=== PATIENT | male | born 1950 | race Caucasian/White ===

== ENCOUNTER 2018-03-12 01:26 | Inpatient (IN) | payer MEDICARE ==
[~2018-03-12] VITALS: Ht 180.3 cm; Wt 97.5 kg
[~2018-03-12 01:26] MED LIST: IBUP-2343 PO
[2018-03-12 01:51] LABS: AMPHET/METH SCREEN,URINE NEGATIVE (NEGATIVE); BARBITURATE SCREEN, URINE NEGATIVE (NEGATIVE); BENZODIAZEPINES SCREEN,URINE NEGATIVE (NEGATIVE); CANNABINOID SCREEN,URINE NEGATIVE (NEGATIVE); COCAINE SCREEN,URINE NEGATIVE (NEGATIVE); METHADONE SCREEN, URINE NEGATIVE (NEGATIVE); OPIATE SCREEN,URINE POSITIVE (NEGATIVE)
[2018-03-12 01:52] LABS: PHENCYCLIDINE SCREEN,URINE NEGATIVE (NEGATIVE)
[2018-03-12 01:59] LABS: BASOPHILS % (AUTO) 0.6 % (0.0-2.0); EOSINOPHILS % (AUTO) 1.2 % (1.0-6.0); HEMATOCRIT 40.8 % (41-53); HEMOGLOBIN 14.2 g/dL (13.5-17.5); LYMPHOCYTES # (AUTO) 1.1 K/uL (1.0-4.8); LYMPHOCYTES % (AUTO) 30.5 % (22.0-44.0); MEAN CORPUSCULAR HGB CONC 34.9 G/dL (31.0-37.0); MEAN CORPUSCULAR VOLUME 92 fL (80-100); MONOCYTES # (AUTO) 0.4 K/uL (0.1-1.0); MONOCYTES % (AUTO) 9.7 % (2.0-9.0); NEUTROPHILS # (AUTO) 2.2 K/uL (1.8-7.7); PLATELET COUNT (AUTO) 165 K/uL (150-450); RED BLOOD CELL COUNT(AUTO) 4.45 MIL/uL (4.50-5.90); RED CELL DISTRIBUTION WIDTH 14.8 % (11.5-14.5)
[2018-03-12] MEDS ORDERED: DiphenhydrAMINE HCL 25 MG CAPSULE PO ONE (02:00)
[2018-03-12] MEDS ORDERED: QUEtiapine FUMARATE 100 MG TABLET PO ONE (02:00)
[2018-03-12] MEDS ORDERED: LORazepam 2 MG TABLET PO ONE (02:00)
[2018-03-12 02:07] LABS: ANION GAP 6 mmol/L (8-16); CALCIUM, TOTAL 8.7 mg/dL (8.8-10.5); CARBON DIOXIDE 31 mmol/L (22-29); CHLORIDE 102 mmol/L (98-107); CREATININE 0.87 mg/dL (0.60-1.30); GLOMERULAR FILTR. RATE CALC > 60 mL/min (>60); GLUCOSE,RANDOM 101 mg/dL (70-110); POTASSIUM 4.1 mmol/L (3.5-5.1); SODIUM SERUM 139 mmol/L (136-145); UREA NITROGEN, BLOOD 20 mg/dL (7-18)
[2018-03-12 02:12] LABS: ALANINE AMINOTRANSFERASE 77 U/L (12-78); ALBUMIN 3.9 g/dL (3.4-5.0); ALKALINE PHOSPHATASE 80 U/L (46-116); ASPARTATE AMINOTRANSFERASE 50 U/L (15-37); BILIRUBIN,TOTAL 0.7 mg/dL (0.1-1.0); TOTAL PROTEIN, SERUM 7.4 g/dL (6.4-8.2)
[2018-03-12] MEDS ORDERED: ZOLPIDEM TARTRATE 10 MG TABLET PO PRN (02:15)
[2018-03-12] MEDS ORDERED: KETOROLAC TROMETHAMINE 30 MG/ML VIAL IM ONE (02:15)
[2018-03-12 03:31] LABS: APPEARANCE,URINE CLEAR (CLEAR); BILIRUBIN,URINE NEGATIVE (NEGATIVE); GLUCOSE, URINE (UA) NEGATIVE (NEGATIVE); KETONES,URINE NEGATIVE (NEGATIVE); LEUKOCYTE ESTERASE ,URINE NEGATIVE (NEGATIVE); NITRATE,URINE NEGATIVE (NEGATIVE); OCCULT BLOOD,URINE NEGATIVE (NEGATIVE); PROTEIN,URINE NEGATIVE (NEGATIVE)
[2018-03-12 03:35] VITALS: BP 120/81
[2018-03-12] MEDS ORDERED: PNEUMOCOCCAL VACCINE POLYVALENT 0.5 ML VIAL [PPSV23] IM ONE (05:00)
[2018-03-12] MEDS ORDERED: ACETAMINOPHEN 325 MG TABLET PO PRN (06:45)
[2018-03-12] MEDS ORDERED: MAG HYDROX/AL HYDROX/SIMETH ES 30 ML SUSPENSION UDCUP PO PRN (06:45)
[2018-03-12] MEDS ORDERED: ALBUTEROL SULFATE HFA 90 MCG/PUFF 8 GM INHALER IH PRN (06:45)
[2018-03-12] MEDS ORDERED: PETROLATUM,WHITE 71 GM JELLY TP PRN (06:45)
[2018-03-12] MEDS ORDERED: OMEPRAZOLE 20 MG CAPSULE PO PRN (06:45)
[2018-03-12] MEDS ORDERED: LOPERAMIDE HCL 2 MG CAPSULE PO PRN (06:45)
[2018-03-12] MEDS ORDERED: DOCUSATE SODIUM 100 MG CAPSULE PO PRN (06:45)
[2018-03-12] MEDS ORDERED: CloNIDine HCL 0.1 MG TABLET PO PRN (06:45)
[2018-03-12] MEDS ORDERED: BACITRACIN 28.4 GM OINTMENT TP PRN (06:45)
[2018-03-12] MEDS ORDERED: MAGNESIUM HYDROXIDE SUSPENSION 30 ML UDCUP PO PRN (06:45)
[2018-03-12] MEDS ORDERED: BENZOCAINE/MENTHOL LOZENGE MM PRN (06:45)
[2018-03-12] MEDS ORDERED: ONDANSETRON HCL 4 MG TABLET PO PRN (06:45)
[2018-03-12 08:04] VITALS: BP 121/70
[2018-03-12 09:15] LABS: CHOL/HDL RATIO 4.6 (4.2-7.3); FREE T4 (FREE THYROXINE) 0.77 ng/dL (0.76-1.46); THYROID STIMULATING HORMONE 4.29 uIU/mL (0.36-3.74)
[2018-03-12 16:00] VITALS: BP 122/62
[2018-03-12] MEDS ORDERED: BENZOCAINE 10% 7 GM GEL TP PRN (17:30)
[2018-03-12 20:05] VITALS: BP 140/78
[2018-03-12] MEDS: LORazepam 2 MG TABLET PO PRN (20:10)
[2018-03-12] MEDS: TraMADol HCL 50 MG TABLET PO PRN (20:10)
[2018-03-12] MEDS: CHLORHEXIDINE GLUCONATE 0.12% 15 ML UDCUP ORAL RINSE PO SCH (20:58)
[2018-03-13 02:00] VITALS: BP 140/84
[2018-03-13] MEDS: TraMADol HCL 50 MG TABLET PO PRN ×3 (02:05→21:04)
[2018-03-13] MEDS: LORazepam 2 MG TABLET PO PRN (02:15)
[2018-03-13 08:07] VITALS: BP 125/83
[2018-03-13] MEDS: AMOXICILLIN TRIHYDRATE 250 MG CAPSULE PO SCH (08:12)
[2018-03-13] MEDS: CHLORHEXIDINE GLUCONATE 0.12% 15 ML UDCUP ORAL RINSE PO SCH ×4 (08:12→20:30)
[2018-03-13 14:53] VITALS: BP 123/76
[2018-03-13 16:14] VITALS: BP 129/80
[2018-03-13] MEDS: QUEtiapine FUMARATE 200 MG TABLET PO SCH (20:30)
[2018-03-13] MEDS: TraZODone HCL 50 MG TABLET PO SCH (20:30)
[2018-03-13 21:01] VITALS: BP 117/67
[2018-03-14 06:52] VITALS: BP 111/62
[2018-03-14] MEDS: QUEtiapine FUMARATE 100 MG TABLET PO SCH (08:14)
[2018-03-14] MEDS: AMOXICILLIN TRIHYDRATE 250 MG CAPSULE PO SCH (08:14)
[2018-03-14] MEDS: FLUoxetine HCL 20 MG CAPSULE PO SCH (08:14)
[2018-03-14] MEDS: CHLORHEXIDINE GLUCONATE 0.12% 15 ML UDCUP ORAL RINSE PO SCH ×4 (08:15→20:07)
[2018-03-14 08:18] VITALS: BP 115/79
[2018-03-14] MEDS ORDERED: TRAZ-219 PO (13:02)
[2018-03-14] MEDS ORDERED: QUET200T PO (13:02)
[2018-03-14] MEDS ORDERED: FLUO-191 PO (13:03)
[2018-03-14] MEDS ORDERED: QUET100T PO (13:03)
[2018-03-14 16:21] VITALS: BP 156/96
[2018-03-14] MEDS: HALOPERIDOL 5 MG TABLET PO PRN (16:27)
[2018-03-14] MEDS: TraZODone HCL 50 MG TABLET PO SCH (20:07)
[2018-03-14] MEDS: QUEtiapine FUMARATE 200 MG TABLET PO SCH (20:07)
[2018-03-14 20:09] VITALS: BP 128/82
[2018-03-14] MEDS: IBUPROFEN 600 MG TABLET PO PRN (20:09)
[2018-03-15 06:01] VITALS: BP 132/80
[2018-03-15 06:02] VITALS: BP 126/80
[2018-03-15] MEDS: IBUPROFEN 600 MG TABLET PO PRN ×2 (06:24→14:09)
[2018-03-15 08:20] VITALS: BP 116/69
[2018-03-15] MEDS: FLUoxetine HCL 20 MG CAPSULE PO SCH (08:25)
[2018-03-15] MEDS: CHLORHEXIDINE GLUCONATE 0.12% 15 ML UDCUP ORAL RINSE PO SCH ×4 (08:25→20:32)
[2018-03-15] MEDS: AMOXICILLIN TRIHYDRATE 250 MG CAPSULE PO SCH (08:25)
[2018-03-15] MEDS: QUEtiapine FUMARATE 100 MG TABLET PO SCH (08:25)
[2018-03-15 14:09] VITALS: BP 124/72
[2018-03-15] MEDS: HALOPERIDOL 5 MG TABLET PO PRN (14:40)
[2018-03-15 16:51] VITALS: BP 128/75
[2018-03-15] MEDS: TraZODone HCL 50 MG TABLET PO SCH (20:32)
[2018-03-15] MEDS: QUEtiapine FUMARATE 200 MG TABLET PO SCH (20:32)
[2018-03-16 05:11] VITALS: BP 132/79
[2018-03-16] MEDS: IBUPROFEN 600 MG TABLET PO PRN ×2 (06:27→13:49)
[2018-03-16 08:06] VITALS: BP 117/63
[2018-03-16] MEDS: QUEtiapine FUMARATE 100 MG TABLET PO SCH (08:28)
[2018-03-16] MEDS: AMOXICILLIN TRIHYDRATE 250 MG CAPSULE PO SCH (08:28)
[2018-03-16] MEDS: CHLORHEXIDINE GLUCONATE 0.12% 15 ML UDCUP ORAL RINSE PO SCH ×4 (08:28→20:32)
[2018-03-16] MEDS: FLUoxetine HCL 20 MG CAPSULE PO SCH (08:28)
[2018-03-16 13:49] VITALS: BP 124/84
[2018-03-16 16:04] VITALS: BP 129/77
[2018-03-16] MEDS: TraZODone HCL 50 MG TABLET PO SCH (20:32)
[2018-03-16] MEDS: QUEtiapine FUMARATE 200 MG TABLET PO SCH (20:32)
[2018-03-17 04:26] VITALS: BP 121/68
[2018-03-17] MEDS: HALOPERIDOL 5 MG TABLET PO PRN (04:27)
[2018-03-17] MEDS: IBUPROFEN 600 MG TABLET PO PRN ×2 (04:27→15:59)
[2018-03-17 08:09] VITALS: BP 131/74
[2018-03-17] MEDS: QUEtiapine FUMARATE 100 MG TABLET PO SCH (08:21)
[2018-03-17] MEDS: FLUoxetine HCL 20 MG CAPSULE PO SCH (08:21)
[2018-03-17] MEDS: CHLORHEXIDINE GLUCONATE 0.12% 15 ML UDCUP ORAL RINSE PO SCH ×4 (08:22→20:34)
[2018-03-17 16:00] VITALS: BP_SYST 131; BP_SYST 144; BP_DIAS 67; BP_DIAS 83
[2018-03-17] MEDS: QUEtiapine FUMARATE 300 MG TABLET PO SCH (20:34)
[2018-03-17] MEDS: TraZODone HCL 50 MG TABLET PO SCH (20:34)
[2018-03-18 03:48] VITALS: BP 126/80
[2018-03-18] MEDS: IBUPROFEN 600 MG TABLET PO PRN ×3 (04:17→21:13)
[2018-03-18 08:05] VITALS: BP 140/79
[2018-03-18] MEDS: FLUoxetine HCL 20 MG CAPSULE PO SCH (08:14)
[2018-03-18] MEDS: QUEtiapine FUMARATE 100 MG TABLET PO SCH (08:14)
[2018-03-18] MEDS: CHLORHEXIDINE GLUCONATE 0.12% 15 ML UDCUP ORAL RINSE PO SCH ×4 (08:15→20:27)
[2018-03-18 16:10] VITALS: BP 156/85
[2018-03-18] MEDS: QUEtiapine FUMARATE 300 MG TABLET PO SCH (20:27)
[2018-03-18] MEDS: TraZODone HCL 50 MG TABLET PO SCH (20:27)
[2018-03-18 21:14] VITALS: BP 124/76
[2018-03-18] MEDS ORDERED: LISINOPRIL 10 MG TABLET PO ONE (21:15)
[2018-03-19 05:07] VITALS: BP 121/68
[2018-03-19 08:12] VITALS: BP 112/52
[2018-03-19 08:27] VITALS: BP 128/69
[2018-03-19] MEDS: FLUoxetine HCL 20 MG CAPSULE PO SCH (08:27)
[2018-03-19] MEDS: LISINOPRIL 10 MG TABLET PO SCH (08:27)
[2018-03-19] MEDS: QUEtiapine FUMARATE 100 MG TABLET PO SCH (08:27)
[2018-03-19] MEDS: CHLORHEXIDINE GLUCONATE 0.12% 15 ML UDCUP ORAL RINSE PO SCH ×4 (08:28→20:32)
[2018-03-19 12:09] VITALS: BP 122/72
[2018-03-19] MEDS: IBUPROFEN 600 MG TABLET PO PRN (12:09)
[2018-03-19 16:08] VITALS: BP 124/74
[2018-03-19] MEDS: QUEtiapine FUMARATE 300 MG TABLET PO SCH (20:33)
[2018-03-19] MEDS: TraZODone HCL 50 MG TABLET PO SCH (20:33)
[2018-03-20 04:50] VITALS: BP 136/77
[2018-03-20] MEDS: IBUPROFEN 600 MG TABLET PO PRN (04:55)
[2018-03-20 08:25] VITALS: BP 106/69
[2018-03-20 09:10] VITALS: BP 136/84
[2018-03-20] MEDS: FLUoxetine HCL 20 MG CAPSULE PO SCH (09:13)
[2018-03-20] MEDS: QUEtiapine FUMARATE 100 MG TABLET PO SCH (09:13)
[2018-03-20] MEDS: LISINOPRIL 10 MG TABLET PO SCH (09:13)
[2018-03-20] MEDS: CHLORHEXIDINE GLUCONATE 0.12% 15 ML UDCUP ORAL RINSE PO SCH ×4 (09:14→20:36)
[2018-03-20 16:00] VITALS: BP 118/75
[2018-03-20] MEDS: TraZODone HCL 50 MG TABLET PO SCH (20:36)
[2018-03-20] MEDS: QUEtiapine FUMARATE 300 MG TABLET PO SCH (20:36)
[2018-03-21 00:25] VITALS: BP 124/79
[2018-03-21 05:58] VITALS: BP 111/71
[2018-03-21] MEDS: IBUPROFEN 600 MG TABLET PO PRN (06:00)
[2018-03-21 08:08] LABS: HEMATOCRIT 41.4 % (41-53); HEMOGLOBIN 14.4 g/dL (13.5-17.5); MEAN CORPUSCULAR HEMOGLOBIN 31.5 pg (26.0-34.0); MEAN CORPUSCULAR HGB CONC 34.9 G/dL (31.0-37.0); MEAN CORPUSCULAR VOLUME 90 fL (80-100); PLATELET COUNT (AUTO) 131 K/uL (150-450); RED BLOOD CELL COUNT(AUTO) 4.58 MIL/uL (4.50-5.90); RED CELL DISTRIBUTION WIDTH 14.4 % (11.5-14.5)
[2018-03-21 08:20] VITALS: BP 132/81
[2018-03-21 08:43] LABS: ANION GAP 7 mmol/L (8-16); CALCIUM, TOTAL 8.1 mg/dL (8.8-10.5); CARBON DIOXIDE 29 mmol/L (22-29); CHLORIDE 102 mmol/L (98-107); CREATININE 0.85 mg/dL (0.60-1.30); GLOMERULAR FILTR. RATE CALC > 60 mL/min (>60); GLUCOSE,RANDOM 97 mg/dL (70-110); SODIUM SERUM 138 mmol/L (136-145); UREA NITROGEN, BLOOD 12 mg/dL (7-18)
[2018-03-21 09:33] LABS: BAND NEUTROPHILS % (MANUAL) 2 % (0-5); LYMPHOCYTES % (MANUAL) 31 % (22-44); MONOCYTES % (MANUAL) 8 % (2-9); SEGMENTED NEUTROPHILS % 59 % (40-70)
[2018-03-21] MEDS: QUEtiapine FUMARATE 100 MG TABLET PO SCH (09:43)
[2018-03-21] MEDS: FLUoxetine HCL 20 MG CAPSULE PO SCH (09:43)
[2018-03-21] MEDS: LISINOPRIL 10 MG TABLET PO SCH (09:44)
[2018-03-21] MEDS: CHLORHEXIDINE GLUCONATE 0.12% 15 ML UDCUP ORAL RINSE PO SCH ×4 (09:44→20:43)
[2018-03-21 16:13] VITALS: BP 117/64
[2018-03-21] MEDS: QUEtiapine FUMARATE 200 MG TABLET PO SCH (20:43)
[2018-03-21] MEDS: TraZODone HCL 50 MG TABLET PO SCH (20:43)
[2018-03-22 00:40] VITALS: BP 126/88
[2018-03-22] MEDS: IBUPROFEN 600 MG TABLET PO PRN (06:41)
[2018-03-22] MEDS: LISINOPRIL 10 MG TABLET PO SCH (08:38)
[2018-03-22] MEDS: FLUoxetine HCL 20 MG CAPSULE PO SCH (08:38)
[2018-03-22] MEDS: QUEtiapine FUMARATE 100 MG TABLET PO SCH (08:38)
[2018-03-22] MEDS: CHLORHEXIDINE GLUCONATE 0.12% 15 ML UDCUP ORAL RINSE PO SCH ×4 (08:39→20:12)
[2018-03-22 09:09] VITALS: BP 126/70
[2018-03-22 16:13] VITALS: BP 119/67
[2018-03-22] MEDS: TraZODone HCL 50 MG TABLET PO SCH (20:12)
[2018-03-22] MEDS: QUEtiapine FUMARATE 200 MG TABLET PO SCH (20:12)
[2018-03-23 05:17] VITALS: BP 121/70
[2018-03-23] MEDS: LISINOPRIL 10 MG TABLET PO SCH (08:23)
[2018-03-23] MEDS: FLUoxetine HCL 20 MG CAPSULE PO SCH (08:23)
[2018-03-23] MEDS: QUEtiapine FUMARATE 100 MG TABLET PO SCH (08:23)
[2018-03-23] MEDS: CHLORHEXIDINE GLUCONATE 0.12% 15 ML UDCUP ORAL RINSE PO SCH (08:24)
[2018-03-23 08:31] VITALS: BP 140/84
[2018-03-23] MEDS ORDERED: QUET50TA PO (09:28)
[2018-03-23] MEDS ORDERED: FLUO20CA30 PO (09:32)
[2018-03-23] MEDS ORDERED: TRAZ-219 PO (09:33)
[2018-03-23] MEDS ORDERED: QUET200T PO (09:33)
[2018-03-23] MEDS ORDERED: LISI-661 PO (09:34)
== END 2018-03-23 09:50 | disposition home or self-care (01) | DRG 885 ==
LOC: EMS 01:27 → B2X 02:30
PROVIDERS: ADMIT Psychiatry & Neurology Psychiatry; ATTEND Psychiatry & Neurology Psychiatry
DX: F25.1 Schizoaffective disorder, depressive type (principal); R45.851 Suicidal ideations; D64.9 Anemia, unspecified; F32.9 Major depressive disorder, single episode, unspecified; I10 Essential (primary) hypertension; K02.9 Dental caries, unspecified; K74.60 Unspecified cirrhosis of liver; Z76.5 Malingerer [conscious simulation]; Z87.820 Personal history of traumatic brain injury; K08.89 Other specified disorders of teeth and supporting structures; Z28.21 Immunization not carried out because of patient refusal; Z88.6 Allergy status to analgesic agent
CPT/HCPCS: 84439; 84443; 85007; 90686; 90732; 96372; G0480; J1885

== ENCOUNTER 2018-04-06 03:19 | Inpatient (IN) | payer MEDICARE ==
[~2018-04-06] VITALS: Ht 180.3 cm; Wt 101.1 kg
[~2018-04-06 03:19] MED LIST changes: +FLUO-191 PO; -IBUP-2343 PO; +LISI-661 PO; +QUET200T PO; +QUET50TA PO; +TRAZ-219 PO
[2018-04-06 05:03] LABS: AMPHET/METH SCREEN,URINE POSITIVE (NEGATIVE); BARBITURATE SCREEN, URINE NEGATIVE (NEGATIVE); BENZODIAZEPINES SCREEN,URINE NEGATIVE (NEGATIVE); CANNABINOID SCREEN,URINE NEGATIVE (NEGATIVE); COCAINE SCREEN,URINE NEGATIVE (NEGATIVE); METHADONE SCREEN, URINE NEGATIVE (NEGATIVE); OPIATE SCREEN,URINE POSITIVE (NEGATIVE)
[2018-04-06 05:04] LABS: BASOPHILS % (AUTO) 0.3 % (0.0-2.0); EOSINOPHILS % (AUTO) 0.2 % (1.0-6.0); HEMATOCRIT 41.2 % (41-53); HEMOGLOBIN 14.5 g/dL (13.5-17.5); LYMPHOCYTES # (AUTO) 1.2 K/uL (1.0-4.8); LYMPHOCYTES % (AUTO) 20.3 % (22.0-44.0); MEAN CORPUSCULAR HEMOGLOBIN 31.9 pg (26.0-34.0); MEAN CORPUSCULAR HGB CONC 35.2 G/dL (31.0-37.0); MEAN CORPUSCULAR VOLUME 91 fL (80-100); MONOCYTES # (AUTO) 0.5 K/uL (0.1-1.0); MONOCYTES % (AUTO) 7.6 % (2.0-9.0); NEUTROPHILS # (AUTO) 4.4 K/uL (1.8-7.7); NEUTROPHILS % (AUTO) 71.6 % (40.0-70.0); PLATELET COUNT (AUTO) 166 K/uL (150-450); RED BLOOD CELL COUNT(AUTO) 4.55 MIL/uL (4.50-5.90)
[2018-04-06 05:05] LABS: PHENCYCLIDINE SCREEN,URINE NEGATIVE (NEGATIVE)
[2018-04-06 05:07] LABS: ANION GAP 9 mmol/L (8-16); CALCIUM, TOTAL 8.9 mg/dL (8.8-10.5); CARBON DIOXIDE 28 mmol/L (22-29); CHLORIDE 103 mmol/L (98-107); GLOMERULAR FILTR. RATE CALC > 60 mL/min (>60); GLUCOSE,RANDOM 112 mg/dL (70-110); POTASSIUM 4.3 mmol/L (3.5-5.1); SODIUM SERUM 140 mmol/L (136-145); UREA NITROGEN, BLOOD 23 mg/dL (7-18)
[2018-04-06 05:12] LABS: ALANINE AMINOTRANSFERASE 74 U/L (12-78); ALBUMIN 4.2 g/dL (3.4-5.0); ALKALINE PHOSPHATASE 86 U/L (46-116); ASPARTATE AMINOTRANSFERASE 55 U/L (15-37); BILIRUBIN,TOTAL 1.2 mg/dL (0.1-1.0); TOTAL PROTEIN, SERUM 7.9 g/dL (6.4-8.2)
[2018-04-06] MEDS ORDERED: LORazepam 2 MG TABLET PO PRN (09:00)
[2018-04-06] MEDS ORDERED: ZOLPIDEM TARTRATE 10 MG TABLET PO PRN (09:00)
[2018-04-06] MEDS ORDERED: HALOPERIDOL 5 MG TABLET PO PRN (09:00)
[2018-04-06 09:45] VITALS: BP 142/86
[2018-04-06] MEDS ORDERED: LOPERAMIDE HCL 2 MG CAPSULE PO PRN (11:30)
[2018-04-06] MEDS ORDERED: ACETAMINOPHEN 325 MG TABLET PO PRN (11:30)
[2018-04-06] MEDS ORDERED: IBUPROFEN 600 MG TABLET PO PRN (11:30)
[2018-04-06] MEDS ORDERED: MAG HYDROX/AL HYDROX/SIMETH ES 30 ML SUSPENSION UDCUP PO PRN (11:30)
[2018-04-06] MEDS ORDERED: MAGNESIUM HYDROXIDE SUSPENSION 30 ML UDCUP PO PRN (11:30)
[2018-04-06] MEDS ORDERED: CloNIDine HCL 0.1 MG TABLET PO PRN (11:30)
[2018-04-06] MEDS ORDERED: BENZOCAINE/MENTHOL LOZENGE MM PRN (11:30)
[2018-04-06] MEDS ORDERED: BACITRACIN 28.4 GM OINTMENT TP PRN (11:30)
[2018-04-06] MEDS ORDERED: PETROLATUM,WHITE 71 GM JELLY TP PRN (11:30)
[2018-04-06] MEDS ORDERED: ONDANSETRON HCL 4 MG TABLET PO PRN (11:30)
[2018-04-06] MEDS ORDERED: ALBUTEROL SULFATE HFA 90 MCG/PUFF 8 GM INHALER IH PRN (11:30)
[2018-04-06 11:45] VITALS: BP 119/80
[2018-04-06] MEDS: LISINOPRIL 10 MG TABLET PO SCH (12:07)
[2018-04-06 17:10] VITALS: BP 118/65
[2018-04-07 00:08] VITALS: BP 144/87
[2018-04-07] MEDS: LISINOPRIL 10 MG TABLET PO SCH (08:35)
[2018-04-07] MEDS ORDERED: OMEPRAZOLE 20 MG CAPSULE PO SCH (09:00)
[2018-04-07] MEDS ORDERED: DOCUSATE SODIUM 100 MG CAPSULE PO SCH (09:00)
[2018-04-07] MEDS ORDERED: DSS100 PO (11:02)
[2018-04-07] MEDS ORDERED: OMEP20 PO (11:02)
== END 2018-04-07 13:00 | disposition home or self-care (01) | DRG 885 ==
LOC: EMS 03:20 → AHU 09:43 → 3EX 16:20
PROVIDERS: ADMIT Psychiatry & Neurology Psychiatry; ATTEND Psychiatry & Neurology Psychiatry
DX: F25.9 Schizoaffective disorder, unspecified (principal); R45.851 Suicidal ideations; F32.9 Major depressive disorder, single episode, unspecified; D64.9 Anemia, unspecified; I10 Essential (primary) hypertension; K74.60 Unspecified cirrhosis of liver; M19.90 Unspecified osteoarthritis, unspecified site; Z76.5 Malingerer [conscious simulation]; Z87.820 Personal history of traumatic brain injury; Z79.899 Other long term (current) drug therapy
CPT/HCPCS: 87081; G0378; G0480

== ENCOUNTER 2018-05-08 13:37 | Inpatient (IN) | payer MEDICARE ==
[~2018-05-08] VITALS: Ht 180.3 cm; Wt 100.0 kg
[~2018-05-08 13:37] MED LIST changes: +DSS100 PO; -FLUO-191 PO; +OMEP20 PO; -QUET200T PO; -QUET50TA PO; -TRAZ-219 PO
[2018-05-08 15:41] LABS: BASOPHILS % (AUTO) 0.4 % (0.0-2.0); EOSINOPHILS % (AUTO) 0.9 % (1.0-6.0); HEMOGLOBIN 13.1 g/dL (13.5-17.5); LYMPHOCYTES # (AUTO) 1.1 K/uL (1.0-4.8); LYMPHOCYTES % (AUTO) 23.5 % (22.0-44.0); MEAN CORPUSCULAR HEMOGLOBIN 31.5 pg (26.0-34.0); MEAN CORPUSCULAR HGB CONC 34.5 G/dL (31.0-37.0); MEAN CORPUSCULAR VOLUME 91 fL (80-100); MONOCYTES # (AUTO) 0.4 K/uL (0.1-1.0); MONOCYTES % (AUTO) 8.5 % (2.0-9.0); NEUTROPHILS # (AUTO) 3.1 K/uL (1.8-7.7); NEUTROPHILS % (AUTO) 66.7 % (40.0-70.0); PLATELET COUNT (AUTO) 194 K/uL (150-450); RED BLOOD CELL COUNT(AUTO) 4.16 MIL/uL (4.50-5.90); RED CELL DISTRIBUTION WIDTH 14.4 % (11.5-14.5)
[2018-05-08 15:53] LABS: ANION GAP 8 mmol/L (8-16); CALCIUM, TOTAL 8.8 mg/dL (8.8-10.5); CARBON DIOXIDE 28 mmol/L (22-29); CHLORIDE 106 mmol/L (98-107); CREATININE 0.83 mg/dL (0.60-1.30); GLOMERULAR FILTR. RATE CALC > 60 mL/min (>60); GLUCOSE,RANDOM 107 mg/dL (70-110); POTASSIUM 3.8 mmol/L (3.5-5.1); SODIUM SERUM 142 mmol/L (136-145); UREA NITROGEN, BLOOD 23 mg/dL (7-18)
[2018-05-08 15:59] LABS: ALANINE AMINOTRANSFERASE 97 U/L (12-78); ALBUMIN 3.7 g/dL (3.4-5.0); ALKALINE PHOSPHATASE 76 U/L (46-116); ASPARTATE AMINOTRANSFERASE 90 U/L (15-37); BILIRUBIN,TOTAL 0.5 mg/dL (0.1-1.0); TOTAL PROTEIN, SERUM 7.4 g/dL (6.4-8.2)
[2018-05-08] MEDS ORDERED: ACETAMINOPHEN/CODEINE 300-30 MG TABLET PO ONE (16:45)
[2018-05-08] MEDS ORDERED: ACETAMINOPHEN 325 MG TABLET PO PRN (23:15)
[2018-05-08] MEDS ORDERED: 0.9% SODIUM CHLORIDE 10 ML SYRINGE IVP PRN (23:15)
[2018-05-08] MEDS ORDERED: ONDANSETRON HCL 4 MG/2 ML VIAL IVP PRN (23:15)
[2018-05-08] MEDS ORDERED: HALOPERIDOL 5 MG TABLET PO PRN (23:15)
[2018-05-08] MEDS ORDERED: ZOLPIDEM TARTRATE 10 MG TABLET PO PRN (23:15)
[2018-05-08] MEDS ORDERED: LORazepam 2 MG TABLET PO PRN (23:15)
[2018-05-09 01:42] VITALS: BP 131/79
[2018-05-09] MEDS ORDERED: IBUPROFEN 800 MG TABLET PO PRN (08:00)
[2018-05-09 08:08] VITALS: BP 133/62
[2018-05-09 08:29] LABS: CHOL/HDL RATIO 5.3 (4.2-7.3)
[2018-05-09] MEDS ORDERED: BENZOCAINE/MENTHOL LOZENGE MM PRN (09:30)
[2018-05-09] MEDS ORDERED: ONDANSETRON HCL 4 MG TABLET PO PRN (09:30)
[2018-05-09] MEDS ORDERED: MAG HYDROX/AL HYDROX/SIMETH ES 30 ML SUSPENSION UDCUP PO PRN (09:30)
[2018-05-09] MEDS ORDERED: BACITRACIN 28.4 GM OINTMENT TP PRN (09:30)
[2018-05-09] MEDS ORDERED: PETROLATUM,WHITE 71 GM JELLY TP PRN (09:30)
[2018-05-09] MEDS ORDERED: ACETAMINOPHEN 325 MG TABLET PO PRN (09:30)
[2018-05-09] MEDS ORDERED: BENZOCAINE 10% 7 GM GEL TP PRN (09:30)
[2018-05-09] MEDS ORDERED: MAGNESIUM HYDROXIDE SUSPENSION 30 ML UDCUP PO PRN (09:30)
[2018-05-09] MEDS ORDERED: CloNIDine HCL 0.1 MG TABLET PO PRN (09:30)
[2018-05-09] MEDS ORDERED: LOPERAMIDE HCL 2 MG CAPSULE PO PRN (09:30)
[2018-05-09] MEDS ORDERED: ALBUTEROL SULFATE HFA 90 MCG/PUFF 8 GM INHALER IH PRN (09:30)
[2018-05-09] MEDS ORDERED: LEVO25TA9 PO (14:24)
[2018-05-09 16:22] VITALS: BP 122/68
[2018-05-10 06:05] VITALS: BP 125/75
[2018-05-10] MEDS ORDERED: LEVOTHYROXINE SODIUM 25 MCG TABLET PO SCH (06:30)
[2018-05-10 08:00] VITALS: BP 141/85
[2018-05-10] MEDS ORDERED: LISINOPRIL 10 MG TABLET PO SCH (09:00)
[2018-05-11] MEDS ORDERED: RISP.5 PO (13:17)
[2018-05-11] MEDS ORDERED: QUET25TA PO (13:17)
[2018-05-11] MEDS ORDERED: TRAZ-219 PO (13:17)
== END 2018-05-10 11:30 | disposition home or self-care (01) | DRG 885 ==
LOC: EMS 13:39 → B3A 23:00
PROVIDERS: ADMIT Psychiatry & Neurology Psychiatry; ATTEND Psychiatry & Neurology Psychiatry
DX: F25.9 Schizoaffective disorder, unspecified (principal); B19.20 Unspecified viral hepatitis C without hepatic coma; R45.851 Suicidal ideations; E03.9 Hypothyroidism, unspecified; F15.10 Other stimulant abuse, uncomplicated; F32.9 Major depressive disorder, single episode, unspecified; F41.9 Anxiety disorder, unspecified; G47.00 Insomnia, unspecified; G89.29 Other chronic pain; I10 Essential (primary) hypertension; K21.9 Gastro-esophageal reflux disease without esophagitis; K59.00 Constipation, unspecified; K74.60 Unspecified cirrhosis of liver; M17.10 Unilateral primary osteoarthritis, unspecified knee; G43.909 Migraine, unspecified, not intractable, without status migrainosus; M19.90 Unspecified osteoarthritis, unspecified site; M25.561 Pain in right knee; M25.562 Pain in left knee; Z59.0 Homelessness; Z87.820 Personal history of traumatic brain injury; Z79.899 Other long term (current) drug therapy; Z79.890 Hormone replacement therapy
CPT/HCPCS: 84443; G0480

== ENCOUNTER 2018-05-11 12:16 | Emergency (ER) | payer MEDICARE ==
[~2018-05-11] VITALS: Ht 180.3 cm; Wt 95.5 kg
[~2018-05-11 12:16] MED LIST changes: -DSS100 PO; +LEVO25TA9 PO; -OMEP20 PO
[2018-05-11] MEDS ORDERED: RISP.5 PO (13:17)
[2018-05-11] MEDS ORDERED: QUET25TA PO (13:17)
[2018-05-11] MEDS ORDERED: TRAZ-219 PO (13:17)
[2018-05-11] MEDS ORDERED: ACETAMINOPHEN 325 MG TABLET PO ONE (15:30)
[2018-05-11 16:15] VITALS: BP 137/72
[2018-05-11] MEDS ORDERED: CODEINE SULFATE 30 MG TABLET PO ONE (16:45)
== END 2018-05-11 17:45 | disposition home or self-care (01) ==
LOC: EMS 12:16
DX: S80.211A Abrasion, right knee, initial encounter (principal); R51 Headache; M25.531 Pain in right wrist; G43.909 Migraine, unspecified, not intractable, without status migrainosus; F20.9 Schizophrenia, unspecified; F32.9 Major depressive disorder, single episode, unspecified; M19.90 Unspecified osteoarthritis, unspecified site; Z79.899 Other long term (current) drug therapy; Y04.2XXA Assault by strike against or bumped into by another person, initial encounter; Y93.89 Activity, other specified; Y92.89 Other specified places as the place of occurrence of the external cause; Y99.8 Other external cause status
CPT/HCPCS: 70450

== ENCOUNTER 2018-05-12 16:08 | Inpatient (IN) | payer MEDICARE ==
[~2018-05-12] VITALS: Ht 180.3 cm; Wt 108.4 kg
[~2018-05-12 16:08] MED LIST changes: +QUET25TA PO; +RISP.5 PO; +TRAZ-219 PO
[2018-05-12 17:08] LABS: ANION GAP 10 mmol/L (8-16); CALCIUM, TOTAL 8.7 mg/dL (8.8-10.5); CARBON DIOXIDE 28 mmol/L (22-29); CHLORIDE 100 mmol/L (98-107); CREATININE 0.86 mg/dL (0.60-1.30); GLOMERULAR FILTR. RATE CALC > 60 mL/min (>60); GLUCOSE,RANDOM 95 mg/dL (70-110); SODIUM SERUM 138 mmol/L (136-145); UREA NITROGEN, BLOOD 23 mg/dL (7-18)
[2018-05-12 17:10] LABS: BASOPHILS % (AUTO) 0.3 % (0.0-2.0); EOSINOPHILS % (AUTO) 1.5 % (1.0-6.0); HEMOGLOBIN 13.4 g/dL (13.5-17.5); LYMPHOCYTES # (AUTO) 1.7 K/uL (1.0-4.8); LYMPHOCYTES % (AUTO) 28.9 % (22.0-44.0); MEAN CORPUSCULAR HEMOGLOBIN 31.1 pg (26.0-34.0); MEAN CORPUSCULAR HGB CONC 34.3 G/dL (31.0-37.0); MEAN CORPUSCULAR VOLUME 91 fL (80-100); MONOCYTES # (AUTO) 0.5 K/uL (0.1-1.0); MONOCYTES % (AUTO) 8.4 % (2.0-9.0); NEUTROPHILS # (AUTO) 3.5 K/uL (1.8-7.7); NEUTROPHILS % (AUTO) 60.9 % (40.0-70.0); PLATELET COUNT (AUTO) 234 K/uL (150-450); RED CELL DISTRIBUTION WIDTH 14.5 % (11.5-14.5)
[2018-05-12 17:14] LABS: ALANINE AMINOTRANSFERASE 93 U/L (12-78); ALBUMIN 3.7 g/dL (3.4-5.0); ALKALINE PHOSPHATASE 83 U/L (46-116); ASPARTATE AMINOTRANSFERASE 109 U/L (15-37); BILIRUBIN,TOTAL 0.9 mg/dL (0.1-1.0); TOTAL PROTEIN, SERUM 7.4 g/dL (6.4-8.2)
[2018-05-12 17:36] LABS: THYROID STIMULATING HORMONE 6.68 uIU/mL (0.36-3.74)
[2018-05-12 18:45] LABS: APPEARANCE,URINE CLEAR (CLEAR); BILIRUBIN,URINE NEGATIVE (NEGATIVE); GLUCOSE, URINE (UA) NEGATIVE (NEGATIVE); KETONES,URINE TRACE mg/dL (NEGATIVE); LEUKOCYTE ESTERASE ,URINE NEGATIVE (NEGATIVE); NITRATE,URINE NEGATIVE (NEGATIVE); OCCULT BLOOD,URINE NEGATIVE (NEGATIVE); PH,URINE 5.5 (5.0-8.0); PROTEIN,URINE NEGATIVE (NEGATIVE); UROBILINOGEN,URINE 0.2 mg/dL (<=1.0)
[2018-05-12 18:53] LABS: AMPHET/METH SCREEN,URINE POSITIVE (NEGATIVE); BARBITURATE SCREEN, URINE NEGATIVE (NEGATIVE); BENZODIAZEPINES SCREEN,URINE NEGATIVE (NEGATIVE); CANNABINOID SCREEN,URINE NEGATIVE (NEGATIVE); COCAINE SCREEN,URINE NEGATIVE (NEGATIVE); METHADONE SCREEN, URINE NEGATIVE (NEGATIVE); OPIATE SCREEN,URINE POSITIVE (NEGATIVE)
[2018-05-12 18:54] LABS: PHENCYCLIDINE SCREEN,URINE NEGATIVE (NEGATIVE)
[2018-05-12] MEDS ORDERED: HALOPERIDOL 5 MG TABLET PO PRN (23:15)
[2018-05-12] MEDS ORDERED: ZOLPIDEM TARTRATE 10 MG TABLET PO PRN (23:15)
[2018-05-13 03:15] VITALS: BP 137/75
[2018-05-13] MEDS: LORazepam 2 MG TABLET PO PRN ×2 (03:37→16:56)
[2018-05-13] MEDS ORDERED: PETROLATUM,WHITE 71 GM JELLY TP PRN (06:30)
[2018-05-13] MEDS ORDERED: CloNIDine HCL 0.1 MG TABLET PO PRN (06:30)
[2018-05-13] MEDS ORDERED: ONDANSETRON HCL 4 MG TABLET PO PRN (06:30)
[2018-05-13] MEDS ORDERED: ACETAMINOPHEN 325 MG TABLET PO PRN (06:30)
[2018-05-13] MEDS ORDERED: LOPERAMIDE HCL 2 MG CAPSULE PO PRN (06:30)
[2018-05-13] MEDS ORDERED: DOCUSATE SODIUM 100 MG CAPSULE PO PRN (06:30)
[2018-05-13] MEDS ORDERED: ALBUTEROL SULFATE HFA 90 MCG/PUFF 8 GM INHALER IH PRN (06:30)
[2018-05-13] MEDS ORDERED: NICOTINE 14 MG/24 HOUR PATCH TD PRN (06:30)
[2018-05-13] MEDS ORDERED: MAGNESIUM HYDROXIDE SUSPENSION 30 ML UDCUP PO PRN (06:30)
[2018-05-13] MEDS ORDERED: MAG HYDROX/AL HYDROX/SIMETH ES 30 ML SUSPENSION UDCUP PO PRN (06:30)
[2018-05-13] MEDS ORDERED: GuaiFENesin/D-METHORPHAN [SUGAR-FREE] 200-20MG/10 ML SYRUP UDCUP PO PRN (06:30)
[2018-05-13 06:47] LABS: CHOL/HDL RATIO 4.8 (4.2-7.3)
[2018-05-13] MEDS: LEVOTHYROXINE SODIUM 25 MCG TABLET PO SCH (07:13)
[2018-05-13] MEDS: LISINOPRIL 10 MG TABLET PO SCH (09:20)
[2018-05-13 10:02] VITALS: BP 138/81
[2018-05-13] MEDS: IBUPROFEN 400 MG TABLET PO PRN (16:54)
[2018-05-13 16:58] VITALS: BP 130/69
[2018-05-13] MEDS: QUEtiapine FUMARATE 200 MG TABLET PO SCH (20:57)
[2018-05-13] MEDS: TraZODone HCL 50 MG TABLET PO SCH (20:57)
[2018-05-14 06:18] LABS: BASOPHILS % (AUTO) 0.3 % (0.0-2.0); EOSINOPHILS % (AUTO) 1.6 % (1.0-6.0); HEMATOCRIT 35.9 % (41-53); HEMOGLOBIN 12.1 g/dL (13.5-17.5); LYMPHOCYTES # (AUTO) 1.3 K/uL (1.0-4.8); LYMPHOCYTES % (AUTO) 37.5 % (22.0-44.0); MEAN CORPUSCULAR HEMOGLOBIN 30.8 pg (26.0-34.0); MEAN CORPUSCULAR HGB CONC 33.8 G/dL (31.0-37.0); MEAN CORPUSCULAR VOLUME 91 fL (80-100); MONOCYTES # (AUTO) 0.3 K/uL (0.1-1.0); NEUTROPHILS # (AUTO) 1.8 K/uL (1.8-7.7); NEUTROPHILS % (AUTO) 51.6 % (40.0-70.0); PLATELET COUNT (AUTO) 174 K/uL (150-450); RED BLOOD CELL COUNT(AUTO) 3.95 MIL/uL (4.50-5.90); RED CELL DISTRIBUTION WIDTH 14.7 % (11.5-14.5)
[2018-05-14] MEDS: LEVOTHYROXINE SODIUM 25 MCG TABLET PO SCH (06:46)
[2018-05-14 07:04] LABS: HEMOGLOBIN A1C 5.5 % (4.5-6.2)
[2018-05-14 07:41] LABS: ALANINE AMINOTRANSFERASE 75 U/L (12-78); ALBUMIN 3.1 g/dL (3.4-5.0); ALKALINE PHOSPHATASE 63 U/L (46-116); ANION GAP 8 mmol/L (8-16); ASPARTATE AMINOTRANSFERASE 59 U/L (15-37); BILIRUBIN,TOTAL 0.4 mg/dL (0.1-1.0); CALCIUM, TOTAL 8.1 mg/dL (8.8-10.5); CARBON DIOXIDE 27 mmol/L (22-29); CHLORIDE 106 mmol/L (98-107); CHOL/HDL RATIO 4.8 (4.2-7.3); CHOLESTEROL 143 mg/dL (131-200); CREATININE 0.71 mg/dL (0.60-1.30); GLOMERULAR FILTR. RATE CALC > 60 mL/min (>60); GLUCOSE,RANDOM 105 mg/dL (70-110); HDL CHOLESTEROL 30 mg/dL (40-60); LDL CHOL (CALC.) 96 mg/dL (0-130); POTASSIUM 3.7 mmol/L (3.5-5.1); SODIUM SERUM 141 mmol/L (136-145); THYROID STIMULATING HORMONE 3.44 uIU/mL (0.36-3.74); TOTAL PROTEIN, SERUM 6.1 g/dL (6.4-8.2); TRIGLYCERIDES 85 mg/dL (15-150); UREA NITROGEN, BLOOD 17 mg/dL (7-18)
[2018-05-14 08:00] VITALS: BP 132/76
[2018-05-14] MEDS: LISINOPRIL 10 MG TABLET PO SCH (11:41)
[2018-05-14] MEDS: QUEtiapine FUMARATE 100 MG TABLET PO SCH (11:41)
[2018-05-14] MEDS: FLUoxetine HCL 20 MG CAPSULE PO SCH (11:41)
[2018-05-14 16:00] VITALS: BP 129/72
[2018-05-14] MEDS: FERROUS SULFATE 325 MG EC TABLET PO SCH ×2 (16:15→17:12)
[2018-05-14 17:18] VITALS: BP 132/78
[2018-05-14] MEDS: ACETAMINOPHEN/CODEINE 300-30 MG TABLET PO PRN (17:19)
[2018-05-14] MEDS: TraZODone HCL 50 MG TABLET PO SCH (20:06)
[2018-05-14] MEDS: QUEtiapine FUMARATE 200 MG TABLET PO SCH (20:06)
[2018-05-15 06:55] VITALS: BP 124/76
[2018-05-15] MEDS: LEVOTHYROXINE SODIUM 25 MCG TABLET PO SCH (07:06)
[2018-05-15] MEDS: FERROUS SULFATE 325 MG EC TABLET PO SCH ×3 (07:06→18:16)
[2018-05-15] MEDS: ACETAMINOPHEN/CODEINE 300-30 MG TABLET PO PRN ×2 (07:06→18:27)
[2018-05-15 08:10] VITALS: BP 132/84
[2018-05-15] MEDS: FLUoxetine HCL 20 MG CAPSULE PO SCH (08:38)
[2018-05-15] MEDS: QUEtiapine FUMARATE 100 MG TABLET PO SCH (08:39)
[2018-05-15] MEDS: LISINOPRIL 10 MG TABLET PO SCH (08:40)
[2018-05-15 12:10] VITALS: BP 130/80
[2018-05-15] MEDS: IBUPROFEN 400 MG TABLET PO PRN (12:18)
[2018-05-15 13:15] VITALS: BP 128/80
[2018-05-15 17:03] VITALS: BP 128/61
[2018-05-15] MEDS: MUPIROCIN CALCIUM 2% 22 GM OINTMENT NASAL SCH (18:15)
[2018-05-15] MEDS: QUEtiapine FUMARATE 200 MG TABLET PO SCH (19:57)
[2018-05-15] MEDS: TraZODone HCL 50 MG TABLET PO SCH (19:57)
[2018-05-16] MEDS: FERROUS SULFATE 325 MG EC TABLET PO SCH ×3 (07:08→16:42)
[2018-05-16] MEDS: LEVOTHYROXINE SODIUM 25 MCG TABLET PO SCH (07:08)
[2018-05-16 07:46] VITALS: BP 160/88
[2018-05-16] MEDS: ACETAMINOPHEN/CODEINE 300-30 MG TABLET PO PRN ×2 (07:46→18:06)
[2018-05-16 08:46] VITALS: BP 132/75
[2018-05-16] MEDS: LISINOPRIL 10 MG TABLET PO SCH (09:01)
[2018-05-16] MEDS: FLUoxetine HCL 20 MG CAPSULE PO SCH (09:01)
[2018-05-16] MEDS: QUEtiapine FUMARATE 100 MG TABLET PO SCH (09:01)
[2018-05-16] MEDS: MUPIROCIN CALCIUM 2% 22 GM OINTMENT NASAL SCH ×2 (09:01→16:42)
[2018-05-16 18:16] VITALS: BP 127/66
[2018-05-16] MEDS: TraZODone HCL 50 MG TABLET PO SCH (20:14)
[2018-05-16] MEDS: QUEtiapine FUMARATE 200 MG TABLET PO SCH (20:14)
[2018-05-17] MEDS: FERROUS SULFATE 325 MG EC TABLET PO SCH ×3 (06:58→16:33)
[2018-05-17] MEDS: ACETAMINOPHEN/CODEINE 300-30 MG TABLET PO PRN ×2 (06:58→17:12)
[2018-05-17] MEDS: LEVOTHYROXINE SODIUM 25 MCG TABLET PO SCH (06:59)
[2018-05-17] MEDS: FLUoxetine HCL 20 MG CAPSULE PO SCH (08:49)
[2018-05-17] MEDS: QUEtiapine FUMARATE 100 MG TABLET PO SCH (08:49)
[2018-05-17] MEDS: LISINOPRIL 10 MG TABLET PO SCH (08:50)
[2018-05-17 09:00] VITALS: BP 146/76
[2018-05-17] MEDS: MUPIROCIN CALCIUM 2% 22 GM OINTMENT NASAL SCH ×2 (11:54→16:32)
[2018-05-17 17:12] VITALS: BP 107/69
[2018-05-17] MEDS: QUEtiapine FUMARATE 200 MG TABLET PO SCH (20:26)
[2018-05-17] MEDS: TraZODone HCL 50 MG TABLET PO SCH (20:26)
[2018-05-18 06:35] VITALS: BP 128/79
[2018-05-18] MEDS: ACETAMINOPHEN/CODEINE 300-30 MG TABLET PO PRN ×2 (06:46→16:49)
[2018-05-18] MEDS: FERROUS SULFATE 325 MG EC TABLET PO SCH ×3 (06:46→16:50)
[2018-05-18] MEDS: LEVOTHYROXINE SODIUM 25 MCG TABLET PO SCH (06:46)
[2018-05-18 07:46] VITALS: BP 136/82
[2018-05-18 08:30] VITALS: BP 135/79
[2018-05-18] MEDS: QUEtiapine FUMARATE 100 MG TABLET PO SCH (09:02)
[2018-05-18] MEDS: LISINOPRIL 10 MG TABLET PO SCH (09:03)
[2018-05-18] MEDS: FLUoxetine HCL 20 MG CAPSULE PO SCH (09:03)
[2018-05-18] MEDS: MUPIROCIN CALCIUM 2% 22 GM OINTMENT NASAL SCH ×2 (09:58→16:50)
[2018-05-18 16:50] VITALS: BP 129/71
[2018-05-18] MEDS: QUEtiapine FUMARATE 200 MG TABLET PO SCH (20:24)
[2018-05-18] MEDS: TraZODone HCL 50 MG TABLET PO SCH (20:24)
[2018-05-19 06:44] VITALS: BP 147/80
[2018-05-19] MEDS: FERROUS SULFATE 325 MG EC TABLET PO SCH (06:50)
[2018-05-19] MEDS: LEVOTHYROXINE SODIUM 25 MCG TABLET PO SCH (06:50)
[2018-05-19] MEDS: ACETAMINOPHEN/CODEINE 300-30 MG TABLET PO PRN (06:50)
[2018-05-19] MEDS: QUEtiapine FUMARATE 100 MG TABLET PO SCH (08:00)
[2018-05-19] MEDS: FLUoxetine HCL 20 MG CAPSULE PO SCH (08:01)
[2018-05-19] MEDS: LISINOPRIL 10 MG TABLET PO SCH (08:01)
[2018-05-19] MEDS: MUPIROCIN CALCIUM 2% 22 GM OINTMENT NASAL SCH (08:04)
[2018-05-19] MEDS ORDERED: MUPI1OIN4 NS (09:25)
[2018-05-19] MEDS ORDERED: FERR-89 PO (09:25)
[2018-05-19 09:39] VITALS: BP 128/76
== END 2018-05-19 11:50 | disposition home or self-care (01) | DRG 885 ==
LOC: EMS 16:09 → 3EX 05-13 00:30
PROVIDERS: ADMIT Psychiatry & Neurology Psychiatry; ATTEND Psychiatry & Neurology Psychiatry
DX: F25.9 Schizoaffective disorder, unspecified (principal); R45.851 Suicidal ideations; D64.9 Anemia, unspecified; E03.9 Hypothyroidism, unspecified; F15.10 Other stimulant abuse, uncomplicated; G43.909 Migraine, unspecified, not intractable, without status migrainosus; G89.29 Other chronic pain; I10 Essential (primary) hypertension; J44.9 Chronic obstructive pulmonary disease, unspecified; K74.60 Unspecified cirrhosis of liver; M19.90 Unspecified osteoarthritis, unspecified site; Z87.820 Personal history of traumatic brain injury
CPT/HCPCS: 83036; 84443; 87081; G0378; G0480

== ENCOUNTER 2018-07-10 12:29 | Emergency (ER) | payer MEDICARE ==
[~2018-07-10] VITALS: Ht 180.3 cm; Wt 95.5 kg
[~2018-07-10 12:29] MED LIST changes: +FLUO-191 PO; -LEVO25TA9 PO; -LISI-661 PO; +QUET100T PO; +QUET200T PO; -QUET25TA PO; -RISP.5 PO
[2018-07-10] MEDS ORDERED: LIDOCAINE 5% TRANSDERMAL PATCH TD ONE (13:30)
[2018-07-10] MEDS ORDERED: ACETAMINOPHEN 500 MG TABLET PO ONE (13:30)
[2018-07-10 13:57] VITALS: BP 144/89
== END 2018-07-10 14:04 | disposition home or self-care (01) ==
LOC: EMS 12:30
DX: G89.29 Other chronic pain (principal); M25.561 Pain in right knee; M25.562 Pain in left knee; F32.9 Major depressive disorder, single episode, unspecified; F20.9 Schizophrenia, unspecified; G43.909 Migraine, unspecified, not intractable, without status migrainosus

== ENCOUNTER 2018-07-11 20:50 | Inpatient (IN) | payer MEDICARE ==
[~2018-07-11] VITALS: Ht 180.3 cm; Wt 93.0 kg
[2018-07-11 23:31] LABS: BASOPHILS % (AUTO) 0.3 % (0.0-2.0); EOSINOPHILS % (AUTO) 0.5 % (1.0-6.0); HEMATOCRIT 42.4 % (41-53); HEMOGLOBIN 14.6 g/dL (13.5-17.5); LYMPHOCYTES # (AUTO) 1.4 K/uL (1.0-4.8); LYMPHOCYTES % (AUTO) 30.1 % (22.0-44.0); MEAN CORPUSCULAR HEMOGLOBIN 30.5 pg (26.0-34.0); MEAN CORPUSCULAR HGB CONC 34.3 G/dL (31.0-37.0); MEAN CORPUSCULAR VOLUME 89 fL (80-100); MONOCYTES # (AUTO) 0.4 K/uL (0.1-1.0); MONOCYTES % (AUTO) 9.2 % (2.0-9.0); NEUTROPHILS # (AUTO) 2.9 K/uL (1.8-7.7); NEUTROPHILS % (AUTO) 59.9 % (40.0-70.0); PLATELET COUNT (AUTO) 170 K/uL (150-450); RED BLOOD CELL COUNT(AUTO) 4.77 MIL/uL (4.50-5.90); RED CELL DISTRIBUTION WIDTH 13.8 % (11.5-14.5)
[2018-07-11 23:51] LABS: ANION GAP 11 mmol/L (8-16); CARBON DIOXIDE 25 mmol/L (22-29); CHLORIDE 103 mmol/L (98-107); CREATININE 0.86 mg/dL (0.60-1.30); GLOMERULAR FILTR. RATE CALC > 60 mL/min (>60); GLUCOSE,RANDOM 100 mg/dL (70-110); POTASSIUM 3.6 mmol/L (3.5-5.1); SODIUM SERUM 139 mmol/L (136-145); UREA NITROGEN, BLOOD 17 mg/dL (7-18)
[2018-07-11 23:57] LABS: ALANINE AMINOTRANSFERASE 52 U/L (12-78); ALBUMIN 3.8 g/dL (3.4-5.0); ALKALINE PHOSPHATASE 73 U/L (46-116); ASPARTATE AMINOTRANSFERASE 46 U/L (15-37); BILIRUBIN,TOTAL 1.1 mg/dL (0.1-1.0); TOTAL PROTEIN, SERUM 7.6 g/dL (6.4-8.2)
[2018-07-12] MEDS ORDERED: LORazepam 1 MG TABLET PO ONE (04:45)
[2018-07-12] MEDS ORDERED: QUEtiapine FUMARATE 100 MG TABLET PO ONE (04:45)
[2018-07-12 05:15] LABS: AMPHET/METH SCREEN,URINE POSITIVE (NEGATIVE); BARBITURATE SCREEN, URINE NEGATIVE (NEGATIVE); BENZODIAZEPINES SCREEN,URINE NEGATIVE (NEGATIVE); CANNABINOID SCREEN,URINE NEGATIVE (NEGATIVE); COCAINE SCREEN,URINE NEGATIVE (NEGATIVE); METHADONE SCREEN, URINE NEGATIVE (NEGATIVE); OPIATE SCREEN,URINE POSITIVE (NEGATIVE)
[2018-07-12 05:16] LABS: PHENCYCLIDINE SCREEN,URINE NEGATIVE (NEGATIVE)
[2018-07-12] MEDS ORDERED: ZOLPIDEM TARTRATE 10 MG TABLET PO PRN (06:45)
[2018-07-12] MEDS ORDERED: LORazepam 2 MG TABLET PO PRN (06:45)
[2018-07-12] MEDS ORDERED: HALOPERIDOL 5 MG TABLET PO PRN (06:45)
[2018-07-12] MEDS ORDERED: PETROLATUM,WHITE 71 GM JELLY TP PRN ×2 (11:15→13:30)
[2018-07-12] MEDS ORDERED: MAG HYDROX/AL HYDROX/SIMETH ES 30 ML SUSPENSION UDCUP PO PRN ×2 (11:15→13:30)
[2018-07-12] MEDS ORDERED: LOPERAMIDE HCL 2 MG CAPSULE PO PRN ×2 (11:15→13:30)
[2018-07-12] MEDS ORDERED: IBUPROFEN 400 MG TABLET PO PRN ×2 (11:15→13:30)
[2018-07-12] MEDS ORDERED: MAGNESIUM HYDROXIDE SUSPENSION 30 ML UDCUP PO PRN ×2 (11:15→13:30)
[2018-07-12] MEDS ORDERED: ACETAMINOPHEN 325 MG TABLET PO PRN ×2 (11:15→13:30)
[2018-07-12] MEDS ORDERED: DOCUSATE SODIUM 100 MG CAPSULE PO PRN ×2 (11:15→13:30)
[2018-07-12] MEDS ORDERED: GuaiFENesin/D-METHORPHAN [SUGAR-FREE] 200-20MG/10 ML SYRUP UDCUP PO PRN (13:30)
[2018-07-12] MEDS ORDERED: ONDANSETRON HCL 4 MG TABLET PO PRN (13:30)
[2018-07-12] MEDS ORDERED: NICOTINE 14 MG/24 HOUR PATCH TD PRN (13:30)
[2018-07-12] MEDS ORDERED: CloNIDine HCL 0.1 MG TABLET PO PRN (13:30)
[2018-07-12] MEDS ORDERED: ALBUTEROL SULFATE HFA 90 MCG/PUFF 8 GM INHALER IH PRN (13:30)
[2018-07-12 13:49] VITALS: BP 150/91
[2018-07-12] MEDS: FERROUS SULFATE 325 MG EC TABLET PO SCH (16:16)
[2018-07-12 16:21] VITALS: BP 121/89
[2018-07-12] MEDS: TraZODone HCL 50 MG TABLET PO SCH (20:28)
[2018-07-12] MEDS: QUEtiapine FUMARATE 200 MG TABLET PO SCH (20:28)
[2018-07-13 00:29] VITALS: BP 100/69
[2018-07-13] MEDS: LEVOTHYROXINE SODIUM 25 MCG TABLET PO SCH (07:03)
[2018-07-13] MEDS: FERROUS SULFATE 325 MG EC TABLET PO SCH ×2 (07:03→16:47)
[2018-07-13] MEDS ORDERED: TRAZ-219 PO (08:05)
[2018-07-13] MEDS ORDERED: QUET200T PO (08:05)
[2018-07-13] MEDS ORDERED: QUET100T PO (08:05)
[2018-07-13] MEDS ORDERED: FLUO-191 PO (08:05)
[2018-07-13] MEDS: QUEtiapine FUMARATE 100 MG TABLET PO SCH (08:06)
[2018-07-13] MEDS ORDERED: LEVO25TA9 PO (08:06)
[2018-07-13] MEDS: FLUoxetine HCL 20 MG CAPSULE PO SCH (08:06)
[2018-07-13 08:15] VITALS: BP 120/74
[2018-07-13 16:58] VITALS: BP 132/84
[2018-07-13] MEDS: TraZODone HCL 50 MG TABLET PO SCH (20:42)
[2018-07-13] MEDS: QUEtiapine FUMARATE 200 MG TABLET PO SCH (20:43)
[2018-07-14 01:21] VITALS: BP 119/78
[2018-07-14] MEDS: LEVOTHYROXINE SODIUM 25 MCG TABLET PO SCH (06:44)
[2018-07-14] MEDS: FERROUS SULFATE 325 MG EC TABLET PO SCH (06:44)
[2018-07-14] MEDS: QUEtiapine FUMARATE 100 MG TABLET PO SCH (08:10)
[2018-07-14] MEDS: FLUoxetine HCL 20 MG CAPSULE PO SCH (08:11)
[2018-07-14 08:29] VITALS: BP 121/84
[2018-07-14] MEDS ORDERED: FERR-89 PO (08:51)
[2018-07-14 09:01] LABS: HEMOGLOBIN A1C 5.3 % (4.5-6.2)
[2018-07-14 09:22] LABS: CHOL/HDL RATIO 5.2 (4.2-7.3); FREE T4 (FREE THYROXINE) 0.7 ng/dL (0.76-1.46); THYROID STIMULATING HORMONE 3.17 uIU/mL (0.36-3.74)
== END 2018-07-14 12:20 | disposition home or self-care (01) | DRG 885 ==
LOC: EMS 20:51 → B2S 07-12 06:30
PROVIDERS: ADMIT Psychiatry & Neurology Psychiatry; ATTEND Psychiatry & Neurology Psychiatry
DX: F20.0 Paranoid schizophrenia (principal); R45.851 Suicidal ideations; F32.9 Major depressive disorder, single episode, unspecified; G43.909 Migraine, unspecified, not intractable, without status migrainosus; M19.90 Unspecified osteoarthritis, unspecified site; G89.29 Other chronic pain; I10 Essential (primary) hypertension; D64.9 Anemia, unspecified; E03.9 Hypothyroidism, unspecified; J44.9 Chronic obstructive pulmonary disease, unspecified; F41.9 Anxiety disorder, unspecified
CPT/HCPCS: 83036; 84439; 84443; G0480

== ENCOUNTER 2018-07-16 13:48 | Inpatient (IN) | payer MEDICARE ==
[~2018-07-16] VITALS: Ht 180.3 cm; Wt 97.7 kg
[~2018-07-16 13:48] MED LIST changes: +FERR-89 PO; +LEVO25TA9 PO
[2018-07-16] MEDS ORDERED: HALOPERIDOL 5 MG TABLET PO PRN (18:30)
[2018-07-16 19:08] VITALS: BP 144/89
[2018-07-16] MEDS ORDERED: ALBUTEROL SULFATE HFA 90 MCG/PUFF 8 GM INHALER IH PRN (19:15)
[2018-07-16] MEDS ORDERED: ACETAMINOPHEN 325 MG TABLET PO PRN (19:15)
[2018-07-16] MEDS ORDERED: LOPERAMIDE HCL 2 MG CAPSULE PO PRN (19:15)
[2018-07-16] MEDS ORDERED: BENZOCAINE/MENTHOL LOZENGE MM PRN (19:15)
[2018-07-16] MEDS ORDERED: ONDANSETRON HCL 4 MG TABLET PO PRN (19:15)
[2018-07-16] MEDS ORDERED: BACITRACIN 28.4 GM OINTMENT TP PRN (19:15)
[2018-07-16] MEDS ORDERED: MAGNESIUM HYDROXIDE SUSPENSION 30 ML UDCUP PO PRN (19:15)
[2018-07-16] MEDS ORDERED: CloNIDine HCL 0.1 MG TABLET PO PRN (19:15)
[2018-07-16] MEDS ORDERED: PETROLATUM,WHITE 71 GM JELLY TP PRN (19:15)
[2018-07-16] MEDS ORDERED: MAG HYDROX/AL HYDROX/SIMETH ES 30 ML SUSPENSION UDCUP PO PRN (19:15)
[2018-07-16] MEDS: ZOLPIDEM TARTRATE 10 MG TABLET PO PRN (20:52)
[2018-07-16] MEDS: TraZODone HCL 50 MG TABLET PO SCH (20:52)
[2018-07-16] MEDS: LORazepam 2 MG TABLET PO PRN (20:52)
[2018-07-16] MEDS: QUEtiapine FUMARATE 200 MG TABLET PO SCH (20:52)
[2018-07-17 03:11] VITALS: BP 133/68
[2018-07-17] MEDS: FERROUS SULFATE 325 MG EC TABLET PO SCH ×2 (06:35→17:17)
[2018-07-17] MEDS: LEVOTHYROXINE SODIUM 25 MCG TABLET PO SCH (06:35)
[2018-07-17] MEDS: QUEtiapine FUMARATE 100 MG TABLET PO SCH (08:53)
[2018-07-17] MEDS: FLUoxetine HCL 20 MG CAPSULE PO SCH (08:53)
[2018-07-17] MEDS: OMEPRAZOLE 20 MG CAPSULE PO SCH (08:53)
[2018-07-17] MEDS: DOCUSATE SODIUM 100 MG CAPSULE PO SCH (08:53)
[2018-07-17] MEDS: MELOXICAM 7.5 MG TABLET PO SCH (09:00)
[2018-07-17] MEDS: IBUPROFEN 600 MG TABLET PO PRN (09:22)
[2018-07-17 09:26] VITALS: BP 145/74
[2018-07-17 10:27] VITALS: BP 144/74
[2018-07-17 16:00] VITALS: BP 127/79
[2018-07-17] MEDS: ZOLPIDEM TARTRATE 10 MG TABLET PO PRN (21:29)
[2018-07-17] MEDS: TraZODone HCL 50 MG TABLET PO SCH (21:29)
[2018-07-17] MEDS: QUEtiapine FUMARATE 200 MG TABLET PO SCH (21:29)
[2018-07-18] MEDS: IBUPROFEN 600 MG TABLET PO PRN (01:06)
[2018-07-18 01:53] VITALS: BP 140/82
[2018-07-18] MEDS: FERROUS SULFATE 325 MG EC TABLET PO SCH ×2 (06:29→16:53)
[2018-07-18] MEDS: LEVOTHYROXINE SODIUM 25 MCG TABLET PO SCH (06:29)
[2018-07-18 07:06] LABS: BASOPHILS % (AUTO) 0.2 % (0.0-2.0); EOSINOPHILS % (AUTO) 1.8 % (1.0-6.0); HEMOGLOBIN 13.4 g/dL (13.5-17.5); LYMPHOCYTES # (AUTO) 1.2 K/uL (1.0-4.8); LYMPHOCYTES % (AUTO) 38.7 % (22.0-44.0); MEAN CORPUSCULAR HEMOGLOBIN 30.8 pg (26.0-34.0); MEAN CORPUSCULAR HGB CONC 34.3 G/dL (31.0-37.0); MEAN CORPUSCULAR VOLUME 90 fL (80-100); MONOCYTES # (AUTO) 0.4 K/uL (0.1-1.0); MONOCYTES % (AUTO) 11.1 % (2.0-9.0); NEUTROPHILS # (AUTO) 1.5 K/uL (1.8-7.7); NEUTROPHILS % (AUTO) 48.2 % (40.0-70.0); PLATELET COUNT (AUTO) 116 K/uL (150-450); RED BLOOD CELL COUNT(AUTO) 4.35 MIL/uL (4.50-5.90); RED CELL DISTRIBUTION WIDTH 14.1 % (11.5-14.5)
[2018-07-18 07:52] LABS: ALANINE AMINOTRANSFERASE 36 U/L (12-78); ALBUMIN 3.3 g/dL (3.4-5.0); ALKALINE PHOSPHATASE 67 U/L (46-116); ANION GAP 9 mmol/L (8-16); ASPARTATE AMINOTRANSFERASE 27 U/L (15-37); BILIRUBIN,TOTAL 0.5 mg/dL (0.1-1.0); CALCIUM, TOTAL 8.6 mg/dL (8.8-10.5); CARBON DIOXIDE 27 mmol/L (22-29); CHLORIDE 106 mmol/L (98-107); CHOL/HDL RATIO 6.3 (4.2-7.3); CHOLESTEROL 138 mg/dL (131-200); CREATININE 0.74 mg/dL (0.60-1.30); FREE T4 (FREE THYROXINE) 0.61 ng/dL (0.76-1.46); GLOMERULAR FILTR. RATE CALC > 60 mL/min (>60); GLUCOSE,RANDOM 91 mg/dL (70-110); HDL CHOLESTEROL 22 mg/dL (40-60); LDL CHOL (CALC.) 72 mg/dL (0-130); POTASSIUM 3.8 mmol/L (3.5-5.1); SODIUM SERUM 142 mmol/L (136-145); THYROID STIMULATING HORMONE 4.28 uIU/mL (0.36-3.74); TOTAL PROTEIN, SERUM 6.1 g/dL (6.4-8.2); TRIGLYCERIDES 222 mg/dL (15-150); UREA NITROGEN, BLOOD 17 mg/dL (7-18)
[2018-07-18] MEDS: MELOXICAM 7.5 MG TABLET PO SCH (08:25)
[2018-07-18] MEDS: DOCUSATE SODIUM 100 MG CAPSULE PO SCH (08:25)
[2018-07-18] MEDS: FLUoxetine HCL 20 MG CAPSULE PO SCH (08:25)
[2018-07-18] MEDS: QUEtiapine FUMARATE 100 MG TABLET PO SCH (08:25)
[2018-07-18] MEDS: OMEPRAZOLE 20 MG CAPSULE PO SCH (08:25)
[2018-07-18 08:29] VITALS: BP 121/69
[2018-07-18 08:46] LABS: HEMOGLOBIN A1C 5.3 % (4.5-6.2)
[2018-07-18] MEDS: LORazepam 2 MG TABLET PO PRN (21:06)
[2018-07-18] MEDS: QUEtiapine FUMARATE 200 MG TABLET PO SCH (21:06)
[2018-07-18] MEDS: TraZODone HCL 50 MG TABLET PO SCH (21:06)
[2018-07-18] MEDS: ZOLPIDEM TARTRATE 10 MG TABLET PO PRN (21:07)
[2018-07-19 01:44] VITALS: BP 130/71
[2018-07-19] MEDS: FERROUS SULFATE 325 MG EC TABLET PO SCH ×2 (06:18→16:58)
[2018-07-19] MEDS: LEVOTHYROXINE SODIUM 25 MCG TABLET PO SCH (06:18)
[2018-07-19] MEDS: IBUPROFEN 600 MG TABLET PO PRN ×2 (06:30→12:30)
[2018-07-19] MEDS: LORazepam 2 MG TABLET PO PRN (06:31)
[2018-07-19 08:29] VITALS: BP 115/60
[2018-07-19] MEDS: OMEPRAZOLE 20 MG CAPSULE PO SCH (08:29)
[2018-07-19] MEDS: OMEGA-3/DHA/EPA/FISH OIL 1,000 MG CAPSULE PO SCH (08:29)
[2018-07-19] MEDS: DOCUSATE SODIUM 100 MG CAPSULE PO SCH (08:29)
[2018-07-19] MEDS: MELOXICAM 7.5 MG TABLET PO SCH (08:29)
[2018-07-19] MEDS: FLUoxetine HCL 20 MG CAPSULE PO SCH (08:29)
[2018-07-19] MEDS: QUEtiapine FUMARATE 100 MG TABLET PO SCH (08:30)
[2018-07-19 12:30] VITALS: BP 136/71
[2018-07-19 16:00] VITALS: BP 131/78
[2018-07-19] MEDS: QUEtiapine FUMARATE 200 MG TABLET PO SCH (20:37)
[2018-07-19] MEDS: ZOLPIDEM TARTRATE 10 MG TABLET PO PRN (20:37)
[2018-07-19] MEDS: TraZODone HCL 50 MG TABLET PO SCH (20:37)
[2018-07-20 01:49] VITALS: BP 122/76
[2018-07-20] MEDS: LEVOTHYROXINE SODIUM 25 MCG TABLET PO SCH (06:07)
[2018-07-20] MEDS: FERROUS SULFATE 325 MG EC TABLET PO SCH (06:07)
[2018-07-20] MEDS: IBUPROFEN 600 MG TABLET PO PRN (06:08)
[2018-07-20 07:57] VITALS: BP 109/71
[2018-07-20 08:00] VITALS: BP 135/81
[2018-07-20] MEDS: MELOXICAM 7.5 MG TABLET PO SCH (08:27)
[2018-07-20] MEDS: QUEtiapine FUMARATE 100 MG TABLET PO SCH (08:28)
[2018-07-20] MEDS: OMEPRAZOLE 20 MG CAPSULE PO SCH (08:28)
[2018-07-20] MEDS: DOCUSATE SODIUM 100 MG CAPSULE PO SCH (08:28)
[2018-07-20] MEDS: OMEGA-3/DHA/EPA/FISH OIL 1,000 MG CAPSULE PO SCH (08:28)
[2018-07-20] MEDS: FLUoxetine HCL 20 MG CAPSULE PO SCH (08:28)
== END 2018-07-20 15:00 | disposition home or self-care (01) | DRG 885 ==
LOC: B3A 18:23
PROVIDERS: ADMIT Psychiatry & Neurology Psychiatry; ATTEND Psychiatry & Neurology Psychiatry
DX: F25.9 Schizoaffective disorder, unspecified (principal); R45.851 Suicidal ideations; E03.9 Hypothyroidism, unspecified; F17.200 Nicotine dependence, unspecified, uncomplicated; F41.9 Anxiety disorder, unspecified; G47.00 Insomnia, unspecified; G89.29 Other chronic pain; I10 Essential (primary) hypertension; J44.9 Chronic obstructive pulmonary disease, unspecified; K21.9 Gastro-esophageal reflux disease without esophagitis; K59.00 Constipation, unspecified; M17.0 Bilateral primary osteoarthritis of knee; D64.9 Anemia, unspecified; K74.60 Unspecified cirrhosis of liver
CPT/HCPCS: 83036; 84439; 84443; 87081

== ENCOUNTER 2018-08-04 10:28 | Emergency (ER) | payer MEDICARE ==
[~2018-08-04] VITALS: Ht 180.3 cm; Wt 90.9 kg
[2018-08-04 10:59] VITALS: BP 133/86
[2018-08-04] MEDS ORDERED: KETOROLAC TROMETHAMINE 60 MG/2 ML VIAL IM ONE (11:15)
== END 2018-08-04 11:45 | disposition home or self-care (01) ==
LOC: EMS 10:28
DX: G89.29 Other chronic pain (principal); M25.562 Pain in left knee; M25.561 Pain in right knee; M19.90 Unspecified osteoarthritis, unspecified site; G43.909 Migraine, unspecified, not intractable, without status migrainosus; F20.9 Schizophrenia, unspecified; F32.9 Major depressive disorder, single episode, unspecified; Z79.899 Other long term (current) drug therapy
CPT/HCPCS: 96372; 99283; J1885

== ENCOUNTER 2018-08-24 21:17 | Inpatient (IN) | payer MEDICARE ==
[~2018-08-24] VITALS: Ht 180.3 cm; Wt 97.7 kg
[~2018-08-24 21:17] MED LIST changes: -TRAZ-219 PO; +TRAZ-252 PO
[2018-08-25 00:18] LABS: AMPHET/METH SCREEN,URINE NEGATIVE (NEGATIVE); BARBITURATE SCREEN, URINE NEGATIVE (NEGATIVE); BENZODIAZEPINES SCREEN,URINE NEGATIVE (NEGATIVE); CANNABINOID SCREEN,URINE NEGATIVE (NEGATIVE); COCAINE SCREEN,URINE NEGATIVE (NEGATIVE); METHADONE SCREEN, URINE NEGATIVE (NEGATIVE); OPIATE SCREEN,URINE NEGATIVE (NEGATIVE); PHENCYCLIDINE SCREEN,URINE NEGATIVE (NEGATIVE)
[2018-08-25 00:39] LABS: BASOPHILS % (AUTO) 0.7 % (0.0-2.0); EOSINOPHILS % (AUTO) 0.9 % (1.0-6.0); HEMATOCRIT 40.9 % (41-53); HEMOGLOBIN 13.8 g/dL (13.5-17.5); LYMPHOCYTES # (AUTO) 1.6 K/uL (1.0-4.8); LYMPHOCYTES % (AUTO) 31.9 % (22.0-44.0); MEAN CORPUSCULAR HEMOGLOBIN 30.3 pg (26.0-34.0); MEAN CORPUSCULAR HGB CONC 33.7 G/dL (31.0-37.0); MEAN CORPUSCULAR VOLUME 90 fL (80-100); MONOCYTES # (AUTO) 0.5 K/uL (0.1-1.0); NEUTROPHILS # (AUTO) 2.8 K/uL (1.8-7.7); NEUTROPHILS % (AUTO) 56.5 % (40.0-70.0); PLATELET COUNT (AUTO) 138 K/uL (150-450); RED BLOOD CELL COUNT(AUTO) 4.55 MIL/uL (4.50-5.90); RED CELL DISTRIBUTION WIDTH 14.8 % (11.5-14.5)
[2018-08-25] MEDS ORDERED: ACETAMINOPHEN/CODEINE 300-30 MG TABLET PO ONE (00:45)
[2018-08-25 00:51] LABS: ANION GAP 10 mmol/L (8-16); CARBON DIOXIDE 27 mmol/L (22-29); CHLORIDE 104 mmol/L (98-107); CREATININE 0.89 mg/dL (0.60-1.30); GLOMERULAR FILTR. RATE CALC > 60 mL/min (>60); GLUCOSE,RANDOM 99 mg/dL (70-110); POTASSIUM 3.7 mmol/L (3.5-5.1); SODIUM SERUM 141 mmol/L (136-145); UREA NITROGEN, BLOOD 16 mg/dL (7-18)
[2018-08-25 00:57] LABS: ALANINE AMINOTRANSFERASE 45 U/L (12-78); ALBUMIN 3.8 g/dL (3.4-5.0); ALKALINE PHOSPHATASE 65 U/L (46-116); ASPARTATE AMINOTRANSFERASE 32 U/L (15-37); BILIRUBIN,TOTAL 0.6 mg/dL (0.1-1.0); TOTAL PROTEIN, SERUM 7.3 g/dL (6.4-8.2)
[2018-08-25] MEDS ORDERED: HALOPERIDOL 5 MG TABLET PO PRN (01:00)
[2018-08-25] MEDS ORDERED: ZOLPIDEM TARTRATE 10 MG TABLET PO PRN (01:00)
[2018-08-25 03:19] VITALS: BP 138/76
[2018-08-25] MEDS ORDERED: PETROLATUM,WHITE 28 GM JELLY TP PRN (07:00)
[2018-08-25] MEDS ORDERED: MAG HYDROX/AL HYDROX/SIMETH ES 30 ML SUSPENSION UDCUP PO PRN (07:00)
[2018-08-25] MEDS ORDERED: GuaiFENesin/D-METHORPHAN [SUGAR-FREE] 200-20MG/10 ML SYRUP UDCUP PO PRN (07:00)
[2018-08-25] MEDS ORDERED: LOPERAMIDE HCL 2 MG CAPSULE PO PRN (07:00)
[2018-08-25] MEDS ORDERED: MAGNESIUM HYDROXIDE SUSPENSION 30 ML UDCUP PO PRN (07:00)
[2018-08-25] MEDS ORDERED: ALBUTEROL SULFATE HFA 90 MCG/PUFF 8 GM INHALER IH PRN (07:00)
[2018-08-25] MEDS ORDERED: ACETAMINOPHEN 325 MG TABLET PO PRN (07:00)
[2018-08-25] MEDS ORDERED: ONDANSETRON HCL 4 MG TABLET PO PRN (07:00)
[2018-08-25] MEDS ORDERED: DOCUSATE SODIUM 100 MG CAPSULE PO PRN (07:00)
[2018-08-25] MEDS ORDERED: CloNIDine HCL 0.1 MG TABLET PO PRN (07:00)
[2018-08-25] MEDS: IBUPROFEN 400 MG TABLET PO PRN (08:43)
[2018-08-25] MEDS: LORazepam 2 MG TABLET PO PRN ×2 (08:43→21:18)
[2018-08-25 08:52] VITALS: BP 139/88
[2018-08-25 09:02] LABS: CHOL/HDL RATIO 6.9 (4.2-7.3); FREE T4 (FREE THYROXINE) 0.75 ng/dL (0.76-1.46); THYROID STIMULATING HORMONE 13.28 uIU/mL (0.36-3.74)
[2018-08-25 09:04] LABS: HEMOGLOBIN A1C 5.2 % (4.5-6.2)
[2018-08-25] MEDS: QUEtiapine FUMARATE 25 MG TABLET PO SCH (12:04)
[2018-08-25] MEDS: FLUoxetine HCL 20 MG CAPSULE PO SCH (12:04)
[2018-08-25 16:10] VITALS: BP 113/61
[2018-08-25] MEDS: FERROUS SULFATE 325 MG EC TABLET PO SCH (16:55)
[2018-08-25 21:16] VITALS: BP 115/74
[2018-08-25] MEDS: QUEtiapine FUMARATE 100 MG TABLET PO SCH (21:18)
[2018-08-25] MEDS: TraMADol HCL 50 MG TABLET PO PRN (21:18)
[2018-08-25 22:18] VITALS: BP 111/70
[2018-08-26 01:56] VITALS: BP 143/84
[2018-08-26 04:21] VITALS: BP 148/84
[2018-08-26] MEDS: TraMADol HCL 50 MG TABLET PO PRN (04:37)
[2018-08-26] MEDS: FERROUS SULFATE 325 MG EC TABLET PO SCH ×2 (06:38→16:24)
[2018-08-26] MEDS: LEVOTHYROXINE SODIUM 25 MCG TABLET PO SCH (06:38)
[2018-08-26] MEDS: ACETAMINOPHEN/CODEINE 300-30 MG TABLET PO PRN ×2 (06:54→14:59)
[2018-08-26 06:55] VITALS: BP 140/80
[2018-08-26 08:00] VITALS: BP 135/74
[2018-08-26] MEDS: FLUoxetine HCL 20 MG CAPSULE PO SCH (08:18)
[2018-08-26] MEDS: QUEtiapine FUMARATE 25 MG TABLET PO SCH (08:19)
[2018-08-26 15:56] VITALS: BP 127/80
[2018-08-26 16:00] VITALS: BP 127/80
[2018-08-26] MEDS: QUEtiapine FUMARATE 100 MG TABLET PO SCH (20:03)
[2018-08-27 00:45] VITALS: BP 120/81
[2018-08-27 01:06] VITALS: BP 150/76
[2018-08-27] MEDS: ACETAMINOPHEN/CODEINE 300-30 MG TABLET PO PRN ×3 (01:06→19:12)
[2018-08-27 05:20] VITALS: BP 141/68
[2018-08-27] MEDS: IBUPROFEN 400 MG TABLET PO PRN ×2 (05:30→15:58)
[2018-08-27] MEDS: FERROUS SULFATE 325 MG EC TABLET PO SCH ×2 (06:33→16:01)
[2018-08-27] MEDS: LEVOTHYROXINE SODIUM 25 MCG TABLET PO SCH (06:33)
[2018-08-27] MEDS: FLUoxetine HCL 20 MG CAPSULE PO SCH (08:26)
[2018-08-27] MEDS: QUEtiapine FUMARATE 25 MG TABLET PO SCH (08:28)
[2018-08-27 08:55] VITALS: BP 117/73
[2018-08-27 16:04] VITALS: BP 114/67
[2018-08-27 19:12] VITALS: BP 143/69
[2018-08-27] MEDS: QUEtiapine FUMARATE 100 MG TABLET PO SCH (20:02)
[2018-08-28 03:05] VITALS: BP 140/84
[2018-08-28] MEDS: ACETAMINOPHEN/CODEINE 300-30 MG TABLET PO PRN (03:16)
[2018-08-28] MEDS: LORazepam 2 MG TABLET PO PRN (03:24)
[2018-08-28] MEDS: FERROUS SULFATE 325 MG EC TABLET PO SCH (07:07)
[2018-08-28] MEDS: LEVOTHYROXINE SODIUM 25 MCG TABLET PO SCH (07:07)
[2018-08-28 07:43] LABS: APPEARANCE,URINE CLEAR (CLEAR); BILIRUBIN,URINE NEGATIVE (NEGATIVE); GLUCOSE, URINE (UA) NEGATIVE (NEGATIVE); KETONES,URINE NEGATIVE (NEGATIVE); LEUKOCYTE ESTERASE ,URINE NEGATIVE (NEGATIVE); NITRATE,URINE NEGATIVE (NEGATIVE); OCCULT BLOOD,URINE NEGATIVE (NEGATIVE); PROTEIN,URINE NEGATIVE (NEGATIVE); UROBILINOGEN,URINE 0.2 mg/dL (<=1.0)
[2018-08-28 08:00] VITALS: BP 117/80
[2018-08-28] MEDS: QUEtiapine FUMARATE 25 MG TABLET PO SCH (08:16)
[2018-08-28] MEDS ORDERED: FLUoxetine HCL 20 MG CAPSULE PO SCH (09:00)
[2018-08-28 09:51] VITALS: BP 107/67
[2018-08-28] MEDS: IBUPROFEN 400 MG TABLET PO PRN (09:51)
[2018-08-28] MEDS ORDERED: FLUO-191 PO (10:58)
[2018-08-28] MEDS ORDERED: QUET25TA PO (10:58)
[2018-08-28] MEDS ORDERED: QUET100T PO (10:58)
== END 2018-08-28 12:10 | disposition home or self-care (01) | DRG 885 ==
LOC: EMS 21:17 → B2S 08-25 00:59 → EMS 08-25 01:25
PROVIDERS: ADMIT Psychiatry & Neurology Psychiatry; ATTEND Psychiatry & Neurology Psychiatry
DX: F33.3 Major depressive disorder, recurrent, severe with psychotic symptoms (principal); R45.851 Suicidal ideations; I10 Essential (primary) hypertension; K21.9 Gastro-esophageal reflux disease without esophagitis; M17.10 Unilateral primary osteoarthritis, unspecified knee; K59.00 Constipation, unspecified; F41.9 Anxiety disorder, unspecified; F17.200 Nicotine dependence, unspecified, uncomplicated; E03.9 Hypothyroidism, unspecified; D64.9 Anemia, unspecified; G43.909 Migraine, unspecified, not intractable, without status migrainosus; G47.00 Insomnia, unspecified; M54.9 Dorsalgia, unspecified; Z91.19 Patient's noncompliance with other medical treatment and regimen; Z91.5 Personal history of self-harm; Z79.899 Other long term (current) drug therapy; Z79.890 Hormone replacement therapy; Z71.6 Tobacco abuse counseling
CPT/HCPCS: 83036; 84439; 84443; G0480

== ENCOUNTER 2018-09-03 19:55 | Emergency (ER) | payer MEDICARE, MEDICAID ==
[~2018-09-03] VITALS: Ht 180.3 cm; Wt 91.8 kg
[~2018-09-03 19:55] MED LIST changes: -FERR-89 PO; -QUET200T PO; +QUET25TA PO; -TRAZ-252 PO
[2018-09-03 22:20] VITALS: BP 146/80
== END 2018-09-03 22:34 | disposition home or self-care (01) ==
LOC: EMS 19:58
DX: B35.1 Tinea unguium (principal); G43.909 Migraine, unspecified, not intractable, without status migrainosus; M19.90 Unspecified osteoarthritis, unspecified site; F32.9 Major depressive disorder, single episode, unspecified; F20.9 Schizophrenia, unspecified; Z79.899 Other long term (current) drug therapy

== ENCOUNTER 2018-09-26 18:41 | Inpatient (IN) | payer MEDICARE, MEDICAID ==
[~2018-09-26] VITALS: Ht 180.3 cm; Wt 96.7 kg
[2018-09-26] MEDS ORDERED: KETOROLAC TROMETHAMINE 10 MG TABLET PO ONE (19:30)
[2018-09-26 21:23] LABS: BASOPHILS % (AUTO) 0.4 % (0.0-2.0); EOSINOPHILS % (AUTO) 1.6 % (1.0-6.0); HEMATOCRIT 39.2 % (41-53); HEMOGLOBIN 13.2 g/dL (13.5-17.5); LYMPHOCYTES # (AUTO) 1.7 K/uL (1.0-4.8); LYMPHOCYTES % (AUTO) 49.6 % (22.0-44.0); MEAN CORPUSCULAR HEMOGLOBIN 30.3 pg (26.0-34.0); MEAN CORPUSCULAR HGB CONC 33.7 G/dL (31.0-37.0); MEAN CORPUSCULAR VOLUME 90 fL (80-100); MONOCYTES # (AUTO) 0.4 K/uL (0.1-1.0); MONOCYTES % (AUTO) 10.3 % (2.0-9.0); NEUTROPHILS # (AUTO) 1.3 K/uL (1.8-7.7); NEUTROPHILS % (AUTO) 38.1 % (40.0-70.0); PLATELET COUNT (AUTO) 153 K/uL (150-450); RED BLOOD CELL COUNT(AUTO) 4.36 MIL/uL (4.50-5.90)
[2018-09-26 21:52] LABS: THYROID STIMULATING HORMONE 5.47 uIU/mL (0.36-3.74)
[2018-09-26 22:05] LABS: ANION GAP 14 mmol/L (8-16); CALCIUM, TOTAL 9.3 mg/dL (8.8-10.5); CARBON DIOXIDE 22 mmol/L (22-29); CHLORIDE 102 mmol/L (98-107); CREATININE 0.76 mg/dL (0.60-1.30); GLOMERULAR FILTR. RATE CALC > 60 mL/min (>60); GLUCOSE,RANDOM 92 mg/dL (70-110); POTASSIUM 4.4 mmol/L (3.5-5.1); SODIUM SERUM 138 mmol/L (136-145); UREA NITROGEN, BLOOD 10 mg/dL (7-18)
[2018-09-26 22:11] LABS: ALANINE AMINOTRANSFERASE 17 U/L (12-78); ALBUMIN 3.3 g/dL (3.4-5.0); ALKALINE PHOSPHATASE 31 U/L (46-116); ASPARTATE AMINOTRANSFERASE 16 U/L (15-37); BILIRUBIN,TOTAL 0.2 mg/dL (0.1-1.0); TOTAL PROTEIN, SERUM 7.2 g/dL (6.4-8.2)
[2018-09-27 00:40] VITALS: BP 142/77
[2018-09-27] MEDS ORDERED: PNEUMOCOCCAL VACCINE POLYVALENT 0.5 ML VIAL [PPSV23] IM ONE (02:45)
[2018-09-27] MEDS ORDERED: ONDANSETRON HCL 4 MG TABLET PO PRN (06:00)
[2018-09-27] MEDS ORDERED: ACETAMINOPHEN 325 MG TABLET PO PRN (06:00)
[2018-09-27] MEDS ORDERED: MAG HYDROX/AL HYDROX/SIMETH ES 30 ML SUSPENSION UDCUP PO PRN (06:00)
[2018-09-27] MEDS ORDERED: DOCUSATE SODIUM 100 MG CAPSULE PO PRN (06:00)
[2018-09-27] MEDS ORDERED: PETROLATUM,WHITE 28 GM JELLY TP PRN (06:00)
[2018-09-27] MEDS ORDERED: NICOTINE 14 MG/24 HOUR PATCH TD PRN (06:00)
[2018-09-27] MEDS ORDERED: LOPERAMIDE HCL 2 MG CAPSULE PO PRN (06:00)
[2018-09-27] MEDS ORDERED: CloNIDine HCL 0.1 MG TABLET PO PRN (06:00)
[2018-09-27] MEDS ORDERED: GuaiFENesin/D-METHORPHAN [SUGAR-FREE] 200-20MG/10 ML SYRUP UDCUP PO PRN (06:00)
[2018-09-27] MEDS ORDERED: MAGNESIUM HYDROXIDE SUSPENSION 30 ML UDCUP PO PRN (06:00)
[2018-09-27] MEDS ORDERED: ALBUTEROL SULFATE HFA 90 MCG/PUFF 8 GM INHALER IH PRN (06:00)
[2018-09-27 06:11] VITALS: BP 144/71
[2018-09-27] MEDS: IBUPROFEN 400 MG TABLET PO PRN (06:15)
[2018-09-27 08:30] LABS: AMPHET/METH SCREEN,URINE POSITIVE (NEGATIVE); BARBITURATE SCREEN, URINE NEGATIVE (NEGATIVE); BENZODIAZEPINES SCREEN,URINE NEGATIVE (NEGATIVE); CANNABINOID SCREEN,URINE NEGATIVE (NEGATIVE); COCAINE SCREEN,URINE NEGATIVE (NEGATIVE); METHADONE SCREEN, URINE NEGATIVE (NEGATIVE); OPIATE SCREEN,URINE POSITIVE (NEGATIVE); PHENCYCLIDINE SCREEN,URINE NEGATIVE (NEGATIVE)
[2018-09-27 09:01] LABS: APPEARANCE,URINE CLEAR (CLEAR); BILIRUBIN,URINE NEGATIVE (NEGATIVE); GLUCOSE, URINE (UA) NEGATIVE (NEGATIVE); KETONES,URINE NEGATIVE (NEGATIVE); LEUKOCYTE ESTERASE ,URINE NEGATIVE (NEGATIVE); NITRATE,URINE NEGATIVE (NEGATIVE); OCCULT BLOOD,URINE NEGATIVE (NEGATIVE); PH,URINE 6.5 (5.0-8.0); PROTEIN,URINE NEGATIVE (NEGATIVE)
[2018-09-27 10:07] VITALS: BP 143/77
[2018-09-27] MEDS: AmLODIPine BESYLATE 5 MG TABLET PO SCH (11:30)
[2018-09-27] MEDS: LORazepam 2 MG TABLET PO PRN (16:27)
[2018-09-27] MEDS: HALOPERIDOL 5 MG TABLET PO PRN (16:27)
[2018-09-27] MEDS: QUEtiapine FUMARATE 100 MG TABLET PO SCH (21:44)
[2018-09-28 06:18] LABS: BASOPHILS % (AUTO) 0.8 % (0.0-2.0); HEMATOCRIT 40.4 % (41-53); HEMOGLOBIN 13.8 g/dL (13.5-17.5); LYMPHOCYTES # (AUTO) 1.3 K/uL (1.0-4.8); LYMPHOCYTES % (AUTO) 37.2 % (22.0-44.0); MEAN CORPUSCULAR HEMOGLOBIN 30.1 pg (26.0-34.0); MEAN CORPUSCULAR VOLUME 88 fL (80-100); MONOCYTES # (AUTO) 0.4 K/uL (0.1-1.0); MONOCYTES % (AUTO) 11.7 % (2.0-9.0); NEUTROPHILS # (AUTO) 1.6 K/uL (1.8-7.7); NEUTROPHILS % (AUTO) 48.3 % (40.0-70.0); PLATELET COUNT (AUTO) 131 K/uL (150-450); RED BLOOD CELL COUNT(AUTO) 4.58 MIL/uL (4.50-5.90); RED CELL DISTRIBUTION WIDTH 14.8 % (11.5-14.5)
[2018-09-28 06:56] LABS: HEMOGLOBIN A1C 5.6 % (4.5-6.2)
[2018-09-28 07:58] LABS: ALANINE AMINOTRANSFERASE 32 U/L (12-78); ALBUMIN 3.6 g/dL (3.4-5.0); ALKALINE PHOSPHATASE 62 U/L (46-116); ANION GAP 6 mmol/L (8-16); ASPARTATE AMINOTRANSFERASE 25 U/L (15-37); BILIRUBIN,TOTAL 0.5 mg/dL (0.1-1.0); CALCIUM, TOTAL 8.5 mg/dL (8.8-10.5); CARBON DIOXIDE 31 mmol/L (22-29); CHLORIDE 106 mmol/L (98-107); CHOL/HDL RATIO 4.8 (4.2-7.3); CHOLESTEROL 152 mg/dL (131-200); CREATININE 0.83 mg/dL (0.60-1.30); GLOMERULAR FILTR. RATE CALC > 60 mL/min (>60); GLUCOSE,RANDOM 96 mg/dL (70-110); HDL CHOLESTEROL 32 mg/dL (40-60); LDL CHOL (CALC.) 96 mg/dL (0-130); SODIUM SERUM 143 mmol/L (136-145); TOTAL PROTEIN, SERUM 6.5 g/dL (6.4-8.2); TRIGLYCERIDES 120 mg/dL (15-150); UREA NITROGEN, BLOOD 17 mg/dL (7-18)
[2018-09-28 08:53] VITALS: BP 133/86
[2018-09-28] MEDS: AmLODIPine BESYLATE 5 MG TABLET PO SCH (08:55)
[2018-09-28] MEDS: ACETAMINOPHEN/CODEINE 300-30 MG TABLET PO PRN ×2 (08:55→17:16)
[2018-09-28] MEDS: QUEtiapine FUMARATE 25 MG TABLET PO SCH (08:55)
[2018-09-28] MEDS: FLUoxetine HCL 20 MG CAPSULE PO SCH (08:56)
[2018-09-28 17:15] VITALS: BP 123/77
[2018-09-28] MEDS: QUEtiapine FUMARATE 100 MG TABLET PO SCH (20:39)
[2018-09-29] MEDS: IBUPROFEN 400 MG TABLET PO PRN (06:27)
[2018-09-29] MEDS: FLUoxetine HCL 20 MG CAPSULE PO SCH (09:05)
[2018-09-29] MEDS: AmLODIPine BESYLATE 5 MG TABLET PO SCH (09:05)
[2018-09-29] MEDS: QUEtiapine FUMARATE 25 MG TABLET PO SCH (09:07)
[2018-09-29 09:10] VITALS: BP 154/82
[2018-09-29] MEDS: ACETAMINOPHEN/CODEINE 300-30 MG TABLET PO PRN ×2 (09:10→16:33)
[2018-09-29 16:33] VITALS: BP 148/82
[2018-09-29] MEDS: QUEtiapine FUMARATE 100 MG TABLET PO SCH (20:36)
[2018-09-30 06:45] VITALS: BP 144/77
[2018-09-30] MEDS: IBUPROFEN 400 MG TABLET PO PRN (06:48)
[2018-09-30] MEDS: FLUoxetine HCL 20 MG CAPSULE PO SCH (08:24)
[2018-09-30] MEDS: QUEtiapine FUMARATE 25 MG TABLET PO SCH (08:24)
[2018-09-30] MEDS: AmLODIPine BESYLATE 5 MG TABLET PO SCH (08:24)
[2018-09-30 08:41] VITALS: BP 125/79
[2018-09-30] MEDS: ACETAMINOPHEN/CODEINE 300-30 MG TABLET PO PRN ×2 (08:41→16:29)
[2018-09-30 09:38] VITALS: BP 125/79
[2018-09-30 16:09] VITALS: BP 147/84
[2018-09-30] MEDS: QUEtiapine FUMARATE 200 MG TABLET PO SCH (20:46)
[2018-10-01] MEDS: LORazepam 2 MG TABLET PO PRN (02:20)
[2018-10-01 02:22] VITALS: BP 156/90
[2018-10-01 06:50] VITALS: BP 148/77
[2018-10-01] MEDS: IBUPROFEN 400 MG TABLET PO PRN (06:55)
[2018-10-01] MEDS: AmLODIPine BESYLATE 5 MG TABLET PO SCH (08:27)
[2018-10-01] MEDS: FOLIC ACID 1 MG TABLET PO SCH (08:27)
[2018-10-01] MEDS: QUEtiapine FUMARATE 100 MG TABLET PO SCH (08:27)
[2018-10-01] MEDS: FLUoxetine HCL 20 MG CAPSULE PO SCH (08:27)
[2018-10-01 09:02] VITALS: BP 106/70
[2018-10-01] MEDS: ACETAMINOPHEN/CODEINE 300-30 MG TABLET PO PRN ×2 (09:02→18:37)
[2018-10-01 16:34] VITALS: BP 105/62
[2018-10-01 18:35] VITALS: BP 120/76
[2018-10-01] MEDS: QUEtiapine FUMARATE 200 MG TABLET PO SCH (20:20)
[2018-10-01] MEDS: ZOLPIDEM TARTRATE 10 MG TABLET PO PRN (23:53)
[2018-10-02] VITALS: BP 137/68
[2018-10-02 05:20] VITALS: BP 139/81
[2018-10-02] MEDS: HALOPERIDOL 5 MG TABLET PO PRN (05:22)
[2018-10-02] MEDS: IBUPROFEN 400 MG TABLET PO PRN ×2 (05:42→17:10)
[2018-10-02] MEDS: FLUoxetine HCL 20 MG CAPSULE PO SCH (08:08)
[2018-10-02] MEDS: AmLODIPine BESYLATE 5 MG TABLET PO SCH (08:08)
[2018-10-02] MEDS: QUEtiapine FUMARATE 100 MG TABLET PO SCH (08:08)
[2018-10-02] MEDS: FOLIC ACID 1 MG TABLET PO SCH (08:08)
[2018-10-02 08:20] VITALS: BP 135/94
[2018-10-02] MEDS: ACETAMINOPHEN/CODEINE 300-30 MG TABLET PO PRN ×2 (08:20→16:08)
[2018-10-02] MEDS ORDERED: FLUoxetine HCL 20 MG CAPSULE PO ONE (11:15)
[2018-10-02 16:05] VITALS: BP 132/74
[2018-10-02] MEDS: QUEtiapine FUMARATE 200 MG TABLET PO SCH (21:07)
[2018-10-03] MEDS: IBUPROFEN 400 MG TABLET PO PRN ×2 (05:37→14:02)
[2018-10-03 05:43] VITALS: BP 119/70
[2018-10-03 08:27] VITALS: BP 137/74
[2018-10-03] MEDS: QUEtiapine FUMARATE 100 MG TABLET PO SCH (08:29)
[2018-10-03] MEDS: FOLIC ACID 1 MG TABLET PO SCH (08:29)
[2018-10-03] MEDS: FLUoxetine HCL 20 MG CAPSULE PO SCH (08:29)
[2018-10-03] MEDS: AmLODIPine BESYLATE 5 MG TABLET PO SCH (08:30)
[2018-10-03] MEDS: ACETAMINOPHEN/CODEINE 300-30 MG TABLET PO PRN ×2 (08:30→16:20)
[2018-10-03 16:17] VITALS: BP 144/84
[2018-10-03] MEDS: QUEtiapine FUMARATE 200 MG TABLET PO SCH (20:19)
[2018-10-04 00:05] VITALS: BP 137/72
[2018-10-04] MEDS: LORazepam 2 MG TABLET PO PRN (00:10)
[2018-10-04] MEDS: ZOLPIDEM TARTRATE 10 MG TABLET PO PRN (00:10)
[2018-10-04 05:00] VITALS: BP 138/82
[2018-10-04] MEDS: IBUPROFEN 400 MG TABLET PO PRN (05:06)
[2018-10-04] MEDS: FLUoxetine HCL 20 MG CAPSULE PO SCH (08:51)
[2018-10-04] MEDS: AmLODIPine BESYLATE 5 MG TABLET PO SCH (08:51)
[2018-10-04] MEDS: QUEtiapine FUMARATE 100 MG TABLET PO SCH (08:51)
[2018-10-04] MEDS: FOLIC ACID 1 MG TABLET PO SCH (08:52)
[2018-10-04 08:55] VITALS: BP 130/68
[2018-10-04] MEDS: ACETAMINOPHEN/CODEINE 300-30 MG TABLET PO PRN (08:55)
[2018-10-04] MEDS ORDERED: QUET200T PO (09:02)
[2018-10-04] MEDS ORDERED: FOLI1 PO (09:06)
[2018-10-04] MEDS ORDERED: AMLO-511 PO (09:06)
== END 2018-10-04 11:00 | disposition home or self-care (01) | DRG 885 ==
LOC: EMS 18:43 → 3EX 22:01
PROVIDERS: ADMIT Psychiatry & Neurology Psychiatry; ATTEND Psychiatry & Neurology Psychiatry
DX: F33.3 Major depressive disorder, recurrent, severe with psychotic symptoms (principal); R45.851 Suicidal ideations; D72.819 Decreased white blood cell count, unspecified; E03.9 Hypothyroidism, unspecified; F41.9 Anxiety disorder, unspecified; G43.909 Migraine, unspecified, not intractable, without status migrainosus; G89.29 Other chronic pain; I10 Essential (primary) hypertension; K21.9 Gastro-esophageal reflux disease without esophagitis; K59.00 Constipation, unspecified; M19.90 Unspecified osteoarthritis, unspecified site; R45.87 Impulsiveness
CPT/HCPCS: 80307; 83036; 84443; 87081; G0378; G0480

== ENCOUNTER 2018-10-10 21:53 | Inpatient (IN) | payer MEDICARE, MEDICAID ==
[~2018-10-10] VITALS: Ht 177.8 cm; Wt 99.3 kg
[~2018-10-10 21:53] MED LIST changes: +AMLO5TAB9 PO; +FOLI1 PO; -LEVO25TA9 PO; +QUET200T PO; -QUET25TA PO
[2018-10-11] MEDS ORDERED: LORazepam 2 MG TABLET PO PRN (00:30)
[2018-10-11 03:07] VITALS: BP 126/74
[2018-10-11] MEDS ORDERED: PNEUMOCOCCAL VACCINE POLYVALENT 0.5 ML VIAL [PPSV23] IM ONE (03:30)
[2018-10-11] MEDS ORDERED: ALBUTEROL SULFATE HFA 90 MCG/PUFF 8 GM INHALER IH PRN (06:30)
[2018-10-11] MEDS ORDERED: MAG HYDROX/AL HYDROX/SIMETH ES 30 ML SUSPENSION UDCUP PO PRN (06:30)
[2018-10-11] MEDS ORDERED: CloNIDine HCL 0.1 MG TABLET PO PRN (06:30)
[2018-10-11] MEDS ORDERED: NICOTINE 14 MG/24 HOUR PATCH TD PRN (06:30)
[2018-10-11] MEDS ORDERED: ACETAMINOPHEN 325 MG TABLET PO PRN (06:30)
[2018-10-11] MEDS ORDERED: ONDANSETRON HCL 4 MG TABLET PO PRN (06:30)
[2018-10-11] MEDS ORDERED: DOCUSATE SODIUM 100 MG CAPSULE PO PRN (06:30)
[2018-10-11] MEDS ORDERED: MAGNESIUM HYDROXIDE SUSPENSION 30 ML UDCUP PO PRN (06:30)
[2018-10-11] MEDS ORDERED: LOPERAMIDE HCL 2 MG CAPSULE PO PRN (06:30)
[2018-10-11] MEDS ORDERED: PETROLATUM,WHITE 28 GM JELLY TP PRN (06:30)
[2018-10-11] MEDS ORDERED: GuaiFENesin/D-METHORPHAN [SUGAR-FREE] 200-20MG/10 ML SYRUP UDCUP PO PRN (06:30)
[2018-10-11 07:09] LABS: BASOPHILS % (AUTO) 0.2 % (0.0-2.0); EOSINOPHILS % (AUTO) 1.6 % (1.0-6.0); HEMATOCRIT 38.4 % (41-53); LYMPHOCYTES # (AUTO) 1.3 K/uL (1.0-4.8); LYMPHOCYTES % (AUTO) 41.7 % (22.0-44.0); MEAN CORPUSCULAR HEMOGLOBIN 30.3 pg (26.0-34.0); MEAN CORPUSCULAR HGB CONC 33.9 G/dL (31.0-37.0); MEAN CORPUSCULAR VOLUME 90 fL (80-100); MONOCYTES # (AUTO) 0.3 K/uL (0.1-1.0); MONOCYTES % (AUTO) 8.8 % (2.0-9.0); NEUTROPHILS # (AUTO) 1.4 K/uL (1.8-7.7); NEUTROPHILS % (AUTO) 47.7 % (40.0-70.0); PLATELET COUNT (AUTO) 143 K/uL (150-450); RED BLOOD CELL COUNT(AUTO) 4.28 MIL/uL (4.50-5.90); RED CELL DISTRIBUTION WIDTH 14.4 % (11.5-14.5)
[2018-10-11 07:42] LABS: HEMOGLOBIN A1C 5.1 % (4.5-6.2)
[2018-10-11 08:04] VITALS: BP 121/72
[2018-10-11] MEDS: AmLODIPine BESYLATE 5 MG TABLET PO SCH (08:07)
[2018-10-11 08:15] LABS: ALANINE AMINOTRANSFERASE 33 U/L (12-78); ALBUMIN 3.7 g/dL (3.4-5.0); ALKALINE PHOSPHATASE 72 U/L (46-116); ASPARTATE AMINOTRANSFERASE 25 U/L (15-37); BILIRUBIN,TOTAL 0.4 mg/dL (0.1-1.0); CALCIUM, TOTAL 8.3 mg/dL (8.8-10.5); CHLORIDE 104 mmol/L (98-107); CHOL/HDL RATIO 4.1 (4.2-7.3); CHOLESTEROL 139 mg/dL (131-200); FREE T4 (FREE THYROXINE) 0.97 ng/dL (0.76-1.46); GLOMERULAR FILTR. RATE CALC > 60 mL/min (>60); GLUCOSE,RANDOM 91 mg/dL (70-110); HDL CHOLESTEROL 34 mg/dL (40-60); LDL CHOL (CALC.) 89 mg/dL (0-130); POTASSIUM 3.6 mmol/L (3.5-5.1); SODIUM SERUM 144 mmol/L (136-145); THYROID STIMULATING HORMONE 6.68 uIU/mL (0.36-3.74); TOTAL PROTEIN, SERUM 6.8 g/dL (6.4-8.2); TRIGLYCERIDES 79 mg/dL (15-150); UREA NITROGEN, BLOOD 17 mg/dL (7-18)
[2018-10-11 08:24] LABS: CARBON DIOXIDE 27 mmol/L (22-29)
[2018-10-11 08:25] LABS: ANION GAP 13 mmol/L (8-16)
[2018-10-11] MEDS: FLUoxetine HCL 20 MG CAPSULE PO SCH (10:18)
[2018-10-11] MEDS: QUEtiapine FUMARATE 100 MG TABLET PO SCH (10:18)
[2018-10-11 16:03] VITALS: BP_SYST 107; BP_SYST 140; BP_DIAS 68; BP_DIAS 78
[2018-10-11] MEDS: QUEtiapine FUMARATE 200 MG TABLET PO SCH (20:24)
[2018-10-12 06:20] VITALS: BP 119/74
[2018-10-12] MEDS: ACETAMINOPHEN/CODEINE 300-30 MG TABLET PO PRN (06:21)
[2018-10-12 08:19] VITALS: BP 107/68
[2018-10-12] MEDS: FLUoxetine HCL 20 MG CAPSULE PO SCH (08:26)
[2018-10-12] MEDS: AmLODIPine BESYLATE 5 MG TABLET PO SCH (08:26)
[2018-10-12] MEDS: QUEtiapine FUMARATE 100 MG TABLET PO SCH (08:26)
[2018-10-12] MEDS: BuPROPion HCL XL 150 MG ER TABLET PO SCH (13:11)
[2018-10-12 16:25] VITALS: BP 100/60
[2018-10-12 18:01] VITALS: BP 116/79
[2018-10-12] MEDS: QUEtiapine FUMARATE 200 MG TABLET PO SCH (21:14)
[2018-10-13 02:05] VITALS: BP 136/69
[2018-10-13] MEDS: ACETAMINOPHEN/CODEINE 300-30 MG TABLET PO PRN ×2 (05:19→16:10)
[2018-10-13 05:20] VITALS: BP 130/81
[2018-10-13] MEDS: HALOPERIDOL 5 MG TABLET PO PRN (06:40)
[2018-10-13 08:08] VITALS: BP 118/70
[2018-10-13] MEDS: QUEtiapine FUMARATE 100 MG TABLET PO SCH (08:26)
[2018-10-13] MEDS: BuPROPion HCL XL 150 MG ER TABLET PO SCH (08:26)
[2018-10-13] MEDS: FLUoxetine HCL 20 MG CAPSULE PO SCH (08:26)
[2018-10-13] MEDS: AmLODIPine BESYLATE 5 MG TABLET PO SCH (08:27)
[2018-10-13 16:02] VITALS: BP 118/70
[2018-10-13] MEDS: QUEtiapine FUMARATE 200 MG TABLET PO SCH (20:34)
[2018-10-14 03:42] VITALS: BP 138/72
[2018-10-14] MEDS: ACETAMINOPHEN/CODEINE 300-30 MG TABLET PO PRN ×2 (03:42→15:53)
[2018-10-14] MEDS: HALOPERIDOL 5 MG TABLET PO PRN ×2 (05:00→18:10)
[2018-10-14] MEDS: FLUoxetine HCL 20 MG CAPSULE PO SCH (08:21)
[2018-10-14] MEDS: QUEtiapine FUMARATE 100 MG TABLET PO SCH (08:21)
[2018-10-14] MEDS: BuPROPion HCL XL 150 MG ER TABLET PO SCH (08:21)
[2018-10-14] MEDS: AmLODIPine BESYLATE 5 MG TABLET PO SCH (08:21)
[2018-10-14 08:23] VITALS: BP 131/71
[2018-10-14 16:06] VITALS: BP 121/75
[2018-10-14] MEDS: QUEtiapine FUMARATE 200 MG TABLET PO SCH (20:29)
[2018-10-15 04:15] VITALS: BP 130/81
[2018-10-15] MEDS: ACETAMINOPHEN/CODEINE 300-30 MG TABLET PO PRN ×2 (04:15→15:56)
[2018-10-15 07:41] LABS: BASOPHILS % (AUTO) 0.2 % (0.0-2.0); HEMATOCRIT 40.1 % (41-53); HEMOGLOBIN 13.5 g/dL (13.5-17.5); LYMPHOCYTES # (AUTO) 1.1 K/uL (1.0-4.8); LYMPHOCYTES % (AUTO) 38.6 % (22.0-44.0); MEAN CORPUSCULAR HEMOGLOBIN 30.4 pg (26.0-34.0); MEAN CORPUSCULAR HGB CONC 33.7 G/dL (31.0-37.0); MEAN CORPUSCULAR VOLUME 90 fL (80-100); MONOCYTES # (AUTO) 0.4 K/uL (0.1-1.0); MONOCYTES % (AUTO) 13.1 % (2.0-9.0); NEUTROPHILS # (AUTO) 1.4 K/uL (1.8-7.7); NEUTROPHILS % (AUTO) 47.1 % (40.0-70.0); PLATELET COUNT (AUTO) 128 K/uL (150-450); RED BLOOD CELL COUNT(AUTO) 4.44 MIL/uL (4.50-5.90); RED CELL DISTRIBUTION WIDTH 14.6 % (11.5-14.5)
[2018-10-15 08:05] VITALS: BP 122/66
[2018-10-15] MEDS: AmLODIPine BESYLATE 5 MG TABLET PO SCH (08:09)
[2018-10-15] MEDS: QUEtiapine FUMARATE 100 MG TABLET PO SCH (08:09)
[2018-10-15] MEDS: BuPROPion HCL XL 150 MG ER TABLET PO SCH (08:09)
[2018-10-15] MEDS: FLUoxetine HCL 20 MG CAPSULE PO SCH (08:10)
[2018-10-15] MEDS: FOLIC ACID 1 MG TABLET PO SCH (10:19)
[2018-10-15 16:00] VITALS: BP 123/67
[2018-10-15] MEDS: QUEtiapine FUMARATE 200 MG TABLET PO SCH (20:36)
[2018-10-16 02:58] VITALS: BP 132/89
[2018-10-16] MEDS: ACETAMINOPHEN/CODEINE 300-30 MG TABLET PO PRN ×2 (03:00→15:08)
[2018-10-16 06:14] VITALS: BP 136/70
[2018-10-16 08:02] VITALS: BP 114/65
[2018-10-16] MEDS: FLUoxetine HCL 20 MG CAPSULE PO SCH (08:13)
[2018-10-16] MEDS: BuPROPion HCL XL 150 MG ER TABLET PO SCH (08:13)
[2018-10-16] MEDS: AmLODIPine BESYLATE 5 MG TABLET PO SCH (08:13)
[2018-10-16] MEDS: FOLIC ACID 1 MG TABLET PO SCH (08:13)
[2018-10-16] MEDS: QUEtiapine FUMARATE 100 MG TABLET PO SCH (08:13)
[2018-10-16 10:52] VITALS: BP 118/68
[2018-10-16] MEDS: IBUPROFEN 400 MG TABLET PO PRN (10:52)
[2018-10-16 15:08] VITALS: BP 116/68
[2018-10-16 16:18] VITALS: BP 108/60
[2018-10-16] MEDS: QUEtiapine FUMARATE 300 MG ER TABLET PO SCH (20:06)
[2018-10-17 02:40] VITALS: BP 138/79
[2018-10-17] MEDS: ACETAMINOPHEN/CODEINE 300-30 MG TABLET PO PRN ×2 (02:47→15:01)
[2018-10-17 08:08] VITALS: BP 129/74
[2018-10-17] MEDS: FLUoxetine HCL 20 MG CAPSULE PO SCH (08:46)
[2018-10-17] MEDS: FOLIC ACID 1 MG TABLET PO SCH (08:46)
[2018-10-17] MEDS: BuPROPion HCL XL 150 MG ER TABLET PO SCH (08:46)
[2018-10-17] MEDS: AmLODIPine BESYLATE 5 MG TABLET PO SCH (08:46)
[2018-10-17 15:01] VITALS: BP 128/68
[2018-10-17] MEDS: HALOPERIDOL 5 MG TABLET PO PRN (15:39)
[2018-10-17 16:10] VITALS: BP 130/69
[2018-10-17] MEDS: QUEtiapine FUMARATE 300 MG ER TABLET PO SCH (20:17)
[2018-10-18 00:07] VITALS: BP 115/64
[2018-10-18] MEDS: ACETAMINOPHEN/CODEINE 300-30 MG TABLET PO PRN ×2 (03:22→15:26)
[2018-10-18 08:07] VITALS: BP 114/70
[2018-10-18] MEDS: FOLIC ACID 1 MG TABLET PO SCH (08:14)
[2018-10-18] MEDS: FLUoxetine HCL 20 MG CAPSULE PO SCH (08:14)
[2018-10-18] MEDS: BuPROPion HCL XL 150 MG ER TABLET PO SCH (08:14)
[2018-10-18] MEDS: AmLODIPine BESYLATE 5 MG TABLET PO SCH (08:14)
[2018-10-18] MEDS: HALOPERIDOL 5 MG TABLET PO PRN (11:51)
[2018-10-18] MEDS: IBUPROFEN 400 MG TABLET PO PRN (12:59)
[2018-10-18 15:26] VITALS: BP 120/70
[2018-10-18 16:08] VITALS: BP 119/67
[2018-10-18] MEDS: QUEtiapine FUMARATE 300 MG ER TABLET PO SCH (20:09)
[2018-10-19 00:40] VITALS: BP 130/70
[2018-10-19] MEDS: IBUPROFEN 400 MG TABLET PO PRN (00:41)
[2018-10-19] MEDS: ACETAMINOPHEN/CODEINE 300-30 MG TABLET PO PRN ×2 (06:10→17:15)
[2018-10-19 08:03] VITALS: BP 108/68
[2018-10-19] MEDS: AmLODIPine BESYLATE 5 MG TABLET PO SCH (08:29)
[2018-10-19] MEDS: FLUoxetine HCL 20 MG CAPSULE PO SCH (08:29)
[2018-10-19] MEDS: BuPROPion HCL XL 150 MG ER TABLET PO SCH (08:29)
[2018-10-19] MEDS: FOLIC ACID 1 MG TABLET PO SCH (08:29)
[2018-10-19 16:44] VITALS: BP 114/65
[2018-10-19] MEDS: QUEtiapine FUMARATE 200 MG ER TABLET PO SCH (20:32)
[2018-10-20 00:28] VITALS: BP 121/79
[2018-10-20] MEDS: IBUPROFEN 400 MG TABLET PO PRN ×2 (02:32→16:15)
[2018-10-20 08:05] VITALS: BP 106/64
[2018-10-20 08:45] VITALS: BP 122/72
[2018-10-20] MEDS: BuPROPion HCL XL 150 MG ER TABLET PO SCH (08:47)
[2018-10-20] MEDS: FLUoxetine HCL 20 MG CAPSULE PO SCH (08:47)
[2018-10-20] MEDS: FOLIC ACID 1 MG TABLET PO SCH (08:47)
[2018-10-20] MEDS: AmLODIPine BESYLATE 5 MG TABLET PO SCH (08:47)
[2018-10-20] MEDS: ACETAMINOPHEN/CODEINE 300-30 MG TABLET PO PRN (09:05)
[2018-10-20] MEDS: HALOPERIDOL 5 MG TABLET PO PRN (13:34)
[2018-10-20 16:15] VITALS: BP 132/74
[2018-10-20 17:05] VITALS: BP 139/73
[2018-10-20] MEDS: QUEtiapine FUMARATE 200 MG ER TABLET PO SCH (20:02)
[2018-10-21 00:17] VITALS: BP 118/64
[2018-10-21 03:04] VITALS: BP 117/64
[2018-10-21] MEDS: ACETAMINOPHEN/CODEINE 300-30 MG TABLET PO PRN ×2 (03:06→16:01)
[2018-10-21 08:37] VITALS: BP 100/65
[2018-10-21 08:50] VITALS: BP 134/72
[2018-10-21] MEDS: AmLODIPine BESYLATE 5 MG TABLET PO SCH (08:52)
[2018-10-21] MEDS: BuPROPion HCL XL 150 MG ER TABLET PO SCH (08:52)
[2018-10-21] MEDS: FOLIC ACID 1 MG TABLET PO SCH (08:52)
[2018-10-21] MEDS: FLUoxetine HCL 20 MG CAPSULE PO SCH (08:52)
[2018-10-21 11:50] VITALS: BP 122/74
[2018-10-21] MEDS: IBUPROFEN 400 MG TABLET PO PRN (11:50)
[2018-10-21 16:01] VITALS: BP 110/66
[2018-10-21] MEDS: QUEtiapine FUMARATE 200 MG ER TABLET PO SCH (20:16)
[2018-10-21] MEDS: ZOLPIDEM TARTRATE 10 MG TABLET PO PRN (22:20)
[2018-10-22 02:06] VITALS: BP 108/63
[2018-10-22] MEDS: ACETAMINOPHEN/CODEINE 300-30 MG TABLET PO PRN ×2 (04:57→16:32)
[2018-10-22 07:50] LABS: BASOPHILS % (AUTO) 0.4 % (0.0-2.0); EOSINOPHILS % (AUTO) 1.3 % (1.0-6.0); HEMATOCRIT 40.6 % (41-53); HEMOGLOBIN 13.5 g/dL (13.5-17.5); LYMPHOCYTES # (AUTO) 1.2 K/uL (1.0-4.8); LYMPHOCYTES % (AUTO) 39.5 % (22.0-44.0); MEAN CORPUSCULAR HEMOGLOBIN 30.2 pg (26.0-34.0); MEAN CORPUSCULAR HGB CONC 33.3 G/dL (31.0-37.0); MEAN CORPUSCULAR VOLUME 91 fL (80-100); MONOCYTES # (AUTO) 0.3 K/uL (0.1-1.0); MONOCYTES % (AUTO) 10.5 % (2.0-9.0); NEUTROPHILS # (AUTO) 1.5 K/uL (1.8-7.7); NEUTROPHILS % (AUTO) 48.3 % (40.0-70.0); PLATELET COUNT (AUTO) 120 K/uL (150-450); RED BLOOD CELL COUNT(AUTO) 4.48 MIL/uL (4.50-5.90); RED CELL DISTRIBUTION WIDTH 14.6 % (11.5-14.5)
[2018-10-22 08:12] VITALS: BP 108/69
[2018-10-22 09:25] VITALS: BP 119/67
[2018-10-22] MEDS: AmLODIPine BESYLATE 5 MG TABLET PO SCH (09:28)
[2018-10-22] MEDS: FLUoxetine HCL 20 MG CAPSULE PO SCH (09:28)
[2018-10-22] MEDS: BuPROPion HCL XL 150 MG ER TABLET PO SCH (09:28)
[2018-10-22] MEDS: FOLIC ACID 1 MG TABLET PO SCH (09:28)
[2018-10-22 16:18] VITALS: BP 110/63
[2018-10-22] MEDS: HALOPERIDOL 5 MG TABLET PO PRN (16:54)
[2018-10-22 20:08] VITALS: BP 138/73
[2018-10-22] MEDS: IBUPROFEN 400 MG TABLET PO PRN (20:10)
[2018-10-22] MEDS: QUEtiapine FUMARATE 200 MG ER TABLET PO SCH (20:34)
[2018-10-22] MEDS: ZOLPIDEM TARTRATE 10 MG TABLET PO PRN (23:58)
[2018-10-23 01:08] VITALS: BP 120/74
[2018-10-23 07:43] LABS: BASOPHILS % (AUTO) 0.4 % (0.0-2.0); EOSINOPHILS % (AUTO) 0.8 % (1.0-6.0); HEMATOCRIT 40.4 % (41-53); HEMOGLOBIN 13.8 g/dL (13.5-17.5); LYMPHOCYTES # (AUTO) 1.1 K/uL (1.0-4.8); MEAN CORPUSCULAR HEMOGLOBIN 31.1 pg (26.0-34.0); MEAN CORPUSCULAR HGB CONC 34.2 G/dL (31.0-37.0); MEAN CORPUSCULAR VOLUME 91 fL (80-100); MONOCYTES # (AUTO) 0.3 K/uL (0.1-1.0); MONOCYTES % (AUTO) 12.8 % (2.0-9.0); NEUTROPHILS # (AUTO) 1.2 K/uL (1.8-7.7); PLATELET COUNT (AUTO) 125 K/uL (150-450); RED BLOOD CELL COUNT(AUTO) 4.45 MIL/uL (4.50-5.90); RED CELL DISTRIBUTION WIDTH 14.2 % (11.5-14.5)
[2018-10-23 08:29] VITALS: BP 110/70
[2018-10-23] MEDS: FOLIC ACID 1 MG TABLET PO SCH (08:48)
[2018-10-23] MEDS: BuPROPion HCL XL 150 MG ER TABLET PO SCH (08:48)
[2018-10-23] MEDS: AmLODIPine BESYLATE 5 MG TABLET PO SCH (08:48)
[2018-10-23] MEDS: FLUoxetine HCL 20 MG CAPSULE PO SCH (08:48)
[2018-10-23] MEDS: ACETAMINOPHEN/CODEINE 300-30 MG TABLET PO PRN ×2 (09:03→21:15)
[2018-10-23 16:33] VITALS: BP 117/72
[2018-10-23] MEDS: QUEtiapine FUMARATE 200 MG ER TABLET PO SCH (20:08)
[2018-10-23 21:15] VITALS: BP 135/78
[2018-10-24 00:50] VITALS: BP 119/76
[2018-10-24] MEDS: FLUoxetine HCL 20 MG CAPSULE PO SCH (08:22)
[2018-10-24] MEDS: AmLODIPine BESYLATE 5 MG TABLET PO SCH (08:22)
[2018-10-24] MEDS: BuPROPion HCL XL 150 MG ER TABLET PO SCH (08:22)
[2018-10-24] MEDS: FOLIC ACID 1 MG TABLET PO SCH (08:22)
[2018-10-24 08:24] VITALS: BP 127/64
[2018-10-24] MEDS: ACETAMINOPHEN/CODEINE 300-30 MG TABLET PO PRN (09:17)
[2018-10-24] MEDS: HALOPERIDOL 5 MG TABLET PO PRN (11:56)
[2018-10-24 13:52] VITALS: BP 124/68
[2018-10-24] MEDS: IBUPROFEN 400 MG TABLET PO PRN (13:52)
[2018-10-24 16:20] VITALS: BP 125/62
[2018-10-24] MEDS: QUEtiapine FUMARATE 200 MG ER TABLET PO SCH (20:05)
[2018-10-25 03:57] VITALS: BP 125/72
[2018-10-25] MEDS: ACETAMINOPHEN/CODEINE 300-30 MG TABLET PO PRN ×2 (03:58→16:05)
[2018-10-25 08:09] VITALS: BP 104/64
[2018-10-25 08:45] VITALS: BP 117/64
[2018-10-25] MEDS: FLUoxetine HCL 20 MG CAPSULE PO SCH (08:47)
[2018-10-25] MEDS: AmLODIPine BESYLATE 5 MG TABLET PO SCH (08:47)
[2018-10-25] MEDS: BuPROPion HCL XL 150 MG ER TABLET PO SCH (08:47)
[2018-10-25] MEDS: FOLIC ACID 1 MG TABLET PO SCH (08:47)
[2018-10-25] MEDS ORDERED: FOLIC ACID 1 MG TABLET PO SCH (09:30)
[2018-10-25 16:01] VITALS: BP 125/70
[2018-10-25] MEDS: QUEtiapine FUMARATE 200 MG ER TABLET PO SCH (20:14)
[2018-10-26] MEDS: IBUPROFEN 400 MG TABLET PO PRN (00:50)
[2018-10-26 00:51] VITALS: BP 127/69
[2018-10-26 07:31] LABS: BASOPHILS % (AUTO) 0.2 % (0.0-2.0); EOSINOPHILS % (AUTO) 0.9 % (1.0-6.0); HEMOGLOBIN 13.8 g/dL (13.5-17.5); LYMPHOCYTES # (AUTO) 1.4 K/uL (1.0-4.8); LYMPHOCYTES % (AUTO) 43.2 % (22.0-44.0); MEAN CORPUSCULAR HEMOGLOBIN 30.8 pg (26.0-34.0); MEAN CORPUSCULAR HGB CONC 33.7 G/dL (31.0-37.0); MEAN CORPUSCULAR VOLUME 91 fL (80-100); MONOCYTES # (AUTO) 0.4 K/uL (0.1-1.0); MONOCYTES % (AUTO) 11.8 % (2.0-9.0); NEUTROPHILS # (AUTO) 1.4 K/uL (1.8-7.7); NEUTROPHILS % (AUTO) 43.9 % (40.0-70.0); PLATELET COUNT (AUTO) 126 K/uL (150-450); RED CELL DISTRIBUTION WIDTH 14.8 % (11.5-14.5)
[2018-10-26 08:12] VITALS: BP 127/71
[2018-10-26 08:31] VITALS: BP 127/71
[2018-10-26] MEDS: ACETAMINOPHEN/CODEINE 300-30 MG TABLET PO PRN ×2 (08:31→21:09)
[2018-10-26] MEDS: BuPROPion HCL XL 150 MG ER TABLET PO SCH (08:31)
[2018-10-26] MEDS: AmLODIPine BESYLATE 5 MG TABLET PO SCH (08:31)
[2018-10-26] MEDS: FLUoxetine HCL 20 MG CAPSULE PO SCH (08:31)
[2018-10-26] MEDS: FOLIC ACID 1 MG TABLET PO SCH (08:31)
[2018-10-26 16:20] VITALS: BP 107/77
[2018-10-26] MEDS: QUEtiapine FUMARATE 200 MG ER TABLET PO SCH (20:01)
[2018-10-26 21:09] VITALS: BP 130/64
[2018-10-27 00:05] VITALS: BP 116/64
[2018-10-27 08:25] VITALS: BP 105/62
[2018-10-27 09:12] VITALS: BP 130/72
[2018-10-27] MEDS: BuPROPion HCL XL 150 MG ER TABLET PO SCH (09:13)
[2018-10-27] MEDS: AmLODIPine BESYLATE 5 MG TABLET PO SCH (09:13)
[2018-10-27] MEDS: ACETAMINOPHEN/CODEINE 300-30 MG TABLET PO PRN (09:13)
[2018-10-27] MEDS: FLUoxetine HCL 20 MG CAPSULE PO SCH (09:13)
[2018-10-27] MEDS: FOLIC ACID 1 MG TABLET PO SCH (09:13)
[2018-10-27 16:00] VITALS: BP 111/70
[2018-10-27] MEDS: IBUPROFEN 400 MG TABLET PO PRN (16:15)
[2018-10-27] MEDS: QUEtiapine FUMARATE 200 MG ER TABLET PO SCH (20:17)
[2018-10-27] MEDS: ZOLPIDEM TARTRATE 10 MG TABLET PO PRN (22:43)
[2018-10-28 02:28] VITALS: BP 119/78
[2018-10-28] MEDS: ACETAMINOPHEN/CODEINE 300-30 MG TABLET PO PRN ×2 (02:31→14:50)
[2018-10-28 02:34] VITALS: BP 123/69
[2018-10-28] MEDS: BuPROPion HCL XL 150 MG ER TABLET PO SCH (08:09)
[2018-10-28] MEDS: FOLIC ACID 1 MG TABLET PO SCH (08:09)
[2018-10-28] MEDS: AmLODIPine BESYLATE 5 MG TABLET PO SCH (08:09)
[2018-10-28] MEDS: FLUoxetine HCL 20 MG CAPSULE PO SCH (08:09)
[2018-10-28 08:18] VITALS: BP 132/69
[2018-10-28] MEDS: IBUPROFEN 400 MG TABLET PO PRN (11:55)
[2018-10-28 14:50] VITALS: BP 138/74
[2018-10-28 17:17] VITALS: BP 135/68
[2018-10-28] MEDS: QUEtiapine FUMARATE 200 MG ER TABLET PO SCH (20:09)
[2018-10-29 00:15] VITALS: BP 153/74
[2018-10-29 06:15] VITALS: BP 124/81
[2018-10-29] MEDS: ACETAMINOPHEN/CODEINE 300-30 MG TABLET PO PRN (06:17)
[2018-10-29 07:45] VITALS: BP 122/69
[2018-10-29 08:00] VITALS: BP 122/69
[2018-10-29] MEDS ORDERED: QUET200T5 PO (08:24)
[2018-10-29] MEDS: AmLODIPine BESYLATE 5 MG TABLET PO SCH (08:25)
[2018-10-29] MEDS: FLUoxetine HCL 20 MG CAPSULE PO SCH (08:25)
[2018-10-29] MEDS: BuPROPion HCL XL 150 MG ER TABLET PO SCH (08:25)
[2018-10-29] MEDS: FOLIC ACID 1 MG TABLET PO SCH (08:25)
[2018-10-29] MEDS ORDERED: BUPR-93 PO (08:26)
== END 2018-10-29 12:50 | disposition home or self-care (01) | DRG 885 ==
LOC: UNDOADMIN 10-11 00:30 → B2S 10-11 00:30
PROVIDERS: ADMIT Psychiatry & Neurology Psychiatry; ATTEND Psychiatry & Neurology Psychiatry
DX: F25.1 Schizoaffective disorder, depressive type (principal); R45.851 Suicidal ideations; F15.20 Other stimulant dependence, uncomplicated; D72.819 Decreased white blood cell count, unspecified; E03.9 Hypothyroidism, unspecified; F19.90 Other psychoactive substance use, unspecified, uncomplicated; F41.9 Anxiety disorder, unspecified; G89.29 Other chronic pain; I10 Essential (primary) hypertension; J44.9 Chronic obstructive pulmonary disease, unspecified; K21.9 Gastro-esophageal reflux disease without esophagitis; K59.00 Constipation, unspecified; M19.90 Unspecified osteoarthritis, unspecified site; Z91.5 Personal history of self-harm
CPT/HCPCS: 83036; 84439; 84443; 87081

== ENCOUNTER 2018-11-18 07:57 | Inpatient (IN) | payer MEDICARE, MEDICAID ==
[~2018-11-18] VITALS: Ht 177.8 cm; Wt 102.6 kg
[~2018-11-18 07:57] MED LIST changes: +BUPR-93 PO; -QUET100T PO; -QUET200T PO; +QUET200T5 PO
[2018-11-18 08:57] LABS: BASOPHILS % (AUTO) 0.3 % (0.0-2.0); EOSINOPHILS % (AUTO) 0.3 % (1.0-6.0); HEMATOCRIT 42.6 % (41-53); HEMOGLOBIN 14.1 g/dL (13.5-17.5); LYMPHOCYTES # (AUTO) 1.1 K/uL (1.0-4.8); LYMPHOCYTES % (AUTO) 23.6 % (22.0-44.0); MEAN CORPUSCULAR HEMOGLOBIN 30.3 pg (26.0-34.0); MEAN CORPUSCULAR HGB CONC 33.1 G/dL (31.0-37.0); MEAN CORPUSCULAR VOLUME 92 fL (80-100); MONOCYTES # (AUTO) 0.4 K/uL (0.1-1.0); MONOCYTES % (AUTO) 8.3 % (2.0-9.0); NEUTROPHILS # (AUTO) 3.1 K/uL (1.8-7.7); NEUTROPHILS % (AUTO) 67.5 % (40.0-70.0); PLATELET COUNT (AUTO) 142 K/uL (150-450); RED BLOOD CELL COUNT(AUTO) 4.65 MIL/uL (4.50-5.90); RED CELL DISTRIBUTION WIDTH 14.7 % (11.5-14.5)
[2018-11-18 09:01] LABS: AMPHET/METH SCREEN,URINE POSITIVE (NEGATIVE); BARBITURATE SCREEN, URINE NEGATIVE (NEGATIVE); BENZODIAZEPINES SCREEN,URINE NEGATIVE (NEGATIVE); CANNABINOID SCREEN,URINE NEGATIVE (NEGATIVE); COCAINE SCREEN,URINE NEGATIVE (NEGATIVE); METHADONE SCREEN, URINE NEGATIVE (NEGATIVE); OPIATE SCREEN,URINE NEGATIVE (NEGATIVE)
[2018-11-18 09:02] LABS: PHENCYCLIDINE SCREEN,URINE NEGATIVE (NEGATIVE)
[2018-11-18 09:07] LABS: ANION GAP 9 mmol/L (8-16); CALCIUM, TOTAL 9.3 mg/dL (8.8-10.5); CARBON DIOXIDE 27 mmol/L (22-29); CHLORIDE 103 mmol/L (98-107); CREATININE 0.91 mg/dL (0.60-1.30); GLOMERULAR FILTR. RATE CALC > 60 mL/min (>60); GLUCOSE,RANDOM 109 mg/dL (70-110); POTASSIUM 3.9 mmol/L (3.5-5.1); SODIUM SERUM 139 mmol/L (136-145); UREA NITROGEN, BLOOD 15 mg/dL (7-18)
[2018-11-18 09:12] LABS: ALANINE AMINOTRANSFERASE 34 U/L (12-78); ALKALINE PHOSPHATASE 91 U/L (46-116); ASPARTATE AMINOTRANSFERASE 23 U/L (15-37); BILIRUBIN,TOTAL 0.4 mg/dL (0.1-1.0); TOTAL PROTEIN, SERUM 7.6 g/dL (6.4-8.2)
[2018-11-18] MEDS ORDERED: IBUPROFEN 400 MG TABLET PO PRN (11:15)
[2018-11-18] MEDS ORDERED: ACETAMINOPHEN 325 MG TABLET PO PRN ×2 (11:15→13:30)
[2018-11-18 12:20] LABS: AMPHET/METH SCREEN,URINE POSITIVE (NEGATIVE); BARBITURATE SCREEN, URINE NEGATIVE (NEGATIVE); BENZODIAZEPINES SCREEN,URINE NEGATIVE (NEGATIVE); CANNABINOID SCREEN,URINE NEGATIVE (NEGATIVE); COCAINE SCREEN,URINE NEGATIVE (NEGATIVE); METHADONE SCREEN, URINE NEGATIVE (NEGATIVE); OPIATE SCREEN,URINE NEGATIVE (NEGATIVE)
[2018-11-18 12:21] LABS: PHENCYCLIDINE SCREEN,URINE NEGATIVE (NEGATIVE)
[2018-11-18] MEDS ORDERED: DOCUSATE SODIUM 100 MG CAPSULE PO PRN (13:30)
[2018-11-18] MEDS ORDERED: CloNIDine HCL 0.1 MG TABLET PO PRN (13:30)
[2018-11-18] MEDS ORDERED: ONDANSETRON HCL 4 MG TABLET PO PRN (13:30)
[2018-11-18] MEDS ORDERED: PETROLATUM,WHITE 28 GM JELLY TP PRN (13:30)
[2018-11-18] MEDS ORDERED: NICOTINE 14 MG/24 HOUR PATCH TD PRN (13:30)
[2018-11-18] MEDS ORDERED: ALBUTEROL SULFATE HFA 90 MCG/PUFF 8 GM INHALER IH PRN (13:30)
[2018-11-18] MEDS ORDERED: LOPERAMIDE HCL 2 MG CAPSULE PO PRN (13:30)
[2018-11-18] MEDS ORDERED: MAG HYDROX/AL HYDROX/SIMETH ES 30 ML SUSPENSION UDCUP PO PRN (13:30)
[2018-11-18] MEDS ORDERED: GuaiFENesin/D-METHORPHAN [SUGAR-FREE] 200-20MG/10 ML SYRUP UDCUP PO PRN (13:30)
[2018-11-18] MEDS ORDERED: MAGNESIUM HYDROXIDE SUSPENSION 30 ML UDCUP PO PRN (13:30)
[2018-11-18 14:35] VITALS: BP 136/90
[2018-11-18] MEDS ORDERED: PNEUMOCOCCAL VACCINE POLYVALENT 0.5 ML VIAL [PPSV23] IM ONE (14:45)
[2018-11-18 16:44] VITALS: BP 139/77
[2018-11-18] MEDS: LORazepam 2 MG TABLET PO PRN (19:27)
[2018-11-18] MEDS: IBUPROFEN 400 MG TABLET PO PRN (19:27)
[2018-11-19] VITALS (7 sets, daily range): BP systolic 122–143; BP diastolic 75–93
[2018-11-19] MEDS: LEVOTHYROXINE SODIUM 25 MCG TABLET PO SCH (06:30)
[2018-11-19 07:41] LABS: BASOPHILS % (AUTO) 0.2 % (0.0-2.0); EOSINOPHILS % (AUTO) 0.8 % (1.0-6.0); HEMATOCRIT 40.3 % (41-53); HEMOGLOBIN 13.5 g/dL (13.5-17.5); LYMPHOCYTES # (AUTO) 1.2 K/uL (1.0-4.8); LYMPHOCYTES % (AUTO) 26.5 % (22.0-44.0); MEAN CORPUSCULAR HEMOGLOBIN 30.9 pg (26.0-34.0); MEAN CORPUSCULAR HGB CONC 33.6 G/dL (31.0-37.0); MEAN CORPUSCULAR VOLUME 92 fL (80-100); MONOCYTES # (AUTO) 0.4 K/uL (0.1-1.0); MONOCYTES % (AUTO) 8.2 % (2.0-9.0); NEUTROPHILS % (AUTO) 64.3 % (40.0-70.0); PLATELET COUNT (AUTO) 122 K/uL (150-450); RED BLOOD CELL COUNT(AUTO) 4.38 MIL/uL (4.50-5.90); RED CELL DISTRIBUTION WIDTH 15.1 % (11.5-14.5)
[2018-11-19 07:50] LABS: HEMOGLOBIN A1C 5.5 % (4.5-6.2)
[2018-11-19 08:05] LABS: ALANINE AMINOTRANSFERASE 31 U/L (12-78); ALBUMIN 3.4 g/dL (3.4-5.0); ALKALINE PHOSPHATASE 82 U/L (46-116); ANION GAP 8 mmol/L (8-16); ASPARTATE AMINOTRANSFERASE 22 U/L (15-37); BILIRUBIN,TOTAL 0.4 mg/dL (0.1-1.0); CALCIUM, TOTAL 8.5 mg/dL (8.8-10.5); CARBON DIOXIDE 29 mmol/L (22-29); CHLORIDE 105 mmol/L (98-107); CHOL/HDL RATIO 4.8 (4.2-7.3); CHOLESTEROL 160 mg/dL (131-200); CREATININE 0.87 mg/dL (0.60-1.30); GLOMERULAR FILTR. RATE CALC > 60 mL/min (>60); GLUCOSE,RANDOM 95 mg/dL (70-110); HDL CHOLESTEROL 33 mg/dL (40-60); LDL CHOL (CALC.) 108 mg/dL (0-130); SODIUM SERUM 142 mmol/L (136-145); THYROID STIMULATING HORMONE 5.34 uIU/mL (0.36-3.74); TOTAL PROTEIN, SERUM 6.5 g/dL (6.4-8.2); TRIGLYCERIDES 96 mg/dL (15-150); UREA NITROGEN, BLOOD 17 mg/dL (7-18)
[2018-11-19] MEDS: AmLODIPine BESYLATE 5 MG TABLET PO SCH (08:40)
[2018-11-19] MEDS: LORazepam 2 MG TABLET PO PRN (13:02)
[2018-11-19] MEDS: ACETAMINOPHEN/CODEINE 300-30 MG TABLET PO PRN (15:21)
[2018-11-19] MEDS: QUEtiapine FUMARATE 200 MG ER TABLET PO SCH (20:41)
[2018-11-20] VITALS (7 sets, daily range): BP systolic 122–135; BP diastolic 74–80
[2018-11-20] MEDS: LEVOTHYROXINE SODIUM 25 MCG TABLET PO SCH (06:26)
[2018-11-20] MEDS: AmLODIPine BESYLATE 5 MG TABLET PO SCH (09:21)
[2018-11-20] MEDS: BuPROPion HCL XL 150 MG ER TABLET PO SCH (09:21)
[2018-11-20] MEDS: FLUoxetine HCL 20 MG CAPSULE PO SCH (09:21)
[2018-11-20] MEDS: ACETAMINOPHEN/CODEINE 300-30 MG TABLET PO PRN ×2 (11:06→16:44)
[2018-11-20] MEDS: LORazepam 2 MG TABLET PO PRN (16:34)
[2018-11-20] MEDS: IBUPROFEN 400 MG TABLET PO PRN (20:18)
[2018-11-20] MEDS: QUEtiapine FUMARATE 200 MG ER TABLET PO SCH (20:18)
[2018-11-21] MEDS: LEVOTHYROXINE SODIUM 25 MCG TABLET PO SCH (06:41)
[2018-11-21 08:25] VITALS: BP 116/70
[2018-11-21 08:26] VITALS: BP 116/70
[2018-11-21] MEDS: ACETAMINOPHEN/CODEINE 300-30 MG TABLET PO PRN ×2 (08:27→15:59)
[2018-11-21] MEDS: BuPROPion HCL XL 150 MG ER TABLET PO SCH (08:27)
[2018-11-21] MEDS: AmLODIPine BESYLATE 5 MG TABLET PO SCH (08:28)
[2018-11-21] MEDS: FLUoxetine HCL 20 MG CAPSULE PO SCH (08:29)
[2018-11-21 09:27] VITALS: BP 126/72
[2018-11-21 13:06] VITALS: BP 117/68
[2018-11-21] MEDS: IBUPROFEN 400 MG TABLET PO PRN (13:10)
[2018-11-21 14:10] VITALS: BP 116/68
[2018-11-21 16:00] VITALS: BP 121/63
[2018-11-21] MEDS: QUEtiapine FUMARATE 200 MG ER TABLET PO SCH (20:34)
[2018-11-21] MEDS: ZOLPIDEM TARTRATE 10 MG TABLET PO PRN (20:59)
[2018-11-21] MEDS: HALOPERIDOL 5 MG TABLET PO PRN (21:40)
[2018-11-22 03:18] VITALS: BP 118/67
[2018-11-22] MEDS: LEVOTHYROXINE SODIUM 25 MCG TABLET PO SCH (06:26)
[2018-11-22] MEDS: FLUoxetine HCL 20 MG CAPSULE PO SCH (08:05)
[2018-11-22] MEDS: BuPROPion HCL XL 150 MG ER TABLET PO SCH (08:05)
[2018-11-22 08:06] VITALS: BP 111/71
[2018-11-22] MEDS: ACETAMINOPHEN/CODEINE 300-30 MG TABLET PO PRN ×2 (08:06→14:31)
[2018-11-22] MEDS: AmLODIPine BESYLATE 5 MG TABLET PO SCH (08:06)
[2018-11-22] MEDS: IBUPROFEN 400 MG TABLET PO PRN ×2 (08:06→14:31)
[2018-11-22 08:34] VITALS: BP 111/71
[2018-11-22 14:28] VITALS: BP 121/80
[2018-11-22 15:18] VITALS: BP 122/78
[2018-11-22 16:04] VITALS: BP 119/67
[2018-11-22] MEDS: LORazepam 2 MG TABLET PO PRN (17:24)
[2018-11-22] MEDS: HALOPERIDOL 5 MG TABLET PO PRN (17:24)
[2018-11-22] MEDS: QUEtiapine FUMARATE 200 MG ER TABLET PO SCH (20:47)
[2018-11-23] MEDS: ACETAMINOPHEN/CODEINE 300-30 MG TABLET PO PRN ×2 (05:00→16:22)
[2018-11-23 05:02] VITALS: BP 126/72
[2018-11-23] MEDS: LEVOTHYROXINE SODIUM 25 MCG TABLET PO SCH (06:18)
[2018-11-23 08:14] VITALS: BP 116/74
[2018-11-23] MEDS: BuPROPion HCL XL 150 MG ER TABLET PO SCH (08:26)
[2018-11-23] MEDS: FLUoxetine HCL 20 MG CAPSULE PO SCH (08:26)
[2018-11-23] MEDS: AmLODIPine BESYLATE 5 MG TABLET PO SCH (08:26)
[2018-11-23 11:35] VITALS: BP 124/76
[2018-11-23] MEDS: IBUPROFEN 400 MG TABLET PO PRN ×2 (11:35→19:54)
[2018-11-23] MEDS: HALOPERIDOL 5 MG TABLET PO PRN ×2 (12:49→21:34)
[2018-11-23 16:19] VITALS: BP 123/68
[2018-11-23] MEDS: QUEtiapine FUMARATE 200 MG ER TABLET PO SCH (20:38)
[2018-11-24] VITALS (7 sets, daily range): BP systolic 117–140; BP diastolic 71–86
[2018-11-24] MEDS: LEVOTHYROXINE SODIUM 25 MCG TABLET PO SCH (06:31)
[2018-11-24] MEDS: ACETAMINOPHEN/CODEINE 300-30 MG TABLET PO PRN ×2 (07:41→16:53)
[2018-11-24] MEDS: IBUPROFEN 400 MG TABLET PO PRN (07:41)
[2018-11-24] MEDS: FLUoxetine HCL 20 MG CAPSULE PO SCH (08:30)
[2018-11-24] MEDS: AmLODIPine BESYLATE 5 MG TABLET PO SCH (08:31)
[2018-11-24] MEDS: BuPROPion HCL XL 150 MG ER TABLET PO SCH (08:32)
[2018-11-24] MEDS: LORazepam 2 MG TABLET PO PRN (16:52)
[2018-11-24] MEDS: HALOPERIDOL 5 MG TABLET PO PRN (16:52)
[2018-11-24] MEDS: ZOLPIDEM TARTRATE 10 MG TABLET PO PRN (20:25)
[2018-11-24] MEDS: QUEtiapine FUMARATE 200 MG ER TABLET PO SCH (20:25)
[2018-11-25 05:56] VITALS: BP 126/75
[2018-11-25] MEDS: LEVOTHYROXINE SODIUM 25 MCG TABLET PO SCH (05:58)
[2018-11-25] MEDS: ACETAMINOPHEN/CODEINE 300-30 MG TABLET PO PRN ×2 (05:59→14:07)
[2018-11-25] MEDS: AmLODIPine BESYLATE 5 MG TABLET PO SCH (08:25)
[2018-11-25] MEDS: FLUoxetine HCL 20 MG CAPSULE PO SCH (08:25)
[2018-11-25] MEDS: BuPROPion HCL XL 150 MG ER TABLET PO SCH (08:25)
[2018-11-25] MEDS: IBUPROFEN 400 MG TABLET PO PRN ×2 (09:23→19:00)
[2018-11-25 09:29] VITALS: BP 125/67
[2018-11-25] MEDS: HALOPERIDOL 5 MG TABLET PO PRN (16:23)
[2018-11-25] MEDS: LORazepam 2 MG TABLET PO PRN (16:23)
[2018-11-25 17:56] VITALS: BP 128/75
[2018-11-25] MEDS: QUEtiapine FUMARATE 200 MG ER TABLET PO SCH (20:38)
[2018-11-26] VITALS (7 sets, daily range): BP systolic 117–139; BP diastolic 64–84
[2018-11-26] MEDS: ACETAMINOPHEN/CODEINE 300-30 MG TABLET PO PRN ×3 (02:11→16:45)
[2018-11-26] MEDS: LEVOTHYROXINE SODIUM 25 MCG TABLET PO SCH (06:27)
[2018-11-26] MEDS: FLUoxetine HCL 20 MG CAPSULE PO SCH (09:06)
[2018-11-26] MEDS: BuPROPion HCL XL 150 MG ER TABLET PO SCH (09:06)
[2018-11-26] MEDS: AmLODIPine BESYLATE 5 MG TABLET PO SCH (09:06)
[2018-11-26] MEDS: IBUPROFEN 400 MG TABLET PO PRN (12:39)
[2018-11-26] MEDS: HALOPERIDOL 5 MG TABLET PO PRN (16:44)
[2018-11-26] MEDS: LORazepam 2 MG TABLET PO PRN (16:44)
[2018-11-26] MEDS: ZOLPIDEM TARTRATE 10 MG TABLET PO PRN (20:15)
[2018-11-26] MEDS: QUEtiapine FUMARATE 200 MG ER TABLET PO SCH (20:15)
[2018-11-27 04:53] VITALS: BP 124/83
[2018-11-27] MEDS: ACETAMINOPHEN/CODEINE 300-30 MG TABLET PO PRN (05:03)
[2018-11-27] MEDS: LEVOTHYROXINE SODIUM 25 MCG TABLET PO SCH (06:27)
[2018-11-27] MEDS: FLUoxetine HCL 20 MG CAPSULE PO SCH (08:05)
[2018-11-27] MEDS: BuPROPion HCL XL 150 MG ER TABLET PO SCH (08:05)
[2018-11-27] MEDS: AmLODIPine BESYLATE 5 MG TABLET PO SCH (08:05)
[2018-11-27 08:34] VITALS: BP 135/86
[2018-11-27] MEDS ORDERED: LEVO25TA9 PO (13:54)
[2018-11-27] MEDS ORDERED: AMLO5TAB9 PO (13:54)
== END 2018-11-27 14:57 | disposition home or self-care (01) | DRG 885 ==
LOC: EMS 07:57 → B2X 12:18 → B3A 13:55
PROVIDERS: ADMIT Psychiatry & Neurology Psychiatry; ATTEND Psychiatry & Neurology Psychiatry
DX: F33.3 Major depressive disorder, recurrent, severe with psychotic symptoms (principal); R45.851 Suicidal ideations; E03.9 Hypothyroidism, unspecified; F41.9 Anxiety disorder, unspecified; G89.29 Other chronic pain; I10 Essential (primary) hypertension; J44.9 Chronic obstructive pulmonary disease, unspecified; X58.XXXA Exposure to other specified factors, initial encounter; K21.9 Gastro-esophageal reflux disease without esophagitis; K59.00 Constipation, unspecified; S90.121A Contusion of right lesser toe(s) without damage to nail, initial encounter; M19.90 Unspecified osteoarthritis, unspecified site; F19.10 Other psychoactive substance abuse, uncomplicated; G43.909 Migraine, unspecified, not intractable, without status migrainosus; Z79.890 Hormone replacement therapy; Z79.899 Other long term (current) drug therapy; Z91.5 Personal history of self-harm; Y93.89 Activity, other specified; Y92.89 Other specified places as the place of occurrence of the external cause; Y99.8 Other external cause status; Z71.51 Drug abuse counseling and surveillance of drug abuser
CPT/HCPCS: 83036; 84443; 87081; G0480

== ENCOUNTER 2018-12-07 18:37 | Inpatient (IN) | payer MEDICARE, MEDICAID ==
[~2018-12-07] VITALS: Ht 180.3 cm; Wt 93.3 kg
[~2018-12-07 18:37] MED LIST changes: -FOLI1 PO; +LEVO25TA9 PO
[2018-12-07 19:15] LABS: BASOPHILS % (AUTO) 0.4 % (0.0-2.0); EOSINOPHILS % (AUTO) 0.5 % (1.0-6.0); HEMATOCRIT 41.6 % (41-53); HEMOGLOBIN 13.8 g/dL (13.5-17.5); LYMPHOCYTES # (AUTO) 1.2 K/uL (1.0-4.8); LYMPHOCYTES % (AUTO) 31.7 % (22.0-44.0); MEAN CORPUSCULAR HEMOGLOBIN 30.4 pg (26.0-34.0); MEAN CORPUSCULAR HGB CONC 33.1 G/dL (31.0-37.0); MEAN CORPUSCULAR VOLUME 92 fL (80-100); MONOCYTES # (AUTO) 0.3 K/uL (0.1-1.0); MONOCYTES % (AUTO) 7.4 % (2.0-9.0); NEUTROPHILS # (AUTO) 2.3 K/uL (1.8-7.7); PLATELET COUNT (AUTO) 161 K/uL (150-450); RED BLOOD CELL COUNT(AUTO) 4.53 MIL/uL (4.50-5.90); RED CELL DISTRIBUTION WIDTH 14.6 % (11.5-14.5)
[2018-12-07 19:29] LABS: ANION GAP 7 mmol/L (8-16); CALCIUM, TOTAL 9.2 mg/dL (8.8-10.5); CARBON DIOXIDE 30 mmol/L (22-29); CHLORIDE 103 mmol/L (98-107); CREATININE 0.88 mg/dL (0.60-1.30); GLOMERULAR FILTR. RATE CALC > 60 mL/min (>60); GLUCOSE,RANDOM 105 mg/dL (70-110); POTASSIUM 3.8 mmol/L (3.5-5.1); SODIUM SERUM 140 mmol/L (136-145); UREA NITROGEN, BLOOD 22 mg/dL (7-18)
[2018-12-07 19:35] LABS: ALANINE AMINOTRANSFERASE 38 U/L (12-78); ALBUMIN 4.1 g/dL (3.4-5.0); ALKALINE PHOSPHATASE 74 U/L (46-116); ASPARTATE AMINOTRANSFERASE 29 U/L (15-37); BILIRUBIN,TOTAL 0.5 mg/dL (0.1-1.0); TOTAL PROTEIN, SERUM 7.3 g/dL (6.4-8.2)
[2018-12-07 19:51] LABS: AMPHET/METH SCREEN,URINE NEGATIVE (NEGATIVE); BARBITURATE SCREEN, URINE NEGATIVE (NEGATIVE); BENZODIAZEPINES SCREEN,URINE NEGATIVE (NEGATIVE); CANNABINOID SCREEN,URINE NEGATIVE (NEGATIVE); COCAINE SCREEN,URINE NEGATIVE (NEGATIVE); METHADONE SCREEN, URINE NEGATIVE (NEGATIVE); OPIATE SCREEN,URINE NEGATIVE (NEGATIVE); PHENCYCLIDINE SCREEN,URINE NEGATIVE (NEGATIVE)
[2018-12-07] MEDS ORDERED: ZOLPIDEM TARTRATE 10 MG TABLET PO PRN (22:15)
[2018-12-07] MEDS ORDERED: LORazepam 2 MG TABLET PO PRN (22:15)
[2018-12-08 02:50] LABS: CHOL/HDL RATIO 4.2 (4.2-7.3); CHOLESTEROL 151 mg/dL (131-200); HDL CHOLESTEROL 36 mg/dL (40-60); LDL CHOL (CALC.) 100 mg/dL (0-130); TRIGLYCERIDES 77 mg/dL (15-150)
[2018-12-08] MEDS ORDERED: IBUPROFEN 800 MG TABLET PO ONE (04:00)
[2018-12-08 11:20] VITALS: BP 136/90
[2018-12-08] MEDS ORDERED: ONDANSETRON HCL 4 MG TABLET PO PRN (12:30)
[2018-12-08] MEDS ORDERED: PETROLATUM,WHITE 28 GM JELLY TP PRN (12:30)
[2018-12-08] MEDS ORDERED: GuaiFENesin/D-METHORPHAN [SUGAR-FREE] 200-20MG/10 ML SYRUP UDCUP PO PRN (12:30)
[2018-12-08] MEDS ORDERED: ALBUTEROL SULFATE HFA 90 MCG/PUFF 8 GM INHALER IH PRN (12:30)
[2018-12-08] MEDS ORDERED: MAGNESIUM HYDROXIDE SUSPENSION 30 ML UDCUP PO PRN (12:30)
[2018-12-08] MEDS ORDERED: NICOTINE 14 MG/24 HOUR PATCH TD PRN (12:30)
[2018-12-08] MEDS ORDERED: LOPERAMIDE HCL 2 MG CAPSULE PO PRN (12:30)
[2018-12-08] MEDS ORDERED: CloNIDine HCL 0.1 MG TABLET PO PRN (12:30)
[2018-12-08] MEDS ORDERED: DOCUSATE SODIUM 100 MG CAPSULE PO PRN (12:30)
[2018-12-08] MEDS ORDERED: MAG HYDROX/AL HYDROX/SIMETH ES 30 ML SUSPENSION UDCUP PO PRN (12:30)
[2018-12-08] MEDS ORDERED: PNEUMOCOCCAL VACCINE POLYVALENT 0.5 ML VIAL [PPSV23] IM ONE (12:45)
[2018-12-08] MEDS: AmLODIPine BESYLATE 5 MG TABLET PO SCH (12:50)
[2018-12-08] MEDS: HALOPERIDOL 5 MG TABLET PO PRN (12:51)
[2018-12-08] MEDS: IBUPROFEN 400 MG TABLET PO PRN (16:07)
[2018-12-08 16:09] VITALS: BP 124/78
[2018-12-08] MEDS ORDERED: NYSTATIN 15 GM POWDER BOTTLE TP SCH (17:00)
[2018-12-08] MEDS: QUEtiapine FUMARATE 200 MG ER TABLET PO SCH (20:08)
[2018-12-08] MEDS: NYSTATIN 30 GM CREAM TP SCH (20:11)
[2018-12-09 06:08] VITALS: BP 121/69
[2018-12-09] MEDS: LEVOTHYROXINE SODIUM 25 MCG TABLET PO SCH (06:11)
[2018-12-09 08:07] LABS: BASOPHILS % (AUTO) 0.1 % (0.0-2.0); EOSINOPHILS % (AUTO) 0.5 % (1.0-6.0); HEMATOCRIT 41.9 % (41-53); LYMPHOCYTES % (AUTO) 23.8 % (22.0-44.0); MEAN CORPUSCULAR HEMOGLOBIN 30.9 pg (26.0-34.0); MEAN CORPUSCULAR HGB CONC 33.5 G/dL (31.0-37.0); MEAN CORPUSCULAR VOLUME 92 fL (80-100); MONOCYTES # (AUTO) 0.4 K/uL (0.1-1.0); MONOCYTES % (AUTO) 11.1 % (2.0-9.0); NEUTROPHILS # (AUTO) 2.6 K/uL (1.8-7.7); NEUTROPHILS % (AUTO) 64.5 % (40.0-70.0); PLATELET COUNT (AUTO) 137 K/uL (150-450); RED BLOOD CELL COUNT(AUTO) 4.55 MIL/uL (4.50-5.90); RED CELL DISTRIBUTION WIDTH 14.6 % (11.5-14.5)
[2018-12-09 08:08] VITALS: BP 109/68
[2018-12-09 08:24] LABS: HEMOGLOBIN A1C 5.5 % (4.5-6.2)
[2018-12-09 08:40] LABS: ALANINE AMINOTRANSFERASE 26 U/L (12-78); ALBUMIN 3.9 g/dL (3.4-5.0); ALKALINE PHOSPHATASE 73 U/L (46-116); ANION GAP 4 mmol/L (8-16); ASPARTATE AMINOTRANSFERASE 22 U/L (15-37); BILIRUBIN,TOTAL 0.4 mg/dL (0.1-1.0); CARBON DIOXIDE 31 mmol/L (22-29); CHLORIDE 106 mmol/L (98-107); CHOL/HDL RATIO 5.3 (4.2-7.3); CHOLESTEROL 153 mg/dL (131-200); CREATININE 0.91 mg/dL (0.60-1.30); GLOMERULAR FILTR. RATE CALC > 60 mL/min (>60); GLUCOSE,RANDOM 96 mg/dL (70-110); HDL CHOLESTEROL 29 mg/dL (40-60); LDL CHOL (CALC.) 99 mg/dL (0-130); SODIUM SERUM 141 mmol/L (136-145); THYROID STIMULATING HORMONE 3.08 uIU/mL (0.36-3.74); TOTAL PROTEIN, SERUM 6.8 g/dL (6.4-8.2); TRIGLYCERIDES 125 mg/dL (15-150); UREA NITROGEN, BLOOD 17 mg/dL (7-18)
[2018-12-09] MEDS: BuPROPion HCL XL 150 MG ER TABLET PO SCH (10:00)
[2018-12-09] MEDS: FLUoxetine HCL 20 MG CAPSULE PO SCH (10:00)
[2018-12-09] MEDS: NYSTATIN 30 GM CREAM TP SCH ×2 (10:01→18:17)
[2018-12-09] MEDS: AmLODIPine BESYLATE 5 MG TABLET PO SCH (10:07)
[2018-12-09 16:10] VITALS: BP 112/72
[2018-12-09] MEDS: QUEtiapine FUMARATE 200 MG ER TABLET PO SCH (20:04)
[2018-12-10] MEDS: LEVOTHYROXINE SODIUM 25 MCG TABLET PO SCH (06:14)
[2018-12-10 08:25] VITALS: BP 108/63
[2018-12-10] MEDS: AmLODIPine BESYLATE 5 MG TABLET PO SCH (08:28)
[2018-12-10] MEDS: BuPROPion HCL XL 150 MG ER TABLET PO SCH (08:29)
[2018-12-10] MEDS: FLUoxetine HCL 20 MG CAPSULE PO SCH (08:29)
[2018-12-10] MEDS: NYSTATIN 30 GM CREAM TP SCH ×2 (08:30→16:21)
[2018-12-10] MEDS: HALOPERIDOL 5 MG TABLET PO PRN (14:25)
[2018-12-10 16:09] VITALS: BP 109/64
[2018-12-10] MEDS: QUEtiapine FUMARATE 200 MG ER TABLET PO SCH (20:29)
[2018-12-11] MEDS: LEVOTHYROXINE SODIUM 25 MCG TABLET PO SCH (06:19)
[2018-12-11 06:45] VITALS: BP 126/71
[2018-12-11] MEDS: IBUPROFEN 400 MG TABLET PO PRN ×2 (06:46→17:57)
[2018-12-11 08:21] VITALS: BP 102/62
[2018-12-11] MEDS: BuPROPion HCL XL 150 MG ER TABLET PO SCH (08:43)
[2018-12-11] MEDS: AmLODIPine BESYLATE 5 MG TABLET PO SCH (08:44)
[2018-12-11] MEDS: FLUoxetine HCL 20 MG CAPSULE PO SCH (08:44)
[2018-12-11] MEDS: NYSTATIN 30 GM CREAM TP SCH ×2 (08:45→17:26)
[2018-12-11 10:53] VITALS: BP 115/70
[2018-12-11] MEDS: HALOPERIDOL 5 MG TABLET PO PRN (10:53)
[2018-12-11 12:34] VITALS: BP 115/70
[2018-12-11] MEDS: ACETAMINOPHEN 325 MG TABLET PO PRN (12:34)
[2018-12-11 16:05] VITALS: BP 114/73
[2018-12-11] MEDS: MUPIROCIN CALCIUM 2% 15 GM CREAM TP SCH (17:26)
[2018-12-11] MEDS: QUEtiapine FUMARATE 200 MG ER TABLET PO SCH (19:49)
[2018-12-12 03:03] VITALS: BP 112/71
[2018-12-12] MEDS: LEVOTHYROXINE SODIUM 25 MCG TABLET PO SCH (06:42)
[2018-12-12] MEDS: IBUPROFEN 400 MG TABLET PO PRN (07:05)
[2018-12-12] MEDS: FLUoxetine HCL 20 MG CAPSULE PO SCH (08:03)
[2018-12-12] MEDS: BuPROPion HCL XL 150 MG ER TABLET PO SCH (08:03)
[2018-12-12] MEDS: NYSTATIN 30 GM CREAM TP SCH (08:04)
[2018-12-12] MEDS: MUPIROCIN CALCIUM 2% 15 GM CREAM TP SCH (08:04)
[2018-12-12] MEDS: AmLODIPine BESYLATE 5 MG TABLET PO SCH (08:04)
[2018-12-12 08:43] VITALS: BP 140/79
[2018-12-12] MEDS: HALOPERIDOL 5 MG TABLET PO PRN (10:09)
[2018-12-12] MEDS: ACETAMINOPHEN 325 MG TABLET PO PRN (11:00)
[2018-12-12] MEDS ORDERED: NYST30CR9 TP (11:19)
[2018-12-12] MEDS ORDERED: MUPI15CR12 TP (11:19)
[2018-12-12] MEDS ORDERED: LEVO25TA9 PO (11:19)
[2018-12-12] MEDS ORDERED: AMLO5TAB9 PO (11:19)
[2018-12-12] MEDS ORDERED: FLUO-191 PO (11:19)
[2018-12-12] MEDS ORDERED: QUET400T5 PO (11:19)
[2018-12-12] MEDS ORDERED: BUPR-93 PO (11:19)
== END 2018-12-12 12:43 | disposition home or self-care (01) | DRG 885 ==
LOC: EMS 18:39 → B2S 12-08 05:00 → B2X 12-08 05:00 → UNDOADMIN 12-08 05:00
PROVIDERS: ADMIT Psychiatry & Neurology Psychiatry; ATTEND Psychiatry & Neurology Psychiatry
DX: F33.3 Major depressive disorder, recurrent, severe with psychotic symptoms (principal); R45.851 Suicidal ideations; D72.819 Decreased white blood cell count, unspecified; E03.9 Hypothyroidism, unspecified; F19.90 Other psychoactive substance use, unspecified, uncomplicated; I10 Essential (primary) hypertension; J44.9 Chronic obstructive pulmonary disease, unspecified; K21.9 Gastro-esophageal reflux disease without esophagitis; M19.90 Unspecified osteoarthritis, unspecified site; Z91.5 Personal history of self-harm; Z91.19 Patient's noncompliance with other medical treatment and regimen; S90.122A Contusion of left lesser toe(s) without damage to nail, initial encounter; X58.XXXA Exposure to other specified factors, initial encounter; Y93.89 Activity, other specified; Y92.89 Other specified places as the place of occurrence of the external cause; Y99.8 Other external cause status; Z79.899 Other long term (current) drug therapy; Z28.21 Immunization not carried out because of patient refusal
CPT/HCPCS: 83036; 84443; 87081; G0480

== ENCOUNTER 2019-01-05 10:22 | Emergency (ER) | payer MEDICARE, MEDICAID ==
[~2019-01-05] VITALS: Ht 177.8 cm; Wt 95.7 kg
[~2019-01-05 10:22] MED LIST changes: +MUPI15CR12 TP; +NYST30CR9 TP; -QUET200T5 PO; +QUET400T5 PO
[2019-01-05 11:42] LABS: BASOPHILS % (AUTO) 0.3 % (0.0-2.0); EOSINOPHILS % (AUTO) 0.5 % (1.0-6.0); HEMATOCRIT 39.8 % (41-53); HEMOGLOBIN 13.7 g/dL (13.5-17.5); LYMPHOCYTES # (AUTO) 1.3 K/uL (1.0-4.8); LYMPHOCYTES % (AUTO) 20.7 % (22.0-44.0); MEAN CORPUSCULAR HEMOGLOBIN 31.5 pg (26.0-34.0); MEAN CORPUSCULAR HGB CONC 34.3 G/dL (31.0-37.0); MEAN CORPUSCULAR VOLUME 92 fL (80-100); MONOCYTES # (AUTO) 0.4 K/uL (0.1-1.0); MONOCYTES % (AUTO) 7.2 % (2.0-9.0); NEUTROPHILS # (AUTO) 4.4 K/uL (1.8-7.7); NEUTROPHILS % (AUTO) 71.3 % (40.0-70.0); PLATELET COUNT (AUTO) 146 K/uL (150-450); RED BLOOD CELL COUNT(AUTO) 4.34 MIL/uL (4.50-5.90); RED CELL DISTRIBUTION WIDTH 14.5 % (11.5-14.5)
[2019-01-05 11:58] LABS: ANION GAP 10 mmol/L (8-16); CALCIUM, TOTAL 8.9 mg/dL (8.8-10.5); CARBON DIOXIDE 28 mmol/L (22-29); CHLORIDE 104 mmol/L (98-107); CREATININE 0.99 mg/dL (0.60-1.30); GLOMERULAR FILTR. RATE CALC > 60 mL/min (>60); GLUCOSE,RANDOM 103 mg/dL (70-110); SODIUM SERUM 142 mmol/L (136-145); UREA NITROGEN, BLOOD 20 mg/dL (7-18)
[2019-01-05 12:03] LABS: ALANINE AMINOTRANSFERASE 46 U/L (12-78); ALBUMIN 4.1 g/dL (3.4-5.0); ALKALINE PHOSPHATASE 69 U/L (46-116); ASPARTATE AMINOTRANSFERASE 38 U/L (15-37); BILIRUBIN,TOTAL 0.6 mg/dL (0.1-1.0); TOTAL PROTEIN, SERUM 7.2 g/dL (6.4-8.2)
[2019-01-05 12:36] LABS: AMPHET/METH SCREEN,URINE POSITIVE (NEGATIVE); BARBITURATE SCREEN, URINE NEGATIVE (NEGATIVE); BENZODIAZEPINES SCREEN,URINE NEGATIVE (NEGATIVE); CANNABINOID SCREEN,URINE NEGATIVE (NEGATIVE); COCAINE SCREEN,URINE NEGATIVE (NEGATIVE); METHADONE SCREEN, URINE NEGATIVE (NEGATIVE); OPIATE SCREEN,URINE NEGATIVE (NEGATIVE); PHENCYCLIDINE SCREEN,URINE NEGATIVE (NEGATIVE)
[2019-01-05] MEDS ORDERED: QUEtiapine FUMARATE 100 MG TABLET PO ONE (12:45)
[2019-01-05 15:58] VITALS: BP 151/62
== END 2019-01-05 16:38 | disposition short-term general hospital (02) ==
LOC: EMS 10:24
DX: F25.9 Schizoaffective disorder, unspecified (principal); F32.9 Major depressive disorder, single episode, unspecified; F15.10 Other stimulant abuse, uncomplicated; G43.909 Migraine, unspecified, not intractable, without status migrainosus
CPT/HCPCS: 36415; 80053; 80307; 85025; 99285; G0480

== ENCOUNTER 2019-02-05 16:07 | Inpatient (IN) | payer MEDICARE, MEDICAID ==
[~2019-02-05] VITALS: Ht 180.3 cm; Wt 92.8 kg
[2019-02-05 16:53] LABS: BASOPHILS % (AUTO) 0.7 % (0.0-2.0); EOSINOPHILS % (AUTO) 1.9 % (1.0-6.0); HEMATOCRIT 34.8 % (41-53); HEMOGLOBIN 11.8 g/dL (13.5-17.5); LYMPHOCYTES % (AUTO) 30.7 % (22.0-44.0); MEAN CORPUSCULAR HEMOGLOBIN 31.2 pg (26.0-34.0); MEAN CORPUSCULAR VOLUME 92 fL (80-100); MONOCYTES # (AUTO) 0.3 K/uL (0.1-1.0); MONOCYTES % (AUTO) 10.1 % (2.0-9.0); NEUTROPHILS # (AUTO) 1.9 K/uL (1.8-7.7); NEUTROPHILS % (AUTO) 56.6 % (40.0-70.0); PLATELET COUNT (AUTO) 151 K/uL (150-450); RED BLOOD CELL COUNT(AUTO) 3.79 MIL/uL (4.50-5.90); RED CELL DISTRIBUTION WIDTH 14.9 % (11.5-14.5)
[2019-02-05 17:02] LABS: AMPHET/METH SCREEN,URINE POSITIVE (NEGATIVE); BARBITURATE SCREEN, URINE NEGATIVE (NEGATIVE); BENZODIAZEPINES SCREEN,URINE NEGATIVE (NEGATIVE); CANNABINOID SCREEN,URINE NEGATIVE (NEGATIVE); COCAINE SCREEN,URINE NEGATIVE (NEGATIVE); METHADONE SCREEN, URINE NEGATIVE (NEGATIVE); OPIATE SCREEN,URINE POSITIVE (NEGATIVE)
[2019-02-05 17:04] LABS: PHENCYCLIDINE SCREEN,URINE NEGATIVE (NEGATIVE)
[2019-02-05 17:05] LABS: ANION GAP 8 mmol/L (8-16); CALCIUM, TOTAL 8.9 mg/dL (8.8-10.5); CARBON DIOXIDE 29 mmol/L (22-29); CHLORIDE 105 mmol/L (98-107); CREATININE 0.83 mg/dL (0.60-1.30); GLOMERULAR FILTR. RATE CALC > 60 mL/min (>60); GLUCOSE,RANDOM 107 mg/dL (70-110); SODIUM SERUM 142 mmol/L (136-145); UREA NITROGEN, BLOOD 14 mg/dL (7-18)
[2019-02-05 17:12] LABS: ALANINE AMINOTRANSFERASE 39 U/L (12-78); ALBUMIN 3.3 g/dL (3.4-5.0); ALKALINE PHOSPHATASE 58 U/L (46-116); ASPARTATE AMINOTRANSFERASE 31 U/L (15-37); BILIRUBIN,TOTAL 0.5 mg/dL (0.1-1.0); TOTAL PROTEIN, SERUM 6.9 g/dL (6.4-8.2)
[2019-02-05] MEDS: LORazepam 2 MG TABLET PO PRN (21:55)
[2019-02-05] MEDS: HALOPERIDOL 5 MG TABLET PO PRN (21:55)
[2019-02-05 22:22] VITALS: BP 139/64
[2019-02-06] MEDS ORDERED: IBUPROFEN 400 MG TABLET PO PRN
[2019-02-06] MEDS ORDERED: DOCUSATE SODIUM 100 MG CAPSULE PO PRN
[2019-02-06] MEDS ORDERED: ALBUTEROL SULFATE HFA 90 MCG/PUFF 8 GM INHALER IH PRN
[2019-02-06] MEDS ORDERED: NICOTINE 14 MG/24 HOUR PATCH TD PRN
[2019-02-06] MEDS ORDERED: MAG HYDROX/AL HYDROX/SIMETH ES 30 ML SUSPENSION UDCUP PO PRN
[2019-02-06] MEDS ORDERED: GuaiFENesin/D-METHORPHAN [SUGAR-FREE] 200-20MG/10 ML SYRUP UDCUP PO PRN
[2019-02-06] MEDS ORDERED: PETROLATUM,WHITE 28 GM JELLY TP PRN
[2019-02-06] MEDS ORDERED: MAGNESIUM HYDROXIDE SUSPENSION 30 ML UDCUP PO PRN
[2019-02-06] MEDS ORDERED: ONDANSETRON HCL 4 MG TABLET PO PRN
[2019-02-06] MEDS ORDERED: CloNIDine HCL 0.1 MG TABLET PO PRN
[2019-02-06] MEDS ORDERED: INFLUENZA VIRUS VACCINE QVS 2019-20 (3YR+)/PF 60 MCG/0.5 ML SYRINGE IM ONE (01:30)
[2019-02-06] MEDS ORDERED: PNEUMOCOCCAL VACCINE POLYVALENT 0.5 ML VIAL [PPSV23] IM ONE (06:30)
[2019-02-06 08:05] VITALS: BP 155/77
[2019-02-06 16:00] VITALS: BP 131/70
[2019-02-07 00:05] VITALS: BP 145/62
[2019-02-07] MEDS: ZOLPIDEM TARTRATE 10 MG TABLET PO PRN (00:08)
[2019-02-07] MEDS: ACETAMINOPHEN/CODEINE 300-30 MG TABLET PO PRN ×3 (00:08→20:17)
[2019-02-07 08:30] VITALS: BP 124/68
[2019-02-07] MEDS: AmLODIPine BESYLATE 5 MG TABLET PO SCH (08:32)
[2019-02-07] MEDS: BuPROPion HCL XL 150 MG ER TABLET PO SCH (08:32)
[2019-02-07] MEDS: FLUoxetine HCL 20 MG CAPSULE PO SCH (08:32)
[2019-02-07 08:56] VITALS: BP 124/68
[2019-02-07] MEDS ORDERED: ARIPiprazole 10 MG TABLET PO SCH (09:00)
[2019-02-07 17:00] VITALS: BP 122/68
[2019-02-08 06:51] VITALS: BP 136/81
[2019-02-08] MEDS: FLUoxetine HCL 20 MG CAPSULE PO SCH (08:12)
[2019-02-08] MEDS: AmLODIPine BESYLATE 5 MG TABLET PO SCH (08:13)
[2019-02-08] MEDS: BuPROPion HCL XL 150 MG ER TABLET PO SCH (08:13)
[2019-02-08 08:14] VITALS: BP 156/81
[2019-02-08] MEDS: ACETAMINOPHEN/CODEINE 300-30 MG TABLET PO PRN ×2 (08:14→20:10)
[2019-02-08] MEDS ORDERED: ARIPiprazole 15 MG TABLET PO SCH (09:00)
[2019-02-08 16:51] VITALS: BP 137/79
[2019-02-08 20:08] VITALS: BP 141/74
[2019-02-08] MEDS: ZOLPIDEM TARTRATE 10 MG TABLET PO PRN (21:32)
[2019-02-09 04:07] VITALS: BP 130/79
[2019-02-09] MEDS: ACETAMINOPHEN 325 MG TABLET PO PRN (04:07)
[2019-02-09] MEDS: BuPROPion HCL XL 150 MG ER TABLET PO SCH (08:18)
[2019-02-09 08:19] VITALS: BP 146/77
[2019-02-09] MEDS: AmLODIPine BESYLATE 5 MG TABLET PO SCH (08:19)
[2019-02-09] MEDS: ACETAMINOPHEN/CODEINE 300-30 MG TABLET PO PRN (08:19)
[2019-02-09] MEDS: FLUoxetine HCL 20 MG CAPSULE PO SCH (08:19)
[2019-02-09] MEDS ORDERED: ARIPiprazole 10 MG TABLET PO SCH (09:00)
[2019-02-09 16:47] VITALS: BP 117/88
[2019-02-09 20:17] VITALS: BP 134/76
[2019-02-09] MEDS: ZOLPIDEM TARTRATE 10 MG TABLET PO PRN (21:25)
[2019-02-10 03:15] VITALS: BP 121/75
[2019-02-10] MEDS: LORazepam 2 MG TABLET PO PRN ×2 (03:17→10:03)
[2019-02-10] MEDS: ACETAMINOPHEN/CODEINE 300-30 MG TABLET PO PRN ×3 (03:17→20:16)
[2019-02-10 08:07] VITALS: BP 122/70
[2019-02-10] MEDS: FLUoxetine HCL 20 MG CAPSULE PO SCH (08:17)
[2019-02-10] MEDS: AmLODIPine BESYLATE 5 MG TABLET PO SCH (08:17)
[2019-02-10] MEDS: ARIPiprazole 15 MG TABLET PO SCH (08:18)
[2019-02-10] MEDS: BuPROPion HCL XL 150 MG ER TABLET PO SCH (08:18)
[2019-02-10] MEDS: HALOPERIDOL 5 MG TABLET PO PRN (10:03)
[2019-02-10] MEDS ORDERED: ARIPiprazole LAUROXIL ER SUSPENSION 882 MG/3.2 ML SYRINGE IM SCH (10:45)
[2019-02-10 16:00] VITALS: BP 134/73
[2019-02-10 20:13] VITALS: BP 141/79
[2019-02-11] MEDS: LORazepam 2 MG TABLET PO PRN ×2 (01:15→23:49)
[2019-02-11] MEDS: ZOLPIDEM TARTRATE 10 MG TABLET PO PRN ×2 (01:15→23:49)
[2019-02-11 01:20] VITALS: BP 131/74
[2019-02-11 08:11] VITALS: BP 132/81
[2019-02-11] MEDS: ACETAMINOPHEN/CODEINE 300-30 MG TABLET PO PRN ×2 (08:11→21:38)
[2019-02-11] MEDS: AmLODIPine BESYLATE 5 MG TABLET PO SCH (08:12)
[2019-02-11] MEDS: ARIPiprazole 15 MG TABLET PO SCH (08:12)
[2019-02-11] MEDS: FLUoxetine HCL 20 MG CAPSULE PO SCH (08:12)
[2019-02-11] MEDS: BuPROPion HCL XL 150 MG ER TABLET PO SCH (08:12)
[2019-02-11 08:39] VITALS: BP 132/81
[2019-02-11] MEDS: LOPERAMIDE HCL 2 MG CAPSULE PO PRN (11:12)
[2019-02-11 16:18] VITALS: BP 111/71
[2019-02-11] MEDS: ACETAMINOPHEN 325 MG TABLET PO PRN (16:18)
[2019-02-12] VITALS: BP 130/78
[2019-02-12] MEDS: ACETAMINOPHEN 325 MG TABLET PO PRN (04:36)
[2019-02-12 08:00] VITALS: BP_SYST 151
[2019-02-12] MEDS: ACETAMINOPHEN/CODEINE 300-30 MG TABLET PO PRN ×2 (08:05→20:10)
[2019-02-12] MEDS: FLUoxetine HCL 20 MG CAPSULE PO SCH (08:06)
[2019-02-12] MEDS: ARIPiprazole 15 MG TABLET PO SCH (08:06)
[2019-02-12] MEDS: BuPROPion HCL XL 150 MG ER TABLET PO SCH (08:07)
[2019-02-12] MEDS: AmLODIPine BESYLATE 5 MG TABLET PO SCH (08:07)
[2019-02-12] MEDS: LOPERAMIDE HCL 2 MG CAPSULE PO PRN (15:04)
[2019-02-12 16:15] VITALS: BP 110/65
[2019-02-13] MEDS: LOPERAMIDE HCL 2 MG CAPSULE PO PRN (04:27)
[2019-02-13] MEDS: FLUoxetine HCL 20 MG CAPSULE PO SCH (08:39)
[2019-02-13] MEDS: ARIPiprazole 15 MG TABLET PO SCH (08:40)
[2019-02-13] MEDS: AmLODIPine BESYLATE 5 MG TABLET PO SCH (08:40)
[2019-02-13] MEDS: BuPROPion HCL XL 150 MG ER TABLET PO SCH (08:40)
[2019-02-13 08:43] VITALS: BP 136/71
[2019-02-13] MEDS: ACETAMINOPHEN/CODEINE 300-30 MG TABLET PO PRN ×2 (08:43→16:53)
[2019-02-13 16:52] VITALS: BP 135/78
[2019-02-13] MEDS: LORazepam 2 MG TABLET PO PRN (21:01)
[2019-02-13] MEDS: ZOLPIDEM TARTRATE 10 MG TABLET PO PRN ×2 (21:01)
[2019-02-14 03:10] VITALS: BP 148/82
[2019-02-14] MEDS: ACETAMINOPHEN/CODEINE 300-30 MG TABLET PO PRN ×3 (03:11→20:53)
[2019-02-14] MEDS: AmLODIPine BESYLATE 5 MG TABLET PO SCH (08:47)
[2019-02-14] MEDS: BuPROPion HCL XL 150 MG ER TABLET PO SCH (08:48)
[2019-02-14] MEDS: FLUoxetine HCL 20 MG CAPSULE PO SCH (08:48)
[2019-02-14] MEDS: ARIPiprazole 15 MG TABLET PO SCH (08:48)
[2019-02-14 09:47] VITALS: BP 142/62
[2019-02-14 11:14] VITALS: BP 137/65
[2019-02-14 17:04] VITALS: BP 133/75
[2019-02-14] MEDS: HALOPERIDOL 5 MG TABLET PO PRN (20:54)
[2019-02-14 20:56] VITALS: BP 140/72
[2019-02-15 00:40] VITALS: BP 136/80
[2019-02-15] MEDS: ACETAMINOPHEN 325 MG TABLET PO PRN (00:41)
[2019-02-15] MEDS: ZOLPIDEM TARTRATE 10 MG TABLET PO PRN (00:41)
[2019-02-15] MEDS: ACETAMINOPHEN/CODEINE 300-30 MG TABLET PO PRN ×3 (05:08→22:51)
[2019-02-15] MEDS: ARIPiprazole 15 MG TABLET PO SCH (09:13)
[2019-02-15] MEDS: BuPROPion HCL XL 150 MG ER TABLET PO SCH (09:13)
[2019-02-15] MEDS: AmLODIPine BESYLATE 5 MG TABLET PO SCH (09:14)
[2019-02-15] MEDS: FLUoxetine HCL 20 MG CAPSULE PO SCH (09:14)
[2019-02-15 09:37] VITALS: BP 143/89
[2019-02-15 13:15] VITALS: BP 122/76
[2019-02-15 17:00] VITALS: BP 137/75
[2019-02-16 00:14] VITALS: BP 113/71
[2019-02-16] MEDS: HALOPERIDOL 5 MG TABLET PO PRN (00:17)
[2019-02-16 07:00] VITALS: BP 154/79
[2019-02-16] MEDS: ACETAMINOPHEN/CODEINE 300-30 MG TABLET PO PRN ×2 (07:00→16:55)
[2019-02-16 08:00] VITALS: BP 130/74
[2019-02-16] MEDS: BuPROPion HCL XL 150 MG ER TABLET PO SCH (09:14)
[2019-02-16] MEDS: AmLODIPine BESYLATE 5 MG TABLET PO SCH (09:14)
[2019-02-16] MEDS: FLUoxetine HCL 20 MG CAPSULE PO SCH (09:14)
[2019-02-16] MEDS: ARIPiprazole 15 MG TABLET PO SCH (09:14)
[2019-02-16 16:55] VITALS: BP 121/71
[2019-02-17 02:45] VITALS: BP 145/74
[2019-02-17] MEDS: ACETAMINOPHEN/CODEINE 300-30 MG TABLET PO PRN (02:47)
[2019-02-17] MEDS: FLUoxetine HCL 20 MG CAPSULE PO SCH (09:01)
[2019-02-17] MEDS: AmLODIPine BESYLATE 5 MG TABLET PO SCH (09:02)
[2019-02-17] MEDS: BuPROPion HCL XL 150 MG ER TABLET PO SCH (09:02)
[2019-02-17] MEDS: ARIPiprazole 15 MG TABLET PO SCH (09:02)
[2019-02-17 09:09] VITALS: BP 130/73
[2019-02-17] MEDS ORDERED: ARIP882S IM (13:28)
[2019-02-17] MEDS ORDERED: ARIP15TA2 PO (13:29)
[2019-02-17] MEDS ORDERED: FLUO40CA7 PO (13:29)
[2019-02-17] MEDS ORDERED: BUPR-93 PO (13:29)
[2019-02-17] MEDS ORDERED: AMLO5TAB9 PO (13:37)
== END 2019-02-17 15:05 | disposition home or self-care (01) | DRG 885 ==
LOC: EMS 16:09 → 3EI 20:30
PROVIDERS: ADMIT Psychiatry & Neurology Psychiatry; ATTEND Psychiatry & Neurology Psychiatry
DX: F33.3 Major depressive disorder, recurrent, severe with psychotic symptoms (principal); R45.851 Suicidal ideations; D64.9 Anemia, unspecified; D72.819 Decreased white blood cell count, unspecified; E03.9 Hypothyroidism, unspecified; E87.6 Hypokalemia; F15.10 Other stimulant abuse, uncomplicated; F17.200 Nicotine dependence, unspecified, uncomplicated; F41.9 Anxiety disorder, unspecified; G40.909 Epilepsy, unspecified, not intractable, without status epilepticus; G89.29 Other chronic pain; I10 Essential (primary) hypertension; J44.9 Chronic obstructive pulmonary disease, unspecified; G43.909 Migraine, unspecified, not intractable, without status migrainosus; M54.9 Dorsalgia, unspecified; K21.9 Gastro-esophageal reflux disease without esophagitis; M19.90 Unspecified osteoarthritis, unspecified site; Z79.899 Other long term (current) drug therapy; Z91.19 Patient's noncompliance with other medical treatment and regimen; Z91.5 Personal history of self-harm; Z71.51 Drug abuse counseling and surveillance of drug abuser
CPT/HCPCS: 87081; G0480

== ENCOUNTER 2019-04-13 12:28 | Inpatient (IN) | payer MEDICARE, MEDICAID ==
[~2019-04-13] VITALS: Ht 180.3 cm; Wt 103.4 kg
[~2019-04-13 12:28] MED LIST changes: +ARIP15TA2 PO; +ARIP882S IM; -FLUO-191 PO; +FLUO40CA7 PO; -LEVO25TA9 PO; -MUPI15CR12 TP; -NYST30CR9 TP; -QUET400T5 PO
[2019-04-13 14:15] VITALS: BP 123/67
[2019-04-13] MEDS ORDERED: INFLUENZA VIRUS VACCINE QVS 2019-20 (3YR+)/PF 60 MCG/0.5 ML SYRINGE IM ONE (14:30)
[2019-04-13 14:55] VITALS: BP 144/78
[2019-04-13] MEDS ORDERED: IBUPROFEN 400 MG TABLET PO PRN (15:00)
[2019-04-13] MEDS ORDERED: PNEUMOCOCCAL VACCINE POLYVALENT 0.5 ML VIAL [PPSV23] IM ONE (15:15)
[2019-04-13] MEDS ORDERED: LOPERAMIDE HCL 2 MG CAPSULE PO PRN (16:00)
[2019-04-13] MEDS ORDERED: ACETAMINOPHEN 325 MG TABLET PO PRN (16:00)
[2019-04-13] MEDS ORDERED: ONDANSETRON HCL 4 MG TABLET PO PRN (16:00)
[2019-04-13] MEDS ORDERED: NICOTINE 14 MG/24 HOUR PATCH TD PRN (16:00)
[2019-04-13] MEDS ORDERED: ALBUTEROL SULFATE HFA 90 MCG/PUFF 8 GM INHALER IH PRN (16:00)
[2019-04-13] MEDS ORDERED: MAGNESIUM HYDROXIDE SUSPENSION 30 ML UDCUP PO PRN (16:00)
[2019-04-13] MEDS ORDERED: CloNIDine HCL 0.1 MG TABLET PO PRN (16:00)
[2019-04-13] MEDS ORDERED: GuaiFENesin/D-METHORPHAN [SUGAR-FREE] 200-20MG/10 ML SYRUP UDCUP PO PRN (16:00)
[2019-04-13] MEDS ORDERED: DOCUSATE SODIUM 100 MG CAPSULE PO PRN (16:00)
[2019-04-13] MEDS ORDERED: PETROLATUM,WHITE 28 GM JELLY TP PRN (16:00)
[2019-04-13 17:23] VITALS: BP 108/60
[2019-04-13] MEDS: LORazepam 2 MG TABLET PO PRN (17:38)
[2019-04-13] MEDS: IBUPROFEN 400 MG TABLET PO PRN (17:40)
[2019-04-14 06:02] VITALS: BP 127/79
[2019-04-14 07:26] LABS: BASOPHILS % (AUTO) 0.4 % (0.0-2.0); HEMATOCRIT 40.2 % (41-53); HEMOGLOBIN 13.7 g/dL (13.5-17.5); LYMPHOCYTES # (AUTO) 1.4 K/uL (1.0-4.8); LYMPHOCYTES % (AUTO) 37.6 % (22.0-44.0); MEAN CORPUSCULAR HGB CONC 34.2 G/dL (31.0-37.0); MEAN CORPUSCULAR VOLUME 91 fL (80-100); MONOCYTES # (AUTO) 0.3 K/uL (0.1-1.0); MONOCYTES % (AUTO) 7.9 % (2.0-9.0); NEUTROPHILS # (AUTO) 1.9 K/uL (1.8-7.7); NEUTROPHILS % (AUTO) 52.1 % (40.0-70.0); PLATELET COUNT (AUTO) 136 K/uL (150-450); RED BLOOD CELL COUNT(AUTO) 4.43 MIL/uL (4.50-5.90); RED CELL DISTRIBUTION WIDTH 14.9 % (11.5-14.5)
[2019-04-14 07:41] LABS: HEMOGLOBIN A1C 5.2 % (4.5-6.2)
[2019-04-14 07:56] LABS: ALANINE AMINOTRANSFERASE 52 U/L (12-78); ALBUMIN 3.7 g/dL (3.4-5.0); ALKALINE PHOSPHATASE 75 U/L (46-116); ANION GAP 7 mmol/L (8-16); ASPARTATE AMINOTRANSFERASE 37 U/L (15-37); BILIRUBIN,TOTAL 0.4 mg/dL (0.1-1.0); CALCIUM, TOTAL 7.9 mg/dL (8.8-10.5); CARBON DIOXIDE 30 mmol/L (22-29); CHLORIDE 105 mmol/L (98-107); CHOL/HDL RATIO 4.1 (4.2-7.3); CHOLESTEROL 146 mg/dL (131-200); CREATININE 0.95 mg/dL (0.60-1.30); FREE T4 (FREE THYROXINE) 0.87 ng/dL (0.76-1.46); GLOMERULAR FILTR. RATE CALC > 60 mL/min (>60); GLUCOSE,RANDOM 103 mg/dL (70-110); HDL CHOLESTEROL 36 mg/dL (40-60); LDL CHOL (CALC.) 96 mg/dL (0-130); POTASSIUM 3.6 mmol/L (3.5-5.1); SODIUM SERUM 142 mmol/L (136-145); THYROID STIMULATING HORMONE 8.36 uIU/mL (0.36-3.74); TOTAL PROTEIN, SERUM 6.6 g/dL (6.4-8.2); TRIGLYCERIDES 68 mg/dL (15-150); UREA NITROGEN, BLOOD 16 mg/dL (7-18)
[2019-04-14 08:13] VITALS: BP 138/66
[2019-04-14] MEDS: AmLODIPine BESYLATE 5 MG TABLET PO SCH (08:31)
[2019-04-14] MEDS: IBUPROFEN 400 MG TABLET PO PRN (09:05)
[2019-04-14] MEDS: ARIPiprazole 15 MG TABLET PO SCH (12:34)
[2019-04-14] MEDS: ACETAMINOPHEN/CODEINE 300-30 MG TABLET PO PRN (15:56)
[2019-04-14 16:00] VITALS: BP 137/61
[2019-04-14] MEDS: ZOLPIDEM TARTRATE 10 MG TABLET PO PRN (20:50)
[2019-04-15 01:03] VITALS: BP 146/76
[2019-04-15] MEDS: IBUPROFEN 400 MG TABLET PO PRN ×2 (01:08→12:46)
[2019-04-15 04:00] VITALS: BP 143/70
[2019-04-15] MEDS: ACETAMINOPHEN/CODEINE 300-30 MG TABLET PO PRN ×2 (04:04→16:08)
[2019-04-15] MEDS: LEVOTHYROXINE SODIUM 25 MCG TABLET PO SCH (06:24)
[2019-04-15] MEDS: ARIPiprazole 15 MG TABLET PO SCH (08:13)
[2019-04-15] MEDS: AmLODIPine BESYLATE 5 MG TABLET PO SCH (08:13)
[2019-04-15] MEDS: BuPROPion HCL XL 150 MG ER TABLET PO SCH (08:13)
[2019-04-15] MEDS: FLUoxetine HCL 20 MG CAPSULE PO SCH (08:13)
[2019-04-15 08:40] VITALS: BP 120/65
[2019-04-15 12:46] VITALS: BP 126/68
[2019-04-15 16:08] VITALS: BP 136/71
[2019-04-15 17:08] VITALS: BP 128/69
[2019-04-16 01:32] VITALS: BP 131/69
[2019-04-16] MEDS: IBUPROFEN 400 MG TABLET PO PRN (01:32)
[2019-04-16 04:15] VITALS: BP 117/69
[2019-04-16] MEDS: ACETAMINOPHEN/CODEINE 300-30 MG TABLET PO PRN ×2 (04:25→16:28)
[2019-04-16] MEDS: LEVOTHYROXINE SODIUM 25 MCG TABLET PO SCH (06:27)
[2019-04-16] MEDS: AmLODIPine BESYLATE 5 MG TABLET PO SCH (08:36)
[2019-04-16] MEDS: BuPROPion HCL XL 150 MG ER TABLET PO SCH (08:36)
[2019-04-16] MEDS: FLUoxetine HCL 20 MG CAPSULE PO SCH (08:36)
[2019-04-16] MEDS: ARIPiprazole 15 MG TABLET PO SCH (08:36)
[2019-04-16 08:41] VITALS: BP 139/80
[2019-04-16 15:47] VITALS: BP 137/75
[2019-04-16 19:27] VITALS: BP 137/75
[2019-04-16 23:42] VITALS: BP 116/61
[2019-04-17 02:10] VITALS: BP 138/76
[2019-04-17] MEDS: IBUPROFEN 400 MG TABLET PO PRN (03:43)
[2019-04-17 04:58] VITALS: BP 133/82
[2019-04-17] MEDS: ACETAMINOPHEN/CODEINE 300-30 MG TABLET PO PRN ×2 (05:00→17:06)
[2019-04-17] MEDS: LEVOTHYROXINE SODIUM 25 MCG TABLET PO SCH (06:38)
[2019-04-17 08:16] VITALS: BP 139/74
[2019-04-17] MEDS: FLUoxetine HCL 20 MG CAPSULE PO SCH (08:36)
[2019-04-17] MEDS: ARIPiprazole 15 MG TABLET PO SCH (08:37)
[2019-04-17] MEDS: BuPROPion HCL XL 150 MG ER TABLET PO SCH (08:37)
[2019-04-17] MEDS: AmLODIPine BESYLATE 5 MG TABLET PO SCH (08:40)
[2019-04-17 17:06] VITALS: BP 140/74
[2019-04-17] MEDS: ZOLPIDEM TARTRATE 10 MG TABLET PO PRN (20:52)
[2019-04-18 02:48] VITALS: BP 115/79
[2019-04-18] MEDS: IBUPROFEN 400 MG TABLET PO PRN ×2 (04:13→16:03)
[2019-04-18 05:13] VITALS: BP 120/81
[2019-04-18] MEDS: ACETAMINOPHEN/CODEINE 300-30 MG TABLET PO PRN ×3 (05:13→21:36)
[2019-04-18] MEDS: HALOPERIDOL 5 MG TABLET PO PRN (06:13)
[2019-04-18] MEDS: LEVOTHYROXINE SODIUM 25 MCG TABLET PO SCH (06:13)
[2019-04-18] MEDS: ARIPiprazole 15 MG TABLET PO SCH (08:20)
[2019-04-18] MEDS: FLUoxetine HCL 20 MG CAPSULE PO SCH (08:20)
[2019-04-18] MEDS: AmLODIPine BESYLATE 5 MG TABLET PO SCH (08:20)
[2019-04-18] MEDS: BuPROPion HCL XL 150 MG ER TABLET PO SCH (08:20)
[2019-04-18 08:47] VITALS: BP 140/81
[2019-04-18 13:19] VITALS: BP 134/75
[2019-04-18 16:02] VITALS: BP 127/77
[2019-04-18 21:36] VITALS: BP 128/88
[2019-04-19 00:25] VITALS: BP 133/91
[2019-04-19] MEDS: ZOLPIDEM TARTRATE 10 MG TABLET PO PRN ×2 (00:28→20:53)
[2019-04-19 03:00] VITALS: BP 130/85
[2019-04-19] MEDS: IBUPROFEN 400 MG TABLET PO PRN (03:01)
[2019-04-19 05:50] VITALS: BP 124/73
[2019-04-19] MEDS: ACETAMINOPHEN/CODEINE 300-30 MG TABLET PO PRN ×2 (05:50→14:25)
[2019-04-19] MEDS: LEVOTHYROXINE SODIUM 25 MCG TABLET PO SCH (06:23)
[2019-04-19] MEDS: ARIPiprazole 15 MG TABLET PO SCH (08:09)
[2019-04-19] MEDS: AmLODIPine BESYLATE 5 MG TABLET PO SCH (08:10)
[2019-04-19] MEDS: BuPROPion HCL XL 150 MG ER TABLET PO SCH (08:10)
[2019-04-19] MEDS: FLUoxetine HCL 20 MG CAPSULE PO SCH (08:10)
[2019-04-19] MEDS: HALOPERIDOL 5 MG TABLET PO PRN ×2 (10:34→16:23)
[2019-04-19 14:14] VITALS: BP 143/92
[2019-04-19 14:27] VITALS: BP 143/92
[2019-04-19 16:03] VITALS: BP 137/77
[2019-04-19] MEDS: LORazepam 2 MG TABLET PO PRN (16:23)
[2019-04-20 01:30] VITALS: BP 111/71
[2019-04-20] MEDS: ACETAMINOPHEN/CODEINE 300-30 MG TABLET PO PRN ×3 (01:35→21:48)
[2019-04-20] MEDS: HALOPERIDOL 5 MG TABLET PO PRN ×2 (01:38→13:11)
[2019-04-20] MEDS: LEVOTHYROXINE SODIUM 25 MCG TABLET PO SCH (06:22)
[2019-04-20] MEDS: BuPROPion HCL XL 150 MG ER TABLET PO SCH (08:05)
[2019-04-20] MEDS: AmLODIPine BESYLATE 5 MG TABLET PO SCH (08:05)
[2019-04-20] MEDS: FLUoxetine HCL 20 MG CAPSULE PO SCH (08:05)
[2019-04-20] MEDS: ARIPiprazole 15 MG TABLET PO SCH (08:06)
[2019-04-20 08:17] VITALS: BP 147/101
[2019-04-20] MEDS: FLUTICASONE PROPIONATE 50 MCG/SPRAY 16 GM NASAL SPRAY NASAL SCH (08:50)
[2019-04-20] MEDS: IBUPROFEN 400 MG TABLET PO PRN (14:47)
[2019-04-20 16:59] VITALS: BP 136/75
[2019-04-21] VITALS (7 sets, daily range): BP systolic 116–130; BP diastolic 64–82
[2019-04-21] MEDS: ZOLPIDEM TARTRATE 10 MG TABLET PO PRN (00:28)
[2019-04-21] MEDS: IBUPROFEN 400 MG TABLET PO PRN ×2 (03:06→10:47)
[2019-04-21] MEDS: ACETAMINOPHEN/CODEINE 300-30 MG TABLET PO PRN ×2 (06:00→14:03)
[2019-04-21] MEDS: LEVOTHYROXINE SODIUM 25 MCG TABLET PO SCH (06:32)
[2019-04-21] MEDS: BuPROPion HCL XL 150 MG ER TABLET PO SCH (08:06)
[2019-04-21] MEDS: FLUoxetine HCL 20 MG CAPSULE PO SCH (08:07)
[2019-04-21] MEDS: ARIPiprazole 15 MG TABLET PO SCH (08:07)
[2019-04-21] MEDS: FLUTICASONE PROPIONATE 50 MCG/SPRAY 16 GM NASAL SPRAY NASAL SCH (08:08)
[2019-04-21] MEDS: AmLODIPine BESYLATE 5 MG TABLET PO SCH (08:13)
[2019-04-21] MEDS: QUEtiapine FUMARATE 200 MG TABLET PO SCH (20:37)
[2019-04-22 01:04] VITALS: BP 120/73
[2019-04-22] MEDS: ACETAMINOPHEN/CODEINE 300-30 MG TABLET PO PRN ×3 (03:06→20:13)
[2019-04-22] MEDS: LEVOTHYROXINE SODIUM 25 MCG TABLET PO SCH (06:29)
[2019-04-22] MEDS: AmLODIPine BESYLATE 5 MG TABLET PO SCH (08:22)
[2019-04-22] MEDS: FLUTICASONE PROPIONATE 50 MCG/SPRAY 16 GM NASAL SPRAY NASAL SCH (08:22)
[2019-04-22] MEDS: BuPROPion HCL XL 150 MG ER TABLET PO SCH (08:22)
[2019-04-22] MEDS: TERBINAFINE HCL 1% 30 GM CREAM TP SCH ×2 (08:22→16:51)
[2019-04-22] MEDS: FLUoxetine HCL 20 MG CAPSULE PO SCH (08:22)
[2019-04-22 08:31] VITALS: BP 138/78
[2019-04-22] MEDS: IBUPROFEN 400 MG TABLET PO PRN (09:06)
[2019-04-22 11:43] VITALS: BP 129/68
[2019-04-22] MEDS: MAG HYDROX/AL HYDROX/SIMETH ES 30 ML SUSPENSION UDCUP PO PRN (14:25)
[2019-04-22 16:11] VITALS: BP 122/71
[2019-04-22 20:14] VITALS: BP 120/67
[2019-04-22] MEDS: QUEtiapine FUMARATE 200 MG TABLET PO SCH (20:57)
[2019-04-23 00:07] VITALS: BP 118/62
[2019-04-23 05:48] VITALS: BP 137/74
[2019-04-23] MEDS: ACETAMINOPHEN/CODEINE 300-30 MG TABLET PO PRN ×3 (05:51→22:06)
[2019-04-23] MEDS: LEVOTHYROXINE SODIUM 25 MCG TABLET PO SCH (06:35)
[2019-04-23] MEDS: FLUoxetine HCL 20 MG CAPSULE PO SCH (08:11)
[2019-04-23] MEDS: BuPROPion HCL XL 150 MG ER TABLET PO SCH (08:11)
[2019-04-23] MEDS: AmLODIPine BESYLATE 5 MG TABLET PO SCH (08:11)
[2019-04-23] MEDS: FLUTICASONE PROPIONATE 50 MCG/SPRAY 16 GM NASAL SPRAY NASAL SCH (08:12)
[2019-04-23] MEDS: TERBINAFINE HCL 1% 30 GM CREAM TP SCH ×2 (08:13→16:38)
[2019-04-23 08:21] VITALS: BP 124/75
[2019-04-23] MEDS: IBUPROFEN 400 MG TABLET PO PRN (09:34)
[2019-04-23 13:59] VITALS: BP 134/74
[2019-04-23 16:10] VITALS: BP 134/74
[2019-04-23] MEDS: QUEtiapine FUMARATE 300 MG TABLET PO SCH (20:33)
[2019-04-23 22:03] VITALS: BP 124/66
[2019-04-24] MEDS: ZOLPIDEM TARTRATE 10 MG TABLET PO PRN (00:25)
[2019-04-24 00:34] VITALS: BP 150/84
[2019-04-24 06:10] VITALS: BP 136/80
[2019-04-24] MEDS: ACETAMINOPHEN/CODEINE 300-30 MG TABLET PO PRN ×2 (06:13→14:24)
[2019-04-24] MEDS: LEVOTHYROXINE SODIUM 25 MCG TABLET PO SCH (06:13)
[2019-04-24] MEDS: FLUoxetine HCL 20 MG CAPSULE PO SCH (08:04)
[2019-04-24] MEDS: AmLODIPine BESYLATE 5 MG TABLET PO SCH (08:04)
[2019-04-24] MEDS: BuPROPion HCL XL 150 MG ER TABLET PO SCH (08:04)
[2019-04-24] MEDS: FLUTICASONE PROPIONATE 50 MCG/SPRAY 16 GM NASAL SPRAY NASAL SCH (08:05)
[2019-04-24] MEDS: TERBINAFINE HCL 1% 30 GM CREAM TP SCH ×2 (08:06→16:21)
[2019-04-24 08:15] VITALS: BP 120/63
[2019-04-24] MEDS: IBUPROFEN 400 MG TABLET PO PRN (10:08)
[2019-04-24 14:24] VITALS: BP 140/73
[2019-04-24 16:00] VITALS: BP 134/74
[2019-04-24] MEDS: QUEtiapine FUMARATE 300 MG TABLET PO SCH (20:08)
[2019-04-25] MEDS: ACETAMINOPHEN/CODEINE 300-30 MG TABLET PO PRN ×2 (02:12→10:33)
[2019-04-25 06:33] VITALS: BP 116/67
[2019-04-25] MEDS: LEVOTHYROXINE SODIUM 25 MCG TABLET PO SCH (06:47)
[2019-04-25 09:17] VITALS: BP 129/68
[2019-04-25] MEDS: FLUoxetine HCL 20 MG CAPSULE PO SCH (09:19)
[2019-04-25] MEDS: TERBINAFINE HCL 1% 30 GM CREAM TP SCH ×2 (09:19→16:29)
[2019-04-25] MEDS: BuPROPion HCL XL 150 MG ER TABLET PO SCH (09:19)
[2019-04-25] MEDS: FLUTICASONE PROPIONATE 50 MCG/SPRAY 16 GM NASAL SPRAY NASAL SCH (09:21)
[2019-04-25 10:33] VITALS: BP 133/69
[2019-04-25] MEDS: AmLODIPine BESYLATE 5 MG TABLET PO SCH (10:36)
[2019-04-25 16:19] VITALS: BP 122/61
[2019-04-25] MEDS: IBUPROFEN 400 MG TABLET PO PRN (16:27)
[2019-04-25] MEDS: QUEtiapine FUMARATE 300 MG TABLET PO SCH (20:16)
[2019-04-26] VITALS (7 sets, daily range): BP systolic 123–137; BP diastolic 61–80
[2019-04-26] MEDS: ACETAMINOPHEN/CODEINE 300-30 MG TABLET PO PRN ×3 (05:05→22:07)
[2019-04-26] MEDS: LEVOTHYROXINE SODIUM 25 MCG TABLET PO SCH (06:45)
[2019-04-26] MEDS: BuPROPion HCL XL 150 MG ER TABLET PO SCH (08:33)
[2019-04-26] MEDS: AmLODIPine BESYLATE 5 MG TABLET PO SCH (08:34)
[2019-04-26] MEDS: FLUoxetine HCL 20 MG CAPSULE PO SCH (08:34)
[2019-04-26] MEDS: FLUTICASONE PROPIONATE 50 MCG/SPRAY 16 GM NASAL SPRAY NASAL SCH (08:34)
[2019-04-26] MEDS: TERBINAFINE HCL 1% 30 GM CREAM TP SCH ×2 (08:43→16:54)
[2019-04-26] MEDS: MAG HYDROX/AL HYDROX/SIMETH ES 30 ML SUSPENSION UDCUP PO PRN (10:44)
[2019-04-26] MEDS: IBUPROFEN 400 MG TABLET PO PRN (17:07)
[2019-04-26] MEDS: QUEtiapine FUMARATE 300 MG TABLET PO SCH (20:19)
[2019-04-27 00:19] VITALS: BP 100/62
[2019-04-27] MEDS: ZOLPIDEM TARTRATE 10 MG TABLET PO PRN (02:02)
[2019-04-27 06:11] VITALS: BP 139/71
[2019-04-27] MEDS: ACETAMINOPHEN/CODEINE 300-30 MG TABLET PO PRN ×2 (06:15→14:18)
[2019-04-27] MEDS: LEVOTHYROXINE SODIUM 25 MCG TABLET PO SCH (06:15)
[2019-04-27 08:06] VITALS: BP 126/62
[2019-04-27] MEDS: FLUoxetine HCL 20 MG CAPSULE PO SCH (08:34)
[2019-04-27] MEDS: FLUTICASONE PROPIONATE 50 MCG/SPRAY 16 GM NASAL SPRAY NASAL SCH (08:34)
[2019-04-27] MEDS: AmLODIPine BESYLATE 5 MG TABLET PO SCH (08:34)
[2019-04-27] MEDS: BuPROPion HCL XL 150 MG ER TABLET PO SCH (08:34)
[2019-04-27] MEDS: TERBINAFINE HCL 1% 30 GM CREAM TP SCH ×2 (08:35→17:10)
[2019-04-27 16:26] VITALS: BP 129/82
[2019-04-27] MEDS: QUEtiapine FUMARATE 300 MG TABLET PO SCH (20:27)
[2019-04-28 03:25] VITALS: BP 140/82
[2019-04-28] MEDS: LORazepam 2 MG TABLET PO PRN (03:29)
[2019-04-28] MEDS: ACETAMINOPHEN/CODEINE 300-30 MG TABLET PO PRN ×2 (03:29→11:50)
[2019-04-28] MEDS: LEVOTHYROXINE SODIUM 25 MCG TABLET PO SCH (06:33)
[2019-04-28 07:10] VITALS: BP 138/80
[2019-04-28] MEDS: IBUPROFEN 400 MG TABLET PO PRN (07:15)
[2019-04-28] MEDS: FLUoxetine HCL 20 MG CAPSULE PO SCH (08:07)
[2019-04-28] MEDS: BuPROPion HCL XL 150 MG ER TABLET PO SCH (08:07)
[2019-04-28] MEDS: AmLODIPine BESYLATE 5 MG TABLET PO SCH (08:07)
[2019-04-28] MEDS: TERBINAFINE HCL 1% 30 GM CREAM TP SCH ×2 (08:08→22:27)
[2019-04-28] MEDS: FLUTICASONE PROPIONATE 50 MCG/SPRAY 16 GM NASAL SPRAY NASAL SCH (08:10)
[2019-04-28 08:15] VITALS: BP 118/68
[2019-04-28 11:50] VITALS: BP 130/74
[2019-04-28 16:25] VITALS: BP 114/67
[2019-04-28] MEDS: QUEtiapine FUMARATE 300 MG TABLET PO SCH (21:19)
[2019-04-29 00:33] VITALS: BP 110/65
[2019-04-29 04:19] VITALS: BP 122/74
[2019-04-29] MEDS: ACETAMINOPHEN/CODEINE 300-30 MG TABLET PO PRN (04:22)
[2019-04-29] MEDS: HALOPERIDOL 5 MG TABLET PO PRN (05:56)
[2019-04-29] MEDS: LEVOTHYROXINE SODIUM 25 MCG TABLET PO SCH (06:24)
[2019-04-29 08:21] VITALS: BP 113/72
[2019-04-29] MEDS: AmLODIPine BESYLATE 5 MG TABLET PO SCH (08:46)
[2019-04-29] MEDS: FLUTICASONE PROPIONATE 50 MCG/SPRAY 16 GM NASAL SPRAY NASAL SCH (08:46)
[2019-04-29] MEDS: FLUoxetine HCL 20 MG CAPSULE PO SCH (08:47)
[2019-04-29] MEDS: BuPROPion HCL XL 150 MG ER TABLET PO SCH (08:49)
[2019-04-29] MEDS: TERBINAFINE HCL 1% 30 GM CREAM TP SCH (08:50)
[2019-04-29] MEDS ORDERED: QUET300T18 PO (09:14)
[2019-04-29] MEDS ORDERED: BUPR-47 PO (09:14)
[2019-04-29] MEDS ORDERED: FLUO40CA7 PO (09:14)
[2019-04-29] MEDS ORDERED: FLUT16H NASAL (10:27)
[2019-04-29] MEDS ORDERED: AMLO5TAB9 PO (10:27)
[2019-04-29] MEDS ORDERED: LEVO25TA9 PO (10:27)
== END 2019-04-29 11:00 | disposition home or self-care (01) | DRG 885 ==
LOC: B2X 14:12 → UNDOADMIN 14:12 → B2X 04-14 11:11 → B2S 04-14 11:11
PROC: 3E0234Z Introduction of Serum, Toxoid and Vaccine into Muscle, Percutaneous Approach (ICD-10-PCS; principal; 2019-04-14)
PROC: 3E02340 Introduction of Influenza Vaccine into Muscle, Percutaneous Approach (ICD-10-PCS; 2019-04-14)
DX: F25.1 Schizoaffective disorder, depressive type (principal); R45.851 Suicidal ideations; B18.2 Chronic viral hepatitis C; B35.1 Tinea unguium; E03.9 Hypothyroidism, unspecified; F15.10 Other stimulant abuse, uncomplicated; G89.29 Other chronic pain; I10 Essential (primary) hypertension; J44.9 Chronic obstructive pulmonary disease, unspecified; K21.9 Gastro-esophageal reflux disease without esophagitis; M19.90 Unspecified osteoarthritis, unspecified site; F32.9 Major depressive disorder, single episode, unspecified; Z79.899 Other long term (current) drug therapy; Z91.5 Personal history of self-harm; Z71.51 Drug abuse counseling and surveillance of drug abuser; Z23 Encounter for immunization
CPT/HCPCS: 83036; 84439; 84443; 90686; 90732

== ENCOUNTER 2019-06-12 12:50 | Inpatient (IN) | payer MEDICARE, MEDICAID ==
[~2019-06-12] VITALS: Ht 177.8 cm; Wt 105.4 kg
[~2019-06-12 12:50] MED LIST changes: -ARIP15TA2 PO; -ARIP882S IM; +BUPR-47 PO; -BUPR-93 PO; +FLUT16H NASAL; +LEVO25TA9 PO; +QUET300T18 PO
[2019-06-12 14:13] LABS: BASOPHILS % (AUTO) 0.3 % (0.0-2.0); EOSINOPHILS % (AUTO) 1.9 % (1.0-6.0); HEMATOCRIT 38.3 % (41-53); HEMOGLOBIN 13.2 g/dL (13.5-17.5); LYMPHOCYTES # (AUTO) 1.2 K/uL (1.0-4.8); LYMPHOCYTES % (AUTO) 36.5 % (22.0-44.0); MEAN CORPUSCULAR HGB CONC 34.4 G/dL (31.0-37.0); MEAN CORPUSCULAR VOLUME 90 fL (80-100); MONOCYTES # (AUTO) 0.5 K/uL (0.1-1.0); MONOCYTES % (AUTO) 14.7 % (2.0-9.0); NEUTROPHILS # (AUTO) 1.5 K/uL (1.8-7.7); NEUTROPHILS % (AUTO) 46.6 % (40.0-70.0); PLATELET COUNT (AUTO) 142 K/uL (150-450); RED BLOOD CELL COUNT(AUTO) 4.24 MIL/uL (4.50-5.90)
[2019-06-12 14:35] LABS: AMPHET/METH SCREEN,URINE NEGATIVE (NEGATIVE); BARBITURATE SCREEN, URINE NEGATIVE (NEGATIVE); BENZODIAZEPINES SCREEN,URINE NEGATIVE (NEGATIVE); CANNABINOID SCREEN,URINE NEGATIVE (NEGATIVE); COCAINE SCREEN,URINE NEGATIVE (NEGATIVE); METHADONE SCREEN, URINE NEGATIVE (NEGATIVE); OPIATE SCREEN,URINE POSITIVE (NEGATIVE)
[2019-06-12 14:36] LABS: PHENCYCLIDINE SCREEN,URINE NEGATIVE (NEGATIVE)
[2019-06-12 14:37] LABS: ANION GAP 5 mmol/L (8-16); CALCIUM, TOTAL 8.3 mg/dL (8.8-10.5); CARBON DIOXIDE 32 mmol/L (22-29); CHLORIDE 108 mmol/L (98-107); CREATININE 0.63 mg/dL (0.60-1.30); GLOMERULAR FILTR. RATE CALC > 60 mL/min (>60); GLUCOSE,RANDOM 92 mg/dL (70-110); POTASSIUM 4.2 mmol/L (3.5-5.1); SODIUM SERUM 145 mmol/L (136-145); UREA NITROGEN, BLOOD 14 mg/dL (7-18)
[2019-06-12 14:40] LABS: ALANINE AMINOTRANSFERASE 47 U/L (12-78); ALBUMIN 3.7 g/dL (3.4-5.0); ALKALINE PHOSPHATASE 73 U/L (46-116); ASPARTATE AMINOTRANSFERASE 35 U/L (15-37); BILIRUBIN,TOTAL 0.4 mg/dL (0.1-1.0)
[2019-06-12] MEDS ORDERED: LORazepam 2 MG TABLET PO PRN (21:15)
[2019-06-12] MEDS ORDERED: ZOLPIDEM TARTRATE 10 MG TABLET PO PRN (21:15)
[2019-06-12] MEDS ORDERED: HALOPERIDOL 5 MG TABLET PO PRN (21:15)
[2019-06-12] MEDS ORDERED: IBUPROFEN 600 MG TABLET PO ONE (21:45)
[2019-06-12 23:45] VITALS: BP 136/90
[2019-06-13 08:39] LABS: CHOL/HDL RATIO 4.9 (4.2-7.3)
[2019-06-13] MEDS ORDERED: NICOTINE 14 MG/24 HOUR PATCH TD PRN (08:45)
[2019-06-13] MEDS ORDERED: DOCUSATE SODIUM 100 MG CAPSULE PO PRN (08:45)
[2019-06-13] MEDS ORDERED: MAGNESIUM HYDROXIDE SUSPENSION 30 ML UDCUP PO PRN (08:45)
[2019-06-13] MEDS ORDERED: ALBUTEROL SULFATE HFA 90 MCG/PUFF 8 GM INHALER IH PRN (08:45)
[2019-06-13] MEDS ORDERED: ACETAMINOPHEN 325 MG TABLET PO PRN (08:45)
[2019-06-13] MEDS ORDERED: MAG HYDROX/AL HYDROX/SIMETH ES 30 ML SUSPENSION UDCUP PO PRN (08:45)
[2019-06-13] MEDS ORDERED: PETROLATUM,WHITE 28 GM JELLY TP PRN (08:45)
[2019-06-13] MEDS ORDERED: ONDANSETRON HCL 4 MG TABLET PO PRN (08:45)
[2019-06-13] MEDS ORDERED: GuaiFENesin/D-METHORPHAN [SUGAR-FREE] 200-20MG/10 ML SYRUP UDCUP PO PRN (08:45)
[2019-06-13] MEDS ORDERED: CloNIDine HCL 0.1 MG TABLET PO PRN (08:45)
[2019-06-13] MEDS: AmLODIPine BESYLATE 5 MG TABLET PO SCH (08:48)
[2019-06-13] MEDS: FLUTICASONE PROPIONATE 50 MCG/SPRAY 16 GM NASAL SPRAY NASAL SCH (09:25)
[2019-06-13 09:46] VITALS: BP 128/83
[2019-06-13] MEDS: ACETAMINOPHEN/CODEINE 300-15 MG TABLET PO PRN ×2 (09:46→17:08)
[2019-06-13 16:58] VITALS: BP 144/72
[2019-06-13] MEDS: LOPERAMIDE HCL 2 MG CAPSULE PO PRN (17:03)
[2019-06-13 17:08] VITALS: BP 144/72
[2019-06-13 18:08] VITALS: BP 144/72
[2019-06-13] MEDS: QUEtiapine FUMARATE 300 MG TABLET PO SCH (20:08)
[2019-06-14 05:16] VITALS: BP 131/68
[2019-06-14] MEDS: ACETAMINOPHEN/CODEINE 300-15 MG TABLET PO PRN ×2 (05:18→17:12)
[2019-06-14] MEDS: LEVOTHYROXINE SODIUM 25 MCG TABLET PO SCH (06:40)
[2019-06-14 08:34] VITALS: BP 132/84
[2019-06-14] MEDS: FLUoxetine HCL 20 MG CAPSULE PO SCH (08:34)
[2019-06-14] MEDS: FLUTICASONE PROPIONATE 50 MCG/SPRAY 16 GM NASAL SPRAY NASAL SCH (08:34)
[2019-06-14] MEDS: BuPROPion HCL XL 150 MG ER TABLET PO SCH (08:34)
[2019-06-14] MEDS: AmLODIPine BESYLATE 5 MG TABLET PO SCH (08:34)
[2019-06-14 15:15] VITALS: BP 140/78
[2019-06-14] MEDS: IBUPROFEN 400 MG TABLET PO PRN (15:15)
[2019-06-14 17:12] VITALS: BP 126/75
[2019-06-14] MEDS: LOPERAMIDE HCL 2 MG CAPSULE PO PRN (19:58)
[2019-06-14] MEDS: QUEtiapine FUMARATE 300 MG TABLET PO SCH (20:01)
[2019-06-15] MEDS: ACETAMINOPHEN/CODEINE 300-15 MG TABLET PO PRN ×2 (05:32→17:06)
[2019-06-15 06:07] VITALS: BP 147/84
[2019-06-15] MEDS: LEVOTHYROXINE SODIUM 25 MCG TABLET PO SCH (06:43)
[2019-06-15] MEDS: BuPROPion HCL XL 150 MG ER TABLET PO SCH (08:34)
[2019-06-15] MEDS: FLUoxetine HCL 20 MG CAPSULE PO SCH (08:34)
[2019-06-15] MEDS: AmLODIPine BESYLATE 5 MG TABLET PO SCH (08:35)
[2019-06-15] MEDS: FLUTICASONE PROPIONATE 50 MCG/SPRAY 16 GM NASAL SPRAY NASAL SCH (08:35)
[2019-06-15 09:08] VITALS: BP 118/75
[2019-06-15 17:00] VITALS: BP 126/77
[2019-06-15] MEDS: TERBINAFINE HCL 1% 30 GM CREAM TP SCH (17:33)
[2019-06-15] MEDS: QUEtiapine FUMARATE 300 MG TABLET PO SCH (20:12)
[2019-06-16] MEDS: ACETAMINOPHEN/CODEINE 300-15 MG TABLET PO PRN ×2 (03:32→14:58)
[2019-06-16 03:34] VITALS: BP 132/78
[2019-06-16] MEDS: LEVOTHYROXINE SODIUM 25 MCG TABLET PO SCH (07:17)
[2019-06-16 08:55] VITALS: BP 108/76
[2019-06-16] MEDS: AmLODIPine BESYLATE 5 MG TABLET PO SCH (09:20)
[2019-06-16] MEDS: FLUTICASONE PROPIONATE 50 MCG/SPRAY 16 GM NASAL SPRAY NASAL SCH (09:20)
[2019-06-16] MEDS: FLUoxetine HCL 20 MG CAPSULE PO SCH (09:21)
[2019-06-16] MEDS: BuPROPion HCL XL 150 MG ER TABLET PO SCH (09:21)
[2019-06-16] MEDS: TERBINAFINE HCL 1% 30 GM CREAM TP SCH ×2 (09:22→17:15)
[2019-06-16 14:57] VITALS: BP 118/72
[2019-06-16 18:39] VITALS: BP 121/76
[2019-06-16] MEDS: QUEtiapine FUMARATE 300 MG TABLET PO SCH (20:53)
[2019-06-17 01:40] VITALS: BP 125/76
[2019-06-17] MEDS: ACETAMINOPHEN/CODEINE 300-15 MG TABLET PO PRN ×2 (01:47→14:51)
[2019-06-17 05:35] VITALS: BP 138/68
[2019-06-17] MEDS: IBUPROFEN 400 MG TABLET PO PRN (05:40)
[2019-06-17] MEDS: LEVOTHYROXINE SODIUM 25 MCG TABLET PO SCH (06:25)
[2019-06-17] MEDS: FLUTICASONE PROPIONATE 50 MCG/SPRAY 16 GM NASAL SPRAY NASAL SCH (08:16)
[2019-06-17] MEDS: AmLODIPine BESYLATE 5 MG TABLET PO SCH (08:16)
[2019-06-17] MEDS: TERBINAFINE HCL 1% 30 GM CREAM TP SCH ×2 (08:17→17:34)
[2019-06-17] MEDS: FLUoxetine HCL 20 MG CAPSULE PO SCH (08:17)
[2019-06-17 09:11] VITALS: BP 141/94
[2019-06-17] MEDS: BuPROPion HCL XL 150 MG ER TABLET PO SCH (10:39)
[2019-06-17 14:53] VITALS: BP 134/72
[2019-06-17 17:00] VITALS: BP 141/71
[2019-06-17] MEDS: QUEtiapine FUMARATE 200 MG TABLET PO SCH (20:23)
[2019-06-18 01:52] VITALS: BP 132/70
[2019-06-18] MEDS: ACETAMINOPHEN/CODEINE 300-15 MG TABLET PO PRN ×2 (01:58→14:09)
[2019-06-18 05:07] VITALS: BP 132/79
[2019-06-18] MEDS: IBUPROFEN 400 MG TABLET PO PRN (05:07)
[2019-06-18] MEDS: LEVOTHYROXINE SODIUM 25 MCG TABLET PO SCH (06:37)
[2019-06-18] MEDS: FLUoxetine HCL 20 MG CAPSULE PO SCH (08:47)
[2019-06-18] MEDS: AmLODIPine BESYLATE 5 MG TABLET PO SCH (08:47)
[2019-06-18] MEDS: FLUTICASONE PROPIONATE 50 MCG/SPRAY 16 GM NASAL SPRAY NASAL SCH (08:47)
[2019-06-18] MEDS: BuPROPion HCL XL 150 MG ER TABLET PO SCH (08:47)
[2019-06-18] MEDS: TERBINAFINE HCL 1% 30 GM CREAM TP SCH ×2 (08:58→16:20)
[2019-06-18 10:21] VITALS: BP 108/59
[2019-06-18 14:09] VITALS: BP 138/78
[2019-06-18 19:00] VITALS: BP 158/80
[2019-06-18] MEDS: QUEtiapine FUMARATE 200 MG TABLET PO SCH (20:45)
[2019-06-19 05:00] VITALS: BP 132/76
[2019-06-19] MEDS: ACETAMINOPHEN/CODEINE 300-15 MG TABLET PO PRN ×2 (05:05→17:06)
[2019-06-19] MEDS: LEVOTHYROXINE SODIUM 25 MCG TABLET PO SCH (06:51)
[2019-06-19] MEDS: FLUTICASONE PROPIONATE 50 MCG/SPRAY 16 GM NASAL SPRAY NASAL SCH (08:21)
[2019-06-19] MEDS: AmLODIPine BESYLATE 5 MG TABLET PO SCH (08:22)
[2019-06-19] MEDS: BuPROPion HCL XL 150 MG ER TABLET PO SCH (08:23)
[2019-06-19] MEDS: TERBINAFINE HCL 1% 30 GM CREAM TP SCH ×2 (08:23→16:48)
[2019-06-19] MEDS: FLUoxetine HCL 20 MG CAPSULE PO SCH (08:23)
[2019-06-19 09:15] VITALS: BP 145/84
[2019-06-19 09:49] VITALS: BP 127/76
[2019-06-19] MEDS: IBUPROFEN 400 MG TABLET PO PRN (09:49)
[2019-06-19 10:49] VITALS: BP 144/62
[2019-06-19 17:00] VITALS: BP 146/77
[2019-06-19] MEDS: QUEtiapine FUMARATE 200 MG TABLET PO SCH (20:16)
[2019-06-20 05:00] VITALS: BP 143/74
[2019-06-20] MEDS: ACETAMINOPHEN/CODEINE 300-15 MG TABLET PO PRN ×2 (05:08→16:13)
[2019-06-20] MEDS: LEVOTHYROXINE SODIUM 25 MCG TABLET PO SCH (06:47)
[2019-06-20] MEDS: AmLODIPine BESYLATE 5 MG TABLET PO SCH (08:07)
[2019-06-20] MEDS: FLUTICASONE PROPIONATE 50 MCG/SPRAY 16 GM NASAL SPRAY NASAL SCH (08:07)
[2019-06-20] MEDS: TERBINAFINE HCL 1% 30 GM CREAM TP SCH ×2 (08:08→16:01)
[2019-06-20] MEDS: FLUoxetine HCL 20 MG CAPSULE PO SCH (08:08)
[2019-06-20] MEDS: BuPROPion HCL XL 150 MG ER TABLET PO SCH (08:09)
[2019-06-20 09:39] VITALS: BP 136/72
[2019-06-20 17:28] VITALS: BP 154/81
[2019-06-20] MEDS: QUEtiapine FUMARATE 200 MG TABLET PO SCH (20:06)
[2019-06-21] MEDS: ACETAMINOPHEN/CODEINE 300-15 MG TABLET PO PRN ×2 (04:36→15:59)
[2019-06-21 04:37] VITALS: BP 121/85
[2019-06-21] MEDS: LEVOTHYROXINE SODIUM 25 MCG TABLET PO SCH (06:29)
[2019-06-21] MEDS: AmLODIPine BESYLATE 5 MG TABLET PO SCH (08:49)
[2019-06-21] MEDS: BuPROPion HCL XL 150 MG ER TABLET PO SCH (08:49)
[2019-06-21] MEDS: FLUoxetine HCL 20 MG CAPSULE PO SCH (08:49)
[2019-06-21] MEDS: FLUTICASONE PROPIONATE 50 MCG/SPRAY 16 GM NASAL SPRAY NASAL SCH (08:50)
[2019-06-21] MEDS: TERBINAFINE HCL 1% 30 GM CREAM TP SCH ×2 (08:51→17:46)
[2019-06-21 09:11] VITALS: BP 129/80
[2019-06-21 16:00] VITALS: BP 143/74
[2019-06-21] MEDS: QUEtiapine FUMARATE 200 MG TABLET PO SCH (20:14)
[2019-06-22] MEDS: ACETAMINOPHEN/CODEINE 300-15 MG TABLET PO PRN ×2 (04:03→15:55)
[2019-06-22 04:05] VITALS: BP 138/74
[2019-06-22] MEDS: LEVOTHYROXINE SODIUM 25 MCG TABLET PO SCH (06:57)
[2019-06-22] MEDS: BuPROPion HCL XL 150 MG ER TABLET PO SCH (08:05)
[2019-06-22] MEDS: AmLODIPine BESYLATE 5 MG TABLET PO SCH (08:05)
[2019-06-22] MEDS: FLUoxetine HCL 20 MG CAPSULE PO SCH (08:05)
[2019-06-22] MEDS: FLUTICASONE PROPIONATE 50 MCG/SPRAY 16 GM NASAL SPRAY NASAL SCH (08:05)
[2019-06-22] MEDS: TERBINAFINE HCL 1% 30 GM CREAM TP SCH ×2 (08:06→15:56)
[2019-06-22 08:20] VITALS: BP 120/59
[2019-06-22 16:00] VITALS: BP 135/72
[2019-06-22] MEDS: QUEtiapine FUMARATE 200 MG TABLET PO SCH (20:08)
[2019-06-23 01:54] VITALS: BP 131/75
[2019-06-23 04:57] VITALS: BP 152/77
[2019-06-23] MEDS: ACETAMINOPHEN/CODEINE 300-15 MG TABLET PO PRN ×2 (04:57→16:10)
[2019-06-23] MEDS: LEVOTHYROXINE SODIUM 25 MCG TABLET PO SCH (06:34)
[2019-06-23] MEDS: BuPROPion HCL XL 150 MG ER TABLET PO SCH (08:16)
[2019-06-23] MEDS: AmLODIPine BESYLATE 5 MG TABLET PO SCH (08:16)
[2019-06-23] MEDS: FLUoxetine HCL 20 MG CAPSULE PO SCH (08:16)
[2019-06-23] MEDS: TERBINAFINE HCL 1% 30 GM CREAM TP SCH ×2 (08:16→16:12)
[2019-06-23] MEDS: FLUTICASONE PROPIONATE 50 MCG/SPRAY 16 GM NASAL SPRAY NASAL SCH (08:16)
[2019-06-23 09:13] VITALS: BP 126/75
[2019-06-23 16:06] VITALS: BP 145/83
[2019-06-23] MEDS: CIPROFLOXACIN HCL 0.3% 3.5 GM OPHTHALMIC OINTMENT OU SCH (16:12)
[2019-06-23] MEDS: QUEtiapine FUMARATE 200 MG TABLET PO SCH (20:25)
[2019-06-24 02:25] VITALS: BP 136/78
[2019-06-24] MEDS: ACETAMINOPHEN/CODEINE 300-15 MG TABLET PO PRN ×2 (02:27→12:07)
[2019-06-24] MEDS: LEVOTHYROXINE SODIUM 25 MCG TABLET PO SCH (06:06)
[2019-06-24] MEDS: BuPROPion HCL XL 150 MG ER TABLET PO SCH (08:22)
[2019-06-24] MEDS: TERBINAFINE HCL 1% 30 GM CREAM TP SCH ×2 (08:23→16:19)
[2019-06-24] MEDS: CIPROFLOXACIN HCL 0.3% 3.5 GM OPHTHALMIC OINTMENT OU SCH ×2 (08:23→16:18)
[2019-06-24] MEDS: FLUoxetine HCL 20 MG CAPSULE PO SCH (08:23)
[2019-06-24] MEDS: AmLODIPine BESYLATE 5 MG TABLET PO SCH (08:23)
[2019-06-24] MEDS: FLUTICASONE PROPIONATE 50 MCG/SPRAY 16 GM NASAL SPRAY NASAL SCH (08:23)
[2019-06-24 10:20] VITALS: BP 147/99
[2019-06-24 16:30] VITALS: BP 134/82
[2019-06-24] MEDS: QUEtiapine FUMARATE 200 MG TABLET PO SCH (20:26)
[2019-06-25 05:10] VITALS: BP 146/83
[2019-06-25] MEDS: ACETAMINOPHEN/CODEINE 300-15 MG TABLET PO PRN ×2 (05:12→14:50)
[2019-06-25] MEDS: LEVOTHYROXINE SODIUM 25 MCG TABLET PO SCH (06:45)
[2019-06-25 07:49] LABS: BASOPHILS % (AUTO) 0.3 % (0.0-2.0); EOSINOPHILS % (AUTO) 0.9 % (1.0-6.0); HEMATOCRIT 40.8 % (41-53); HEMOGLOBIN 13.9 g/dL (13.5-17.5); LYMPHOCYTES # (AUTO) 1.4 K/uL (1.0-4.8); MEAN CORPUSCULAR HEMOGLOBIN 30.8 pg (26.0-34.0); MEAN CORPUSCULAR HGB CONC 34.1 G/dL (31.0-37.0); MEAN CORPUSCULAR VOLUME 91 fL (80-100); MONOCYTES # (AUTO) 0.5 K/uL (0.1-1.0); MONOCYTES % (AUTO) 8.2 % (2.0-9.0); NEUTROPHILS # (AUTO) 4.1 K/uL (1.8-7.7); NEUTROPHILS % (AUTO) 67.6 % (40.0-70.0); PLATELET COUNT (AUTO) 144 K/uL (150-450); RED BLOOD CELL COUNT(AUTO) 4.51 MIL/uL (4.50-5.90)
[2019-06-25] MEDS: BuPROPion HCL XL 150 MG ER TABLET PO SCH (08:03)
[2019-06-25] MEDS: FLUoxetine HCL 20 MG CAPSULE PO SCH (08:03)
[2019-06-25] MEDS: CIPROFLOXACIN HCL 0.3% 3.5 GM OPHTHALMIC OINTMENT OU SCH (08:03)
[2019-06-25] MEDS: FLUTICASONE PROPIONATE 50 MCG/SPRAY 16 GM NASAL SPRAY NASAL SCH (08:03)
[2019-06-25] MEDS: TERBINAFINE HCL 1% 30 GM CREAM TP SCH (08:05)
[2019-06-25 08:26] VITALS: BP 111/69
[2019-06-25] MEDS ORDERED: FLUO-191 PO (10:42)
[2019-06-25] MEDS ORDERED: QUET200T29 PO (10:42)
[2019-06-25] MEDS ORDERED: BUPR-47 PO (10:42)
[2019-06-25] MEDS: AmLODIPine BESYLATE 5 MG TABLET PO SCH (11:11)
[2019-06-25] MEDS ORDERED: CILOOO OU (13:23)
[2019-06-25 14:50] VITALS: BP 130/88
== END 2019-06-25 15:10 | disposition home or self-care (01) | DRG 885 ==
LOC: EMS 12:52 → 3EX 23:00 → 3EI 06-20 20:44
DX: F25.1 Schizoaffective disorder, depressive type (principal); B18.2 Chronic viral hepatitis C; R45.851 Suicidal ideations; B35.1 Tinea unguium; I10 Essential (primary) hypertension; J30.9 Allergic rhinitis, unspecified; D64.9 Anemia, unspecified; E03.9 Hypothyroidism, unspecified; D72.819 Decreased white blood cell count, unspecified; J44.9 Chronic obstructive pulmonary disease, unspecified; G43.909 Migraine, unspecified, not intractable, without status migrainosus; M19.90 Unspecified osteoarthritis, unspecified site; Z91.5 Personal history of self-harm
CPT/HCPCS: 87081; G0378; G0480

== ENCOUNTER 2019-10-16 01:42 | Inpatient (IN) | payer MEDICARE, MEDICAID ==
[~2019-10-16] VITALS: Ht 177.8 cm; Wt 97.2 kg
[~2019-10-16 01:42] MED LIST changes: +CILOOO OU; +FLUO-191 PO; -FLUO40CA7 PO; +QUET200T29 PO; -QUET300T18 PO
[2019-10-16] MEDS ORDERED: LISI10TA7 PO (02:07)
[2019-10-16] MEDS ORDERED: DULO30CA52 PO (02:07)
[2019-10-16] MEDS ORDERED: TRAZ-252 PO (02:07)
[2019-10-16 03:27] LABS: BASOPHILS % (AUTO) 0.4 % (0.0-2.0); EOSINOPHILS % (AUTO) 1.8 % (1.0-6.0); HEMATOCRIT 38.3 % (41-53); HEMOGLOBIN 13.1 g/dL (13.5-17.5); LYMPHOCYTES # (AUTO) 1.6 K/uL (1.0-4.8); LYMPHOCYTES % (AUTO) 35.3 % (22.0-44.0); MEAN CORPUSCULAR HGB CONC 34.2 G/dL (31.0-37.0); MEAN CORPUSCULAR VOLUME 91 fL (80-100); MONOCYTES # (AUTO) 0.4 K/uL (0.1-1.0); MONOCYTES % (AUTO) 8.4 % (2.0-9.0); NEUTROPHILS # (AUTO) 2.5 K/uL (1.8-7.7); NEUTROPHILS % (AUTO) 54.1 % (40.0-70.0); PLATELET COUNT (AUTO) 166 K/uL (150-450); RED BLOOD CELL COUNT(AUTO) 4.22 MIL/uL (4.50-5.90); RED CELL DISTRIBUTION WIDTH 14.8 % (11.5-14.5)
[2019-10-16 03:34] LABS: ANION GAP 8 mmol/L (8-16); CALCIUM, TOTAL 8.5 mg/dL (8.8-10.5); CARBON DIOXIDE 30 mmol/L (22-29); CHLORIDE 100 mmol/L (98-107); CREATININE 0.88 mg/dL (0.60-1.30); GLOMERULAR FILTR. RATE CALC > 60 mL/min (>60); GLUCOSE,RANDOM 92 mg/dL (70-110); POTASSIUM 4.3 mmol/L (3.5-5.1); SODIUM SERUM 138 mmol/L (136-145); UREA NITROGEN, BLOOD 26 mg/dL (7-18)
[2019-10-16 03:42] LABS: ALANINE AMINOTRANSFERASE 35 U/L (12-78); ALKALINE PHOSPHATASE 129 U/L (46-116); ASPARTATE AMINOTRANSFERASE 27 U/L (15-37); BILIRUBIN,TOTAL 0.4 mg/dL (0.1-1.0); TOTAL PROTEIN, SERUM 7.3 g/dL (6.4-8.2)
[2019-10-16] MEDS ORDERED: LORazepam 2 MG TABLET PO PRN (06:30)
[2019-10-16 06:37] LABS: APPEARANCE,URINE CLEAR (CLEAR); BILIRUBIN,URINE NEGATIVE (NEGATIVE); GLUCOSE, URINE (UA) NEGATIVE (NEGATIVE); KETONES,URINE NEGATIVE (NEGATIVE); LEUKOCYTE ESTERASE ,URINE NEGATIVE (NEGATIVE); NITRATE,URINE NEGATIVE (NEGATIVE); OCCULT BLOOD,URINE NEGATIVE (NEGATIVE); PH,URINE 5.5 (5.0-8.0); PROTEIN,URINE NEGATIVE (NEGATIVE); UROBILINOGEN,URINE 0.2 mg/dL (<=1.0)
[2019-10-16 06:42] LABS: AMPHET/METH SCREEN,URINE NEGATIVE (NEGATIVE); BARBITURATE SCREEN, URINE NEGATIVE (NEGATIVE); BENZODIAZEPINES SCREEN,URINE NEGATIVE (NEGATIVE); CANNABINOID SCREEN,URINE NEGATIVE (NEGATIVE); COCAINE SCREEN,URINE NEGATIVE (NEGATIVE); METHADONE SCREEN, URINE NEGATIVE (NEGATIVE); OPIATE SCREEN,URINE POSITIVE (NEGATIVE)
[2019-10-16 06:46] LABS: PHENCYCLIDINE SCREEN,URINE NEGATIVE (NEGATIVE)
[2019-10-16 17:16] VITALS: BP 108/70
[2019-10-16] MEDS ORDERED: -PHARMACY VACCINE NOTE- MISC ONE (17:30)
[2019-10-16] MEDS: ZOLPIDEM TARTRATE 10 MG TABLET PO PRN (22:12)
[2019-10-17 02:23] VITALS: BP 132/96
[2019-10-17] MEDS: LEVOTHYROXINE SODIUM 25 MCG TABLET PO SCH (06:15)
[2019-10-17] MEDS ORDERED: ACETAMINOPHEN 325 MG TABLET PO PRN ×2 (06:45→09:45)
[2019-10-17] MEDS ORDERED: IBUPROFEN 400 MG TABLET PO PRN (06:45)
[2019-10-17] MEDS ORDERED: ACETAMINOPHEN/CODEINE 300-15 MG TABLET PO PRN (06:45)
[2019-10-17] MEDS: AmLODIPine BESYLATE 5 MG TABLET PO SCH (08:14)
[2019-10-17] MEDS: LISINOPRIL 10 MG TABLET PO SCH (08:14)
[2019-10-17 08:15] VITALS: BP 114/72
[2019-10-17] MEDS: ACETAMINOPHEN/CODEINE 300-30 MG TABLET PO PRN (08:15)
[2019-10-17 09:06] VITALS: BP 110/70
[2019-10-17] MEDS ORDERED: PETROLATUM,WHITE 28 GM JELLY TP PRN (09:45)
[2019-10-17] MEDS ORDERED: MAGNESIUM HYDROXIDE SUSPENSION 30 ML UDCUP PO PRN (09:45)
[2019-10-17] MEDS ORDERED: MAG HYDROX/AL HYDROX/SIMETH ES 30 ML SUSPENSION UDCUP PO PRN (09:45)
[2019-10-17] MEDS ORDERED: CloNIDine HCL 0.1 MG TABLET PO PRN (09:45)
[2019-10-17] MEDS ORDERED: GuaiFENesin/D-METHORPHAN [SUGAR-FREE] 200-20MG/10 ML SYRUP UDCUP PO PRN (09:45)
[2019-10-17] MEDS ORDERED: ONDANSETRON HCL 4 MG TABLET PO PRN (09:45)
[2019-10-17] MEDS ORDERED: NICOTINE 14 MG/24 HOUR PATCH TD PRN (09:45)
[2019-10-17] MEDS ORDERED: DOCUSATE SODIUM 100 MG CAPSULE PO PRN (09:45)
[2019-10-17] MEDS ORDERED: ALBUTEROL SULFATE HFA 90 MCG/PUFF 8 GM INHALER IH PRN (09:45)
[2019-10-17] MEDS: BuPROPion HCL XL 150 MG ER TABLET PO SCH (12:35)
[2019-10-17 16:22] VITALS: BP 120/62
[2019-10-17] MEDS: TraZODone HCL 50 MG TABLET PO SCH (20:06)
[2019-10-17] MEDS: QUEtiapine FUMARATE 200 MG TABLET PO SCH (20:07)
[2019-10-18 00:11] VITALS: BP 133/86
[2019-10-18] MEDS: LEVOTHYROXINE SODIUM 25 MCG TABLET PO SCH (06:48)
[2019-10-18] MEDS: ACETAMINOPHEN/CODEINE 300-30 MG TABLET PO PRN (06:50)
[2019-10-18 08:28] LABS: CHOL/HDL RATIO 6.5 (4.2-7.3)
[2019-10-18] MEDS: LISINOPRIL 10 MG TABLET PO SCH (09:40)
[2019-10-18] MEDS: BuPROPion HCL XL 150 MG ER TABLET PO SCH (09:40)
[2019-10-18] MEDS: AmLODIPine BESYLATE 5 MG TABLET PO SCH (09:40)
[2019-10-18] MEDS: HALOPERIDOL 5 MG TABLET PO PRN (11:19)
[2019-10-18] MEDS: FLUoxetine HCL 20 MG CAPSULE PO SCH (13:13)
[2019-10-18 18:12] VITALS: BP 101/60
[2019-10-18] MEDS: TraZODone HCL 50 MG TABLET PO SCH (20:12)
[2019-10-18] MEDS: QUEtiapine FUMARATE 200 MG TABLET PO SCH (20:12)
[2019-10-19 06:20] VITALS: BP 110/62
[2019-10-19] MEDS: LEVOTHYROXINE SODIUM 25 MCG TABLET PO SCH (06:40)
[2019-10-19] MEDS: ACETAMINOPHEN/CODEINE 300-30 MG TABLET PO PRN ×2 (06:41→15:54)
[2019-10-19 08:11] VITALS: BP 117/58
[2019-10-19] MEDS: AmLODIPine BESYLATE 5 MG TABLET PO SCH (08:13)
[2019-10-19] MEDS: BuPROPion HCL XL 150 MG ER TABLET PO SCH (08:13)
[2019-10-19] MEDS: LISINOPRIL 10 MG TABLET PO SCH (08:13)
[2019-10-19] MEDS: FLUoxetine HCL 20 MG CAPSULE PO SCH (08:14)
[2019-10-19 16:04] VITALS: BP 110/68
[2019-10-19] MEDS: IBUPROFEN 400 MG TABLET PO PRN (17:02)
[2019-10-19] MEDS: HALOPERIDOL 5 MG TABLET PO PRN (17:02)
[2019-10-19] MEDS: QUEtiapine FUMARATE 200 MG TABLET PO SCH (20:10)
[2019-10-19] MEDS: TraZODone HCL 50 MG TABLET PO SCH (20:10)
[2019-10-20] MEDS: LEVOTHYROXINE SODIUM 25 MCG TABLET PO SCH (06:00)
[2019-10-20 06:13] VITALS: BP 119/76
[2019-10-20] MEDS: ACETAMINOPHEN/CODEINE 300-30 MG TABLET PO PRN ×2 (06:16→18:30)
[2019-10-20 08:30] VITALS: BP 110/62
[2019-10-20] MEDS: BuPROPion HCL XL 150 MG ER TABLET PO SCH (08:33)
[2019-10-20] MEDS: LISINOPRIL 10 MG TABLET PO SCH (08:33)
[2019-10-20] MEDS: AmLODIPine BESYLATE 5 MG TABLET PO SCH (08:33)
[2019-10-20] MEDS: FLUoxetine HCL 20 MG CAPSULE PO SCH (08:33)
[2019-10-20] MEDS: IBUPROFEN 400 MG TABLET PO PRN (14:18)
[2019-10-20 16:05] VITALS: BP 108/63
[2019-10-20] MEDS: HALOPERIDOL 5 MG TABLET PO PRN (16:12)
[2019-10-20] MEDS: TraZODone HCL 50 MG TABLET PO SCH (20:33)
[2019-10-20] MEDS: QUEtiapine FUMARATE 200 MG TABLET PO SCH (20:33)
[2019-10-21 03:55] VITALS: BP 108/56
[2019-10-21] MEDS: ACETAMINOPHEN/CODEINE 300-30 MG TABLET PO PRN ×2 (03:58→18:05)
[2019-10-21] MEDS: LEVOTHYROXINE SODIUM 25 MCG TABLET PO SCH (07:25)
[2019-10-21] MEDS: BuPROPion HCL XL 150 MG ER TABLET PO SCH (08:33)
[2019-10-21] MEDS: FLUoxetine HCL 20 MG CAPSULE PO SCH (08:33)
[2019-10-21] MEDS: AmLODIPine BESYLATE 5 MG TABLET PO SCH (08:41)
[2019-10-21] MEDS: LISINOPRIL 10 MG TABLET PO SCH (08:41)
[2019-10-21 08:59] VITALS: BP 101/55
[2019-10-21] MEDS: IBUPROFEN 400 MG TABLET PO PRN (10:19)
[2019-10-21 16:09] VITALS: BP 108/67
[2019-10-21 18:05] VITALS: BP 101/61
[2019-10-21] MEDS: QUEtiapine FUMARATE 200 MG TABLET PO SCH (20:17)
[2019-10-21] MEDS: TraZODone HCL 50 MG TABLET PO SCH (20:17)
[2019-10-22 02:26] VITALS: BP 114/63
[2019-10-22] MEDS: ACETAMINOPHEN/CODEINE 300-30 MG TABLET PO PRN ×2 (02:31→17:16)
[2019-10-22] MEDS: LEVOTHYROXINE SODIUM 25 MCG TABLET PO SCH (06:29)
[2019-10-22] MEDS: AmLODIPine BESYLATE 5 MG TABLET PO SCH (08:24)
[2019-10-22] MEDS: BuPROPion HCL XL 150 MG ER TABLET PO SCH (08:24)
[2019-10-22] MEDS: FLUoxetine HCL 20 MG CAPSULE PO SCH (08:24)
[2019-10-22] MEDS: LISINOPRIL 10 MG TABLET PO SCH (08:24)
[2019-10-22 09:03] VITALS: BP 122/72
[2019-10-22] MEDS: IBUPROFEN 400 MG TABLET PO PRN (10:52)
[2019-10-22 16:37] VITALS: BP 138/71
[2019-10-22] MEDS: ZOLPIDEM TARTRATE 10 MG TABLET PO PRN (20:43)
[2019-10-22] MEDS: TraZODone HCL 50 MG TABLET PO SCH (20:43)
[2019-10-22] MEDS: QUEtiapine FUMARATE 200 MG TABLET PO SCH (20:44)
[2019-10-23 05:15] VITALS: BP 113/68
[2019-10-23] MEDS: HALOPERIDOL 5 MG TABLET PO PRN ×2 (06:14→17:07)
[2019-10-23] MEDS: ACETAMINOPHEN/CODEINE 300-30 MG TABLET PO PRN ×2 (06:15→18:42)
[2019-10-23] MEDS: LEVOTHYROXINE SODIUM 25 MCG TABLET PO SCH (06:36)
[2019-10-23] MEDS: LISINOPRIL 10 MG TABLET PO SCH (09:02)
[2019-10-23] MEDS: FLUoxetine HCL 20 MG CAPSULE PO SCH (09:02)
[2019-10-23] MEDS: BuPROPion HCL XL 150 MG ER TABLET PO SCH (09:02)
[2019-10-23] MEDS: AmLODIPine BESYLATE 5 MG TABLET PO SCH (09:02)
[2019-10-23 09:13] VITALS: BP 116/68
[2019-10-23 16:00] VITALS: BP 102/65
[2019-10-23] MEDS: IBUPROFEN 400 MG TABLET PO PRN (16:02)
[2019-10-23 18:42] VITALS: BP 114/60
[2019-10-23] MEDS: QUEtiapine FUMARATE 200 MG TABLET PO SCH (20:03)
[2019-10-23] MEDS: TraZODone HCL 50 MG TABLET PO SCH (20:03)
[2019-10-24 00:58] VITALS: BP 100/60
[2019-10-24] MEDS: IBUPROFEN 400 MG TABLET PO PRN ×2 (03:54→16:03)
[2019-10-24 06:16] VITALS: BP 110/64
[2019-10-24] MEDS: LEVOTHYROXINE SODIUM 25 MCG TABLET PO SCH (06:18)
[2019-10-24] MEDS: ACETAMINOPHEN/CODEINE 300-30 MG TABLET PO PRN ×2 (06:19→18:53)
[2019-10-24 08:23] VITALS: BP 129/82
[2019-10-24] MEDS: BuPROPion HCL XL 150 MG ER TABLET PO SCH (08:28)
[2019-10-24] MEDS: LISINOPRIL 10 MG TABLET PO SCH (08:28)
[2019-10-24] MEDS: AmLODIPine BESYLATE 5 MG TABLET PO SCH (08:28)
[2019-10-24] MEDS: FLUoxetine HCL 20 MG CAPSULE PO SCH (08:29)
[2019-10-24] MEDS: LOPERAMIDE HCL 2 MG CAPSULE PO PRN (10:54)
[2019-10-24 16:03] VITALS: BP 133/68
[2019-10-24 18:53] VITALS: BP 132/68
[2019-10-24] MEDS: QUEtiapine FUMARATE 200 MG TABLET PO SCH (20:08)
[2019-10-24] MEDS: TraZODone HCL 50 MG TABLET PO SCH (20:08)
[2019-10-25 01:29] VITALS: BP 125/77
[2019-10-25 06:00] VITALS: BP 100/64
[2019-10-25] MEDS: LEVOTHYROXINE SODIUM 25 MCG TABLET PO SCH (06:09)
[2019-10-25] MEDS: ACETAMINOPHEN/CODEINE 300-30 MG TABLET PO PRN ×2 (06:09→17:01)
[2019-10-25] MEDS: LOPERAMIDE HCL 2 MG CAPSULE PO PRN (06:40)
[2019-10-25 08:10] VITALS: BP 100/54
[2019-10-25] MEDS: LISINOPRIL 10 MG TABLET PO SCH (08:40)
[2019-10-25] MEDS: AmLODIPine BESYLATE 5 MG TABLET PO SCH (08:40)
[2019-10-25] MEDS: FLUoxetine HCL 20 MG CAPSULE PO SCH (08:40)
[2019-10-25] MEDS: BuPROPion HCL XL 150 MG ER TABLET PO SCH (08:41)
[2019-10-25] MEDS: IBUPROFEN 400 MG TABLET PO PRN (10:21)
[2019-10-25 16:05] VITALS: BP 115/61
[2019-10-25] MEDS: QUEtiapine FUMARATE 200 MG TABLET PO SCH (21:01)
[2019-10-25] MEDS: TraZODone HCL 50 MG TABLET PO SCH (21:01)
[2019-10-26 02:40] VITALS: BP 110/57
[2019-10-26] MEDS: ZOLPIDEM TARTRATE 10 MG TABLET PO PRN (02:42)
[2019-10-26] MEDS: IBUPROFEN 400 MG TABLET PO PRN (02:42)
[2019-10-26] MEDS: LEVOTHYROXINE SODIUM 25 MCG TABLET PO SCH (06:13)
[2019-10-26 08:07] VITALS: BP 125/88
[2019-10-26] MEDS: LISINOPRIL 10 MG TABLET PO SCH (08:34)
[2019-10-26] MEDS: FLUoxetine HCL 20 MG CAPSULE PO SCH (08:34)
[2019-10-26] MEDS: AmLODIPine BESYLATE 5 MG TABLET PO SCH (08:35)
[2019-10-26] MEDS: BuPROPion HCL XL 150 MG ER TABLET PO SCH (08:35)
[2019-10-26] MEDS: ACETAMINOPHEN/CODEINE 300-30 MG TABLET PO PRN (08:48)
[2019-10-26] MEDS ORDERED: BUPR-93 PO (12:13)
== END 2019-10-26 12:45 | disposition home or self-care (01) | DRG 885 ==
LOC: EMS 01:42 → B2S 12:28
DX: F25.1 Schizoaffective disorder, depressive type (principal); R45.851 Suicidal ideations; G43.909 Migraine, unspecified, not intractable, without status migrainosus; I10 Essential (primary) hypertension; J44.9 Chronic obstructive pulmonary disease, unspecified; M19.90 Unspecified osteoarthritis, unspecified site; F31.9 Bipolar disorder, unspecified; E03.9 Hypothyroidism, unspecified; Z91.5 Personal history of self-harm; Z79.899 Other long term (current) drug therapy; Z79.891 Long term (current) use of opiate analgesic; Z79.1 Long term (current) use of non-steroidal anti-inflammatories (NSAID)
CPT/HCPCS: 87045; G0480

== ENCOUNTER 2019-10-30 22:58 | Inpatient (IN) | payer MEDICARE, MEDICAID ==
[~2019-10-30] VITALS: Ht 177.8 cm; Wt 97.5 kg
[~2019-10-30 22:58] MED LIST changes: +AMLO-257 PO; -AMLO5TAB9 PO; -BUPR-47 PO; +BUPR-93 PO; -CILOOO OU; -FLUT16H NASAL; +LISI10TA7 PO; +TRAZ-252 PO
[2019-10-30 23:39] LABS: BASOPHILS % (AUTO) 0.7 % (0.0-2.0); EOSINOPHILS % (AUTO) 1.2 % (1.0-6.0); HEMATOCRIT 37.5 % (41-53); HEMOGLOBIN 12.6 g/dL (13.5-17.5); LYMPHOCYTES # (AUTO) 2.3 K/uL (1.0-4.8); LYMPHOCYTES % (AUTO) 27.7 % (22.0-44.0); MEAN CORPUSCULAR HEMOGLOBIN 30.5 pg (26.0-34.0); MEAN CORPUSCULAR HGB CONC 33.5 G/dL (31.0-37.0); MEAN CORPUSCULAR VOLUME 91 fL (80-100); MONOCYTES % (AUTO) 12.5 % (2.0-9.0); NEUTROPHILS # (AUTO) 4.8 K/uL (1.8-7.7); NEUTROPHILS % (AUTO) 57.9 % (40.0-70.0); PLATELET COUNT (AUTO) 176 K/uL (150-450); RED BLOOD CELL COUNT(AUTO) 4.12 MIL/uL (4.50-5.90); RED CELL DISTRIBUTION WIDTH 15.5 % (11.5-14.5)
[2019-10-30 23:53] LABS: ANION GAP 10 mmol/L (8-16); CALCIUM, TOTAL 8.6 mg/dL (8.8-10.5); CARBON DIOXIDE 28 mmol/L (22-29); CHLORIDE 99 mmol/L (98-107); CREATININE 1.06 mg/dL (0.60-1.30); GLOMERULAR FILTR. RATE CALC > 60 mL/min (>60); GLUCOSE,RANDOM 100 mg/dL (70-110); POTASSIUM 3.6 mmol/L (3.5-5.1); SODIUM SERUM 137 mmol/L (136-145); UREA NITROGEN, BLOOD 34 mg/dL (7-18)
[2019-10-31 00:08] LABS: ALANINE AMINOTRANSFERASE 41 U/L (12-78); ALBUMIN 4.1 g/dL (3.4-5.0); ALKALINE PHOSPHATASE 99 U/L (46-116); ASPARTATE AMINOTRANSFERASE 82 U/L (15-37); BILIRUBIN,TOTAL 0.8 mg/dL (0.1-1.0); THYROID STIMULATING HORMONE 11.26 uIU/mL (0.36-3.74); TOTAL PROTEIN, SERUM 7.3 g/dL (6.4-8.2)
[2019-10-31] MEDS ORDERED: ZOLPIDEM TARTRATE 10 MG TABLET PO PRN (01:00)
[2019-10-31 03:13] VITALS: BP 120/69
[2019-10-31 03:27] VITALS: BP 120/69
[2019-10-31 03:55] VITALS: BP 120/69
[2019-10-31] MEDS ORDERED: -PHARMACY VACCINE NOTE- MISC ONE (05:15)
[2019-10-31 08:00] VITALS: BP 132/79
[2019-10-31 16:18] VITALS: BP 120/63
[2019-10-31 16:40] VITALS: BP 119/68
[2019-10-31] MEDS: LORazepam 2 MG TABLET PO PRN (16:41)
[2019-10-31] MEDS: QUEtiapine FUMARATE 100 MG TABLET PO PRN (16:42)
[2019-10-31] MEDS: ACETAMINOPHEN/CODEINE 300-30 MG TABLET PO PRN (16:43)
[2019-10-31] MEDS: QUEtiapine FUMARATE 200 MG TABLET PO SCH (21:00)
[2019-10-31] MEDS: TraZODone HCL 50 MG TABLET PO SCH (21:00)
[2019-11-01 02:00] VITALS: BP 115/60
[2019-11-01] MEDS: QUEtiapine FUMARATE 100 MG TABLET PO PRN ×2 (02:04→08:25)
[2019-11-01 02:20] VITALS: BP 105/62
[2019-11-01] MEDS: ACETAMINOPHEN/CODEINE 300-30 MG TABLET PO PRN ×2 (02:25→14:59)
[2019-11-01] MEDS: LEVOTHYROXINE SODIUM 25 MCG TABLET PO SCH (06:38)
[2019-11-01 07:59] LABS: CHOL/HDL RATIO 4.8 (4.2-7.3)
[2019-11-01] MEDS: FLUoxetine HCL 20 MG CAPSULE PO SCH (08:22)
[2019-11-01] MEDS: AmLODIPine BESYLATE 5 MG TABLET PO SCH (08:23)
[2019-11-01] MEDS: LISINOPRIL 10 MG TABLET PO SCH (08:23)
[2019-11-01] MEDS: BuPROPion HCL XL 150 MG ER TABLET PO SCH (08:23)
[2019-11-01] MEDS: LORazepam 2 MG TABLET PO PRN (08:25)
[2019-11-01 09:20] VITALS: BP 117/66
[2019-11-01 16:48] VITALS: BP 136/87
[2019-11-01] MEDS: TraZODone HCL 50 MG TABLET PO SCH (20:47)
[2019-11-01] MEDS: QUEtiapine FUMARATE 200 MG TABLET PO SCH (20:47)
[2019-11-02] MEDS: LEVOTHYROXINE SODIUM 25 MCG TABLET PO SCH (06:39)
[2019-11-02] MEDS: ACETAMINOPHEN/CODEINE 300-30 MG TABLET PO PRN ×2 (06:39→15:39)
[2019-11-02 08:00] VITALS: BP 103/67
[2019-11-02] MEDS: MULTIVITAMINS WITH MINERALS, THERAPEUTIC TABLET PO SCH (09:43)
[2019-11-02] MEDS: AmLODIPine BESYLATE 5 MG TABLET PO SCH (09:43)
[2019-11-02] MEDS: BuPROPion HCL XL 150 MG ER TABLET PO SCH (09:43)
[2019-11-02] MEDS: FLUoxetine HCL 20 MG CAPSULE PO SCH (09:44)
[2019-11-02] MEDS: LISINOPRIL 10 MG TABLET PO SCH (09:45)
[2019-11-02] MEDS: LORazepam 2 MG TABLET PO PRN (10:10)
[2019-11-02 15:39] VITALS: BP 95/66
[2019-11-02] MEDS: QUEtiapine FUMARATE 200 MG TABLET PO SCH (20:42)
[2019-11-02] MEDS: TraZODone HCL 50 MG TABLET PO SCH (20:42)
[2019-11-03 02:05] VITALS: BP 119/58
[2019-11-03] MEDS: ACETAMINOPHEN/CODEINE 300-30 MG TABLET PO PRN ×2 (02:09→10:18)
[2019-11-03] MEDS: LEVOTHYROXINE SODIUM 25 MCG TABLET PO SCH (06:50)
[2019-11-03] MEDS: AmLODIPine BESYLATE 5 MG TABLET PO SCH (10:14)
[2019-11-03] MEDS: LISINOPRIL 10 MG TABLET PO SCH (10:14)
[2019-11-03] MEDS: BuPROPion HCL XL 150 MG ER TABLET PO SCH (10:15)
[2019-11-03] MEDS: MULTIVITAMINS WITH MINERALS, THERAPEUTIC TABLET PO SCH (10:15)
[2019-11-03] MEDS: LORazepam 2 MG TABLET PO PRN ×2 (10:15→16:23)
[2019-11-03] MEDS: FLUoxetine HCL 20 MG CAPSULE PO SCH (10:16)
[2019-11-03 10:18] VITALS: BP 100/60
[2019-11-03] MEDS: QUEtiapine FUMARATE 100 MG TABLET PO PRN (16:23)
[2019-11-03 16:31] VITALS: BP 121/65
[2019-11-03] MEDS: QUEtiapine FUMARATE 200 MG TABLET PO SCH (21:12)
[2019-11-03] MEDS: TraZODone HCL 50 MG TABLET PO SCH (21:12)
[2019-11-04 05:55] VITALS: BP 107/68
[2019-11-04] MEDS: ACETAMINOPHEN/CODEINE 300-30 MG TABLET PO PRN ×2 (05:56→14:30)
[2019-11-04] MEDS: LEVOTHYROXINE SODIUM 25 MCG TABLET PO SCH (06:35)
[2019-11-04 08:00] VITALS: BP 120/70
[2019-11-04] MEDS: MULTIVITAMINS WITH MINERALS, THERAPEUTIC TABLET PO SCH (08:43)
[2019-11-04] MEDS: AmLODIPine BESYLATE 5 MG TABLET PO SCH (08:43)
[2019-11-04] MEDS: LISINOPRIL 10 MG TABLET PO SCH (08:43)
[2019-11-04] MEDS: BuPROPion HCL XL 150 MG ER TABLET PO SCH (08:46)
[2019-11-04] MEDS: FLUoxetine HCL 20 MG CAPSULE PO SCH (08:49)
[2019-11-04 14:30] VITALS: BP 117/60
[2019-11-04 16:00] VITALS: BP 113/66
[2019-11-04] MEDS: TraZODone HCL 50 MG TABLET PO SCH (20:57)
[2019-11-04] MEDS: QUEtiapine FUMARATE 200 MG TABLET PO SCH (20:57)
[2019-11-05 06:00] VITALS: BP 116/68
[2019-11-05] MEDS: ACETAMINOPHEN/CODEINE 300-30 MG TABLET PO PRN ×2 (06:05→16:01)
[2019-11-05] MEDS: LEVOTHYROXINE SODIUM 25 MCG TABLET PO SCH (06:52)
[2019-11-05 08:00] VITALS: BP 116/74
[2019-11-05] MEDS: FLUoxetine HCL 20 MG CAPSULE PO SCH (09:33)
[2019-11-05] MEDS: LISINOPRIL 10 MG TABLET PO SCH (09:33)
[2019-11-05] MEDS: MULTIVITAMINS WITH MINERALS, THERAPEUTIC TABLET PO SCH (09:33)
[2019-11-05] MEDS: BuPROPion HCL XL 150 MG ER TABLET PO SCH (09:33)
[2019-11-05] MEDS: AmLODIPine BESYLATE 5 MG TABLET PO SCH (09:33)
[2019-11-05 16:00] VITALS: BP 98/60
[2019-11-05] MEDS: TraZODone HCL 50 MG TABLET PO SCH (20:27)
[2019-11-05] MEDS: QUEtiapine FUMARATE 200 MG TABLET PO SCH (20:28)
[2019-11-06 02:40] VITALS: BP 110/68
[2019-11-06] MEDS: ACETAMINOPHEN/CODEINE 300-30 MG TABLET PO PRN ×3 (02:42→20:02)
[2019-11-06] MEDS: LORazepam 2 MG TABLET PO PRN (05:56)
[2019-11-06] MEDS: LEVOTHYROXINE SODIUM 25 MCG TABLET PO SCH (05:58)
[2019-11-06 05:59] VITALS: BP 119/67
[2019-11-06 08:00] VITALS: BP 114/67
[2019-11-06] MEDS: LISINOPRIL 10 MG TABLET PO SCH (10:31)
[2019-11-06] MEDS: FLUoxetine HCL 20 MG CAPSULE PO SCH (10:31)
[2019-11-06] MEDS: BuPROPion HCL XL 150 MG ER TABLET PO SCH (10:31)
[2019-11-06] MEDS: MULTIVITAMINS WITH MINERALS, THERAPEUTIC TABLET PO SCH (10:31)
[2019-11-06] MEDS: AmLODIPine BESYLATE 5 MG TABLET PO SCH (10:32)
[2019-11-06] MEDS: QUEtiapine FUMARATE 100 MG TABLET PO PRN (12:16)
[2019-11-06 16:14] VITALS: BP 107/65
[2019-11-06] MEDS: QUEtiapine FUMARATE 200 MG TABLET PO SCH (20:00)
[2019-11-06] MEDS: TraZODone HCL 50 MG TABLET PO SCH (20:00)
[2019-11-06 21:02] VITALS: BP 108/68
[2019-11-07 02:10] VITALS: BP 112/65
[2019-11-07] MEDS: LORazepam 2 MG TABLET PO PRN (02:19)
[2019-11-07 05:55] VITALS: BP 134/72
[2019-11-07] MEDS: ACETAMINOPHEN/CODEINE 300-30 MG TABLET PO PRN ×2 (05:59→15:46)
[2019-11-07] MEDS: LEVOTHYROXINE SODIUM 25 MCG TABLET PO SCH (06:00)
[2019-11-07 08:00] VITALS: BP 102/67
[2019-11-07] MEDS: FLUoxetine HCL 20 MG CAPSULE PO SCH (10:19)
[2019-11-07] MEDS: BuPROPion HCL XL 150 MG ER TABLET PO SCH (10:19)
[2019-11-07] MEDS: LISINOPRIL 10 MG TABLET PO SCH (10:19)
[2019-11-07] MEDS: AmLODIPine BESYLATE 5 MG TABLET PO SCH (10:19)
[2019-11-07] MEDS: MULTIVITAMINS WITH MINERALS, THERAPEUTIC TABLET PO SCH (10:20)
[2019-11-07 15:46] VITALS: BP 119/68
[2019-11-07 16:28] VITALS: BP 119/67
[2019-11-07] MEDS: QUEtiapine FUMARATE 200 MG TABLET PO SCH (20:20)
[2019-11-07] MEDS: TraZODone HCL 50 MG TABLET PO SCH (20:20)
[2019-11-08 00:38] VITALS: BP 113/63
[2019-11-08] MEDS: ACETAMINOPHEN/CODEINE 300-30 MG TABLET PO PRN ×3 (00:40→16:22)
[2019-11-08] MEDS: QUEtiapine FUMARATE 100 MG TABLET PO PRN ×2 (00:56→18:14)
[2019-11-08 05:17] VITALS: BP 112/62
[2019-11-08] MEDS: LORazepam 2 MG TABLET PO PRN (05:18)
[2019-11-08] MEDS: LEVOTHYROXINE SODIUM 25 MCG TABLET PO SCH (06:55)
[2019-11-08] MEDS: FLUoxetine HCL 20 MG CAPSULE PO SCH (10:05)
[2019-11-08] MEDS: LISINOPRIL 10 MG TABLET PO SCH (10:05)
[2019-11-08] MEDS: MULTIVITAMINS WITH MINERALS, THERAPEUTIC TABLET PO SCH (10:06)
[2019-11-08] MEDS: BuPROPion HCL XL 150 MG ER TABLET PO SCH (10:06)
[2019-11-08] MEDS: AmLODIPine BESYLATE 5 MG TABLET PO SCH (10:06)
[2019-11-08 10:09] VITALS: BP 131/79
[2019-11-08 16:00] VITALS: BP 135/65
[2019-11-08] MEDS: TraZODone HCL 50 MG TABLET PO SCH (20:34)
[2019-11-08] MEDS: QUEtiapine FUMARATE 200 MG TABLET PO SCH (20:34)
[2019-11-09] MEDS: ACETAMINOPHEN/CODEINE 300-30 MG TABLET PO PRN ×3 (04:44→17:28)
[2019-11-09 04:46] VITALS: BP 110/61
[2019-11-09] MEDS: LEVOTHYROXINE SODIUM 25 MCG TABLET PO SCH (06:02)
[2019-11-09] MEDS: AmLODIPine BESYLATE 5 MG TABLET PO SCH (08:27)
[2019-11-09] MEDS: FLUoxetine HCL 20 MG CAPSULE PO SCH (08:27)
[2019-11-09] MEDS: LISINOPRIL 10 MG TABLET PO SCH (08:27)
[2019-11-09] MEDS: BuPROPion HCL XL 150 MG ER TABLET PO SCH (08:27)
[2019-11-09] MEDS: MULTIVITAMINS WITH MINERALS, THERAPEUTIC TABLET PO SCH (08:27)
[2019-11-09 09:46] VITALS: BP 109/64
[2019-11-09 16:55] VITALS: BP 115/66
[2019-11-09] MEDS: QUEtiapine FUMARATE 100 MG TABLET PO PRN (18:40)
[2019-11-09] MEDS: QUEtiapine FUMARATE 200 MG TABLET PO SCH (20:48)
[2019-11-09] MEDS: TraZODone HCL 50 MG TABLET PO SCH (20:48)
[2019-11-10] MEDS: ACETAMINOPHEN/CODEINE 300-30 MG TABLET PO PRN ×2 (04:16→10:43)
[2019-11-10 04:18] VITALS: BP 139/76
[2019-11-10] MEDS: LEVOTHYROXINE SODIUM 25 MCG TABLET PO SCH (06:43)
[2019-11-10] MEDS: LISINOPRIL 10 MG TABLET PO SCH (08:17)
[2019-11-10] MEDS: MULTIVITAMINS WITH MINERALS, THERAPEUTIC TABLET PO SCH (08:17)
[2019-11-10] MEDS: BuPROPion HCL XL 150 MG ER TABLET PO SCH (08:17)
[2019-11-10] MEDS: AmLODIPine BESYLATE 5 MG TABLET PO SCH (08:17)
[2019-11-10] MEDS: FLUoxetine HCL 20 MG CAPSULE PO SCH (08:17)
[2019-11-10] MEDS: QUEtiapine FUMARATE 100 MG TABLET PO PRN (08:18)
[2019-11-10 09:09] VITALS: BP 113/70
[2019-11-10] MEDS ORDERED: FLUO-191 PO (09:17)
[2019-11-10] MEDS ORDERED: BUPR-47 PO (09:17)
[2019-11-10] MEDS ORDERED: QUET200T29 PO (09:17)
[2019-11-10] MEDS ORDERED: TRAZ-252 PO (09:17)
[2019-11-10 11:29] VITALS: BP 118/72
== END 2019-11-10 13:41 | disposition home or self-care (01) | DRG 885 ==
LOC: EMS 23:00 → 3EI 10-31 00:55
DX: F25.1 Schizoaffective disorder, depressive type (principal); R45.851 Suicidal ideations; E03.9 Hypothyroidism, unspecified; E78.5 Hyperlipidemia, unspecified; F31.9 Bipolar disorder, unspecified; G89.29 Other chronic pain; I10 Essential (primary) hypertension; J44.9 Chronic obstructive pulmonary disease, unspecified; S01.91XA Laceration without foreign body of unspecified part of head, initial encounter; Z59.0 Homelessness; Z79.899 Other long term (current) drug therapy; Z91.5 Personal history of self-harm; X78.8XXA Intentional self-harm by other sharp object, initial encounter; Y93.89 Activity, other specified; Y92.89 Other specified places as the place of occurrence of the external cause; Y99.8 Other external cause status
CPT/HCPCS: 84443; 87081; G0480

== ENCOUNTER 2019-12-02 00:17 | Inpatient (IN) | payer MEDICARE, MEDICAID ==
[~2019-12-02] VITALS: Ht 177.8 cm; Wt 95.0 kg
[~2019-12-02 00:17] MED LIST changes: +BUPR-47 PO; -BUPR-93 PO
[2019-12-02 01:02] LABS: BASOPHILS % (AUTO) 0.8 % (0.0-2.0); EOSINOPHILS % (AUTO) 1.7 % (1.0-6.0); HEMATOCRIT 37.4 % (41-53); HEMOGLOBIN 13.3 g/dL (13.5-17.5); LYMPHOCYTES # (AUTO) 2.1 K/uL (1.0-4.8); LYMPHOCYTES % (AUTO) 31.7 % (22.0-44.0); MEAN CORPUSCULAR HEMOGLOBIN 31.9 pg (26.0-34.0); MEAN CORPUSCULAR HGB CONC 35.5 G/dL (31.0-37.0); MEAN CORPUSCULAR VOLUME 90 fL (80-100); MONOCYTES # (AUTO) 0.8 K/uL (0.1-1.0); MONOCYTES % (AUTO) 12.2 % (2.0-9.0); NEUTROPHILS # (AUTO) 3.5 K/uL (1.8-7.7); NEUTROPHILS % (AUTO) 53.6 % (40.0-70.0); PLATELET COUNT (AUTO) 180 K/uL (150-450); RED BLOOD CELL COUNT(AUTO) 4.16 MIL/uL (4.50-5.90); RED CELL DISTRIBUTION WIDTH 14.8 % (11.5-14.5)
[2019-12-02 01:08] LABS: ANION GAP 7 mmol/L (8-16); CALCIUM, TOTAL 8.9 mg/dL (8.8-10.5); CARBON DIOXIDE 29 mmol/L (22-29); CHLORIDE 102 mmol/L (98-107); CREATININE 1.15 mg/dL (0.60-1.30); GLOMERULAR FILTR. RATE CALC > 60 mL/min (>60); GLUCOSE,RANDOM 109 mg/dL (70-110); POTASSIUM 3.2 mmol/L (3.5-5.1); SODIUM SERUM 138 mmol/L (136-145); UREA NITROGEN, BLOOD 22 mg/dL (7-18)
[2019-12-02 01:14] LABS: ALANINE AMINOTRANSFERASE 68 U/L (12-78); ALBUMIN 4.3 g/dL (3.4-5.0); ALKALINE PHOSPHATASE 100 U/L (46-116); ASPARTATE AMINOTRANSFERASE 116 U/L (15-37); BILIRUBIN,TOTAL 1.1 mg/dL (0.1-1.0); TOTAL PROTEIN, SERUM 7.7 g/dL (6.4-8.2)
[2019-12-02] MEDS ORDERED: LORazepam 2 MG TABLET PO ONE (01:15)
[2019-12-02] MEDS ORDERED: HALOPERIDOL 1 MG TABLET PO ONE (01:15)
[2019-12-02] MEDS ORDERED: DiphenhydrAMINE HCL 25 MG CAPSULE PO ONE (01:15)
[2019-12-02] MEDS ORDERED: HALOPERIDOL 2 MG TABLET PO ONE (01:45)
[2019-12-02] MEDS ORDERED: HALOPERIDOL 5 MG TABLET PO PRN (01:45)
[2019-12-02] MEDS ORDERED: ZOLPIDEM TARTRATE 10 MG TABLET PO PRN (01:45)
[2019-12-02] MEDS ORDERED: LORazepam 2 MG TABLET PO PRN (01:45)
[2019-12-02] MEDS ORDERED: POTASSIUM CHLORIDE 10% 40 MEQ/30 ML LIQUID UDCUP PO ONE (02:00)
[2019-12-02 05:12] VITALS: BP 122/61
[2019-12-02] MEDS ORDERED: POTASSIUM CHLORIDE 20 MEQ ER TABLET PO ONE (07:00)
[2019-12-02] MEDS ORDERED: MAG HYDROX/AL HYDROX/SIMETH ES 30 ML SUSPENSION UDCUP PO PRN (07:15)
[2019-12-02] MEDS ORDERED: PETROLATUM,WHITE 28 GM JELLY TP PRN (07:15)
[2019-12-02] MEDS ORDERED: ONDANSETRON HCL 4 MG TABLET PO PRN (07:15)
[2019-12-02] MEDS ORDERED: CloNIDine HCL 0.1 MG TABLET PO PRN (07:15)
[2019-12-02] MEDS ORDERED: DOCUSATE SODIUM 100 MG CAPSULE PO PRN (07:15)
[2019-12-02] MEDS ORDERED: NICOTINE 14 MG/24 HOUR PATCH TD PRN (07:15)
[2019-12-02] MEDS ORDERED: ACETAMINOPHEN 325 MG TABLET PO PRN (07:15)
[2019-12-02] MEDS ORDERED: IBUPROFEN 400 MG TABLET PO PRN (07:15)
[2019-12-02] MEDS ORDERED: GuaiFENesin/D-METHORPHAN [SUGAR-FREE] 200-20MG/10 ML SYRUP UDCUP PO PRN (07:15)
[2019-12-02] MEDS ORDERED: LOPERAMIDE HCL 2 MG CAPSULE PO PRN (07:15)
[2019-12-02] MEDS ORDERED: ALBUTEROL SULFATE HFA 90 MCG/PUFF 8 GM INHALER IH PRN (07:15)
[2019-12-02] MEDS ORDERED: MAGNESIUM HYDROXIDE SUSPENSION 30 ML UDCUP PO PRN (07:15)
[2019-12-02 10:30] VITALS: BP 130/74
[2019-12-02] MEDS: LISINOPRIL 10 MG TABLET PO SCH (10:33)
[2019-12-02] MEDS: AmLODIPine BESYLATE 5 MG TABLET PO SCH (10:33)
[2019-12-02 16:11] VITALS: BP 120/65
[2019-12-02] MEDS: QUEtiapine FUMARATE 200 MG TABLET PO SCH (21:02)
[2019-12-02] MEDS: TraZODone HCL 50 MG TABLET PO SCH (21:02)
[2019-12-03 00:48] VITALS: BP 126/83
[2019-12-03] MEDS: LEVOTHYROXINE SODIUM 25 MCG TABLET PO SCH (07:06)
[2019-12-03 08:41] LABS: CHOL/HDL RATIO 4.9 (4.2-7.3)
[2019-12-03 09:00] LABS: POTASSIUM 2.7 mmol/L (3.5-5.1)
[2019-12-03] MEDS ORDERED: POTASSIUM CHLORIDE 20 MEQ ER TABLET PO ONE (09:15)
[2019-12-03 09:45] VITALS: BP 119/61
[2019-12-03] MEDS: ACETAMINOPHEN/CODEINE 300-30 MG TABLET PO PRN ×2 (09:48→20:53)
[2019-12-03] MEDS: FLUoxetine HCL 20 MG CAPSULE PO SCH (09:48)
[2019-12-03] MEDS: BuPROPion HCL XL 150 MG ER TABLET PO SCH (09:48)
[2019-12-03] MEDS: LISINOPRIL 10 MG TABLET PO SCH (09:48)
[2019-12-03] MEDS: AmLODIPine BESYLATE 5 MG TABLET PO SCH (09:48)
[2019-12-03 10:48] VITALS: BP 114/66
[2019-12-03 18:16] VITALS: BP 116/61
[2019-12-03] MEDS: TraZODone HCL 50 MG TABLET PO SCH (20:23)
[2019-12-03] MEDS: QUEtiapine FUMARATE 200 MG TABLET PO SCH (20:23)
[2019-12-03 20:53] VITALS: BP 110/62
[2019-12-04 00:40] VITALS: BP 110/70
[2019-12-04] MEDS: LEVOTHYROXINE SODIUM 25 MCG TABLET PO SCH (07:14)
[2019-12-04 07:45] LABS: MAGNESIUM 1.5 mg/dL (1.80-2.40); POTASSIUM 3.6 mmol/L (3.5-5.1)
[2019-12-04 08:31] VITALS: BP 129/70
[2019-12-04] MEDS: LISINOPRIL 10 MG TABLET PO SCH (09:20)
[2019-12-04] MEDS: AmLODIPine BESYLATE 5 MG TABLET PO SCH (09:21)
[2019-12-04] MEDS: BuPROPion HCL XL 150 MG ER TABLET PO SCH (09:21)
[2019-12-04] MEDS: FLUoxetine HCL 20 MG CAPSULE PO SCH (09:21)
[2019-12-04] MEDS ORDERED: MAGNESIUM OXIDE 400 MG TABLET PO ONE (09:45)
[2019-12-04] MEDS: ACETAMINOPHEN/CODEINE 300-30 MG TABLET PO PRN (09:54)
[2019-12-04 16:17] VITALS: BP 136/78
== END 2019-12-04 21:25 | disposition home or self-care (01) | DRG 885 ==
LOC: EMS 00:17 → B2S 01:33
DX: F25.1 Schizoaffective disorder, depressive type (principal); B18.2 Chronic viral hepatitis C; R45.851 Suicidal ideations; D64.9 Anemia, unspecified; E03.9 Hypothyroidism, unspecified; E87.6 Hypokalemia; F15.10 Other stimulant abuse, uncomplicated; F31.9 Bipolar disorder, unspecified; G89.29 Other chronic pain; I10 Essential (primary) hypertension; J44.9 Chronic obstructive pulmonary disease, unspecified; M19.90 Unspecified osteoarthritis, unspecified site; Z91.5 Personal history of self-harm; G43.909 Migraine, unspecified, not intractable, without status migrainosus
CPT/HCPCS: 83735; 84132; 87081; G0480

== ENCOUNTER 2019-12-08 12:56 | Emergency (ER) | payer MEDICARE, MEDICAID ==
[~2019-12-08] VITALS: Ht 180.3 cm; Wt 90.9 kg
[2019-12-08 14:43] LABS: BASOPHILS % (AUTO) 0.5 % (0.0-2.0); EOSINOPHILS % (AUTO) 0.7 % (1.0-6.0); HEMATOCRIT 39.6 % (41-53); HEMOGLOBIN 13.6 g/dL (13.5-17.5); LYMPHOCYTES # (AUTO) 1.3 K/uL (1.0-4.8); LYMPHOCYTES % (AUTO) 32.2 % (22.0-44.0); MEAN CORPUSCULAR HEMOGLOBIN 30.9 pg (26.0-34.0); MEAN CORPUSCULAR HGB CONC 34.3 G/dL (31.0-37.0); MEAN CORPUSCULAR VOLUME 90 fL (80-100); MONOCYTES # (AUTO) 0.5 K/uL (0.1-1.0); MONOCYTES % (AUTO) 11.6 % (2.0-9.0); NEUTROPHILS # (AUTO) 2.3 K/uL (1.8-7.7); PLATELET COUNT (AUTO) 190 K/uL (150-450); RED BLOOD CELL COUNT(AUTO) 4.39 MIL/uL (4.50-5.90); RED CELL DISTRIBUTION WIDTH 14.5 % (11.5-14.5)
[2019-12-08 14:52] LABS: AMPHET/METH SCREEN,URINE POSITIVE (NEGATIVE); BARBITURATE SCREEN, URINE NEGATIVE (NEGATIVE); BENZODIAZEPINES SCREEN,URINE NEGATIVE (NEGATIVE); CANNABINOID SCREEN,URINE NEGATIVE (NEGATIVE); COCAINE SCREEN,URINE NEGATIVE (NEGATIVE); METHADONE SCREEN, URINE NEGATIVE (NEGATIVE); OPIATE SCREEN,URINE NEGATIVE (NEGATIVE)
[2019-12-08 14:53] LABS: PHENCYCLIDINE SCREEN,URINE NEGATIVE (NEGATIVE)
[2019-12-08 14:54] LABS: ANION GAP 9 mmol/L (8-16); CALCIUM, TOTAL 9.1 mg/dL (8.8-10.5); CARBON DIOXIDE 29 mmol/L (22-29); CHLORIDE 100 mmol/L (98-107); CREATININE 0.99 mg/dL (0.60-1.30); GLOMERULAR FILTR. RATE CALC > 60 mL/min (>60); GLUCOSE,RANDOM 113 mg/dL (70-110); POTASSIUM 4.1 mmol/L (3.5-5.1); SODIUM SERUM 138 mmol/L (136-145); UREA NITROGEN, BLOOD 29 mg/dL (7-18)
[2019-12-08 15:00] LABS: ALANINE AMINOTRANSFERASE 59 U/L (12-78); ALBUMIN 4.2 g/dL (3.4-5.0); ALKALINE PHOSPHATASE 88 U/L (46-116); ASPARTATE AMINOTRANSFERASE 59 U/L (15-37); TOTAL PROTEIN, SERUM 7.7 g/dL (6.4-8.2)
[2019-12-08 17:29] VITALS: BP 140/76
== END 2019-12-08 17:38 | disposition home or self-care (01) ==
LOC: EMS 12:57
DX: F31.9 Bipolar disorder, unspecified (principal); B35.1 Tinea unguium; R45.851 Suicidal ideations; F15.10 Other stimulant abuse, uncomplicated; J44.9 Chronic obstructive pulmonary disease, unspecified; F32.9 Major depressive disorder, single episode, unspecified; I10 Essential (primary) hypertension; G43.909 Migraine, unspecified, not intractable, without status migrainosus; Z88.8 Allergy status to other drugs, medicaments and biological substances
CPT/HCPCS: 36415; 80053; 80307; 83735; 85025; 99284; G0480

== ENCOUNTER 2020-06-25 12:55 | Emergency (ER) | payer MEDICARE, MEDICAID ==
[~2020-06-25] VITALS: Ht 177.8 cm; Wt 79.5 kg
[~2020-06-25 12:55] MED LIST changes: -BUPR-47 PO; +BUPR-49 PO; +LISI10TA24 PO; -LISI10TA7 PO
[2020-06-25] MEDS ORDERED: ACETAMINOPHEN/CODEINE 300-30 MG TABLET PO ONE (13:45)
[2020-06-25 14:20] VITALS: BP 134/74
== END 2020-06-25 14:30 | disposition home or self-care (01) ==
LOC: EMS 12:55
DX: G89.29 Other chronic pain (principal); M25.561 Pain in right knee; Z76.0 Encounter for issue of repeat prescription; F32.9 Major depressive disorder, single episode, unspecified; I10 Essential (primary) hypertension; J44.9 Chronic obstructive pulmonary disease, unspecified
CPT/HCPCS: 99283

== ENCOUNTER 2020-07-06 20:18 | Emergency (ER) | payer MEDICARE, MEDICAID ==
[~2020-07-06] VITALS: Ht 177.8 cm; Wt 90.9 kg
[2020-07-06] MEDS ORDERED: LORazepam 1 MG TABLET PO ONE (20:45)
[2020-07-06] MEDS ORDERED: HALOPERIDOL 5 MG TABLET PO ONE (20:45)
[2020-07-06 22:02] VITALS: BP 133/94
== END 2020-07-06 22:48 | disposition home or self-care (01) ==
LOC: EMS 20:21
DX: F25.9 Schizoaffective disorder, unspecified (principal); F15.90 Other stimulant use, unspecified, uncomplicated; F11.90 Opioid use, unspecified, uncomplicated
CPT/HCPCS: 99284; Z7502; Z7610

== ENCOUNTER 2020-07-09 00:07 | Inpatient (IN) | payer MEDICARE, MEDICAID ==
[~2020-07-09] VITALS: Ht 177.8 cm; Wt 93.6 kg
[2020-07-09] MEDS ORDERED: HALOPERIDOL 5 MG TABLET PO ONE (03:45)
[2020-07-09 04:01] LABS: BASOPHILS % (AUTO) 0.4 % (0.0-2.0); EOSINOPHILS % (AUTO) 2.3 % (1.0-6.0); HEMATOCRIT 34.9 % (41-53); HEMOGLOBIN 12.2 g/dL (13.5-17.5); LYMPHOCYTES # (AUTO) 1.2 K/uL (1.0-4.8); LYMPHOCYTES % (AUTO) 34.8 % (22.0-44.0); MEAN CORPUSCULAR HEMOGLOBIN 31.3 pg (26.0-34.0); MEAN CORPUSCULAR HGB CONC 34.9 G/dL (31.0-37.0); MEAN CORPUSCULAR VOLUME 90 fL (80-100); MONOCYTES # (AUTO) 0.4 K/uL (0.1-1.0); MONOCYTES % (AUTO) 10.1 % (2.0-9.0); NEUTROPHILS # (AUTO) 1.9 K/uL (1.8-7.7); NEUTROPHILS % (AUTO) 52.4 % (40.0-70.0); PLATELET COUNT (AUTO) 144 K/uL (150-450); RED CELL DISTRIBUTION WIDTH 14.2 % (11.5-14.5)
[2020-07-09 04:25] LABS: ANION GAP 10 mmol/L (8-16); CALCIUM, TOTAL 8.1 mg/dL (8.8-10.5); CARBON DIOXIDE 26 mmol/L (22-29); CHLORIDE 103 mmol/L (98-107); GLOMERULAR FILTR. RATE CALC > 60 mL/min (>60); GLUCOSE,RANDOM 109 mg/dL (70-110); POTASSIUM 3.1 mmol/L (3.5-5.1); SODIUM SERUM 139 mmol/L (136-145); UREA NITROGEN, BLOOD 13 mg/dL (7-18)
[2020-07-09 04:30] LABS: ALANINE AMINOTRANSFERASE 33 U/L (12-78); ALBUMIN 3.4 g/dL (3.4-5.0); ALKALINE PHOSPHATASE 83 U/L (46-116); ASPARTATE AMINOTRANSFERASE 24 U/L (15-37); BILIRUBIN,TOTAL 0.3 mg/dL (0.1-1.0); TOTAL PROTEIN, SERUM 6.4 g/dL (6.4-8.2)
[2020-07-09 04:48] LABS: COVID AG,FIA SOURCE NASOPHARYNGEAL
[2020-07-09] MEDS ORDERED: HALOPERIDOL 5 MG TABLET PO PRN (05:00)
[2020-07-09] MEDS ORDERED: ZOLPIDEM TARTRATE 10 MG TABLET PO PRN (05:00)
[2020-07-09] MEDS ORDERED: POTASSIUM CHLORIDE 20 MEQ ER TABLET PO ONE (05:00)
[2020-07-09] MEDS ORDERED: LORazepam 2 MG TABLET PO PRN (05:00)
[2020-07-09 09:42] VITALS: BP 150/78
[2020-07-09 09:58] VITALS: BP 150/78
[2020-07-09] MEDS ORDERED: ALBUTEROL SULFATE HFA 90 MCG/PUFF 8 GM INHALER IH PRN (10:30)
[2020-07-09] MEDS ORDERED: GuaiFENesin/D-METHORPHAN [SUGAR-FREE] 200-20MG/10 ML SYRUP UDCUP PO PRN (10:30)
[2020-07-09] MEDS ORDERED: CloNIDine HCL 0.1 MG TABLET PO PRN (10:30)
[2020-07-09] MEDS ORDERED: DOCUSATE SODIUM 100 MG CAPSULE PO PRN (10:30)
[2020-07-09] MEDS ORDERED: MAGNESIUM HYDROXIDE SUSPENSION 30 ML UDCUP PO PRN (10:30)
[2020-07-09] MEDS ORDERED: PETROLATUM,WHITE 28 GM JELLY TP PRN (10:30)
[2020-07-09] MEDS ORDERED: NICOTINE 14 MG/24 HOUR PATCH TD PRN (10:30)
[2020-07-09] MEDS ORDERED: MAG HYDROX/AL HYDROX/SIMETH ES 30 ML SUSPENSION UDCUP PO PRN (10:30)
[2020-07-09] MEDS ORDERED: LOPERAMIDE HCL 2 MG CAPSULE PO PRN (10:30)
[2020-07-09] MEDS ORDERED: ONDANSETRON HCL 4 MG TABLET PO PRN (10:30)
[2020-07-09 10:49] LABS: APPEARANCE,URINE CLEAR (CLEAR); BILIRUBIN,URINE NEGATIVE (NEGATIVE); GLUCOSE, URINE (UA) NEGATIVE (NEGATIVE); KETONES,URINE NEGATIVE (NEGATIVE); LEUKOCYTE ESTERASE ,URINE NEGATIVE (NEGATIVE); NITRATE,URINE NEGATIVE (NEGATIVE); OCCULT BLOOD,URINE NEGATIVE (NEGATIVE); PROTEIN,URINE NEGATIVE (NEGATIVE); UROBILINOGEN,URINE 0.2 mg/dL (<=1.0)
[2020-07-09 10:55] LABS: AMPHET/METH SCREEN,URINE POSITIVE (NEGATIVE); BARBITURATE SCREEN, URINE NEGATIVE (NEGATIVE); BENZODIAZEPINES SCREEN,URINE NEGATIVE (NEGATIVE); CANNABINOID SCREEN,URINE NEGATIVE (NEGATIVE); COCAINE SCREEN,URINE NEGATIVE (NEGATIVE); METHADONE SCREEN, URINE NEGATIVE (NEGATIVE); OPIATE SCREEN,URINE NEGATIVE (NEGATIVE); PHENCYCLIDINE SCREEN,URINE NEGATIVE (NEGATIVE)
[2020-07-09] MEDS ORDERED: -PHARMACY VACCINE NOTE- MISC ONE (11:15)
[2020-07-09] MEDS: BuPROPion HCL XL 150 MG ER TABLET PO SCH (13:09)
[2020-07-09] MEDS: FLUoxetine HCL 20 MG CAPSULE PO SCH (13:10)
[2020-07-09] MEDS: IBUPROFEN 400 MG TABLET PO PRN (13:14)
[2020-07-09] MEDS: ACETAMINOPHEN 325 MG TABLET PO PRN (15:50)
[2020-07-09 16:23] VITALS: BP 157/79
[2020-07-09] MEDS: QUEtiapine FUMARATE 200 MG TABLET PO SCH (21:07)
[2020-07-09] MEDS: TraZODone HCL 50 MG TABLET PO SCH (21:07)
[2020-07-10] MEDS: LEVOTHYROXINE SODIUM 25 MCG TABLET PO SCH (06:27)
[2020-07-10 07:55] LABS: CHOL/HDL RATIO 4.5 (4.2-7.3)
[2020-07-10] MEDS: LISINOPRIL 10 MG TABLET PO SCH (09:22)
[2020-07-10] MEDS: AmLODIPine BESYLATE 5 MG TABLET PO SCH (09:22)
[2020-07-10] MEDS: FLUoxetine HCL 20 MG CAPSULE PO SCH (09:22)
[2020-07-10] MEDS: BuPROPion HCL XL 150 MG ER TABLET PO SCH (09:22)
[2020-07-10 16:00] VITALS: BP 147/75
[2020-07-10] MEDS: TraZODone HCL 50 MG TABLET PO SCH (20:09)
[2020-07-10] MEDS: QUEtiapine FUMARATE 200 MG TABLET PO SCH (20:09)
[2020-07-11] MEDS: LEVOTHYROXINE SODIUM 25 MCG TABLET PO SCH (06:48)
[2020-07-11] MEDS: LISINOPRIL 10 MG TABLET PO SCH (09:00)
[2020-07-11] MEDS: FLUoxetine HCL 20 MG CAPSULE PO SCH (09:00)
[2020-07-11] MEDS: BuPROPion HCL XL 150 MG ER TABLET PO SCH (09:00)
[2020-07-11] MEDS: AmLODIPine BESYLATE 5 MG TABLET PO SCH (09:00)
[2020-07-11 09:11] VITALS: BP 125/75
[2020-07-11 11:10] VITALS: BP 136/73
[2020-07-11] MEDS: ACETAMINOPHEN/CODEINE 300-30 MG TABLET PO PRN ×2 (11:16→19:16)
[2020-07-11 12:16] VITALS: BP 105/59
[2020-07-11 19:04] VITALS: BP 133/69
[2020-07-11] MEDS: TraZODone HCL 50 MG TABLET PO SCH (20:12)
[2020-07-11] MEDS: QUEtiapine FUMARATE 200 MG TABLET PO SCH (20:12)
[2020-07-12 04:20] VITALS: BP 121/67
[2020-07-12] MEDS: ACETAMINOPHEN/CODEINE 300-30 MG TABLET PO PRN ×3 (04:24→20:53)
[2020-07-12] MEDS: LEVOTHYROXINE SODIUM 25 MCG TABLET PO SCH (07:07)
[2020-07-12] MEDS: BuPROPion HCL XL 150 MG ER TABLET PO SCH (08:39)
[2020-07-12] MEDS: LISINOPRIL 10 MG TABLET PO SCH (08:40)
[2020-07-12] MEDS: FLUoxetine HCL 20 MG CAPSULE PO SCH (08:40)
[2020-07-12] MEDS: AmLODIPine BESYLATE 5 MG TABLET PO SCH (08:40)
[2020-07-12 09:05] VITALS: BP 118/68
[2020-07-12 11:25] VITALS: BP 122/68
[2020-07-12] MEDS: IBUPROFEN 400 MG TABLET PO PRN (11:25)
[2020-07-12 13:37] VITALS: BP 120/78
[2020-07-12 16:05] VITALS: BP 121/72
[2020-07-12 20:54] VITALS: BP 134/74
[2020-07-12] MEDS: TraZODone HCL 50 MG TABLET PO SCH (21:38)
[2020-07-12] MEDS: QUEtiapine FUMARATE 200 MG TABLET PO SCH (21:38)
[2020-07-13 04:30] VITALS: BP 109/68
[2020-07-13] MEDS: LEVOTHYROXINE SODIUM 25 MCG TABLET PO SCH (06:35)
[2020-07-13] MEDS: LISINOPRIL 10 MG TABLET PO SCH (08:55)
[2020-07-13] MEDS: BuPROPion HCL XL 150 MG ER TABLET PO SCH (08:56)
[2020-07-13] MEDS: FLUoxetine HCL 20 MG CAPSULE PO SCH (08:56)
[2020-07-13] MEDS: AmLODIPine BESYLATE 5 MG TABLET PO SCH (08:56)
[2020-07-13 10:30] VITALS: BP 123/75
[2020-07-13 11:31] VITALS: BP 118/76
[2020-07-13] MEDS: ACETAMINOPHEN/CODEINE 300-30 MG TABLET PO PRN ×2 (11:31→20:57)
[2020-07-13 16:39] VITALS: BP 99/68
[2020-07-13] MEDS: TraZODone HCL 50 MG TABLET PO SCH (20:57)
[2020-07-13] MEDS: QUEtiapine FUMARATE 200 MG TABLET PO SCH (20:57)
[2020-07-14 04:45] VITALS: BP 122/67
[2020-07-14] MEDS: IBUPROFEN 400 MG TABLET PO PRN (04:52)
[2020-07-14] MEDS: LEVOTHYROXINE SODIUM 25 MCG TABLET PO SCH (06:40)
[2020-07-14] MEDS: ACETAMINOPHEN/CODEINE 300-30 MG TABLET PO PRN ×2 (07:08→16:27)
[2020-07-14] MEDS: FLUoxetine HCL 20 MG CAPSULE PO SCH (08:31)
[2020-07-14] MEDS: AmLODIPine BESYLATE 5 MG TABLET PO SCH (08:31)
[2020-07-14] MEDS: BuPROPion HCL XL 150 MG ER TABLET PO SCH (08:31)
[2020-07-14] MEDS: LISINOPRIL 10 MG TABLET PO SCH (08:31)
[2020-07-14 09:49] VITALS: BP 121/68
[2020-07-14 16:00] VITALS: BP 130/78
[2020-07-14] MEDS: QUEtiapine FUMARATE 200 MG TABLET PO SCH (20:02)
[2020-07-14] MEDS: TraZODone HCL 50 MG TABLET PO SCH (20:02)
[2020-07-15] MEDS: ACETAMINOPHEN/CODEINE 300-30 MG TABLET PO PRN ×2 (00:45→13:14)
[2020-07-15 03:14] VITALS: BP 116/66
[2020-07-15] MEDS: LEVOTHYROXINE SODIUM 25 MCG TABLET PO SCH (07:25)
[2020-07-15] MEDS: BuPROPion HCL XL 150 MG ER TABLET PO SCH (08:38)
[2020-07-15] MEDS: LISINOPRIL 10 MG TABLET PO SCH (08:38)
[2020-07-15] MEDS: FLUoxetine HCL 20 MG CAPSULE PO SCH (08:38)
[2020-07-15] MEDS: AmLODIPine BESYLATE 5 MG TABLET PO SCH (08:39)
[2020-07-15 08:40] VITALS: BP 127/70
[2020-07-15 12:45] LABS: COVID AG,FIA SOURCE NASOPHARYNGEAL
[2020-07-15 18:48] VITALS: BP 118/64
[2020-07-15] MEDS: TraZODone HCL 50 MG TABLET PO SCH (20:15)
[2020-07-15] MEDS: QUEtiapine FUMARATE 200 MG TABLET PO SCH (20:15)
[2020-07-16 02:05] VITALS: BP 112/62
[2020-07-16] MEDS: ACETAMINOPHEN/CODEINE 300-30 MG TABLET PO PRN ×3 (02:09→18:35)
[2020-07-16] MEDS: IBUPROFEN 400 MG TABLET PO PRN (05:53)
[2020-07-16] MEDS: LEVOTHYROXINE SODIUM 25 MCG TABLET PO SCH (06:41)
[2020-07-16 08:30] VITALS: BP 138/76
[2020-07-16] MEDS: LISINOPRIL 10 MG TABLET PO SCH (08:51)
[2020-07-16] MEDS: BuPROPion HCL XL 150 MG ER TABLET PO SCH (08:52)
[2020-07-16] MEDS: FLUoxetine HCL 20 MG CAPSULE PO SCH (08:52)
[2020-07-16] MEDS: AmLODIPine BESYLATE 5 MG TABLET PO SCH (08:52)
[2020-07-16 18:19] VITALS: BP 126/75
[2020-07-16] MEDS: TraZODone HCL 50 MG TABLET PO SCH (20:31)
[2020-07-16] MEDS: QUEtiapine FUMARATE 200 MG TABLET PO SCH (20:31)
[2020-07-17] MEDS: ACETAMINOPHEN/CODEINE 300-30 MG TABLET PO PRN ×3 (03:52→14:52)
[2020-07-17 04:12] VITALS: BP 133/69
[2020-07-17] MEDS: LEVOTHYROXINE SODIUM 25 MCG TABLET PO SCH (06:39)
[2020-07-17] MEDS: AmLODIPine BESYLATE 5 MG TABLET PO SCH (08:04)
[2020-07-17] MEDS: BuPROPion HCL XL 150 MG ER TABLET PO SCH (08:04)
[2020-07-17] MEDS: FLUoxetine HCL 20 MG CAPSULE PO SCH (08:04)
[2020-07-17] MEDS: LISINOPRIL 10 MG TABLET PO SCH (08:04)
[2020-07-17 08:50] VITALS: BP 116/62
[2020-07-17 09:49] VITALS: BP 116/62
[2020-07-17 09:51] VITALS: BP 114/62
[2020-07-17 14:50] VITALS: BP 130/65
[2020-07-17 18:54] VITALS: BP 100/69
[2020-07-17] MEDS: QUEtiapine FUMARATE 200 MG TABLET PO SCH (20:19)
[2020-07-17] MEDS: TraZODone HCL 50 MG TABLET PO SCH (22:16)
[2020-07-18 00:28] VITALS: BP 114/67
[2020-07-18] MEDS: ACETAMINOPHEN/CODEINE 300-30 MG TABLET PO PRN ×2 (00:28→08:01)
[2020-07-18] MEDS: IBUPROFEN 400 MG TABLET PO PRN (04:14)
[2020-07-18 04:18] VITALS: BP 119/74
[2020-07-18] MEDS: LEVOTHYROXINE SODIUM 25 MCG TABLET PO SCH (06:20)
[2020-07-18] MEDS: ACETAMINOPHEN 325 MG TABLET PO PRN (06:37)
[2020-07-18 08:00] VITALS: BP 104/60
[2020-07-18] MEDS: LISINOPRIL 10 MG TABLET PO SCH (08:00)
[2020-07-18] MEDS: FLUoxetine HCL 20 MG CAPSULE PO SCH (08:00)
[2020-07-18] MEDS: BuPROPion HCL XL 150 MG ER TABLET PO SCH (08:00)
[2020-07-18] MEDS: AmLODIPine BESYLATE 5 MG TABLET PO SCH (08:00)
[2020-07-18 09:00] VITALS: BP 130/63
== END 2020-07-18 10:40 | disposition home or self-care (01) | DRG 885 ==
LOC: EMS 00:11 → 3EI 04:59
PROVIDERS: ADMIT Psychiatry & Neurology Child & Adolescent Psychiatry; ATTEND Psychiatry & Neurology Child & Adolescent Psychiatry
DX: F25.1 Schizoaffective disorder, depressive type (principal); B19.20 Unspecified viral hepatitis C without hepatic coma; D64.9 Anemia, unspecified; D72.810 Lymphocytopenia; E03.9 Hypothyroidism, unspecified; E78.5 Hyperlipidemia, unspecified; E87.6 Hypokalemia; I10 Essential (primary) hypertension; J44.9 Chronic obstructive pulmonary disease, unspecified; M19.90 Unspecified osteoarthritis, unspecified site; Z20.822 Contact with and (suspected) exposure to COVID-19; F15.90 Other stimulant use, unspecified, uncomplicated; F32.9 Major depressive disorder, single episode, unspecified; F41.9 Anxiety disorder, unspecified; G43.909 Migraine, unspecified, not intractable, without status migrainosus; Z59.0 Homelessness; Z79.899 Other long term (current) drug therapy
CPT/HCPCS: 80307; 84132; 87426; 99285; G0480; J3535

== ENCOUNTER 2020-08-20 14:32 | Emergency (ER) | payer MEDICARE, MEDICAID ==
[~2020-08-20] VITALS: Ht 177.8 cm; Wt 90.9 kg
[2020-08-20 14:50] VITALS: BP 144/96
== END 2020-08-20 15:56 | disposition left against medical advice (07) ==
LOC: EMS 14:38
DX: Z00.8 Encounter for other general examination (principal); Z53.21 Procedure and treatment not carried out due to patient leaving prior to being seen by health care provider

== ENCOUNTER 2021-02-05 19:59 | Inpatient (IN) | payer MEDICARE, MEDICAID ==
[~2021-02-05] VITALS: Ht 177.8 cm; Wt 84.7 kg
[~2021-02-05 19:59] MED LIST changes: -AMLO-257 PO; -BUPR-49 PO; +DULO20CA27 PO; -FLUO-191 PO; +GABA-1216 PO; +MELA5TAB40 PO; +NALT50TA PO; +OMEG-135 PO; +QUET100T34 PO; -QUET200T29 PO; -TRAZ-252 PO
[2021-02-05 21:41] LABS: COVID AG,FIA SOURCE NASOPHARYNGEAL
[2021-02-05 21:43] LABS: BASOPHILS % (AUTO) 0.4 % (0.0-2.0); EOSINOPHILS % (AUTO) 2.5 % (1.0-6.0); HEMATOCRIT 34.8 % (41-53); LYMPHOCYTES # (AUTO) 1.3 K/uL (1.0-4.8); LYMPHOCYTES % (AUTO) 28.9 % (22.0-44.0); MEAN CORPUSCULAR HEMOGLOBIN 30.8 pg (26.0-34.0); MEAN CORPUSCULAR HGB CONC 34.6 G/dL (31.0-37.0); MEAN CORPUSCULAR VOLUME 89 fL (80-100); MONOCYTES # (AUTO) 0.5 K/uL (0.1-1.0); NEUTROPHILS # (AUTO) 2.6 K/uL (1.8-7.7); NEUTROPHILS % (AUTO) 57.2 % (40.0-70.0); PLATELET COUNT (AUTO) 155 K/uL (150-450); RED BLOOD CELL COUNT(AUTO) 3.91 MIL/uL (4.50-5.90); RED CELL DISTRIBUTION WIDTH 16.1 % (11.5-14.5)
[2021-02-05 21:55] LABS: AMPHET/METH SCREEN,URINE POSITIVE (NEGATIVE); BARBITURATE SCREEN, URINE NEGATIVE (NEGATIVE); BENZODIAZEPINES SCREEN,URINE NEGATIVE (NEGATIVE); CANNABINOID SCREEN,URINE POSITIVE (NEGATIVE); COCAINE SCREEN,URINE NEGATIVE (NEGATIVE); METHADONE SCREEN, URINE NEGATIVE (NEGATIVE); OPIATE SCREEN,URINE NEGATIVE (NEGATIVE)
[2021-02-05 22:00] LABS: PHENCYCLIDINE SCREEN,URINE NEGATIVE (NEGATIVE)
[2021-02-05 22:06] LABS: ALANINE AMINOTRANSFERASE 37 U/L (12-78); ALBUMIN 3.8 g/dL (3.4-5.0); ALKALINE PHOSPHATASE 99 U/L (46-116); ANION GAP 13 mmol/L (8-16); ASPARTATE AMINOTRANSFERASE 47 U/L (15-37); BILIRUBIN,TOTAL 0.7 mg/dL (0.1-1.0); CALCIUM, TOTAL 8.2 mg/dL (8.8-10.5); CARBON DIOXIDE 26 mmol/L (22-29); CHLORIDE 101 mmol/L (98-107); CREATININE 0.82 mg/dL (0.60-1.30); GLOMERULAR FILTR. RATE CALC > 60 mL/min (>60); GLUCOSE,RANDOM 142 mg/dL (70-110); SODIUM SERUM 140 mmol/L (136-145); TOTAL PROTEIN, SERUM 6.9 g/dL (6.4-8.2); UREA NITROGEN, BLOOD 18 mg/dL (7-18)
[2021-02-05 22:13] LABS: POTASSIUM 2.5 mmol/L (3.5-5.1)
[2021-02-05] MEDS ORDERED: HALOPERIDOL 5 MG TABLET PO PRN (22:15)
[2021-02-05] MEDS ORDERED: POTASSIUM CHLORIDE 20 MEQ ER TABLET PO ONE (22:15)
[2021-02-05] MEDS ORDERED: ZOLPIDEM TARTRATE 10 MG TABLET PO PRN (22:15)
[2021-02-05] MEDS ORDERED: LORazepam 2 MG TABLET PO PRN (22:15)
[2021-02-05] MEDS ORDERED: SODIUM CHLORIDE 0.9% 500 ML IV ONE (22:38)
[2021-02-05] MEDS: POTASSIUM CHL 10 MEQ/WATER 50 ML IV SCH ×2 (22:55→23:36)
[2021-02-06] MEDS ORDERED: SODIUM CHLORIDE 0.9% 250 ML IV ONE (00:29)
[2021-02-06 00:35] LABS: APPEARANCE,URINE CLEAR (CLEAR); GLUCOSE, URINE (UA) NEGATIVE (NEGATIVE); KETONES,URINE 15 mg/dL (NEGATIVE); LEUKOCYTE ESTERASE ,URINE NEGATIVE (NEGATIVE); NITRATE,URINE NEGATIVE (NEGATIVE); OCCULT BLOOD,URINE NEGATIVE (NEGATIVE); PROTEIN,URINE TRACE (NEGATIVE)
[2021-02-06] MEDS: POTASSIUM CHL 10 MEQ/WATER 50 ML IV SCH (00:35)
[2021-02-06 00:37] LABS: BILIRUBIN,URINE PRELIM. POSITIVE (NEGATIVE)
[2021-02-06 00:42] LABS: CHOL/HDL RATIO 2.3 (4.2-7.3); CHOLESTEROL 132 mg/dL (131-200); HDL CHOLESTEROL 57 mg/dL (40-60); LDL CHOL (CALC.) 59 mg/dL (0-130); TRIGLYCERIDES 78 mg/dL (15-150)
[2021-02-06 01:07] LABS: BACTERIA,URINE Moderate /HPF (None Seen); RBC,URINE 0-2 /HPF (0-2); WBC,URINE 0-2 /HPF (0-5)
[2021-02-06] MEDS ORDERED: ACETAMINOPHEN 325 MG TABLET PO PRN (06:45)
[2021-02-06] MEDS ORDERED: MAG HYDROX/AL HYDROX/SIMETH ES 30 ML SUSPENSION UDCUP PO PRN (06:45)
[2021-02-06] MEDS ORDERED: LOPERAMIDE HCL 2 MG CAPSULE PO PRN (06:45)
[2021-02-06] MEDS ORDERED: ONDANSETRON HCL 4 MG TABLET PO PRN (06:45)
[2021-02-06] MEDS ORDERED: CloNIDine HCL 0.1 MG TABLET PO PRN (06:45)
[2021-02-06] MEDS ORDERED: DOCUSATE SODIUM 100 MG CAPSULE PO PRN (06:45)
[2021-02-06] MEDS ORDERED: BENZOCAINE 10% 7 GM GEL TP PRN (06:45)
[2021-02-06] MEDS ORDERED: BENZOCAINE/MENTHOL LOZENGE PO PRN (06:45)
[2021-02-06] MEDS ORDERED: PETROLATUM,WHITE 28 GM JELLY TP PRN (06:45)
[2021-02-06] MEDS ORDERED: ALBUTEROL SULFATE HFA 90 MCG/PUFF 8 GM INHALER IH PRN (06:45)
[2021-02-06] MEDS ORDERED: CHLORHEXIDINE GLUCONATE 0.12% 15 ML UDCUP ORAL RINSE PO PRN (06:45)
[2021-02-06] MEDS ORDERED: MAGNESIUM HYDROXIDE SUSPENSION 30 ML UDCUP PO PRN (06:45)
[2021-02-06] MEDS ORDERED: BACITRACIN 28 GM OINTMENT TP PRN (06:45)
[2021-02-06] MEDS ORDERED: OMEPRAZOLE 20 MG CAPSULE PO PRN (06:45)
[2021-02-06] MEDS ORDERED: DICLOFENAC SODIUM 1% 100 GM GEL [2GM] TP PRN (06:45)
[2021-02-06] MEDS ORDERED: LEVOTHYROXINE SODIUM 25 MCG TABLET PO SCH (07:00)
[2021-02-06] MEDS: GABAPENTIN 300 MG CAPSULE PO SCH ×4 (09:10→20:51)
[2021-02-06] MEDS: LISINOPRIL 10 MG TABLET PO SCH (09:11)
[2021-02-06] MEDS: OMEGA-3/DHA/EPA/FISH OIL 1,000 MG CAPSULE PO SCH (09:11)
[2021-02-06] MEDS: IBUPROFEN 600 MG TABLET PO PRN ×2 (09:35→20:55)
[2021-02-06 09:36] VITALS: BP 136/55
[2021-02-06 09:39] VITALS: BP 136/55
[2021-02-06 09:53] VITALS: BP 136/55
[2021-02-06 10:28] VITALS: BP 136/55
[2021-02-06 10:36] VITALS: BP 129/72
[2021-02-06 20:55] VITALS: BP 120/72
[2021-02-06] MEDS ORDERED: POTASSIUM CHLORIDE 20 MEQ ER TABLET PO ONE (22:45)
[2021-02-07 02:56] VITALS: BP 130/72
[2021-02-07] MEDS: IBUPROFEN 600 MG TABLET PO PRN ×2 (02:56→09:34)
[2021-02-07] MEDS: OMEGA-3/DHA/EPA/FISH OIL 1,000 MG CAPSULE PO SCH (08:23)
[2021-02-07] MEDS: LISINOPRIL 10 MG TABLET PO SCH (08:23)
[2021-02-07] MEDS: GABAPENTIN 300 MG CAPSULE PO SCH ×2 (08:23→12:16)
[2021-02-07 09:08] VITALS: BP 137/66
== END 2021-02-07 14:10 | disposition home or self-care (01) | DRG 881 ==
LOC: EMS 20:13 → 3EX 02-06 04:00
PROVIDERS: ADMIT Psychiatry & Neurology Psychiatry; ATTEND Psychiatry & Neurology Psychiatry
DX: F32.9 Major depressive disorder, single episode, unspecified (principal); B19.20 Unspecified viral hepatitis C without hepatic coma; R45.851 Suicidal ideations; F25.1 Schizoaffective disorder, depressive type; D64.9 Anemia, unspecified; E87.6 Hypokalemia; F15.90 Other stimulant use, unspecified, uncomplicated; G89.29 Other chronic pain; M54.9 Dorsalgia, unspecified; G43.909 Migraine, unspecified, not intractable, without status migrainosus; I10 Essential (primary) hypertension; J44.9 Chronic obstructive pulmonary disease, unspecified; M19.90 Unspecified osteoarthritis, unspecified site; Z91.14 Patient's other noncompliance with medication regimen; Z79.899 Other long term (current) drug therapy
CPT/HCPCS: 80053; 80061; 81001; 84132; 85025; 87086; 93005; 99285; G0378; G0480; J3480; J7040; J7050

== ENCOUNTER 2021-02-07 15:15 | Emergency (ER) | payer MEDICARE, OTHER ==
[~2021-02-07] VITALS: Ht 177.8 cm; Wt 68.2 kg
[2021-02-07 15:19] VITALS: BP 148/86
== END 2021-02-07 15:51 | disposition left against medical advice (07) ==
LOC: EMS 15:21
DX: R45.851 Suicidal ideations (principal); Z53.21 Procedure and treatment not carried out due to patient leaving prior to being seen by health care provider

== ENCOUNTER 2021-02-07 18:25 | Emergency (ER) | payer MEDICARE, OTHER | END 2021-02-07 18:37 | disposition left against medical advice (07) | LOC: EMS 18:28 | DX: R45.851 Suicidal ideations (principal); Z53.21 Procedure and treatment not carried out due to patient leaving prior to being seen by health care provider ==

== ENCOUNTER 2021-02-26 22:44 | Inpatient (IN) | payer MEDICARE, MEDICAID ==
[~2021-02-26] VITALS: Ht 177.8 cm; Wt 86.2 kg
[~2021-02-26 22:44] MED LIST changes: -DULO20CA27 PO; -MELA5TAB40 PO; -NALT50TA PO; -QUET100T34 PO
[2021-02-26 23:27] LABS: COVID AG,FIA SOURCE NASOPHARYNGEAL
[2021-02-26 23:41] LABS: BASOPHILS % (AUTO) 0.3 % (0.0-2.0); EOSINOPHILS % (AUTO) 1.6 % (1.0-6.0); HEMOGLOBIN 12.3 g/dL (13.5-17.5); LYMPHOCYTES # (AUTO) 1.6 K/uL (1.0-4.8); LYMPHOCYTES % (AUTO) 38.2 % (22.0-44.0); MEAN CORPUSCULAR HEMOGLOBIN 30.7 pg (26.0-34.0); MEAN CORPUSCULAR HGB CONC 33.2 G/dL (31.0-37.0); MEAN CORPUSCULAR VOLUME 92 fL (80-100); MONOCYTES # (AUTO) 0.6 K/uL (0.1-1.0); MONOCYTES % (AUTO) 13.6 % (2.0-9.0); NEUTROPHILS % (AUTO) 46.3 % (40.0-70.0); PLATELET COUNT (AUTO) 154 K/uL (150-450); RED CELL DISTRIBUTION WIDTH 16.2 % (11.5-14.5)
[2021-02-26 23:46] LABS: ANION GAP 11 mmol/L (8-16); CALCIUM, TOTAL 8.3 mg/dL (8.8-10.5); CARBON DIOXIDE 29 mmol/L (22-29); CHLORIDE 106 mmol/L (98-107); CREATININE 0.92 mg/dL (0.60-1.30); GLOMERULAR FILTR. RATE CALC > 60 mL/min (>60); GLUCOSE,RANDOM 77 mg/dL (70-110); POTASSIUM 3.8 mmol/L (3.5-5.1); SODIUM SERUM 146 mmol/L (136-145); UREA NITROGEN, BLOOD 14 mg/dL (7-18)
[2021-02-26 23:52] LABS: ALANINE AMINOTRANSFERASE 35 U/L (12-78); ALBUMIN 3.6 g/dL (3.4-5.0); ALKALINE PHOSPHATASE 89 U/L (46-116); ASPARTATE AMINOTRANSFERASE 24 U/L (15-37); BILIRUBIN,TOTAL 0.4 mg/dL (0.1-1.0); TOTAL PROTEIN, SERUM 6.7 g/dL (6.4-8.2)
[2021-02-27] MEDS ORDERED: OXYC10TA59 PO (00:06)
[2021-02-27 00:11] LABS: AMPHET/METH SCREEN,URINE POSITIVE (NEGATIVE); BARBITURATE SCREEN, URINE NEGATIVE (NEGATIVE); BENZODIAZEPINES SCREEN,URINE NEGATIVE (NEGATIVE); CANNABINOID SCREEN,URINE NEGATIVE (NEGATIVE); COCAINE SCREEN,URINE NEGATIVE (NEGATIVE); METHADONE SCREEN, URINE NEGATIVE (NEGATIVE); OPIATE SCREEN,URINE POSITIVE (NEGATIVE)
[2021-02-27 00:13] LABS: PHENCYCLIDINE SCREEN,URINE NEGATIVE (NEGATIVE)
[2021-02-27] MEDS ORDERED: LORazepam 2 MG TABLET PO PRN (02:30)
[2021-02-27] MEDS ORDERED: ZOLPIDEM TARTRATE 10 MG TABLET PO PRN (02:30)
[2021-02-27] MEDS ORDERED: HALOPERIDOL 5 MG TABLET PO PRN (02:30)
[2021-02-27 02:55] LABS: SALICYLATE < 2.8 mg/dL (2.8-20.0)
[2021-02-27 02:59] LABS: ACETAMINOPHEN < 2 mcg/mL (10-30)
[2021-02-27] MEDS ORDERED: AMOXICILLIN TRIHYDRATE 250 MG CAPSULE PO ONE (04:00)
[2021-02-27] MEDS ORDERED: IBUPROFEN 800 MG TABLET PO ONE (04:00)
[2021-02-27 04:15] LABS: APPEARANCE,URINE CLEAR (CLEAR); BILIRUBIN,URINE NEGATIVE (NEGATIVE); GLUCOSE, URINE (UA) NEGATIVE (NEGATIVE); KETONES,URINE NEGATIVE (NEGATIVE); LEUKOCYTE ESTERASE ,URINE NEGATIVE (NEGATIVE); NITRATE,URINE NEGATIVE (NEGATIVE); OCCULT BLOOD,URINE NEGATIVE (NEGATIVE); PH,URINE 5.5 (5.0-8.0); PROTEIN,URINE NEGATIVE (NEGATIVE); UROBILINOGEN,URINE 0.2 mg/dL (<=1.0)
[2021-02-27 09:35] VITALS: BP 153/81
[2021-02-27 10:50] VITALS: BP 153/81
[2021-02-27] MEDS ORDERED: GABA-1181 PO (14:38)
[2021-02-27] MEDS: IBUPROFEN 600 MG TABLET PO PRN ×2 (14:47→16:35)
[2021-02-27] MEDS ORDERED: ALBUTEROL SULFATE HFA 90 MCG/PUFF 8 GM INHALER IH PRN (16:30)
[2021-02-27] MEDS ORDERED: CloNIDine HCL 0.1 MG TABLET PO PRN (16:30)
[2021-02-27] MEDS ORDERED: ACETAMINOPHEN 325 MG TABLET PO PRN (16:30)
[2021-02-27] MEDS ORDERED: BACITRACIN 28 GM OINTMENT TP PRN (16:30)
[2021-02-27] MEDS ORDERED: LOPERAMIDE HCL 2 MG CAPSULE PO PRN (16:30)
[2021-02-27] MEDS ORDERED: MAGNESIUM HYDROXIDE SUSPENSION 30 ML UDCUP PO PRN (16:30)
[2021-02-27] MEDS ORDERED: CHLORHEXIDINE GLUCONATE 0.12% 15 ML UDCUP ORAL RINSE PO PRN (16:30)
[2021-02-27] MEDS ORDERED: OMEPRAZOLE 20 MG CAPSULE PO PRN (16:30)
[2021-02-27] MEDS ORDERED: DOCUSATE SODIUM 100 MG CAPSULE PO PRN (16:30)
[2021-02-27] MEDS ORDERED: BENZOCAINE/MENTHOL LOZENGE PO PRN (16:30)
[2021-02-27] MEDS ORDERED: MAG HYDROX/AL HYDROX/SIMETH ES 30 ML SUSPENSION UDCUP PO PRN (16:30)
[2021-02-27] MEDS ORDERED: PETROLATUM,WHITE 28 GM JELLY TP PRN (16:30)
[2021-02-27] MEDS ORDERED: ONDANSETRON HCL 4 MG TABLET PO PRN (16:30)
[2021-02-27 16:35] VITALS: BP 130/79
[2021-02-27 17:02] VITALS: BP 130/79
[2021-02-28 05:19] LABS: CHOL/HDL RATIO 3.3 (4.2-7.3); CHOLESTEROL 157 mg/dL (131-200); HDL CHOLESTEROL 47 mg/dL (40-60); LDL CHOL (CALC.) 100 mg/dL (0-130); TRIGLYCERIDES 51 mg/dL (15-150)
[2021-02-28] MEDS ORDERED: LEVOTHYROXINE SODIUM 25 MCG TABLET PO SCH (07:00)
[2021-02-28] MEDS ORDERED: LISINOPRIL 10 MG TABLET PO SCH (09:00)
[2021-02-28 10:51] VITALS: BP 134/75
[2021-02-28] MEDS ORDERED: CITA-144 PO (16:41)
[2021-02-28] MEDS ORDERED: GABA-1181 PO (16:41)
[2021-02-28] MEDS ORDERED: LEVO125T95 PO (16:42)
[2021-02-28] MEDS ORDERED: LISI-893 PO (16:43)
[2021-02-28] MEDS ORDERED: GABAPENTIN 300 MG CAPSULE PO SCH (17:00)
[2021-03-01] MEDS ORDERED: CITALOPRAM HYDROBROMIDE 20 MG TABLET PO SCH (09:00)
== END 2021-02-28 17:08 | disposition home or self-care (01) | DRG 885 ==
LOC: EMS 22:46 → 3EI 02-27 04:00
PROVIDERS: ADMIT Psychiatry & Neurology Psychiatry; ATTEND Psychiatry & Neurology Psychiatry
DX: F25.9 Schizoaffective disorder, unspecified (principal); B19.20 Unspecified viral hepatitis C without hepatic coma; R45.851 Suicidal ideations; E03.9 Hypothyroidism, unspecified; F15.10 Other stimulant abuse, uncomplicated; F31.9 Bipolar disorder, unspecified; G47.00 Insomnia, unspecified; I10 Essential (primary) hypertension; K59.00 Constipation, unspecified; F41.9 Anxiety disorder, unspecified; F17.200 Nicotine dependence, unspecified, uncomplicated; Z20.822 Contact with and (suspected) exposure to COVID-19; J44.9 Chronic obstructive pulmonary disease, unspecified; K08.89 Other specified disorders of teeth and supporting structures; G43.909 Migraine, unspecified, not intractable, without status migrainosus; M19.90 Unspecified osteoarthritis, unspecified site; Z91.19 Patient's noncompliance with other medical treatment and regimen; Z79.899 Other long term (current) drug therapy; Z71.6 Tobacco abuse counseling; Z71.51 Drug abuse counseling and surveillance of drug abuser
CPT/HCPCS: 80053; 80061; 81003; 85025; 87081; 99285; G0480; G0481

== ENCOUNTER 2021-02-28 17:22 | Emergency (ER) | payer MEDICARE, OTHER ==
[~2021-02-28] VITALS: Ht 172.7 cm; Wt 75.0 kg
[~2021-02-28 17:22] MED LIST changes: +CITA-144 PO; +GABA-1181 PO; -GABA-1216 PO; +LEVO125T95 PO; +LISI-893 PO; +OXYC10TA59 PO
[2021-02-28 17:30] VITALS: BP 141/81
[2021-02-28] MEDS ORDERED: ACETAMINOPHEN/CODEINE 300-30 MG TABLET PO ONE (17:45)
== END 2021-02-28 18:07 | disposition home or self-care (01) ==
LOC: EMS 17:22
DX: S02.5XXA Fracture of tooth (traumatic), initial encounter for closed fracture (principal); F31.9 Bipolar disorder, unspecified; J44.9 Chronic obstructive pulmonary disease, unspecified; I10 Essential (primary) hypertension; G43.909 Migraine, unspecified, not intractable, without status migrainosus; F17.200 Nicotine dependence, unspecified, uncomplicated; F19.90 Other psychoactive substance use, unspecified, uncomplicated; F11.90 Opioid use, unspecified, uncomplicated; Z79.899 Other long term (current) drug therapy; X58.XXXA Exposure to other specified factors, initial encounter; Y93.89 Activity, other specified; Y92.89 Other specified places as the place of occurrence of the external cause; Y99.8 Other external cause status
CPT/HCPCS: 99283

== ENCOUNTER 2021-03-14 11:52 | Emergency (ER) | payer MEDICARE, OTHER ==
[~2021-03-14] VITALS: Ht 177.8 cm; Wt 95.5 kg
[~2021-03-14 11:52] MED LIST changes: -LEVO25TA9 PO; -LISI10TA24 PO; -OMEG-135 PO; -OXYC10TA59 PO
[2021-03-14 12:00] VITALS: BP 134/74
== END 2021-03-14 14:15 | disposition left against medical advice (07) ==
LOC: EMS 11:52
DX: R45.851 Suicidal ideations (principal); Z53.21 Procedure and treatment not carried out due to patient leaving prior to being seen by health care provider

== ENCOUNTER 2021-03-27 16:54 | Emergency (ER) | payer MEDICARE, MEDICAID ==
[~2021-03-27] VITALS: Ht 185.4 cm; Wt 65.9 kg
[~2021-03-27 16:54] MED LIST changes: +MULT-248 PO
[2021-03-27 17:30] VITALS: BP 147/82
[2021-03-27] MEDS ORDERED: LEVO25TA9 PO (18:12)
[2021-03-27] MEDS ORDERED: ACETAMINOPHEN/CODEINE 300-30 MG TABLET PO ONE (18:15)
== END 2021-03-27 18:24 | disposition home or self-care (01) ==
LOC: EMS 18:23
DX: K02.9 Dental caries, unspecified (principal); F15.90 Other stimulant use, unspecified, uncomplicated; M19.90 Unspecified osteoarthritis, unspecified site; J44.9 Chronic obstructive pulmonary disease, unspecified; G43.909 Migraine, unspecified, not intractable, without status migrainosus; F25.1 Schizoaffective disorder, depressive type
CPT/HCPCS: 99283

== ENCOUNTER 2021-03-27 20:44 | Inpatient (IN) | payer MEDICARE, MEDICAID ==
[~2021-03-27] VITALS: Ht 177.8 cm; Wt 87.0 kg
[~2021-03-27 20:44] MED LIST changes: +LEVO25TA9 PO
[2021-03-27 23:12] LABS: BASOPHILS % (AUTO) 0.5 % (0.0-2.0); EOSINOPHILS % (AUTO) 2.2 % (1.0-6.0); HEMATOCRIT 37.7 % (41-53); HEMOGLOBIN 12.9 g/dL (13.5-17.5); LYMPHOCYTES # (AUTO) 1.5 K/uL (1.0-4.8); LYMPHOCYTES % (AUTO) 36.4 % (22.0-44.0); MEAN CORPUSCULAR HEMOGLOBIN 30.5 pg (26.0-34.0); MEAN CORPUSCULAR HGB CONC 34.1 G/dL (31.0-37.0); MEAN CORPUSCULAR VOLUME 89 fL (80-100); MONOCYTES # (AUTO) 0.5 K/uL (0.1-1.0); MONOCYTES % (AUTO) 11.3 % (2.0-9.0); NEUTROPHILS % (AUTO) 49.6 % (40.0-70.0); PLATELET COUNT (AUTO) 131 K/uL (150-450); RED BLOOD CELL COUNT(AUTO) 4.21 MIL/uL (4.50-5.90); RED CELL DISTRIBUTION WIDTH 15.2 % (11.5-14.5)
[2021-03-27 23:22] LABS: ANION GAP 2 mmol/L (8-16); CALCIUM, TOTAL 8.4 mg/dL (8.8-10.5); CARBON DIOXIDE 34 mmol/L (22-29); CHLORIDE 101 mmol/L (98-107); CREATININE 0.87 mg/dL (0.60-1.30); GLOMERULAR FILTR. RATE CALC > 60 mL/min (>60); GLUCOSE,RANDOM 100 mg/dL (70-110); POTASSIUM 4.3 mmol/L (3.5-5.1); SODIUM SERUM 137 mmol/L (136-145); UREA NITROGEN, BLOOD 15 mg/dL (7-18)
[2021-03-27 23:24] LABS: AMPHET/METH SCREEN,URINE NEGATIVE (NEGATIVE); BARBITURATE SCREEN, URINE NEGATIVE (NEGATIVE); BENZODIAZEPINES SCREEN,URINE NEGATIVE (NEGATIVE); CANNABINOID SCREEN,URINE NEGATIVE (NEGATIVE); COCAINE SCREEN,URINE NEGATIVE (NEGATIVE); METHADONE SCREEN, URINE NEGATIVE (NEGATIVE); OPIATE SCREEN,URINE POSITIVE (NEGATIVE); PHENCYCLIDINE SCREEN,URINE NEGATIVE (NEGATIVE)
[2021-03-27 23:28] LABS: ALANINE AMINOTRANSFERASE 46 U/L (12-78); ALBUMIN 3.8 g/dL (3.4-5.0); ALKALINE PHOSPHATASE 87 U/L (46-116); ASPARTATE AMINOTRANSFERASE 28 U/L (15-37); BILIRUBIN,TOTAL 0.3 mg/dL (0.1-1.0)
[2021-03-28 00:28] LABS: COVID AG,FIA SOURCE NASOPHARYNGEAL
[2021-03-28 01:07] LABS: APPEARANCE,URINE CLEAR (CLEAR); BILIRUBIN,URINE NEGATIVE (NEGATIVE); GLUCOSE, URINE (UA) NEGATIVE (NEGATIVE); KETONES,URINE NEGATIVE (NEGATIVE); LEUKOCYTE ESTERASE ,URINE NEGATIVE (NEGATIVE); NITRATE,URINE NEGATIVE (NEGATIVE); OCCULT BLOOD,URINE NEGATIVE (NEGATIVE); PROTEIN,URINE NEGATIVE (NEGATIVE); UROBILINOGEN,URINE 0.2 mg/dL (<=1.0)
[2021-03-28] MEDS ORDERED: IBUPROFEN 800 MG TABLET PO ONE (02:15)
[2021-03-28] MEDS ORDERED: OLANZapine 5 MG TABLET PO SCH (04:00)
[2021-03-28 04:21] VITALS: BP 112/64
[2021-03-28] MEDS ORDERED: OLANZapine 5 MG TABLET PO PRN (04:45)
[2021-03-28 08:12] VITALS: BP 140/72
[2021-03-28] MEDS: LORazepam 2 MG TABLET PO PRN (08:48)
[2021-03-28] MEDS: LISINOPRIL 10 MG TABLET PO SCH (12:19)
[2021-03-28 16:08] VITALS: BP 118/60
[2021-03-28] MEDS: IBUPROFEN 600 MG TABLET PO PRN (16:39)
[2021-03-28] MEDS ORDERED: PETROLATUM,WHITE 28 GM JELLY TP PRN (19:30)
[2021-03-28] MEDS ORDERED: MAGNESIUM HYDROXIDE SUSPENSION 30 ML UDCUP PO PRN (19:30)
[2021-03-28] MEDS ORDERED: BACITRACIN 28 GM OINTMENT TP PRN (19:30)
[2021-03-28] MEDS ORDERED: ACETAMINOPHEN 325 MG TABLET PO PRN (19:30)
[2021-03-28] MEDS ORDERED: ALBUTEROL SULFATE HFA 90 MCG/PUFF 8 GM INHALER IH PRN (19:30)
[2021-03-28] MEDS ORDERED: MAG HYDROX/AL HYDROX/SIMETH ES 30 ML SUSPENSION UDCUP PO PRN (19:30)
[2021-03-28] MEDS ORDERED: OMEPRAZOLE 20 MG CAPSULE PO PRN (19:30)
[2021-03-28] MEDS ORDERED: LOPERAMIDE HCL 2 MG CAPSULE PO PRN (19:30)
[2021-03-28] MEDS ORDERED: DOCUSATE SODIUM 100 MG CAPSULE PO PRN (19:30)
[2021-03-28] MEDS ORDERED: BENZOCAINE/MENTHOL LOZENGE PO PRN (19:30)
[2021-03-28] MEDS ORDERED: CloNIDine HCL 0.1 MG TABLET PO PRN (19:30)
[2021-03-28] MEDS ORDERED: ONDANSETRON HCL 4 MG TABLET PO PRN (19:30)
[2021-03-28] MEDS: ZOLPIDEM TARTRATE 10 MG TABLET PO PRN (23:53)
[2021-03-29 00:02] VITALS: BP 130/77
[2021-03-29 05:15] VITALS: BP 149/78
[2021-03-29] MEDS: TraMADol HCL 50 MG TABLET PO PRN ×2 (05:18→13:50)
[2021-03-29] MEDS: LEVOTHYROXINE SODIUM 25 MCG TABLET PO SCH (06:54)
[2021-03-29 08:08] VITALS: BP 137/78
[2021-03-29] MEDS: IBUPROFEN 600 MG TABLET PO PRN (08:08)
[2021-03-29] MEDS: LISINOPRIL 10 MG TABLET PO SCH (08:08)
[2021-03-29 08:14] LABS: CHOL/HDL RATIO 4.4 (4.2-7.3)
[2021-03-29 08:23] VITALS: BP 137/78
[2021-03-29] MEDS: GABAPENTIN 300 MG CAPSULE PO SCH ×2 (12:17→17:25)
[2021-03-29 13:50] VITALS: BP 141/78
[2021-03-29 16:05] VITALS: BP 123/68
[2021-03-29] MEDS: ZOLPIDEM TARTRATE 10 MG TABLET PO PRN (22:38)
[2021-03-30 00:20] VITALS: BP 136/71
[2021-03-30] MEDS: LORazepam 2 MG TABLET PO PRN (03:21)
[2021-03-30 03:30] VITALS: BP 133/73
[2021-03-30] MEDS: TraMADol HCL 50 MG TABLET PO PRN (03:37)
[2021-03-30] MEDS: LEVOTHYROXINE SODIUM 25 MCG TABLET PO SCH (06:36)
[2021-03-30] MEDS: GABAPENTIN 300 MG CAPSULE PO SCH ×2 (08:13→12:31)
[2021-03-30] MEDS: LISINOPRIL 10 MG TABLET PO SCH (08:13)
[2021-03-30 08:22] VITALS: BP 64/114
[2021-03-30] MEDS ORDERED: CITALOPRAM HYDROBROMIDE 20 MG TABLET PO SCH (09:00)
== END 2021-03-30 12:50 | disposition home or self-care (01) | DRG 881 ==
LOC: EMS 20:48 → B2S 03-28 01:00
PROVIDERS: ADMIT Psychiatry & Neurology Psychiatry; ATTEND Psychiatry & Neurology Psychiatry
DX: F32.9 Major depressive disorder, single episode, unspecified (principal); B19.20 Unspecified viral hepatitis C without hepatic coma; R45.851 Suicidal ideations; F25.1 Schizoaffective disorder, depressive type; G47.00 Insomnia, unspecified; E03.9 Hypothyroidism, unspecified; J44.9 Chronic obstructive pulmonary disease, unspecified; K59.00 Constipation, unspecified; I10 Essential (primary) hypertension; F41.1 Generalized anxiety disorder; W19.XXXA Unspecified fall, initial encounter; Y93.89 Activity, other specified; Y92.89 Other specified places as the place of occurrence of the external cause; Y99.8 Other external cause status; Z20.822 Contact with and (suspected) exposure to COVID-19; M25.561 Pain in right knee; K08.89 Other specified disorders of teeth and supporting structures; D64.9 Anemia, unspecified; E87.6 Hypokalemia; F29 Unspecified psychosis not due to a substance or known physiological condition; G43.909 Migraine, unspecified, not intractable, without status migrainosus; M25.511 Pain in right shoulder; Z72.0 Tobacco use; F19.10 Other psychoactive substance abuse, uncomplicated; F15.10 Other stimulant abuse, uncomplicated; F12.10 Cannabis abuse, uncomplicated; Z71.51 Drug abuse counseling and surveillance of drug abuser; Z71.6 Tobacco abuse counseling; M17.0 Bilateral primary osteoarthritis of knee
CPT/HCPCS: 80053; 80061; 81003; 85025; 87081; 99285; G0480

== ENCOUNTER 2021-04-12 23:11 | Inpatient (IN) | payer MEDICARE, OTHER, MEDICAID ==
[~2021-04-12] VITALS: Ht 177.8 cm; Wt 88.5 kg
[~2021-04-12 23:11] MED LIST changes: -LEVO125T95 PO; -MULT-248 PO
[2021-04-13 02:18] LABS: BASOPHILS % (AUTO) 0.3 % (0.0-2.0); EOSINOPHILS % (AUTO) 1.2 % (1.0-6.0); HEMATOCRIT 37.1 % (41-53); HEMOGLOBIN 13.2 g/dL (13.5-17.5); LYMPHOCYTES # (AUTO) 1.7 K/uL (1.0-4.8); LYMPHOCYTES % (AUTO) 34.4 % (22.0-44.0); MEAN CORPUSCULAR HEMOGLOBIN 31.1 pg (26.0-34.0); MEAN CORPUSCULAR HGB CONC 35.5 G/dL (31.0-37.0); MEAN CORPUSCULAR VOLUME 87 fL (80-100); MONOCYTES # (AUTO) 0.5 K/uL (0.1-1.0); MONOCYTES % (AUTO) 10.9 % (2.0-9.0); NEUTROPHILS # (AUTO) 2.7 K/uL (1.8-7.7); NEUTROPHILS % (AUTO) 53.2 % (40.0-70.0); PLATELET COUNT (AUTO) 177 K/uL (150-450); RED BLOOD CELL COUNT(AUTO) 4.24 MIL/uL (4.50-5.90); RED CELL DISTRIBUTION WIDTH 14.7 % (11.5-14.5)
[2021-04-13 02:20] LABS: ANION GAP 10 mmol/L (8-16); CALCIUM, TOTAL 9.1 mg/dL (8.8-10.5); CARBON DIOXIDE 29 mmol/L (22-29); CHLORIDE 102 mmol/L (98-107); CREATININE 0.91 mg/dL (0.60-1.30); GLOMERULAR FILTR. RATE CALC > 60 mL/min (>60); GLUCOSE,RANDOM 115 mg/dL (70-110); SODIUM SERUM 141 mmol/L (136-145); UREA NITROGEN, BLOOD 29 mg/dL (7-18)
[2021-04-13 02:26] LABS: ALANINE AMINOTRANSFERASE 41 U/L (12-78); ALBUMIN 3.9 g/dL (3.4-5.0); ALKALINE PHOSPHATASE 95 U/L (46-116); ASPARTATE AMINOTRANSFERASE 40 U/L (15-37); BILIRUBIN,TOTAL 0.7 mg/dL (0.1-1.0); TOTAL PROTEIN, SERUM 6.9 g/dL (6.4-8.2)
[2021-04-13 02:27] LABS: COVID AG,FIA SOURCE NASOPHARYNGEAL
[2021-04-13] MEDS: LORazepam 2 MG TABLET PO PRN (02:55)
[2021-04-13] MEDS ORDERED: POTASSIUM CHLORIDE 20 MEQ ER TABLET PO ONE (03:00)
[2021-04-13] MEDS: HALOPERIDOL 5 MG TABLET PO PRN (03:01)
[2021-04-13 08:12] LABS: APPEARANCE,URINE CLEAR (CLEAR); BILIRUBIN,URINE NEGATIVE (NEGATIVE); GLUCOSE, URINE (UA) NEGATIVE (NEGATIVE); KETONES,URINE 15 mg/dL (NEGATIVE); LEUKOCYTE ESTERASE ,URINE NEGATIVE (NEGATIVE); NITRATE,URINE NEGATIVE (NEGATIVE); OCCULT BLOOD,URINE NEGATIVE (NEGATIVE); PROTEIN,URINE NEGATIVE (NEGATIVE)
[2021-04-13 08:16] LABS: AMPHET/METH SCREEN,URINE POSITIVE (NEGATIVE); BARBITURATE SCREEN, URINE NEGATIVE (NEGATIVE); BENZODIAZEPINES SCREEN,URINE NEGATIVE (NEGATIVE); CANNABINOID SCREEN,URINE NEGATIVE (NEGATIVE); COCAINE SCREEN,URINE NEGATIVE (NEGATIVE); METHADONE SCREEN, URINE NEGATIVE (NEGATIVE); OPIATE SCREEN,URINE NEGATIVE (NEGATIVE)
[2021-04-13 08:17] LABS: PHENCYCLIDINE SCREEN,URINE NEGATIVE (NEGATIVE)
[2021-04-13 17:40] VITALS: BP 144/76
[2021-04-13] MEDS ORDERED: -PHARMACY VACCINE NOTE- MISC ONE (18:15)
[2021-04-14 03:50] VITALS: BP 148/80
[2021-04-14] MEDS: LORazepam 2 MG TABLET PO PRN (04:04)
[2021-04-14] MEDS ORDERED: DICLOFENAC SODIUM 1% 100 GM GEL [2GM] TP PRN (08:00)
[2021-04-14] MEDS ORDERED: PETROLATUM,WHITE 28 GM JELLY TP PRN (08:00)
[2021-04-14] MEDS ORDERED: ONDANSETRON HCL 4 MG TABLET PO PRN (08:00)
[2021-04-14] MEDS ORDERED: CloNIDine HCL 0.1 MG TABLET PO PRN (08:00)
[2021-04-14] MEDS ORDERED: OMEPRAZOLE 20 MG CAPSULE PO PRN (08:00)
[2021-04-14] MEDS ORDERED: BACITRACIN 28 GM OINTMENT TP PRN (08:00)
[2021-04-14] MEDS ORDERED: POTASSIUM CHLORIDE 20 MEQ ER TABLET PO ONE (08:00)
[2021-04-14] MEDS ORDERED: LOPERAMIDE HCL 2 MG CAPSULE PO PRN (08:00)
[2021-04-14] MEDS ORDERED: ACETAMINOPHEN 325 MG TABLET PO PRN (08:00)
[2021-04-14] MEDS ORDERED: BENZOCAINE/MENTHOL LOZENGE PO PRN (08:00)
[2021-04-14] MEDS ORDERED: ALBUTEROL SULFATE HFA 90 MCG/PUFF 8 GM INHALER IH PRN (08:00)
[2021-04-14] MEDS ORDERED: MAG HYDROX/AL HYDROX/SIMETH ES 30 ML SUSPENSION UDCUP PO PRN (08:00)
[2021-04-14] MEDS ORDERED: MAGNESIUM HYDROXIDE SUSPENSION 30 ML UDCUP PO PRN (08:00)
[2021-04-14] MEDS ORDERED: DOCUSATE SODIUM 100 MG CAPSULE PO PRN (08:00)
[2021-04-14] MEDS: LISINOPRIL 10 MG TABLET PO SCH (08:14)
[2021-04-14] MEDS: GABAPENTIN 300 MG CAPSULE PO SCH ×3 (08:14→16:35)
[2021-04-14 16:51] VITALS: BP 141/87
[2021-04-15 03:13] VITALS: BP 128/78
[2021-04-15] MEDS: TraMADol HCL 50 MG TABLET PO PRN (03:16)
[2021-04-15] MEDS: LEVOTHYROXINE SODIUM 100 MCG TABLET PO SCH (06:07)
[2021-04-15] MEDS: IBUPROFEN 600 MG TABLET PO PRN ×2 (06:18→16:48)
[2021-04-15] MEDS: CITALOPRAM HYDROBROMIDE 20 MG TABLET PO SCH (08:13)
[2021-04-15] MEDS: GABAPENTIN 300 MG CAPSULE PO SCH ×4 (08:13→16:01)
[2021-04-15] MEDS: LISINOPRIL 10 MG TABLET PO SCH (08:13)
[2021-04-15 08:20] LABS: CHOL/HDL RATIO 3.7 (4.2-7.3); POTASSIUM 4.2 mmol/L (3.5-5.1)
[2021-04-15 09:11] VITALS: BP 145/83
[2021-04-15] MEDS: MULTIVITAMINS WITH MINERALS, THERAPEUTIC TABLET PO SCH ×2 (09:45→12:55)
[2021-04-15] MEDS: FOLIC ACID 1 MG TABLET PO SCH ×2 (09:45→12:55)
[2021-04-15] MEDS ORDERED: THIAMINE 100 MG/ML 2 ML VIAL IM SCH (09:45)
[2021-04-15] MEDS: THIAMINE 100 MG TABLET PO SCH ×2 (13:00→13:09)
[2021-04-15 16:00] VITALS: BP 113/60
[2021-04-15 16:48] VITALS: BP 127/71
[2021-04-15 17:48] VITALS: BP 125/74
[2021-04-16] VITALS (8 sets, daily range): BP systolic 139–151; BP diastolic 70–89
[2021-04-16] MEDS: ZOLPIDEM TARTRATE 10 MG TABLET PO PRN (02:05)
[2021-04-16] MEDS: TraMADol HCL 50 MG TABLET PO PRN ×2 (05:57→16:00)
[2021-04-16] MEDS: LEVOTHYROXINE SODIUM 100 MCG TABLET PO SCH (06:00)
[2021-04-16] MEDS: THIAMINE 100 MG TABLET PO SCH (08:27)
[2021-04-16] MEDS: IBUPROFEN 600 MG TABLET PO PRN ×2 (08:28→18:03)
[2021-04-16] MEDS: LISINOPRIL 10 MG TABLET PO SCH (08:28)
[2021-04-16] MEDS: MULTIVITAMINS WITH MINERALS, THERAPEUTIC TABLET PO SCH (08:28)
[2021-04-16] MEDS: CITALOPRAM HYDROBROMIDE 20 MG TABLET PO SCH (08:29)
[2021-04-16] MEDS: GABAPENTIN 300 MG CAPSULE PO SCH ×3 (08:29→16:42)
[2021-04-16] MEDS: FOLIC ACID 1 MG TABLET PO SCH (08:29)
[2021-04-16] MEDS: HALOPERIDOL 5 MG TABLET PO PRN (16:45)
[2021-04-16] MEDS: LORazepam 2 MG TABLET PO PRN (16:45)
[2021-04-17 05:26] VITALS: BP 144/80
[2021-04-17] MEDS: TraMADol HCL 50 MG TABLET PO PRN (05:26)
[2021-04-17] MEDS: LEVOTHYROXINE SODIUM 100 MCG TABLET PO SCH (06:13)
[2021-04-17] MEDS: GABAPENTIN 300 MG CAPSULE PO SCH ×3 (08:37→16:00)
[2021-04-17] MEDS: THIAMINE 100 MG TABLET PO SCH (08:37)
[2021-04-17] MEDS: MULTIVITAMINS WITH MINERALS, THERAPEUTIC TABLET PO SCH (08:37)
[2021-04-17] MEDS: CITALOPRAM HYDROBROMIDE 20 MG TABLET PO SCH (08:37)
[2021-04-17] MEDS: LISINOPRIL 10 MG TABLET PO SCH (08:38)
[2021-04-17] MEDS: FOLIC ACID 1 MG TABLET PO SCH (08:38)
[2021-04-17 09:59] VITALS: BP 148/79
[2021-04-17 11:37] VITALS: BP 124/72
[2021-04-17] MEDS: IBUPROFEN 600 MG TABLET PO PRN ×2 (11:37→23:59)
[2021-04-17 12:37] VITALS: BP 132/76
[2021-04-17 15:00] VITALS: BP 129/64
[2021-04-17 16:00] VITALS: BP 129/64
[2021-04-17] MEDS: ZOLPIDEM TARTRATE 10 MG TABLET PO PRN (23:58)
[2021-04-18] VITALS: BP 154/74
[2021-04-18] MEDS: HALOPERIDOL 5 MG TABLET PO PRN (06:35)
[2021-04-18] MEDS: LEVOTHYROXINE SODIUM 100 MCG TABLET PO SCH (06:35)
[2021-04-18 06:50] VITALS: BP 155/76
[2021-04-18] MEDS: IBUPROFEN 600 MG TABLET PO PRN (06:53)
[2021-04-18 08:45] VITALS: BP 166/71
[2021-04-18] MEDS: LORazepam 2 MG TABLET PO PRN (08:47)
[2021-04-18] MEDS: THIAMINE 100 MG TABLET PO SCH (08:47)
[2021-04-18] MEDS: TraMADol HCL 50 MG TABLET PO PRN (08:47)
[2021-04-18] MEDS: FOLIC ACID 1 MG TABLET PO SCH (08:47)
[2021-04-18] MEDS: MULTIVITAMINS WITH MINERALS, THERAPEUTIC TABLET PO SCH (08:47)
[2021-04-18] MEDS: CITALOPRAM HYDROBROMIDE 20 MG TABLET PO SCH (08:47)
[2021-04-18] MEDS: GABAPENTIN 300 MG CAPSULE PO SCH ×3 (08:47→16:30)
[2021-04-18] MEDS: LISINOPRIL 10 MG TABLET PO SCH (08:47)
[2021-04-18 16:30] VITALS: BP 106/52
[2021-04-18] MEDS: OLANZapine 10 MG TABLET PO SCH (20:15)
[2021-04-19 00:12] VITALS: BP 159/91
[2021-04-19] MEDS: TraMADol HCL 50 MG TABLET PO PRN ×3 (00:12→16:09)
[2021-04-19] MEDS: LISINOPRIL 10 MG TABLET PO SCH (08:13)
[2021-04-19] MEDS: THIAMINE 100 MG TABLET PO SCH (08:13)
[2021-04-19] MEDS: LEVOTHYROXINE SODIUM 100 MCG TABLET PO SCH (08:13)
[2021-04-19] MEDS: CITALOPRAM HYDROBROMIDE 20 MG TABLET PO SCH (08:13)
[2021-04-19] MEDS: MULTIVITAMINS WITH MINERALS, THERAPEUTIC TABLET PO SCH (08:13)
[2021-04-19] MEDS: FOLIC ACID 1 MG TABLET PO SCH (08:13)
[2021-04-19 08:15] VITALS: BP 153/101
[2021-04-19] MEDS: GABAPENTIN 300 MG CAPSULE PO SCH ×4 (08:16→16:09)
[2021-04-19 08:23] VITALS: BP 153/100
[2021-04-19 16:09] VITALS: BP 120/60
[2021-04-19] MEDS: OLANZapine 10 MG TABLET PO SCH (21:13)
[2021-04-20] MEDS: IBUPROFEN 600 MG TABLET PO PRN (05:02)
[2021-04-20] MEDS: LEVOTHYROXINE SODIUM 100 MCG TABLET PO SCH (06:22)
[2021-04-20] MEDS: LISINOPRIL 10 MG TABLET PO SCH (07:52)
[2021-04-20] MEDS: FOLIC ACID 1 MG TABLET PO SCH (07:52)
[2021-04-20] MEDS: THIAMINE 100 MG TABLET PO SCH (07:52)
[2021-04-20] MEDS: GABAPENTIN 300 MG CAPSULE PO SCH ×3 (07:52→16:48)
[2021-04-20] MEDS: CITALOPRAM HYDROBROMIDE 20 MG TABLET PO SCH (07:52)
[2021-04-20] MEDS: MULTIVITAMINS WITH MINERALS, THERAPEUTIC TABLET PO SCH (07:54)
[2021-04-20 08:01] VITALS: BP 126/66
[2021-04-20 08:11] VITALS: BP 126/66
[2021-04-20] MEDS: TraMADol HCL 50 MG TABLET PO PRN ×2 (08:18→14:20)
[2021-04-20 08:29] LABS: COVID AG,FIA SOURCE NASAL SWAB
[2021-04-20 14:20] VITALS: BP 128/74
[2021-04-20 17:21] VITALS: BP 131/73
[2021-04-20] MEDS: QUEtiapine FUMARATE 200 MG TABLET PO SCH (21:06)
[2021-04-21] VITALS (9 sets, daily range): BP systolic 123–133; BP diastolic 68–76
[2021-04-21] MEDS: LEVOTHYROXINE SODIUM 100 MCG TABLET PO SCH (06:16)
[2021-04-21] MEDS: IBUPROFEN 600 MG TABLET PO PRN (06:16)
[2021-04-21] MEDS: THIAMINE 100 MG TABLET PO SCH (10:00)
[2021-04-21] MEDS: LISINOPRIL 10 MG TABLET PO SCH (10:00)
[2021-04-21] MEDS: MULTIVITAMINS WITH MINERALS, THERAPEUTIC TABLET PO SCH (10:00)
[2021-04-21] MEDS: FOLIC ACID 1 MG TABLET PO SCH (10:00)
[2021-04-21] MEDS: CITALOPRAM HYDROBROMIDE 20 MG TABLET PO SCH (10:01)
[2021-04-21] MEDS: GABAPENTIN 300 MG CAPSULE PO SCH ×3 (10:01→16:12)
[2021-04-21] MEDS: QUEtiapine FUMARATE 200 MG TABLET PO SCH ×2 (10:01→20:15)
[2021-04-21] MEDS: TraMADol HCL 50 MG TABLET PO PRN (17:16)
[2021-04-22 03:38] VITALS: BP 115/81
[2021-04-22] MEDS: IBUPROFEN 600 MG TABLET PO PRN (03:40)
[2021-04-22] MEDS: LEVOTHYROXINE SODIUM 100 MCG TABLET PO SCH (06:43)
[2021-04-22] MEDS: MULTIVITAMINS WITH MINERALS, THERAPEUTIC TABLET PO SCH (08:42)
[2021-04-22] MEDS: QUEtiapine FUMARATE 200 MG TABLET PO SCH ×2 (08:42→20:37)
[2021-04-22] MEDS: CITALOPRAM HYDROBROMIDE 20 MG TABLET PO SCH (08:42)
[2021-04-22] MEDS: THIAMINE 100 MG TABLET PO SCH (08:43)
[2021-04-22] MEDS: LISINOPRIL 10 MG TABLET PO SCH (08:43)
[2021-04-22] MEDS: FOLIC ACID 1 MG TABLET PO SCH (08:43)
[2021-04-22] MEDS: GABAPENTIN 300 MG CAPSULE PO SCH ×3 (08:43→16:31)
[2021-04-22 08:52] VITALS: BP 148/74
[2021-04-22 13:09] LABS: COVID AG,FIA SOURCE NASOPHARYNGEAL
[2021-04-22 16:00] VITALS: BP 124/81
[2021-04-23 01:20] VITALS: BP 113/59
[2021-04-23] MEDS: TraMADol HCL 50 MG TABLET PO PRN ×2 (01:20→09:17)
[2021-04-23] MEDS: IBUPROFEN 600 MG TABLET PO PRN ×2 (05:19→20:45)
[2021-04-23] MEDS: LEVOTHYROXINE SODIUM 100 MCG TABLET PO SCH (06:17)
[2021-04-23] MEDS: THIAMINE 100 MG TABLET PO SCH (08:28)
[2021-04-23] MEDS: MULTIVITAMINS WITH MINERALS, THERAPEUTIC TABLET PO SCH (08:29)
[2021-04-23] MEDS: FOLIC ACID 1 MG TABLET PO SCH (08:29)
[2021-04-23] MEDS: GABAPENTIN 300 MG CAPSULE PO SCH ×3 (08:29→16:19)
[2021-04-23] MEDS: CITALOPRAM HYDROBROMIDE 20 MG TABLET PO SCH (08:29)
[2021-04-23] MEDS: LISINOPRIL 10 MG TABLET PO SCH (08:30)
[2021-04-23] MEDS: QUEtiapine FUMARATE 200 MG TABLET PO SCH ×2 (08:30→21:14)
[2021-04-23 08:57] VITALS: BP 113/65
[2021-04-23 10:17] VITALS: BP 118/68
[2021-04-23 16:00] VITALS: BP 116/70
[2021-04-23 20:45] VITALS: BP 122/77
[2021-04-23] MEDS ORDERED: BENZOCAINE 10% 7 GM GEL TP PRN (21:30)
[2021-04-23] MEDS: AMOXICILLIN TRIHYDRATE 500 MG CAPSULE PO SCH (22:53)
[2021-04-24 05:28] VITALS: BP 115/70
[2021-04-24] MEDS: TraMADol HCL 50 MG TABLET PO PRN ×2 (05:28→13:24)
[2021-04-24] MEDS: LEVOTHYROXINE SODIUM 100 MCG TABLET PO SCH (06:36)
[2021-04-24 07:53] VITALS: BP 100/55
[2021-04-24] MEDS: LISINOPRIL 10 MG TABLET PO SCH (08:43)
[2021-04-24] MEDS: QUEtiapine FUMARATE 200 MG TABLET PO SCH ×2 (08:44→20:16)
[2021-04-24] MEDS: AMOXICILLIN TRIHYDRATE 500 MG CAPSULE PO SCH ×3 (08:44→16:11)
[2021-04-24] MEDS: GABAPENTIN 300 MG CAPSULE PO SCH ×3 (08:44→16:12)
[2021-04-24] MEDS: MULTIVITAMINS WITH MINERALS, THERAPEUTIC TABLET PO SCH (08:44)
[2021-04-24] MEDS: FOLIC ACID 1 MG TABLET PO SCH (08:44)
[2021-04-24] MEDS: THIAMINE 100 MG TABLET PO SCH (08:44)
[2021-04-24] MEDS: CITALOPRAM HYDROBROMIDE 20 MG TABLET PO SCH (08:44)
[2021-04-24] MEDS: CHLORHEXIDINE GLUCONATE 0.12% 15 ML UDCUP ORAL RINSE PO SCH ×3 (08:46→16:12)
[2021-04-24 08:54] VITALS: BP 100/65
[2021-04-24 16:07] VITALS: BP 104/70
[2021-04-25 02:21] VITALS: BP 140/70
[2021-04-25] MEDS: TraMADol HCL 50 MG TABLET PO PRN ×2 (02:21→16:12)
[2021-04-25] MEDS: LEVOTHYROXINE SODIUM 100 MCG TABLET PO SCH (06:06)
[2021-04-25] MEDS: GABAPENTIN 300 MG CAPSULE PO SCH ×3 (08:46→16:10)
[2021-04-25] MEDS: THIAMINE 100 MG TABLET PO SCH (08:46)
[2021-04-25] MEDS: CITALOPRAM HYDROBROMIDE 20 MG TABLET PO SCH (08:46)
[2021-04-25] MEDS: FOLIC ACID 1 MG TABLET PO SCH (08:46)
[2021-04-25] MEDS: MULTIVITAMINS WITH MINERALS, THERAPEUTIC TABLET PO SCH (08:46)
[2021-04-25] MEDS: AMOXICILLIN TRIHYDRATE 500 MG CAPSULE PO SCH ×3 (08:47→16:09)
[2021-04-25] MEDS: QUEtiapine FUMARATE 200 MG TABLET PO SCH ×2 (08:47→20:13)
[2021-04-25] MEDS: CHLORHEXIDINE GLUCONATE 0.12% 15 ML UDCUP ORAL RINSE PO SCH ×3 (08:48→16:10)
[2021-04-25 09:00] VITALS: BP 98/48
[2021-04-25] MEDS: IBUPROFEN 600 MG TABLET PO PRN (12:34)
[2021-04-25 12:37] VITALS: BP 125/72
[2021-04-25] MEDS: LISINOPRIL 10 MG TABLET PO SCH (12:47)
[2021-04-25 13:37] VITALS: BP 106/57
[2021-04-25 16:12] VITALS: BP 114/59
[2021-04-26 01:36] VITALS: BP 120/70
[2021-04-26] MEDS: ZOLPIDEM TARTRATE 10 MG TABLET PO PRN (01:36)
[2021-04-26 06:07] VITALS: BP 115/74
[2021-04-26] MEDS: LEVOTHYROXINE SODIUM 100 MCG TABLET PO SCH (06:07)
[2021-04-26] MEDS: TraMADol HCL 50 MG TABLET PO PRN ×2 (06:07→16:06)
[2021-04-26] MEDS: AMOXICILLIN TRIHYDRATE 500 MG CAPSULE PO SCH ×3 (09:00→16:04)
[2021-04-26] MEDS: GABAPENTIN 300 MG CAPSULE PO SCH ×3 (09:00→16:05)
[2021-04-26] MEDS: MULTIVITAMINS WITH MINERALS, THERAPEUTIC TABLET PO SCH (09:00)
[2021-04-26] MEDS: FOLIC ACID 1 MG TABLET PO SCH (09:00)
[2021-04-26] MEDS: LISINOPRIL 10 MG TABLET PO SCH (09:00)
[2021-04-26] MEDS: QUEtiapine FUMARATE 200 MG TABLET PO SCH ×2 (09:00→20:22)
[2021-04-26] MEDS: CHLORHEXIDINE GLUCONATE 0.12% 15 ML UDCUP ORAL RINSE PO SCH ×3 (09:00→16:04)
[2021-04-26] MEDS: CITALOPRAM HYDROBROMIDE 20 MG TABLET PO SCH (09:00)
[2021-04-26 09:30] VITALS: BP 113/65
[2021-04-26] MEDS: THIAMINE 100 MG TABLET PO SCH (12:30)
[2021-04-26 16:08] VITALS: BP 135/65
[2021-04-27 05:20] VITALS: BP 132/68
[2021-04-27] MEDS: IBUPROFEN 600 MG TABLET PO PRN ×2 (05:24→19:46)
[2021-04-27] MEDS: LEVOTHYROXINE SODIUM 100 MCG TABLET PO SCH (06:13)
[2021-04-27] MEDS: AMOXICILLIN TRIHYDRATE 500 MG CAPSULE PO SCH ×3 (08:09→15:59)
[2021-04-27] MEDS: GABAPENTIN 300 MG CAPSULE PO SCH ×3 (08:10→15:59)
[2021-04-27] MEDS: LISINOPRIL 10 MG TABLET PO SCH (08:10)
[2021-04-27] MEDS: FOLIC ACID 1 MG TABLET PO SCH (08:10)
[2021-04-27] MEDS: CITALOPRAM HYDROBROMIDE 20 MG TABLET PO SCH (08:10)
[2021-04-27] MEDS: THIAMINE 100 MG TABLET PO SCH (08:10)
[2021-04-27] MEDS: MULTIVITAMINS WITH MINERALS, THERAPEUTIC TABLET PO SCH (08:10)
[2021-04-27] MEDS: CHLORHEXIDINE GLUCONATE 0.12% 15 ML UDCUP ORAL RINSE PO SCH ×3 (08:11→15:59)
[2021-04-27] MEDS: QUEtiapine FUMARATE 200 MG TABLET PO SCH ×2 (08:11→20:21)
[2021-04-27 09:27] VITALS: BP 130/60
[2021-04-27 14:19] VITALS: BP 129/63
[2021-04-27] MEDS: TraMADol HCL 50 MG TABLET PO PRN (14:19)
[2021-04-27 16:09] VITALS: BP 125/62
[2021-04-27 19:45] VITALS: BP 128/67
[2021-04-28] MEDS: TraMADol HCL 50 MG TABLET PO PRN ×2 (02:51→13:19)
[2021-04-28] MEDS: ZOLPIDEM TARTRATE 10 MG TABLET PO PRN (03:04)
[2021-04-28] MEDS: LEVOTHYROXINE SODIUM 100 MCG TABLET PO SCH (06:22)
[2021-04-28] MEDS: IBUPROFEN 600 MG TABLET PO PRN (06:30)
[2021-04-28 07:17] VITALS: BP 102/70
[2021-04-28] MEDS: THIAMINE 100 MG TABLET PO SCH (08:08)
[2021-04-28] MEDS: FOLIC ACID 1 MG TABLET PO SCH (08:08)
[2021-04-28] MEDS: CHLORHEXIDINE GLUCONATE 0.12% 15 ML UDCUP ORAL RINSE PO SCH ×3 (08:08→17:02)
[2021-04-28] MEDS: AMOXICILLIN TRIHYDRATE 500 MG CAPSULE PO SCH ×3 (08:08→17:02)
[2021-04-28] MEDS: LISINOPRIL 10 MG TABLET PO SCH (08:09)
[2021-04-28] MEDS: GABAPENTIN 300 MG CAPSULE PO SCH ×3 (08:09→17:02)
[2021-04-28] MEDS: MULTIVITAMINS WITH MINERALS, THERAPEUTIC TABLET PO SCH (08:09)
[2021-04-28] MEDS: CITALOPRAM HYDROBROMIDE 20 MG TABLET PO SCH (08:09)
[2021-04-28] MEDS: QUEtiapine FUMARATE 200 MG TABLET PO SCH ×2 (08:10→20:12)
[2021-04-28 09:26] VITALS: BP 129/74
[2021-04-28 13:19] VITALS: BP 126/71
[2021-04-28 16:07] VITALS: BP 104/62
[2021-04-29] VITALS (7 sets, daily range): BP systolic 106–153; BP diastolic 60–97
[2021-04-29] MEDS: ZOLPIDEM TARTRATE 10 MG TABLET PO PRN (01:57)
[2021-04-29] MEDS: LEVOTHYROXINE SODIUM 100 MCG TABLET PO SCH (06:52)
[2021-04-29] MEDS: CHLORHEXIDINE GLUCONATE 0.12% 15 ML UDCUP ORAL RINSE PO SCH ×3 (08:06→16:02)
[2021-04-29] MEDS: GABAPENTIN 300 MG CAPSULE PO SCH ×3 (08:06→16:02)
[2021-04-29] MEDS: AMOXICILLIN TRIHYDRATE 500 MG CAPSULE PO SCH ×3 (08:06→16:01)
[2021-04-29] MEDS: MULTIVITAMINS WITH MINERALS, THERAPEUTIC TABLET PO SCH (08:06)
[2021-04-29] MEDS: FOLIC ACID 1 MG TABLET PO SCH (08:06)
[2021-04-29] MEDS: LISINOPRIL 10 MG TABLET PO SCH (08:07)
[2021-04-29] MEDS: QUEtiapine FUMARATE 200 MG TABLET PO SCH ×2 (08:07→20:31)
[2021-04-29] MEDS: THIAMINE 100 MG TABLET PO SCH (08:07)
[2021-04-29] MEDS: CITALOPRAM HYDROBROMIDE 20 MG TABLET PO SCH (08:07)
[2021-04-29] MEDS: TraMADol HCL 50 MG TABLET PO PRN ×2 (08:41→19:29)
[2021-04-29 10:47] LABS: COVID AG,FIA SOURCE NASOPHARYNGEAL
[2021-04-30] MEDS: IBUPROFEN 600 MG TABLET PO PRN (00:02)
[2021-04-30 04:55] VITALS: BP 156/90
[2021-04-30] MEDS: TraMADol HCL 50 MG TABLET PO PRN (04:58)
[2021-04-30] MEDS: LEVOTHYROXINE SODIUM 100 MCG TABLET PO SCH (06:09)
[2021-04-30 08:13] VITALS: BP 119/70
[2021-04-30] MEDS: MULTIVITAMINS WITH MINERALS, THERAPEUTIC TABLET PO SCH (08:16)
[2021-04-30] MEDS: QUEtiapine FUMARATE 200 MG TABLET PO SCH (08:16)
[2021-04-30] MEDS: GABAPENTIN 300 MG CAPSULE PO SCH (08:16)
[2021-04-30] MEDS: THIAMINE 100 MG TABLET PO SCH (08:16)
[2021-04-30] MEDS: FOLIC ACID 1 MG TABLET PO SCH (08:16)
[2021-04-30] MEDS: LISINOPRIL 10 MG TABLET PO SCH (08:17)
[2021-04-30] MEDS: CITALOPRAM HYDROBROMIDE 20 MG TABLET PO SCH (08:17)
[2021-04-30] MEDS: CHLORHEXIDINE GLUCONATE 0.12% 15 ML UDCUP ORAL RINSE PO SCH (08:17)
[2021-04-30 08:20] VITALS: BP 116/65
[2021-04-30 09:13] VITALS: BP 120/72
[2021-04-30] MEDS: AMOXICILLIN TRIHYDRATE 500 MG CAPSULE PO SCH (10:00)
[2021-04-30] MEDS ORDERED: FOLI-130 PO (10:32)
[2021-04-30] MEDS ORDERED: MULT-1239 PO (10:32)
[2021-04-30] MEDS ORDERED: QUET200T PO ×2 (10:32)
[2021-04-30] MEDS ORDERED: CHLO473M6 PO (10:32)
[2021-04-30] MEDS ORDERED: AMOX500C2 PO (10:32)
[2021-04-30] MEDS ORDERED: THIA100T80 PO (10:32)
== END 2021-04-30 11:10 | disposition home or self-care (01) | DRG 885 ==
LOC: EMS 23:13 → 3EX 04-13 16:51 → EMS 04-13 17:08 → 3EX 04-13 17:08
PROVIDERS: ADMIT Psychiatry & Neurology Psychiatry; ATTEND Psychiatry & Neurology Psychiatry
DX: F25.9 Schizoaffective disorder, unspecified (principal); R45.851 Suicidal ideations; E03.9 Hypothyroidism, unspecified; F41.9 Anxiety disorder, unspecified; G47.00 Insomnia, unspecified; I10 Essential (primary) hypertension; K59.00 Constipation, unspecified; M17.0 Bilateral primary osteoarthritis of knee; J44.9 Chronic obstructive pulmonary disease, unspecified; F19.10 Other psychoactive substance abuse, uncomplicated; G43.909 Migraine, unspecified, not intractable, without status migrainosus; F32.9 Major depressive disorder, single episode, unspecified; Z72.0 Tobacco use; Z71.6 Tobacco abuse counseling; Z88.8 Allergy status to other drugs, medicaments and biological substances; Z20.822 Contact with and (suspected) exposure to COVID-19
CPT/HCPCS: 80053; 80061; 81003; 84132; 85025; 87081; 99285; G0378; G0480; J3411

== ENCOUNTER 2021-04-30 11:57 | Emergency (ER) | payer OTHER ==
[~2021-04-30] VITALS: Ht 177.8 cm; Wt 90.9 kg
[~2021-04-30 11:57] MED LIST changes: +AMOX500C2 PO; +CHLO473M6 PO; +FOLI-130 PO; +MULT-1239 PO; +QUET200T PO; +THIA100T80 PO
[2021-04-30 14:30] VITALS: BP 134/82
== END 2021-04-30 14:58 | disposition home or self-care (01) ==
LOC: EMS 11:57
DX: K08.89 Other specified disorders of teeth and supporting structures (principal); K08.109 Complete loss of teeth, unspecified cause, unspecified class; F31.9 Bipolar disorder, unspecified; I10 Essential (primary) hypertension; F20.9 Schizophrenia, unspecified; F15.90 Other stimulant use, unspecified, uncomplicated
CPT/HCPCS: 99282; Z7502

== ENCOUNTER 2021-05-27 16:36 | Emergency (ER) | payer OTHER ==
[~2021-05-27] VITALS: Ht 177.8 cm; Wt 81.8 kg
[2021-05-27 18:59] LABS: BASOPHILS % (AUTO) 0.3 % (0.0-2.0); EOSINOPHILS % (AUTO) 1.5 % (1.0-6.0); HEMATOCRIT 40.6 % (41-53); LYMPHOCYTES # (AUTO) 1.2 K/uL (1.0-4.8); LYMPHOCYTES % (AUTO) 32.8 % (22.0-44.0); MEAN CORPUSCULAR HEMOGLOBIN 30.7 pg (26.0-34.0); MEAN CORPUSCULAR HGB CONC 34.4 G/dL (31.0-37.0); MEAN CORPUSCULAR VOLUME 89 fL (80-100); MONOCYTES # (AUTO) 0.3 K/uL (0.1-1.0); MONOCYTES % (AUTO) 7.2 % (2.0-9.0); NEUTROPHILS # (AUTO) 2.1 K/uL (1.8-7.7); NEUTROPHILS % (AUTO) 58.2 % (40.0-70.0); PLATELET COUNT (AUTO) 148 K/uL (150-450); RED BLOOD CELL COUNT(AUTO) 4.55 MIL/uL (4.50-5.90); RED CELL DISTRIBUTION WIDTH 14.6 % (11.5-14.5)
[2021-05-27 19:09] LABS: ANION GAP 9 mmol/L (8-16); CALCIUM, TOTAL 8.9 mg/dL (8.8-10.5); CARBON DIOXIDE 29 mmol/L (22-29); CHLORIDE 106 mmol/L (98-107); CREATININE 0.74 mg/dL (0.60-1.30); GLOMERULAR FILTR. RATE CALC > 60 mL/min (>60); GLUCOSE,RANDOM 125 mg/dL (70-110); POTASSIUM 3.9 mmol/L (3.5-5.1); SODIUM SERUM 144 mmol/L (136-145); UREA NITROGEN, BLOOD 27 mg/dL (7-18)
[2021-05-27 19:16] LABS: ALANINE AMINOTRANSFERASE 35 U/L (12-78); ALBUMIN 3.9 g/dL (3.4-5.0); ALKALINE PHOSPHATASE 91 U/L (46-116); ASPARTATE AMINOTRANSFERASE 22 U/L (15-37); BILIRUBIN,TOTAL 0.3 mg/dL (0.1-1.0); TOTAL PROTEIN, SERUM 7.7 g/dL (6.4-8.2)
[2021-05-27 19:18] LABS: PLATELET MORPHOLOGY COMMENT LARGE PLTS PRESENT
[2021-05-27] MEDS ORDERED: IBUPROFEN 600 MG TABLET PO ONE (22:00)
[2021-05-27 22:05] LABS: COVID AG,FIA SOURCE NASOPHARYNGEAL
[2021-05-28 02:16] VITALS: BP 135/74
== END 2021-05-28 04:07 ==
LOC: EMS 16:37
DX: F25.1 Schizoaffective disorder, depressive type (principal); G89.29 Other chronic pain; M25.561 Pain in right knee; K02.9 Dental caries, unspecified; J44.9 Chronic obstructive pulmonary disease, unspecified; Z79.899 Other long term (current) drug therapy; Z20.822 Contact with and (suspected) exposure to COVID-19
CPT/HCPCS: 80053; 85025; 87426; 99285; G0480

== ENCOUNTER 2021-06-14 22:31 | Inpatient (IN) | payer MEDICARE, MEDICAID ==
[~2021-06-14] VITALS: Ht 177.8 cm; Wt 84.5 kg
[~2021-06-14 22:31] MED LIST changes: -AMOX500C2 PO; -CHLO473M6 PO
[2021-06-14 23:24] LABS: BASOPHILS % (AUTO) 0.3 % (0.0-2.0); EOSINOPHILS % (AUTO) 1.9 % (1.0-6.0); HEMATOCRIT 35.4 % (41-53); HEMOGLOBIN 12.1 g/dL (13.5-17.5); LYMPHOCYTES # (AUTO) 1.3 K/uL (1.0-4.8); LYMPHOCYTES % (AUTO) 36.2 % (22.0-44.0); MEAN CORPUSCULAR HEMOGLOBIN 30.6 pg (26.0-34.0); MEAN CORPUSCULAR HGB CONC 34.3 G/dL (31.0-37.0); MEAN CORPUSCULAR VOLUME 89 fL (80-100); MONOCYTES # (AUTO) 0.5 K/uL (0.1-1.0); MONOCYTES % (AUTO) 14.3 % (2.0-9.0); NEUTROPHILS # (AUTO) 1.7 K/uL (1.8-7.7); NEUTROPHILS % (AUTO) 47.3 % (40.0-70.0); PLATELET COUNT (AUTO) 183 K/uL (150-450); RED BLOOD CELL COUNT(AUTO) 3.96 MIL/uL (4.50-5.90); RED CELL DISTRIBUTION WIDTH 15.3 % (11.5-14.5)
[2021-06-14 23:41] LABS: ALANINE AMINOTRANSFERASE 46 U/L (12-78); ALBUMIN 3.7 g/dL (3.4-5.0); ALKALINE PHOSPHATASE 80 U/L (46-116); ASPARTATE AMINOTRANSFERASE 43 U/L (15-37); BILIRUBIN,TOTAL 0.7 mg/dL (0.1-1.0); CALCIUM, TOTAL 8.6 mg/dL (8.8-10.5); CARBON DIOXIDE 27 mmol/L (22-29); CHLORIDE 104 mmol/L (98-107); CREATININE 0.76 mg/dL (0.60-1.30); GLOMERULAR FILTR. RATE CALC > 60 mL/min (>60); GLUCOSE,RANDOM 101 mg/dL (70-110); TOTAL PROTEIN, SERUM 7.2 g/dL (6.4-8.2); UREA NITROGEN, BLOOD 22 mg/dL (7-18)
[2021-06-14 23:48] LABS: ANION GAP 10 mmol/L (8-16); POTASSIUM 3.2 mmol/L (3.5-5.1); SODIUM SERUM 141 mmol/L (136-145)
[2021-06-15 00:15] LABS: COVID AG,FIA SOURCE NASOPHARYNGEAL
[2021-06-15] MEDS ORDERED: HALOPERIDOL 5 MG TABLET PO PRN (00:45)
[2021-06-15] MEDS ORDERED: POTASSIUM CHLORIDE 20 MEQ ER TABLET PO ONE (02:45)
[2021-06-15] MEDS ORDERED: MAG HYDROX/AL HYDROX/SIMETH ES 30 ML SUSPENSION UDCUP PO PRN (05:45)
[2021-06-15] MEDS ORDERED: ACETAMINOPHEN 325 MG TABLET PO PRN (05:45)
[2021-06-15] MEDS ORDERED: CloNIDine HCL 0.1 MG TABLET PO PRN (05:45)
[2021-06-15] MEDS ORDERED: BACITRACIN 28 GM OINTMENT TP PRN (05:45)
[2021-06-15] MEDS ORDERED: OMEPRAZOLE 20 MG CAPSULE PO PRN (05:45)
[2021-06-15] MEDS ORDERED: LOPERAMIDE HCL 2 MG CAPSULE PO PRN (05:45)
[2021-06-15] MEDS ORDERED: ONDANSETRON HCL 4 MG TABLET PO PRN (05:45)
[2021-06-15] MEDS ORDERED: DOCUSATE SODIUM 100 MG CAPSULE PO PRN (05:45)
[2021-06-15] MEDS ORDERED: PETROLATUM,WHITE 28 GM JELLY TP PRN (05:45)
[2021-06-15] MEDS ORDERED: ALBUTEROL SULFATE HFA 90 MCG/PUFF 8 GM INHALER IH PRN (05:45)
[2021-06-15] MEDS ORDERED: BENZOCAINE/MENTHOL LOZENGE PO PRN (05:45)
[2021-06-15] MEDS ORDERED: MAGNESIUM HYDROXIDE SUSPENSION 30 ML UDCUP PO PRN (05:45)
[2021-06-15] MEDS: LEVOTHYROXINE SODIUM 25 MCG TABLET PO SCH (06:49)
[2021-06-15 08:20] VITALS: BP 119/65
[2021-06-15] MEDS: GABAPENTIN 300 MG CAPSULE PO SCH ×3 (09:11→16:59)
[2021-06-15] MEDS: MULTIVITAMINS WITH MINERALS, THERAPEUTIC TABLET PO SCH (09:11)
[2021-06-15] MEDS: LISINOPRIL 10 MG TABLET PO SCH (09:11)
[2021-06-15 18:54] VITALS: BP 141/74
[2021-06-15] MEDS: TraMADol HCL 50 MG TABLET PO PRN (20:31)
[2021-06-16] MEDS: ZOLPIDEM TARTRATE 10 MG TABLET PO PRN ×2 (01:08→21:24)
[2021-06-16 01:14] VITALS: BP 126/65
[2021-06-16] MEDS: LEVOTHYROXINE SODIUM 25 MCG TABLET PO SCH (06:17)
[2021-06-16] MEDS: TraMADol HCL 50 MG TABLET PO PRN (06:41)
[2021-06-16 07:42] LABS: CHOL/HDL RATIO 3.5 (4.2-7.3); POTASSIUM 3.9 mmol/L (3.5-5.1)
[2021-06-16 08:11] VITALS: BP 123/71
[2021-06-16] MEDS: GABAPENTIN 300 MG CAPSULE PO SCH ×3 (08:33→16:11)
[2021-06-16] MEDS: LISINOPRIL 10 MG TABLET PO SCH (08:33)
[2021-06-16] MEDS: MULTIVITAMINS WITH MINERALS, THERAPEUTIC TABLET PO SCH (08:33)
[2021-06-16 16:09] VITALS: BP 140/73
[2021-06-16] MEDS: IBUPROFEN 600 MG TABLET PO PRN (18:30)
[2021-06-17 04:30] VITALS: BP 141/85
[2021-06-17] MEDS: LEVOTHYROXINE SODIUM 25 MCG TABLET PO SCH (06:28)
[2021-06-17] MEDS: TraMADol HCL 50 MG TABLET PO PRN ×2 (06:29→23:01)
[2021-06-17] MEDS: MULTIVITAMINS WITH MINERALS, THERAPEUTIC TABLET PO SCH (08:18)
[2021-06-17] MEDS: LISINOPRIL 10 MG TABLET PO SCH (08:18)
[2021-06-17] MEDS: GABAPENTIN 300 MG CAPSULE PO SCH ×3 (08:18→17:14)
[2021-06-17 08:24] VITALS: BP 137/79
[2021-06-17] MEDS: LORazepam 2 MG TABLET PO PRN (12:04)
[2021-06-17 16:19] VITALS: BP 123/66
[2021-06-18 02:45] VITALS: BP 143/75
[2021-06-18] MEDS: IBUPROFEN 600 MG TABLET PO PRN (02:51)
[2021-06-18 05:57] VITALS: BP 120/77
[2021-06-18] MEDS: TraMADol HCL 50 MG TABLET PO PRN (06:01)
[2021-06-18] MEDS: LEVOTHYROXINE SODIUM 25 MCG TABLET PO SCH (06:29)
[2021-06-18 08:07] VITALS: BP 139/71
[2021-06-18] MEDS: LORazepam 2 MG TABLET PO PRN (08:42)
[2021-06-18] MEDS: LISINOPRIL 10 MG TABLET PO SCH (08:43)
[2021-06-18] MEDS: MULTIVITAMINS WITH MINERALS, THERAPEUTIC TABLET PO SCH (08:43)
[2021-06-18] MEDS: GABAPENTIN 300 MG CAPSULE PO SCH ×3 (08:43→16:34)
[2021-06-18 16:25] VITALS: BP 110/53
[2021-06-18] MEDS: QUEtiapine FUMARATE 200 MG TABLET PO SCH (21:10)
[2021-06-19] MEDS: LEVOTHYROXINE SODIUM 25 MCG TABLET PO SCH (06:45)
[2021-06-19] MEDS: GABAPENTIN 300 MG CAPSULE PO SCH ×3 (09:37→16:01)
[2021-06-19] MEDS: LISINOPRIL 10 MG TABLET PO SCH (09:37)
[2021-06-19] MEDS: MULTIVITAMINS WITH MINERALS, THERAPEUTIC TABLET PO SCH (09:37)
[2021-06-19] MEDS: TraMADol HCL 50 MG TABLET PO PRN (16:01)
[2021-06-19] MEDS: IBUPROFEN 600 MG TABLET PO PRN (19:21)
[2021-06-19] MEDS: QUEtiapine FUMARATE 200 MG TABLET PO SCH (20:22)
[2021-06-20] MEDS: LEVOTHYROXINE SODIUM 25 MCG TABLET PO SCH (06:04)
[2021-06-20 07:21] LABS: GLUCOMETER DEV NAME(LOC) POC.BV
[2021-06-20] MEDS: TraMADol HCL 50 MG TABLET PO PRN ×2 (08:28→18:59)
[2021-06-20] MEDS: LISINOPRIL 10 MG TABLET PO SCH (08:29)
[2021-06-20] MEDS: GABAPENTIN 300 MG CAPSULE PO SCH ×3 (08:29→16:35)
[2021-06-20] MEDS: MULTIVITAMINS WITH MINERALS, THERAPEUTIC TABLET PO SCH (08:29)
[2021-06-20 08:49] VITALS: BP 130/80
[2021-06-20] MEDS: IBUPROFEN 600 MG TABLET PO PRN (10:11)
[2021-06-20 16:17] VITALS: BP 110/67
[2021-06-20 18:59] VITALS: BP 119/79
[2021-06-20] MEDS: QUEtiapine FUMARATE 200 MG TABLET PO SCH (20:33)
[2021-06-21 02:45] VITALS: BP 110/67
[2021-06-21] MEDS: ZOLPIDEM TARTRATE 10 MG TABLET PO PRN (02:46)
[2021-06-21] MEDS: LEVOTHYROXINE SODIUM 25 MCG TABLET PO SCH (06:48)
[2021-06-21 08:37] VITALS: BP 102/56
[2021-06-21] MEDS: LISINOPRIL 10 MG TABLET PO SCH (08:57)
[2021-06-21] MEDS: MULTIVITAMINS WITH MINERALS, THERAPEUTIC TABLET PO SCH (08:57)
[2021-06-21] MEDS: GABAPENTIN 300 MG CAPSULE PO SCH ×3 (08:57→16:44)
[2021-06-21] MEDS: IBUPROFEN 600 MG TABLET PO PRN ×2 (09:03→19:28)
[2021-06-21 15:42] VITALS: BP 115/61
[2021-06-21] MEDS: TraMADol HCL 50 MG TABLET PO PRN (15:42)
[2021-06-21 16:16] VITALS: BP 115/61
[2021-06-21 19:28] VITALS: BP 122/62
[2021-06-21] MEDS: QUEtiapine FUMARATE 200 MG TABLET PO SCH (20:23)
[2021-06-22 00:27] VITALS: BP 127/68
[2021-06-22 04:12] VITALS: BP 128/69
[2021-06-22] MEDS: LEVOTHYROXINE SODIUM 25 MCG TABLET PO SCH (06:49)
[2021-06-22 08:36] VITALS: BP 122/63
[2021-06-22] MEDS: GABAPENTIN 300 MG CAPSULE PO SCH ×2 (08:46→12:29)
[2021-06-22] MEDS: LISINOPRIL 10 MG TABLET PO SCH (08:46)
[2021-06-22] MEDS: MULTIVITAMINS WITH MINERALS, THERAPEUTIC TABLET PO SCH (08:46)
[2021-06-22] MEDS: TraMADol HCL 50 MG TABLET PO PRN (09:04)
[2021-06-22] MEDS: IBUPROFEN 600 MG TABLET PO PRN (11:22)
[2021-06-22] MEDS ORDERED: QUET200T30 PO (13:23)
[2021-06-22] MEDS ORDERED: GABA-1181 PO (13:23)
[2021-06-22] MEDS ORDERED: LEVO25TA9 PO (21:23)
== END 2021-06-22 15:30 | disposition home or self-care (01) | DRG 885 ==
LOC: EMS 22:43 → B2S 06-15 02:30
PROVIDERS: ADMIT Psychiatry & Neurology Psychiatry; ATTEND Psychiatry & Neurology Psychiatry
DX: F25.9 Schizoaffective disorder, unspecified (principal); R45.851 Suicidal ideations; E03.9 Hypothyroidism, unspecified; F41.9 Anxiety disorder, unspecified; G47.00 Insomnia, unspecified; G89.29 Other chronic pain; I10 Essential (primary) hypertension; J44.9 Chronic obstructive pulmonary disease, unspecified; K59.00 Constipation, unspecified; F17.210 Nicotine dependence, cigarettes, uncomplicated; G43.909 Migraine, unspecified, not intractable, without status migrainosus; Z79.899 Other long term (current) drug therapy; Z71.51 Drug abuse counseling and surveillance of drug abuser; Z20.822 Contact with and (suspected) exposure to COVID-19
CPT/HCPCS: 80053; 80061; 84132; 85025; 99285; G0480

== ENCOUNTER 2021-08-11 07:37 | Inpatient (IN) | payer MEDICARE, MEDICAID ==
[~2021-08-11] VITALS: Ht 177.8 cm; Wt 86.7 kg
[~2021-08-11 07:37] MED LIST changes: -CITA-144 PO; -FOLI-130 PO; -MULT-1239 PO; -QUET200T PO; +QUET200T30 PO; -THIA100T80 PO
[2021-08-11 08:45] LABS: BASOPHILS % (AUTO) 0.6 % (0.0-2.0); EOSINOPHILS % (AUTO) 1.5 % (1.0-6.0); HEMATOCRIT 36.5 % (41-53); HEMOGLOBIN 12.8 g/dL (13.5-17.5); LYMPHOCYTES # (AUTO) 1.2 K/uL (1.0-4.8); MEAN CORPUSCULAR HEMOGLOBIN 30.7 pg (26.0-34.0); MEAN CORPUSCULAR VOLUME 88 fL (80-100); MONOCYTES # (AUTO) 0.6 K/uL (0.1-1.0); MONOCYTES % (AUTO) 11.8 % (2.0-9.0); NEUTROPHILS # (AUTO) 2.9 K/uL (1.8-7.7); NEUTROPHILS % (AUTO) 60.1 % (40.0-70.0); PLATELET COUNT (AUTO) 160 K/uL (150-450); RED BLOOD CELL COUNT(AUTO) 4.17 MIL/uL (4.50-5.90); RED CELL DISTRIBUTION WIDTH 14.6 % (11.5-14.5)
[2021-08-11] MEDS ORDERED: LORazepam 2 MG TABLET PO ONE (08:45)
[2021-08-11 08:50] LABS: COVID AG,FIA SOURCE NASOPHARYNGEAL
[2021-08-11 09:09] LABS: ANION GAP 6 mmol/L (8-16); CALCIUM, TOTAL 8.2 mg/dL (8.8-10.5); CARBON DIOXIDE 30 mmol/L (22-29); CHLORIDE 103 mmol/L (98-107); CREATININE 0.84 mg/dL (0.60-1.30); GLOMERULAR FILTR. RATE CALC > 60 mL/min (>60); GLUCOSE,RANDOM 109 mg/dL (70-110); POTASSIUM 3.8 mmol/L (3.5-5.1); SODIUM SERUM 139 mmol/L (136-145); UREA NITROGEN, BLOOD 22 mg/dL (7-18)
[2021-08-11 09:22] LABS: ALANINE AMINOTRANSFERASE 35 U/L (12-78); ALBUMIN 3.6 g/dL (3.4-5.0); ALKALINE PHOSPHATASE 101 U/L (46-116); ASPARTATE AMINOTRANSFERASE 29 U/L (15-37); BILIRUBIN,TOTAL 0.5 mg/dL (0.1-1.0); THYROID STIMULATING HORMONE 2.33 uIU/mL (0.36-3.74)
[2021-08-11 12:06] LABS: AMPHET/METH SCREEN,URINE POSITIVE (NEGATIVE); BARBITURATE SCREEN, URINE NEGATIVE (NEGATIVE); BENZODIAZEPINES SCREEN,URINE NEGATIVE (NEGATIVE); CANNABINOID SCREEN,URINE NEGATIVE (NEGATIVE); COCAINE SCREEN,URINE NEGATIVE (NEGATIVE); METHADONE SCREEN, URINE NEGATIVE (NEGATIVE); OPIATE SCREEN,URINE NEGATIVE (NEGATIVE)
[2021-08-11 12:16] LABS: PHENCYCLIDINE SCREEN,URINE NEGATIVE (NEGATIVE)
[2021-08-11] MEDS ORDERED: ZOLPIDEM TARTRATE 10 MG TABLET PO PRN (13:00)
[2021-08-11] MEDS: LORazepam 2 MG TABLET PO PRN (16:39)
[2021-08-11] MEDS: HALOPERIDOL 5 MG TABLET PO PRN (16:39)
[2021-08-11 16:55] VITALS: BP 137/62
[2021-08-12 08:27] VITALS: BP 143/61
[2021-08-12] MEDS ORDERED: LOPERAMIDE HCL 2 MG CAPSULE PO PRN (09:00)
[2021-08-12] MEDS ORDERED: ALBUTEROL SULFATE HFA 90 MCG/PUFF 8 GM INHALER IH PRN (09:00)
[2021-08-12] MEDS ORDERED: ONDANSETRON HCL 4 MG TABLET PO PRN (09:00)
[2021-08-12] MEDS: LIDOCAINE 5% TRANSDERMAL PATCH TD SCH (09:00)
[2021-08-12] MEDS ORDERED: BACITRACIN 28 GM OINTMENT TP PRN (09:00)
[2021-08-12] MEDS ORDERED: DOCUSATE SODIUM 100 MG CAPSULE PO PRN (09:00)
[2021-08-12] MEDS ORDERED: PETROLATUM,WHITE 28 GM JELLY TP PRN (09:00)
[2021-08-12] MEDS ORDERED: DICLOFENAC SODIUM 1% 100 GM GEL [2GM] TP PRN (09:00)
[2021-08-12] MEDS ORDERED: MAG HYDROX/AL HYDROX/SIMETH ES 30 ML SUSPENSION UDCUP PO PRN (09:00)
[2021-08-12] MEDS ORDERED: MAGNESIUM HYDROXIDE SUSPENSION 30 ML UDCUP PO PRN (09:00)
[2021-08-12] MEDS ORDERED: OMEPRAZOLE 20 MG CAPSULE PO PRN (09:00)
[2021-08-12] MEDS ORDERED: BENZOCAINE/MENTHOL LOZENGE PO PRN (09:00)
[2021-08-12] MEDS ORDERED: CloNIDine HCL 0.1 MG TABLET PO PRN (09:00)
[2021-08-12] MEDS ORDERED: ACETAMINOPHEN 325 MG TABLET PO PRN (09:00)
[2021-08-12] MEDS: HALOPERIDOL 5 MG TABLET PO PRN (10:25)
[2021-08-12] MEDS: LORazepam 2 MG TABLET PO PRN (10:25)
[2021-08-12 16:07] VITALS: BP 128/69
[2021-08-12] MEDS: -LIDODERM PATCH NOTE- MISC SCH (21:00)
[2021-08-13] MEDS: IBUPROFEN 600 MG TABLET PO PRN (01:18)
[2021-08-13] MEDS: HALOPERIDOL 5 MG TABLET PO PRN (01:18)
[2021-08-13 01:19] VITALS: BP 145/73
[2021-08-13] MEDS: LORazepam 2 MG TABLET PO PRN ×2 (01:19→20:44)
[2021-08-13 08:23] VITALS: BP 121/68
[2021-08-13] MEDS: LIDOCAINE 5% TRANSDERMAL PATCH TD SCH (09:46)
[2021-08-13 16:17] VITALS: BP 130/70
[2021-08-13] MEDS: TraMADol HCL 50 MG TABLET PO PRN (17:48)
[2021-08-13] MEDS: -LIDODERM PATCH NOTE- MISC SCH (20:44)
[2021-08-14 08:23] VITALS: BP 124/70
[2021-08-14] MEDS: LIDOCAINE 5% TRANSDERMAL PATCH TD SCH (09:27)
[2021-08-14] MEDS: TraMADol HCL 50 MG TABLET PO PRN (10:26)
[2021-08-14 17:09] VITALS: BP 129/73
[2021-08-14] MEDS ORDERED: QUEtiapine FUMARATE 200 MG TABLET PO SCH (21:00)
[2021-08-14] MEDS: -LIDODERM PATCH NOTE- MISC SCH (21:00)
[2021-08-15 05:53] VITALS: BP 122/71
[2021-08-15 08:55] VITALS: BP 125/69
[2021-08-15] MEDS: GABAPENTIN 300 MG CAPSULE PO SCH ×2 (09:41→12:16)
[2021-08-15] MEDS: LIDOCAINE 5% TRANSDERMAL PATCH TD SCH (10:14)
[2021-08-15] MEDS: IBUPROFEN 600 MG TABLET PO PRN (12:05)
[2021-08-15] MEDS ORDERED: LIDO1ADH7 TP (12:24)
== END 2021-08-15 16:40 | disposition home or self-care (01) | DRG 885 ==
LOC: EMS 07:45 → B3A 13:23
PROVIDERS: ADMIT Psychiatry & Neurology Psychiatry; ATTEND Psychiatry & Neurology Psychiatry
DX: F25.1 Schizoaffective disorder, depressive type (principal); B19.20 Unspecified viral hepatitis C without hepatic coma; R45.851 Suicidal ideations; G47.00 Insomnia, unspecified; F32.A Depression, unspecified; G89.29 Other chronic pain; F41.9 Anxiety disorder, unspecified; E03.9 Hypothyroidism, unspecified; F15.10 Other stimulant abuse, uncomplicated; I10 Essential (primary) hypertension; J44.9 Chronic obstructive pulmonary disease, unspecified; K59.00 Constipation, unspecified; Z20.822 Contact with and (suspected) exposure to COVID-19; Z91.19 Patient's noncompliance with other medical treatment and regimen; Z91.018 Allergy to other foods; Z71.51 Drug abuse counseling and surveillance of drug abuser; Z71.6 Tobacco abuse counseling
CPT/HCPCS: 80053; 84443; 85025; 99285; G0480

== ENCOUNTER 2021-08-16 19:10 | Emergency (ER) | payer MEDICARE, OTHER ==
[~2021-08-16] VITALS: Ht 177.8 cm; Wt 90.5 kg
[~2021-08-16 19:10] MED LIST changes: -LEVO25TA9 PO; +LIDO1ADH7 TP; -LISI-893 PO
[2021-08-16 19:16] VITALS: BP 116/80
[2021-08-16 20:45] LABS: AMPHET/METH SCREEN,URINE NEGATIVE (NEGATIVE); BARBITURATE SCREEN, URINE NEGATIVE (NEGATIVE); BENZODIAZEPINES SCREEN,URINE NEGATIVE (NEGATIVE); CANNABINOID SCREEN,URINE NEGATIVE (NEGATIVE); COCAINE SCREEN,URINE NEGATIVE (NEGATIVE); METHADONE SCREEN, URINE NEGATIVE (NEGATIVE); OPIATE SCREEN,URINE POSITIVE (NEGATIVE)
[2021-08-16 20:46] LABS: PHENCYCLIDINE SCREEN,URINE NEGATIVE (NEGATIVE)
[2021-08-16 20:58] LABS: COVID AG,FIA SOURCE NASOPHARYNGEAL
== END 2021-08-16 21:30 | disposition home or self-care (01) ==
LOC: EMS 19:10
DX: F25.1 Schizoaffective disorder, depressive type (principal); F31.9 Bipolar disorder, unspecified; M54.9 Dorsalgia, unspecified; G89.29 Other chronic pain; F15.90 Other stimulant use, unspecified, uncomplicated; Z91.018 Allergy to other foods; Z86.79 Personal history of other diseases of the circulatory system; Z87.19 Personal history of other diseases of the digestive system; Z98.890 Other specified postprocedural states; Z20.822 Contact with and (suspected) exposure to COVID-19
CPT/HCPCS: 99284

== ENCOUNTER 2021-08-17 13:54 | Inpatient (IN) | payer MEDICARE, MEDICAID ==
[~2021-08-17] VITALS: Ht 177.8 cm; Wt 92.7 kg
[2021-08-17] MEDS ORDERED: ZOLPIDEM TARTRATE 10 MG TABLET PO PRN (17:15)
[2021-08-17 17:46] VITALS: BP 129/74
[2021-08-17] MEDS ORDERED: -PHARMACY VACCINE NOTE- MISC ONE (18:45)
[2021-08-17] MEDS: HALOPERIDOL 5 MG TABLET PO PRN (18:58)
[2021-08-17] MEDS: LORazepam 2 MG TABLET PO PRN (18:58)
[2021-08-17] MEDS ORDERED: DICLOFENAC SODIUM 1% 100 GM GEL [4GM] TP PRN (19:45)
[2021-08-17] MEDS ORDERED: -LIDODERM PATCH NOTE- MISC SCH (21:00)
[2021-08-18 02:00] VITALS: BP 127/72
[2021-08-18] MEDS ORDERED: ACETAMINOPHEN 325 MG TABLET PO PRN ×2 (03:30→07:45)
[2021-08-18] MEDS ORDERED: PROMETHAZINE HCL 25 MG TABLET PO PRN (03:30)
[2021-08-18] MEDS ORDERED: MAG HYDROX/AL HYDROX/SIMETH ES 30 ML SUSPENSION UDCUP PO PRN (03:30)
[2021-08-18] MEDS ORDERED: MAGNESIUM HYDROXIDE SUSPENSION 30 ML UDCUP PO PRN (03:30)
[2021-08-18] MEDS ORDERED: LOPERAMIDE HCL 2 MG CAPSULE PO PRN ×2 (03:30→07:45)
[2021-08-18] MEDS ORDERED: CloNIDine HCL 0.1 MG TABLET PO PRN (07:45)
[2021-08-18] MEDS ORDERED: ONDANSETRON HCL 4 MG TABLET PO PRN (07:45)
[2021-08-18] MEDS ORDERED: PETROLATUM,WHITE 28 GM JELLY TP PRN (07:45)
[2021-08-18] MEDS ORDERED: ALBUTEROL SULFATE HFA 90 MCG/PUFF 8 GM INHALER IH PRN (07:45)
[2021-08-18] MEDS ORDERED: OMEPRAZOLE 20 MG CAPSULE PO PRN (07:45)
[2021-08-18] MEDS ORDERED: BENZOCAINE/MENTHOL LOZENGE PO PRN (07:45)
[2021-08-18] MEDS ORDERED: BACITRACIN 28 GM OINTMENT TP PRN (07:45)
[2021-08-18] MEDS ORDERED: TraMADol HCL 50 MG TABLET PO PRN (07:45)
[2021-08-18] MEDS ORDERED: DOCUSATE SODIUM 100 MG CAPSULE PO PRN (07:45)
[2021-08-18] MEDS ORDERED: IBUPROFEN 600 MG TABLET PO PRN (07:45)
[2021-08-18 08:04] LABS: BASOPHILS % (AUTO) 0.3 % (0.0-2.0); EOSINOPHILS % (AUTO) 1.2 % (1.0-6.0); HEMATOCRIT 35.6 % (41-53); HEMOGLOBIN 12.2 g/dL (13.5-17.5); LYMPHOCYTES # (AUTO) 1.2 K/uL (1.0-4.8); LYMPHOCYTES % (AUTO) 28.1 % (22.0-44.0); MEAN CORPUSCULAR HEMOGLOBIN 30.3 pg (26.0-34.0); MEAN CORPUSCULAR HGB CONC 34.3 G/dL (31.0-37.0); MEAN CORPUSCULAR VOLUME 88 fL (80-100); MONOCYTES # (AUTO) 0.3 K/uL (0.1-1.0); NEUTROPHILS # (AUTO) 2.6 K/uL (1.8-7.7); NEUTROPHILS % (AUTO) 62.4 % (40.0-70.0); PLATELET COUNT (AUTO) 124 K/uL (150-450); RED BLOOD CELL COUNT(AUTO) 4.03 MIL/uL (4.50-5.90); RED CELL DISTRIBUTION WIDTH 14.3 % (11.5-14.5)
[2021-08-18 08:18] VITALS: BP 110/66
[2021-08-18] MEDS: LIDOCAINE 5% TRANSDERMAL PATCH TD SCH (08:24)
[2021-08-18] MEDS: -LIDODERM PATCH NOTE- MISC SCH ×2 (08:24→21:00)
[2021-08-18 08:31] LABS: ALANINE AMINOTRANSFERASE 27 U/L (12-78); ALBUMIN 3.1 g/dL (3.4-5.0); ALKALINE PHOSPHATASE 78 U/L (46-116); ANION GAP 8 mmol/L (8-16); ASPARTATE AMINOTRANSFERASE 22 U/L (15-37); BILIRUBIN,TOTAL 0.3 mg/dL (0.1-1.0); CARBON DIOXIDE 28 mmol/L (22-29); CHLORIDE 105 mmol/L (98-107); CREATININE 0.73 mg/dL (0.60-1.30); GLOMERULAR FILTR. RATE CALC > 60 mL/min (>60); GLUCOSE,RANDOM 90 mg/dL (70-110); POTASSIUM 3.6 mmol/L (3.5-5.1); SODIUM SERUM 141 mmol/L (136-145); THYROID STIMULATING HORMONE 1.89 uIU/mL (0.36-3.74); TOTAL PROTEIN, SERUM 6.2 g/dL (6.4-8.2); UREA NITROGEN, BLOOD 19 mg/dL (7-18)
[2021-08-18] MEDS: LORazepam 2 MG TABLET PO PRN (12:42)
[2021-08-18 16:05] VITALS: BP 121/62
[2021-08-19] MEDS: HALOPERIDOL 5 MG TABLET PO PRN (01:12)
[2021-08-19] MEDS: LORazepam 2 MG TABLET PO PRN (01:12)
[2021-08-19 01:42] VITALS: BP 133/78
[2021-08-19 08:21] VITALS: BP 145/71
[2021-08-19] MEDS: LIDOCAINE 5% TRANSDERMAL PATCH TD SCH ×2 (08:55→10:16)
== END 2021-08-19 14:19 | disposition home or self-care (01) | DRG 885 ==
LOC: B3A 17:12
PROVIDERS: ADMIT Psychiatry & Neurology Psychiatry; ATTEND Psychiatry & Neurology Psychiatry
DX: F25.9 Schizoaffective disorder, unspecified (principal); E03.9 Hypothyroidism, unspecified; F41.9 Anxiety disorder, unspecified; G47.00 Insomnia, unspecified; G89.29 Other chronic pain; I10 Essential (primary) hypertension; J44.9 Chronic obstructive pulmonary disease, unspecified; K59.00 Constipation, unspecified; F19.10 Other psychoactive substance abuse, uncomplicated; Z20.822 Contact with and (suspected) exposure to COVID-19; Z91.018 Allergy to other foods; Z71.51 Drug abuse counseling and surveillance of drug abuser; Z71.6 Tobacco abuse counseling
CPT/HCPCS: 80053; 84439; 84443; 85025; 87081

== ENCOUNTER 2021-09-02 21:46 | Emergency (ER) | payer MEDICARE, OTHER ==
[~2021-09-02] VITALS: Ht 177.8 cm; Wt 91.4 kg
[2021-09-02 22:00] VITALS: BP 133/80
[2021-09-02] MEDS: ACETAMINOPHEN 325 MG TABLET PO ONE (22:00)
[2021-09-02] MEDS ORDERED: [UNRECOGNIZED DRUG - CODE] TP (22:01)
== END 2021-09-02 22:47 | disposition home or self-care (01) ==
LOC: EMS 21:53
DX: B35.1 Tinea unguium (principal); F31.9 Bipolar disorder, unspecified; F20.9 Schizophrenia, unspecified; F15.90 Other stimulant use, unspecified, uncomplicated; Z86.79 Personal history of other diseases of the circulatory system; Z87.19 Personal history of other diseases of the digestive system; Z87.898 Personal history of other specified conditions; Z87.39 Personal history of other diseases of the musculoskeletal system and connective tissue; Z98.890 Other specified postprocedural states; Z91.018 Allergy to other foods
CPT/HCPCS: 99282; Z7502; Z7610

== ENCOUNTER 2021-09-30 21:51 | Emergency (ER) | payer OTHER ==
[~2021-09-30] VITALS: Ht 177.8 cm; Wt 90.9 kg
[~2021-09-30 21:51] MED LIST changes: -GABA-1181 PO; -LIDO1ADH7 TP; -QUET200T30 PO; +[UNRECOGNIZED DRUG - CODE] TP
[2021-09-30 22:37] VITALS: BP 140/79
[2021-10-01] MEDS ORDERED: KETOROLAC TROMETHAMINE 30 MG/ML VIAL IM ONE (01:15)
[2021-10-01] MEDS ORDERED: ACETAMINOPHEN 500 MG TABLET PO ONE (01:15)
[2021-10-01] MEDS ORDERED: LIDOCAINE 5% TRANSDERMAL PATCH TD ONE (01:15)
[2021-10-01] MEDS ORDERED: LIDO1ADH83 TP (03:52)
[2021-10-01] MEDS ORDERED: DICL100G51 TP (03:52)
[2021-10-01] MEDS ORDERED: ACET-66 PO (03:52)
== END 2021-10-01 05:03 | disposition home or self-care (01) ==
LOC: EMS 22:39
DX: M54.50 Low back pain, unspecified (principal); M25.561 Pain in right knee; F31.9 Bipolar disorder, unspecified; F20.9 Schizophrenia, unspecified; F15.90 Other stimulant use, unspecified, uncomplicated; Z86.79 Personal history of other diseases of the circulatory system; Z87.39 Personal history of other diseases of the musculoskeletal system and connective tissue; Z87.19 Personal history of other diseases of the digestive system; Z87.898 Personal history of other specified conditions; Z98.890 Other specified postprocedural states; Z91.018 Allergy to other foods
CPT/HCPCS: 73562; 96372; 99283; J1885

== ENCOUNTER 2021-11-11 16:14 | Emergency (ER) | payer MEDICARE, OTHER ==
[~2021-11-11] VITALS: Ht 177.8 cm; Wt 90.9 kg
[~2021-11-11 16:14] MED LIST changes: +ACET-66 PO; +DICL100G51 TP; +LIDO1ADH83 TP; -[UNRECOGNIZED DRUG - CODE] TP
[2021-11-11] MEDS ORDERED: HYDROCODONE/ACETAMINOPHEN 5-325 MG TABLET PO ONE (17:30)
[2021-11-11] MEDS ORDERED: KETOROLAC TROMETHAMINE 30 MG/ML VIAL IM ONE (17:30)
[2021-11-11 17:51] VITALS: BP 141/79
== END 2021-11-11 17:59 | disposition home or self-care (01) ==
LOC: EMS 16:16
DX: G89.29 Other chronic pain (principal); M25.561 Pain in right knee; F31.9 Bipolar disorder, unspecified; F20.9 Schizophrenia, unspecified; F15.90 Other stimulant use, unspecified, uncomplicated
CPT/HCPCS: 99283; 96372; J1885

== ENCOUNTER 2021-11-14 19:16 | Emergency (ER) | payer MEDICARE, OTHER ==
[~2021-11-14] VITALS: Ht 177.8 cm; Wt 100.0 kg
[2021-11-14 19:36] VITALS: BP 161/81
== END 2021-11-14 22:11 | disposition left against medical advice (07) ==
LOC: EMS 19:23
DX: M25.561 Pain in right knee (principal); Z53.21 Procedure and treatment not carried out due to patient leaving prior to being seen by health care provider

== ENCOUNTER 2022-01-25 19:40 | Emergency (ER) | payer MEDICARE, OTHER ==
[~2022-01-25] VITALS: Ht 177.8 cm; Wt 90.0 kg
[2022-01-25] MEDS ORDERED: HYDROCODONE/ACETAMINOPHEN 5-325 MG TABLET PO ONE (21:00)
[2022-01-25 22:04] VITALS: BP 142/77
== END 2022-01-25 22:35 | disposition home or self-care (01) ==
LOC: EMS 19:48
DX: M17.0 Bilateral primary osteoarthritis of knee (principal); F31.9 Bipolar disorder, unspecified; F20.9 Schizophrenia, unspecified; F15.90 Other stimulant use, unspecified, uncomplicated; Z91.02 Food additives allergy status; Z98.890 Other specified postprocedural states
CPT/HCPCS: 99283

== ENCOUNTER 2022-02-01 22:02 | Emergency (ER) | payer MEDICARE, OTHER ==
[~2022-02-01] VITALS: Ht 177.8 cm; Wt 90.0 kg
[2022-02-01 23:29] VITALS: BP 173/90
[2022-02-01] MEDS ORDERED: ACET-66 PO (23:29)
[2022-02-01] MEDS ORDERED: IBUP-2070 PO (23:29)
== END 2022-02-01 23:50 | disposition home or self-care (01) ==
LOC: EMS 22:03
DX: M25.561 Pain in right knee (principal); G89.29 Other chronic pain; E87.6 Hypokalemia; F20.9 Schizophrenia, unspecified; F31.9 Bipolar disorder, unspecified; F15.10 Other stimulant abuse, uncomplicated
CPT/HCPCS: 99282; Z7502

== ENCOUNTER 2022-02-21 16:03 | Inpatient (IN) | payer MEDICARE, MEDICAID ==
[~2022-02-21] VITALS: Ht 177.8 cm; Wt 102.1 kg
[~2022-02-21 16:03] MED LIST changes: -DICL100G51 TP; +IBUP-2070 PO; -LIDO1ADH83 TP
[2022-02-21 16:45] LABS: BASOPHILS % (AUTO) 0.5 % (0.0-2.0); EOSINOPHILS % (AUTO) 2.4 % (1.0-6.0); HEMOGLOBIN 11.9 g/dL (13.5-17.5); LYMPHOCYTES # (AUTO) 1.3 K/uL (1.0-4.8); MEAN CORPUSCULAR HGB CONC 34.1 G/dL (31.0-37.0); MEAN CORPUSCULAR VOLUME 91 fL (80-100); MONOCYTES # (AUTO) 0.4 K/uL (0.1-1.0); MONOCYTES % (AUTO) 11.7 % (2.0-9.0); NEUTROPHILS # (AUTO) 1.6 K/uL (1.8-7.7); NEUTROPHILS % (AUTO) 47.4 % (40.0-70.0); PLATELET COUNT (AUTO) 149 K/uL (150-450); RED BLOOD CELL COUNT(AUTO) 3.85 MIL/uL (4.50-5.90)
[2022-02-21 16:57] LABS: ANION GAP 9 mmol/L (8-16); CALCIUM, TOTAL 8.5 mg/dL (8.8-10.5); CARBON DIOXIDE 28 mmol/L (22-29); CHLORIDE 104 mmol/L (98-107); CREATININE 0.89 mg/dL (0.60-1.30); GLUCOSE,RANDOM 96 mg/dL (70-110); POTASSIUM 3.5 mmol/L (3.5-5.1); SODIUM SERUM 141 mmol/L (136-145); UREA NITROGEN, BLOOD 18 mg/dL (7-18)
[2022-02-21 17:00] LABS: GLOMERULAR FILTR. RATE CALC > 60 mL/min (>60)
[2022-02-21 17:03] LABS: ALANINE AMINOTRANSFERASE 37 U/L (12-78); ALBUMIN 3.5 g/dL (3.4-5.0); ALKALINE PHOSPHATASE 93 U/L (46-116); ASPARTATE AMINOTRANSFERASE 30 U/L (15-37); BILIRUBIN,TOTAL 0.7 mg/dL (0.1-1.0); TOTAL PROTEIN, SERUM 6.5 g/dL (6.4-8.2)
[2022-02-21 17:04] LABS: ACETAMINOPHEN < 2 mcg/mL (10-30)
[2022-02-21 17:11] LABS: SALICYLATE < 0.2 mg/dL (2.8-20.0)
[2022-02-21 18:11] LABS: COVID AG,FIA SOURCE NASOPHARYNGEAL
[2022-02-21 18:17] LABS: APPEARANCE,URINE CLEAR (CLEAR); BILIRUBIN,URINE NEGATIVE (NEGATIVE); GLUCOSE, URINE (UA) NEGATIVE (NEGATIVE); KETONES,URINE NEGATIVE (NEGATIVE); LEUKOCYTE ESTERASE ,URINE NEGATIVE (NEGATIVE); NITRATE,URINE NEGATIVE (NEGATIVE); OCCULT BLOOD,URINE NEGATIVE (NEGATIVE); PROTEIN,URINE TRACE mg/dL (NEGATIVE); SPECIFIC GRAVITIY, URINE 1.032 (1.003-1.030); UROBILINOGEN,URINE <=1.0 mg/dL (<=1.0)
[2022-02-21 18:23] LABS: AMPHET/METH SCREEN,URINE POSITIVE (NEGATIVE); BARBITURATE SCREEN, URINE NEGATIVE (NEGATIVE); BENZODIAZEPINES SCREEN,URINE NEGATIVE (NEGATIVE); CANNABINOID SCREEN,URINE NEGATIVE (NEGATIVE); COCAINE SCREEN,URINE NEGATIVE (NEGATIVE); METHADONE SCREEN, URINE NEGATIVE (NEGATIVE); OPIATE SCREEN,URINE POSITIVE (NEGATIVE)
[2022-02-21 18:24] LABS: PHENCYCLIDINE SCREEN,URINE NEGATIVE (NEGATIVE)
[2022-02-22 02:05] VITALS: BP 150/83
[2022-02-22] MEDS: ZOLPIDEM TARTRATE 10 MG TABLET PO PRN ×2 (02:26→22:09)
[2022-02-22 03:45] VITALS: BP 150/83
[2022-02-22 03:59] VITALS: BP 150/83
[2022-02-22 08:57] VITALS: BP 127/61
[2022-02-22] MEDS ORDERED: ONDANSETRON HCL 4 MG TABLET PO PRN (09:15)
[2022-02-22] MEDS ORDERED: MAGNESIUM HYDROXIDE SUSPENSION 30 ML UDCUP PO PRN (09:15)
[2022-02-22] MEDS ORDERED: ACETAMINOPHEN 325 MG TABLET PO PRN (09:15)
[2022-02-22] MEDS ORDERED: LOPERAMIDE HCL 2 MG CAPSULE PO PRN (09:15)
[2022-02-22] MEDS ORDERED: MAG HYDROX/AL HYDROX/SIMETH ES 30 ML SUSPENSION UDCUP PO PRN (09:15)
[2022-02-22] MEDS ORDERED: GuaiFENesin/D-METHORPHAN [SUGAR-FREE] 200-20MG/10 ML SYRUP UDCUP PO PRN (09:15)
[2022-02-22] MEDS ORDERED: PETROLATUM,WHITE 28 GM JELLY TP PRN (09:15)
[2022-02-22] MEDS ORDERED: NICOTINE 14 MG/24 HOUR PATCH TD PRN (09:15)
[2022-02-22] MEDS ORDERED: DOCUSATE SODIUM 100 MG CAPSULE PO PRN (09:15)
[2022-02-22] MEDS ORDERED: CloNIDine HCL 0.1 MG TABLET PO PRN (09:15)
[2022-02-22] MEDS ORDERED: ALBUTEROL SULFATE HFA 90 MCG/PUFF 8 GM INHALER IH PRN (09:15)
[2022-02-22] MEDS: IBUPROFEN 400 MG TABLET PO PRN (10:36)
[2022-02-22 16:33] VITALS: BP 124/60
[2022-02-22] MEDS ORDERED: FLUO20CA36 PO (17:03)
[2022-02-22] MEDS ORDERED: QUET300T19 PO (17:03)
[2022-02-22] MEDS: FLUoxetine HCL 20 MG CAPSULE PO SCH (18:20)
[2022-02-22] MEDS: QUEtiapine FUMARATE 300 MG TABLET PO SCH (20:49)
[2022-02-22 20:50] VITALS: BP 129/64
[2022-02-22] MEDS: TraMADol HCL 50 MG TABLET PO PRN (20:50)
[2022-02-23 08:00] VITALS: BP 171/87
[2022-02-23] MEDS: FLUoxetine HCL 20 MG CAPSULE PO SCH (08:54)
[2022-02-23 16:13] VITALS: BP 123/58
[2022-02-23 16:51] VITALS: BP 124/60
[2022-02-23] MEDS: IBUPROFEN 400 MG TABLET PO PRN (16:51)
[2022-02-23 17:51] VITALS: BP 127/62
[2022-02-23 20:47] VITALS: BP 125/64
[2022-02-23] MEDS: QUEtiapine FUMARATE 300 MG TABLET PO SCH (20:47)
[2022-02-23] MEDS: TraMADol HCL 50 MG TABLET PO PRN (20:47)
[2022-02-23] MEDS: ZOLPIDEM TARTRATE 10 MG TABLET PO PRN (22:10)
[2022-02-24 05:17] VITALS: BP 144/74
[2022-02-24] MEDS: TraMADol HCL 50 MG TABLET PO PRN (05:18)
[2022-02-24 08:00] VITALS: BP 121/77
[2022-02-24] MEDS: FLUoxetine HCL 20 MG CAPSULE PO SCH (08:33)
[2022-02-24 15:57] VITALS: BP 132/60
[2022-02-24] MEDS: IBUPROFEN 400 MG TABLET PO PRN (15:57)
[2022-02-24 16:00] VITALS: BP 132/58
[2022-02-24 16:57] VITALS: BP 128/65
[2022-02-24] MEDS: QUEtiapine FUMARATE 300 MG TABLET PO SCH (21:00)
[2022-02-24] MEDS: ZOLPIDEM TARTRATE 10 MG TABLET PO PRN (21:00)
[2022-02-25] VITALS (7 sets, daily range): BP systolic 126–137; BP diastolic 48–83
[2022-02-25] MEDS: TraMADol HCL 50 MG TABLET PO PRN ×3 (05:25→21:44)
[2022-02-25] MEDS: FLUoxetine HCL 20 MG CAPSULE PO SCH (09:02)
[2022-02-25] MEDS: IBUPROFEN 400 MG TABLET PO PRN ×2 (09:18→17:55)
[2022-02-25] MEDS: ZOLPIDEM TARTRATE 10 MG TABLET PO PRN (20:05)
[2022-02-25] MEDS: QUEtiapine FUMARATE 300 MG TABLET PO SCH (20:54)
[2022-02-26 08:43] VITALS: BP 106/61
[2022-02-26] MEDS: FLUoxetine HCL 20 MG CAPSULE PO SCH (08:56)
[2022-02-26 11:30] VITALS: BP 97/59
[2022-02-26] MEDS: IBUPROFEN 400 MG TABLET PO PRN ×2 (11:36→21:03)
[2022-02-26 17:02] VITALS: BP 131/66
[2022-02-26 17:03] VITALS: BP 129/79
[2022-02-26] MEDS: TraMADol HCL 50 MG TABLET PO PRN (17:06)
[2022-02-26 21:00] VITALS: BP 125/80
[2022-02-26] MEDS: QUEtiapine FUMARATE 300 MG TABLET PO SCH (21:03)
[2022-02-27 05:02] VITALS: BP 124/64
[2022-02-27] MEDS: TraMADol HCL 50 MG TABLET PO PRN ×2 (05:06→16:25)
[2022-02-27] MEDS: FLUoxetine HCL 20 MG CAPSULE PO SCH (08:28)
[2022-02-27 09:18] VITALS: BP 101/60
[2022-02-27 12:30] VITALS: BP 130/63
[2022-02-27] MEDS: IBUPROFEN 400 MG TABLET PO PRN (12:33)
[2022-02-27 16:14] VITALS: BP 113/61
[2022-02-27] MEDS: QUEtiapine FUMARATE 300 MG TABLET PO SCH (21:01)
[2022-02-28] MEDS: TraMADol HCL 50 MG TABLET PO PRN (05:39)
[2022-02-28 08:00] VITALS: BP 115/61
[2022-02-28 08:02] LABS: COVID AG,FIA SOURCE NASAL SWAB
[2022-02-28] MEDS: FLUoxetine HCL 20 MG CAPSULE PO SCH (09:32)
[2022-02-28 15:26] VITALS: BP 138/74
[2022-02-28] MEDS: IBUPROFEN 400 MG TABLET PO PRN (15:26)
[2022-02-28 16:00] VITALS: BP 141/79
[2022-02-28 16:26] VITALS: BP 136/72
[2022-02-28] MEDS: QUEtiapine FUMARATE 300 MG TABLET PO SCH (20:50)
[2022-02-28] MEDS: ZOLPIDEM TARTRATE 10 MG TABLET PO PRN (21:02)
[2022-03-01 08:00] VITALS: BP 117/60
[2022-03-01] MEDS: TraMADol HCL 50 MG TABLET PO PRN ×2 (08:23→16:16)
[2022-03-01] MEDS: FLUoxetine HCL 20 MG CAPSULE PO SCH (08:23)
[2022-03-01 09:23] VITALS: BP 112/68
[2022-03-01 16:00] VITALS: BP 140/73
[2022-03-01 16:16] VITALS: BP 136/74
[2022-03-01 17:16] VITALS: BP 132/76
[2022-03-01 19:40] VITALS: BP 135/76
[2022-03-01] MEDS: IBUPROFEN 400 MG TABLET PO PRN (19:40)
[2022-03-01] MEDS: ZOLPIDEM TARTRATE 10 MG TABLET PO PRN (20:29)
[2022-03-01] MEDS: QUEtiapine FUMARATE 300 MG TABLET PO SCH (20:29)
[2022-03-02] MEDS: FLUoxetine HCL 20 MG CAPSULE PO SCH (08:36)
[2022-03-02 08:37] VITALS: BP 124/72
[2022-03-02] MEDS: TraMADol HCL 50 MG TABLET PO PRN (08:38)
[2022-03-02 09:00] VITALS: BP 118/62
[2022-03-02 09:37] VITALS: BP 122/68
[2022-03-02 14:16] VITALS: BP 126/76
[2022-03-02] MEDS: IBUPROFEN 400 MG TABLET PO PRN (14:16)
[2022-03-02 15:16] VITALS: BP 118/70
[2022-03-02 17:07] VITALS: BP 111/60
[2022-03-02] MEDS: QUEtiapine FUMARATE 300 MG TABLET PO SCH (21:29)
[2022-03-02] MEDS: ZOLPIDEM TARTRATE 10 MG TABLET PO PRN (21:30)
[2022-03-03 04:04] VITALS: BP 149/73
[2022-03-03] MEDS: IBUPROFEN 400 MG TABLET PO PRN (04:08)
[2022-03-03 08:00] VITALS: BP 114/54
[2022-03-03] MEDS: FLUoxetine HCL 20 MG CAPSULE PO SCH (08:07)
[2022-03-03 09:45] VITALS: BP 114/62
[2022-03-03] MEDS: TraMADol HCL 50 MG TABLET PO PRN (09:48)
[2022-03-03] MEDS: QUEtiapine FUMARATE 300 MG TABLET PO SCH (20:22)
[2022-03-04 00:03] VITALS: BP 114/66
[2022-03-04] MEDS: TraMADol HCL 50 MG TABLET PO PRN ×2 (00:05→16:56)
[2022-03-04] MEDS: ZOLPIDEM TARTRATE 10 MG TABLET PO PRN ×2 (00:05→20:32)
[2022-03-04] MEDS: FLUoxetine HCL 20 MG CAPSULE PO SCH (08:32)
[2022-03-04 08:34] VITALS: BP 112/60
[2022-03-04] MEDS: IBUPROFEN 400 MG TABLET PO PRN (08:34)
[2022-03-04 09:34] VITALS: BP 128/71
[2022-03-04 16:47] VITALS: BP 128/69
[2022-03-04 16:53] VITALS: BP 128/69
[2022-03-04] MEDS: QUEtiapine FUMARATE 300 MG TABLET PO SCH (20:32)
[2022-03-05] MEDS: FLUoxetine HCL 20 MG CAPSULE PO SCH (08:35)
[2022-03-05 08:47] VITALS: BP 119/68
[2022-03-05 16:26] VITALS: BP 148/82
[2022-03-05] MEDS: TraMADol HCL 50 MG TABLET PO PRN (16:29)
[2022-03-05] MEDS: HALOPERIDOL 5 MG TABLET PO PRN (20:47)
[2022-03-05] MEDS: QUEtiapine FUMARATE 300 MG TABLET PO SCH (20:47)
[2022-03-05] MEDS: LORazepam 2 MG TABLET PO PRN (20:48)
[2022-03-06 09:00] VITALS: BP 113/64
[2022-03-06] MEDS: FLUoxetine HCL 20 MG CAPSULE PO SCH (10:18)
[2022-03-06 15:49] VITALS: BP 157/70
[2022-03-06] MEDS: IBUPROFEN 400 MG TABLET PO PRN (15:49)
[2022-03-06 16:21] VITALS: BP 157/70
[2022-03-06 16:49] VITALS: BP 157/70
[2022-03-06] MEDS: HALOPERIDOL 5 MG TABLET PO PRN (21:11)
[2022-03-06] MEDS: QUEtiapine FUMARATE 300 MG TABLET PO SCH (21:11)
[2022-03-06] MEDS: LORazepam 2 MG TABLET PO PRN (21:11)
[2022-03-07 04:18] VITALS: BP 142/68
[2022-03-07 07:31] LABS: COVID AG,FIA SOURCE NASAL SWAB
[2022-03-07 08:00] VITALS: BP 153/83
[2022-03-07] MEDS: FLUoxetine HCL 20 MG CAPSULE PO SCH (08:58)
[2022-03-07] MEDS: IBUPROFEN 400 MG TABLET PO PRN (11:28)
[2022-03-07] MEDS: TraMADol HCL 50 MG TABLET PO PRN ×2 (15:20→21:25)
[2022-03-07 16:20] VITALS: BP 140/72
[2022-03-07] MEDS: HALOPERIDOL 5 MG TABLET PO PRN (20:35)
[2022-03-07] MEDS: LORazepam 2 MG TABLET PO PRN (20:35)
[2022-03-07] MEDS: QUEtiapine FUMARATE 300 MG TABLET PO SCH (20:35)
[2022-03-07 21:25] VITALS: BP 138/77
[2022-03-08] MEDS: FLUoxetine HCL 20 MG CAPSULE PO SCH (09:48)
[2022-03-08 14:48] VITALS: BP 132/78
[2022-03-08] MEDS: TraMADol HCL 50 MG TABLET PO PRN (14:48)
[2022-03-08 15:48] VITALS: BP 129/61
[2022-03-08 16:30] VITALS: BP 129/61
[2022-03-08] MEDS: HALOPERIDOL 5 MG TABLET PO PRN (19:17)
[2022-03-08] MEDS: LORazepam 2 MG TABLET PO PRN (19:17)
[2022-03-08] MEDS: QUEtiapine FUMARATE 300 MG TABLET PO SCH (20:26)
[2022-03-09] MEDS: FLUoxetine HCL 20 MG CAPSULE PO SCH (08:56)
[2022-03-09 10:11] VITALS: BP 122/68
[2022-03-09] MEDS: TraMADol HCL 50 MG TABLET PO PRN ×2 (10:11→18:05)
[2022-03-09 18:05] VITALS: BP 122/68
[2022-03-09 18:19] VITALS: BP 146/70
[2022-03-09] MEDS: QUEtiapine FUMARATE 300 MG TABLET PO SCH (21:26)
[2022-03-09] MEDS: HALOPERIDOL 5 MG TABLET PO PRN (21:26)
[2022-03-09] MEDS: LORazepam 2 MG TABLET PO PRN (21:26)
[2022-03-10 08:20] VITALS: BP 111/61
[2022-03-10] MEDS: FLUoxetine HCL 20 MG CAPSULE PO SCH (09:00)
[2022-03-10 11:16] VITALS: BP 126/62
[2022-03-10] MEDS: IBUPROFEN 400 MG TABLET PO PRN ×2 (11:16→19:42)
[2022-03-10 16:49] VITALS: BP 120/70
[2022-03-10] MEDS: TraMADol HCL 50 MG TABLET PO PRN (16:49)
[2022-03-10 17:34] VITALS: BP 120/70
[2022-03-10] MEDS: QUEtiapine FUMARATE 300 MG TABLET PO SCH (20:11)
[2022-03-10 20:14] VITALS: BP 136/76
[2022-03-11 01:40] VITALS: BP 112/63
[2022-03-11] MEDS: TraMADol HCL 50 MG TABLET PO PRN ×2 (01:46→15:44)
[2022-03-11] MEDS: IBUPROFEN 400 MG TABLET PO PRN ×2 (07:21→20:21)
[2022-03-11 07:39] LABS: BASOPHILS % (AUTO) 0.4 % (0.0-2.0); EOSINOPHILS % (AUTO) 2.1 % (1.0-6.0); HEMATOCRIT 36.5 % (41-53); HEMOGLOBIN 12.7 g/dL (13.5-17.5); LYMPHOCYTES # (AUTO) 1.1 K/uL (1.0-4.8); LYMPHOCYTES % (AUTO) 44.9 % (22.0-44.0); MEAN CORPUSCULAR HEMOGLOBIN 31.3 pg (26.0-34.0); MEAN CORPUSCULAR HGB CONC 34.9 G/dL (31.0-37.0); MEAN CORPUSCULAR VOLUME 90 fL (80-100); MONOCYTES # (AUTO) 0.3 K/uL (0.1-1.0); NEUTROPHILS % (AUTO) 39.6 % (40.0-70.0); PLATELET COUNT (AUTO) 103 K/uL (150-450); RED BLOOD CELL COUNT(AUTO) 4.07 MIL/uL (4.50-5.90); RED CELL DISTRIBUTION WIDTH 15.3 % (11.5-14.5)
[2022-03-11] MEDS: FLUoxetine HCL 20 MG CAPSULE PO SCH (09:14)
[2022-03-11 09:25] VITALS: BP 110/67
[2022-03-11 15:44] VITALS: BP 112/78
[2022-03-11 20:15] VITALS: BP 124/66
[2022-03-11] MEDS: QUEtiapine FUMARATE 300 MG TABLET PO SCH (21:20)
[2022-03-12 06:24] VITALS: BP 130/75
[2022-03-12] MEDS: TraMADol HCL 50 MG TABLET PO PRN ×2 (06:27→14:51)
[2022-03-12] MEDS: FLUoxetine HCL 20 MG CAPSULE PO SCH (09:19)
[2022-03-12 09:39] VITALS: BP 115/63
[2022-03-12 11:52] VITALS: BP 111/65
[2022-03-12] MEDS: IBUPROFEN 400 MG TABLET PO PRN (11:52)
[2022-03-12 14:51] VITALS: BP 117/70
[2022-03-12 16:40] VITALS: BP 126/61
[2022-03-12] MEDS: QUEtiapine FUMARATE 300 MG TABLET PO SCH (20:44)
[2022-03-13] MEDS: FLUoxetine HCL 20 MG CAPSULE PO SCH (09:59)
[2022-03-13 11:36] VITALS: BP 115/58
[2022-03-13] MEDS: TraMADol HCL 50 MG TABLET PO PRN (11:36)
[2022-03-13 12:36] VITALS: BP 111/68
[2022-03-13 15:52] VITALS: BP 144/77
[2022-03-13] MEDS: IBUPROFEN 400 MG TABLET PO PRN (15:52)
[2022-03-13 16:36] VITALS: BP 144/77
[2022-03-13 16:52] VITALS: BP 138/68
[2022-03-13] MEDS: QUEtiapine FUMARATE 300 MG TABLET PO SCH (20:49)
[2022-03-14 05:42] VITALS: BP 127/70
[2022-03-14] MEDS: IBUPROFEN 400 MG TABLET PO PRN (05:49)
[2022-03-14] MEDS: FLUoxetine HCL 20 MG CAPSULE PO SCH (09:31)
[2022-03-14 11:12] VITALS: BP 112/63
[2022-03-14] MEDS: TraMADol HCL 50 MG TABLET PO PRN (11:12)
[2022-03-14 12:12] VITALS: BP 122/68
[2022-03-14 16:10] VITALS: BP 126/72
[2022-03-14] MEDS: QUEtiapine FUMARATE 300 MG TABLET PO SCH (21:19)
[2022-03-15] VITALS (7 sets, daily range): BP systolic 118–135; BP diastolic 62–81
[2022-03-15] MEDS: ZOLPIDEM TARTRATE 10 MG TABLET PO PRN (01:58)
[2022-03-15] MEDS: TraMADol HCL 50 MG TABLET PO PRN ×2 (01:59→14:06)
[2022-03-15] MEDS: FLUoxetine HCL 20 MG CAPSULE PO SCH (08:20)
[2022-03-15] MEDS: IBUPROFEN 400 MG TABLET PO PRN (10:07)
[2022-03-15] MEDS: QUEtiapine FUMARATE 300 MG TABLET PO SCH (20:31)
[2022-03-16 06:13] VITALS: BP 122/67
[2022-03-16] MEDS: FLUoxetine HCL 20 MG CAPSULE PO SCH (08:05)
[2022-03-16 08:08] LABS: BASOPHILS % (AUTO) 1.1 % (0.0-2.0); EOSINOPHILS % (AUTO) 1.4 % (1.0-6.0); HEMATOCRIT 37.6 % (41-53); LYMPHOCYTES # (AUTO) 0.8 K/uL (1.0-4.8); LYMPHOCYTES % (AUTO) 30.7 % (22.0-44.0); MEAN CORPUSCULAR HEMOGLOBIN 31.1 pg (26.0-34.0); MEAN CORPUSCULAR HGB CONC 34.6 G/dL (31.0-37.0); MEAN CORPUSCULAR VOLUME 90 fL (80-100); MONOCYTES # (AUTO) 0.4 K/uL (0.1-1.0); MONOCYTES % (AUTO) 17.1 % (2.0-9.0); NEUTROPHILS # (AUTO) 1.2 K/uL (1.8-7.7); NEUTROPHILS % (AUTO) 49.7 % (40.0-70.0); PLATELET COUNT (AUTO) 113 K/uL (150-450); RED BLOOD CELL COUNT(AUTO) 4.19 MIL/uL (4.50-5.90); RED CELL DISTRIBUTION WIDTH 15.3 % (11.5-14.5)
[2022-03-16 17:06] VITALS: BP 122/72
[2022-03-16] MEDS: QUEtiapine FUMARATE 300 MG TABLET PO SCH (20:26)
[2022-03-17 04:19] VITALS: BP 129/78
[2022-03-17] MEDS: IBUPROFEN 400 MG TABLET PO PRN (04:19)
[2022-03-17] MEDS: LORazepam 2 MG TABLET PO PRN (04:19)
[2022-03-17 08:00] VITALS: BP 130/67
[2022-03-17] MEDS: FLUoxetine HCL 20 MG CAPSULE PO SCH (09:35)
[2022-03-17 16:33] VITALS: BP 138/81
[2022-03-17] MEDS: TraMADol HCL 50 MG TABLET PO PRN (16:33)
[2022-03-17 17:33] VITALS: BP 137/71
[2022-03-17 18:06] VITALS: BP 137/73
[2022-03-17] MEDS: QUEtiapine FUMARATE 300 MG TABLET PO SCH (20:59)
[2022-03-18] VITALS (8 sets, daily range): BP systolic 109–132; BP diastolic 63–78
[2022-03-18] MEDS: IBUPROFEN 400 MG TABLET PO PRN (06:05)
[2022-03-18 07:58] LABS: COVID AG,FIA SOURCE NASAL SWAB
[2022-03-18] MEDS: FLUoxetine HCL 20 MG CAPSULE PO SCH (10:07)
[2022-03-18] MEDS: TraMADol HCL 50 MG TABLET PO PRN ×2 (10:07→16:07)
[2022-03-18] MEDS: QUEtiapine FUMARATE 300 MG TABLET PO SCH (20:22)
[2022-03-19 03:24] VITALS: BP 109/64
[2022-03-19] MEDS: IBUPROFEN 400 MG TABLET PO PRN (03:24)
[2022-03-19 08:24] VITALS: BP 108/62
[2022-03-19] MEDS: FLUoxetine HCL 20 MG CAPSULE PO SCH (10:00)
[2022-03-19 13:20] VITALS: BP 131/72
[2022-03-19] MEDS: TraMADol HCL 50 MG TABLET PO PRN (13:20)
[2022-03-19 14:20] VITALS: BP 128/67
[2022-03-19 16:47] VITALS: BP 130/77
[2022-03-19] MEDS: QUEtiapine FUMARATE 300 MG TABLET PO SCH (21:00)
[2022-03-20 06:25] VITALS: BP 130/80
[2022-03-20] MEDS: IBUPROFEN 400 MG TABLET PO PRN (06:27)
[2022-03-20 08:00] VITALS: BP 121/64
[2022-03-20] MEDS: FLUoxetine HCL 20 MG CAPSULE PO SCH (09:21)
[2022-03-20 15:58] VITALS: BP 119/60
[2022-03-20] MEDS: ACETAMINOPHEN/CODEINE 300-30 MG TABLET PO PRN (15:58)
[2022-03-20 16:58] VITALS: BP 120/62
[2022-03-20 17:00] VITALS: BP 119/59
[2022-03-20] MEDS: HALOPERIDOL 5 MG TABLET PO PRN (20:29)
[2022-03-20] MEDS: QUEtiapine FUMARATE 300 MG TABLET PO SCH (20:29)
[2022-03-20] MEDS: LORazepam 2 MG TABLET PO PRN (20:30)
[2022-03-21] MEDS: FLUoxetine HCL 20 MG CAPSULE PO SCH (08:00)
[2022-03-21 08:01] VITALS: BP 124/66
[2022-03-21] MEDS: ACETAMINOPHEN/CODEINE 300-30 MG TABLET PO PRN (08:01)
[2022-03-21 08:57] VITALS: BP 124/66
[2022-03-21 16:43] VITALS: BP 130/70
[2022-03-21 18:36] VITALS: BP 132/74
[2022-03-21] MEDS: IBUPROFEN 400 MG TABLET PO PRN (18:36)
[2022-03-21] MEDS: QUEtiapine FUMARATE 300 MG TABLET PO SCH (20:36)
[2022-03-21] MEDS: HALOPERIDOL 5 MG TABLET PO PRN (20:37)
[2022-03-21] MEDS: LORazepam 2 MG TABLET PO PRN (20:37)
[2022-03-22 08:00] VITALS: BP 119/71
[2022-03-22] MEDS: FLUoxetine HCL 20 MG CAPSULE PO SCH (08:09)
[2022-03-22 08:10] VITALS: BP 119/75
[2022-03-22] MEDS: ACETAMINOPHEN/CODEINE 300-30 MG TABLET PO PRN ×2 (08:10→20:12)
[2022-03-22 16:32] VITALS: BP 153/81
[2022-03-22 17:06] VITALS: BP 153/81
[2022-03-22] MEDS: IBUPROFEN 400 MG TABLET PO PRN (17:06)
[2022-03-22] MEDS: QUEtiapine FUMARATE 300 MG TABLET PO SCH (20:11)
[2022-03-22 20:12] VITALS: BP 142/80
[2022-03-23] VITALS (7 sets, daily range): BP systolic 116–146; BP diastolic 62–85
[2022-03-23] MEDS: ZOLPIDEM TARTRATE 10 MG TABLET PO PRN (00:11)
[2022-03-23] MEDS: IBUPROFEN 400 MG TABLET PO PRN (04:37)
[2022-03-23] MEDS: ACETAMINOPHEN/CODEINE 300-30 MG TABLET PO PRN (08:17)
[2022-03-23] MEDS: FLUoxetine HCL 20 MG CAPSULE PO SCH (08:18)
[2022-03-23] MEDS: TraMADol HCL 50 MG TABLET PO PRN (14:05)
[2022-03-23] MEDS: QUEtiapine FUMARATE 300 MG TABLET PO SCH (20:38)
[2022-03-23] MEDS: HALOPERIDOL 5 MG TABLET PO PRN (20:38)
[2022-03-23] MEDS: LORazepam 2 MG TABLET PO PRN (21:57)
[2022-03-24] MEDS: FLUoxetine HCL 20 MG CAPSULE PO SCH (08:44)
[2022-03-24 08:47] VITALS: BP 98/68
[2022-03-24] MEDS: ACETAMINOPHEN/CODEINE 300-30 MG TABLET PO PRN ×2 (08:47→23:53)
[2022-03-24 09:47] VITALS: BP 102/64
[2022-03-24 13:43] VITALS: BP 112/72
[2022-03-24] MEDS: TraMADol HCL 50 MG TABLET PO PRN (13:43)
[2022-03-24 14:43] VITALS: BP 116/68
[2022-03-24 20:30] VITALS: BP 137/72
[2022-03-24] MEDS: QUEtiapine FUMARATE 300 MG TABLET PO SCH (21:24)
[2022-03-24 23:50] VITALS: BP 112/61
[2022-03-25 07:30] LABS: COVID AG,FIA SOURCE NASAL SWAB
[2022-03-25] MEDS: FLUoxetine HCL 20 MG CAPSULE PO SCH (08:08)
[2022-03-25 08:21] VITALS: BP 123/65
[2022-03-25] MEDS: IBUPROFEN 400 MG TABLET PO PRN (08:21)
[2022-03-25 08:35] VITALS: BP 123/65
[2022-03-25 12:08] VITALS: BP 119/73
[2022-03-25] MEDS: ACETAMINOPHEN/CODEINE 300-30 MG TABLET PO PRN (12:08)
[2022-03-25 13:08] VITALS: BP 120/69
[2022-03-25 16:03] VITALS: BP 118/69
[2022-03-25] MEDS: TraMADol HCL 50 MG TABLET PO PRN (16:03)
[2022-03-25] MEDS: QUEtiapine FUMARATE 300 MG TABLET PO SCH (21:04)
[2022-03-26 04:50] VITALS: BP 124/70
[2022-03-26] MEDS: ACETAMINOPHEN/CODEINE 300-30 MG TABLET PO PRN ×2 (04:52→16:03)
[2022-03-26 08:31] VITALS: BP 111/64
[2022-03-26] MEDS: FLUoxetine HCL 20 MG CAPSULE PO SCH (09:16)
[2022-03-26] MEDS: IBUPROFEN 400 MG TABLET PO PRN (11:20)
[2022-03-26 16:00] VITALS: BP 137/61
[2022-03-26] MEDS: QUEtiapine FUMARATE 300 MG TABLET PO SCH (20:31)
[2022-03-27 04:00] VITALS: BP 124/68
[2022-03-27] MEDS: ACETAMINOPHEN/CODEINE 300-30 MG TABLET PO PRN ×2 (04:04→16:09)
[2022-03-27 08:00] VITALS: BP 148/74
[2022-03-27] MEDS: FLUoxetine HCL 20 MG CAPSULE PO SCH (08:53)
[2022-03-27 16:00] VITALS: BP 149/66
[2022-03-27 16:09] VITALS: BP 137/78
[2022-03-27 16:30] VITALS: BP 149/66
[2022-03-27] MEDS: QUEtiapine FUMARATE 300 MG TABLET PO SCH (20:58)
[2022-03-27] MEDS: LORazepam 2 MG TABLET PO PRN (20:59)
[2022-03-27] MEDS: HALOPERIDOL 5 MG TABLET PO PRN (21:20)
[2022-03-28 07:13] VITALS: BP 120/80
[2022-03-28] MEDS: ACETAMINOPHEN/CODEINE 300-30 MG TABLET PO PRN ×2 (07:16→15:41)
[2022-03-28] MEDS: FLUoxetine HCL 20 MG CAPSULE PO SCH (08:07)
[2022-03-28 09:52] VITALS: BP 125/77
[2022-03-28 16:30] VITALS: BP 129/66
[2022-03-28] MEDS: HALOPERIDOL 5 MG TABLET PO PRN (19:59)
[2022-03-28] MEDS: QUEtiapine FUMARATE 300 MG TABLET PO SCH (20:41)
[2022-03-28] MEDS: LORazepam 2 MG TABLET PO PRN (20:41)
[2022-03-29 06:57] VITALS: BP 130/79
[2022-03-29] MEDS: ACETAMINOPHEN/CODEINE 300-30 MG TABLET PO PRN ×2 (06:57→15:52)
[2022-03-29 08:20] VITALS: BP 101/61
[2022-03-29] MEDS: FLUoxetine HCL 20 MG CAPSULE PO SCH (08:30)
[2022-03-29 15:53] VITALS: BP 132/78
[2022-03-29 16:16] VITALS: BP 148/85
[2022-03-29] MEDS: QUEtiapine FUMARATE 300 MG TABLET PO SCH (20:34)
[2022-03-30 03:50] VITALS: BP 132/66
[2022-03-30] MEDS: ACETAMINOPHEN/CODEINE 300-30 MG TABLET PO PRN (03:55)
[2022-03-30] MEDS: FLUoxetine HCL 20 MG CAPSULE PO SCH (08:41)
[2022-03-30 08:47] VITALS: BP 109/59
[2022-03-30] MEDS ORDERED: PROZ20 PO ×2 (13:07→16:00)
[2022-03-30] MEDS ORDERED: QUET300T19 PO ×2 (13:07→16:00)
== END 2022-03-30 13:45 | disposition home or self-care (01) | DRG 885 ==
LOC: EMS 16:03 → 3EI 02-22 01:22 → UNDOADMIN 02-22 01:22 → 3EI 02-24 17:22
PROVIDERS: ADMIT Psychiatry & Neurology Psychiatry; ATTEND Psychiatry & Neurology Psychiatry
DX: F25.1 Schizoaffective disorder, depressive type (principal); B19.20 Unspecified viral hepatitis C without hepatic coma; F15.20 Other stimulant dependence, uncomplicated; R45.851 Suicidal ideations; G89.29 Other chronic pain; Z20.822 Contact with and (suspected) exposure to COVID-19; D72.819 Decreased white blood cell count, unspecified; E03.9 Hypothyroidism, unspecified; F10.10 Alcohol abuse, uncomplicated; I10 Essential (primary) hypertension; J44.9 Chronic obstructive pulmonary disease, unspecified; K59.00 Constipation, unspecified; M19.90 Unspecified osteoarthritis, unspecified site; R45.850 Homicidal ideations; Z59.00 Homelessness unspecified; Z79.899 Other long term (current) drug therapy; Z91.51 Personal history of suicidal behavior
CPT/HCPCS: 80053; 81003; 85025; 87081; 97116; 97162; 97530; 99285; G0480; G0481

== ENCOUNTER 2022-03-30 15:19 | Emergency (ER) | payer MEDICARE, OTHER ==
[~2022-03-30] VITALS: Ht 177.8 cm; Wt 102.0 kg
[~2022-03-30 15:19] MED LIST changes: +FLUO20CA36 PO; +PROZ20 PO; +QUET300T19 PO
[2022-03-30 15:25] VITALS: BP 124/77
[2022-03-30] MEDS ORDERED: PROZ20 PO (16:00)
[2022-03-30] MEDS ORDERED: QUET300T19 PO (16:00)
[2022-03-30] MEDS ORDERED: OxyCODONE HCL/ACETAMINOPHEN 5-325 MG TABLET PO ONE (16:30)
== END 2022-03-30 17:11 | disposition home or self-care (01) ==
LOC: EMS 15:19
DX: M17.9 Osteoarthritis of knee, unspecified (principal); F31.9 Bipolar disorder, unspecified; F20.9 Schizophrenia, unspecified; F15.90 Other stimulant use, unspecified, uncomplicated; G89.29 Other chronic pain; Z98.890 Other specified postprocedural states
CPT/HCPCS: 99283

== ENCOUNTER 2022-05-05 19:41 | Emergency (ER) | payer MEDICARE, OTHER ==
[~2022-05-05] VITALS: Ht 177.8 cm; Wt 90.0 kg
[~2022-05-05 19:41] MED LIST changes: -ACET-66 PO; -FLUO20CA36 PO; -IBUP-2070 PO
[2022-05-05] MEDS ORDERED: IBUPROFEN 600 MG TABLET PO ONE (20:15)
[2022-05-05 20:35] VITALS: BP 158/75
== END 2022-05-05 20:39 | disposition home or self-care (01) ==
LOC: EMS 19:47
DX: S80.01XA Contusion of right knee, initial encounter (principal); M17.4 Other bilateral secondary osteoarthritis of knee; F31.9 Bipolar disorder, unspecified; F20.9 Schizophrenia, unspecified; F15.90 Other stimulant use, unspecified, uncomplicated; Z98.890 Other specified postprocedural states; Z91.018 Allergy to other foods; W19.XXXA Unspecified fall, initial encounter; Y93.89 Activity, other specified; Y92.89 Other specified places as the place of occurrence of the external cause; Y99.8 Other external cause status
CPT/HCPCS: 99283

== ENCOUNTER 2022-05-12 17:21 | Emergency (ER) | payer MEDICARE, OTHER ==
[~2022-05-12] VITALS: Ht 177.8 cm; Wt 95.5 kg
[2022-05-12] MEDS ORDERED: ACET-66 PO (18:07)
[2022-05-12] MEDS ORDERED: IBUP-1554 PO (18:07)
[2022-05-12] MEDS ORDERED: DOCU100C33 PO (18:11)
[2022-05-12] MEDS ORDERED: FLUO20CA36 PO (18:11)
[2022-05-12] MEDS ORDERED: ACETAMINOPHEN 500 MG TABLET PO ONE (18:15)
[2022-05-12] MEDS ORDERED: IBUPROFEN 600 MG TABLET PO ONE (18:15)
[2022-05-12 18:35] VITALS: BP 176/93
== END 2022-05-12 18:39 | disposition home or self-care (01) ==
LOC: EMS 17:24
DX: M17.0 Bilateral primary osteoarthritis of knee (principal); F25.1 Schizoaffective disorder, depressive type; F31.9 Bipolar disorder, unspecified; F15.90 Other stimulant use, unspecified, uncomplicated
CPT/HCPCS: 99283

== ENCOUNTER 2022-06-12 23:20 | Emergency (ER) | payer MEDICARE, OTHER ==
[~2022-06-12] VITALS: Ht 177.8 cm; Wt 95.0 kg
[~2022-06-12 23:20] MED LIST changes: +ACET-66 PO; +DOCU100C33 PO; +FLUO20CA36 PO; +IBUP-1554 PO; -PROZ20 PO
[2022-06-13 01:34] VITALS: BP 142/88
== END 2022-06-13 01:46 | disposition home or self-care (01) ==
LOC: EMS 23:24
DX: B35.1 Tinea unguium (principal); L84 Corns and callosities; F25.1 Schizoaffective disorder, depressive type; F31.9 Bipolar disorder, unspecified; Z98.890 Other specified postprocedural states; Z91.018 Allergy to other foods
CPT/HCPCS: 99281; Z7502

== ENCOUNTER 2022-06-13 11:44 | Emergency (ER) | payer MEDICARE, OTHER ==
[~2022-06-13] VITALS: Ht 180.3 cm; Wt 91.0 kg
[2022-06-13 12:16] VITALS: BP 144/70
== END 2022-06-13 14:10 | disposition home or self-care (01) ==
LOC: EMS 11:53
DX: F25.1 Schizoaffective disorder, depressive type (principal); F31.9 Bipolar disorder, unspecified; I60.9 Nontraumatic subarachnoid hemorrhage, unspecified
CPT/HCPCS: 99284; Z7502

== ENCOUNTER 2022-06-16 18:48 | Inpatient (IN) | payer MEDICARE, MEDICAID ==
[~2022-06-16] VITALS: Ht 170.2 cm; Wt 100.2 kg
[2022-06-16 20:00] LABS: BASOPHILS % (AUTO) 0.2 % (0.0-2.0); EOSINOPHILS % (AUTO) 2.3 % (1.0-6.0); HEMATOCRIT 36.6 % (41-53); HEMOGLOBIN 12.5 g/dL (13.5-17.5); LYMPHOCYTES # (AUTO) 1.1 K/uL (1.0-4.8); LYMPHOCYTES % (AUTO) 26.5 % (22.0-44.0); MEAN CORPUSCULAR HEMOGLOBIN 30.9 pg (26.0-34.0); MEAN CORPUSCULAR HGB CONC 34.1 G/dL (31.0-37.0); MEAN CORPUSCULAR VOLUME 91 fL (80-100); MONOCYTES # (AUTO) 0.5 K/uL (0.1-1.0); MONOCYTES % (AUTO) 12.4 % (2.0-9.0); NEUTROPHILS # (AUTO) 2.4 K/uL (1.8-7.7); NEUTROPHILS % (AUTO) 58.6 % (40.0-70.0); PLATELET COUNT (AUTO) 183 K/uL (150-450); RED BLOOD CELL COUNT(AUTO) 4.04 MIL/uL (4.50-5.90); RED CELL DISTRIBUTION WIDTH 14.7 % (11.5-14.5)
[2022-06-16 20:07] LABS: ANION GAP 10 mmol/L (8-16); CALCIUM, TOTAL 8.4 mg/dL (8.8-10.5); CARBON DIOXIDE 27 mmol/L (22-29); CHLORIDE 103 mmol/L (98-107); CREATININE 0.84 mg/dL (0.60-1.30); GLOMERULAR FILTR. RATE CALC > 60 mL/min (>60); GLUCOSE,RANDOM 122 mg/dL (70-110); POTASSIUM 3.3 mmol/L (3.5-5.1); SODIUM SERUM 140 mmol/L (136-145); UREA NITROGEN, BLOOD 20 mg/dL (7-18)
[2022-06-16 20:13] LABS: ALANINE AMINOTRANSFERASE 35 U/L (12-78); ALBUMIN 3.7 g/dL (3.4-5.0); ALKALINE PHOSPHATASE 108 U/L (46-116); ASPARTATE AMINOTRANSFERASE 27 U/L (15-37); BILIRUBIN,TOTAL 0.3 mg/dL (0.1-1.0); TOTAL PROTEIN, SERUM 7.2 g/dL (6.4-8.2)
[2022-06-16] MEDS ORDERED: LORazepam 2 MG TABLET PO ONE (21:30)
[2022-06-16] MEDS ORDERED: HALOPERIDOL 5 MG TABLET PO ONE (21:30)
[2022-06-16] MEDS ORDERED: POTASSIUM CHLORIDE 10% 40 MEQ/30 ML LIQUID UDCUP PO ONE (21:30)
[2022-06-16] MEDS ORDERED: IBUPROFEN 600 MG TABLET PO ONE (21:30)
[2022-06-16 22:28] LABS: COVID AG,FIA SOURCE NASOPHARYNGEAL
[2022-06-16] MEDS ORDERED: HALOPERIDOL 5 MG TABLET PO PRN (22:30)
[2022-06-16] MEDS ORDERED: ZOLPIDEM TARTRATE 10 MG TABLET PO PRN (22:30)
[2022-06-17] MEDS ORDERED: BENZOCAINE/MENTHOL LOZENGE PO PRN (07:00)
[2022-06-17] MEDS ORDERED: LOPERAMIDE HCL 2 MG CAPSULE PO PRN (07:00)
[2022-06-17] MEDS ORDERED: OMEPRAZOLE 20 MG CAPSULE PO PRN (07:00)
[2022-06-17] MEDS ORDERED: PETROLATUM,WHITE 28 GM JELLY TP PRN (07:00)
[2022-06-17] MEDS ORDERED: MAG HYDROX/AL HYDROX/SIMETH ES 30 ML SUSPENSION UDCUP PO PRN (07:00)
[2022-06-17] MEDS ORDERED: MAGNESIUM HYDROXIDE SUSPENSION 30 ML UDCUP PO PRN (07:00)
[2022-06-17] MEDS ORDERED: ALBUTEROL SULFATE HFA 90 MCG/PUFF 8 GM INHALER IH PRN (07:00)
[2022-06-17] MEDS ORDERED: BACITRACIN 28 GM OINTMENT TP PRN (07:00)
[2022-06-17] MEDS ORDERED: ONDANSETRON HCL 4 MG TABLET PO PRN (07:00)
[2022-06-17] MEDS ORDERED: CloNIDine HCL 0.1 MG TABLET PO PRN (07:00)
[2022-06-17] MEDS ORDERED: DOCUSATE SODIUM 100 MG CAPSULE PO PRN (07:00)
[2022-06-17] MEDS ORDERED: ACETAMINOPHEN 325 MG TABLET PO PRN (07:00)
[2022-06-17 09:25] VITALS: BP 135/73
[2022-06-17 16:07] VITALS: BP 145/73
[2022-06-17] MEDS: QUEtiapine FUMARATE 200 MG TABLET PO SCH (20:41)
[2022-06-17 20:50] VITALS: BP 134/72
[2022-06-17 21:05] VITALS: BP 134/72
[2022-06-17] MEDS: IBUPROFEN 600 MG TABLET PO PRN (21:09)
[2022-06-18 09:50] VITALS: BP 135/70
[2022-06-18 10:14] VITALS: BP 135/70
[2022-06-18 17:12] VITALS: BP 128/76
[2022-06-18] MEDS: LORazepam 2 MG TABLET PO PRN (17:12)
[2022-06-18] MEDS: TraMADol HCL 50 MG TABLET PO PRN (17:12)
[2022-06-18 18:12] VITALS: BP 132/74
[2022-06-18] MEDS: QUEtiapine FUMARATE 200 MG TABLET PO SCH (20:44)
[2022-06-18 21:59] VITALS: BP 134/66
[2022-06-19] VITALS (7 sets, daily range): BP systolic 123–145; BP diastolic 66–79
[2022-06-19] MEDS: IBUPROFEN 600 MG TABLET PO PRN (06:24)
[2022-06-19 16:30] LABS: COVID AG,FIA SOURCE NASAL SWAB
[2022-06-19] MEDS: QUEtiapine FUMARATE 200 MG TABLET PO SCH (20:48)
[2022-06-20 02:43] VITALS: BP 122/70
[2022-06-20 08:27] VITALS: BP 126/75
[2022-06-20 09:19] VITALS: BP 126/75
[2022-06-20] MEDS: IBUPROFEN 600 MG TABLET PO PRN (09:19)
[2022-06-20] MEDS: TraMADol HCL 50 MG TABLET PO PRN (15:19)
[2022-06-20 16:13] VITALS: BP 156/70
[2022-06-20] MEDS: QUEtiapine FUMARATE 200 MG TABLET PO SCH (20:27)
[2022-06-20 21:00] VITALS: BP 144/62
[2022-06-20 21:29] VITALS: BP 144/62
[2022-06-21 03:50] VITALS: BP 139/75
[2022-06-21] MEDS: TraMADol HCL 50 MG TABLET PO PRN ×2 (03:51→14:15)
[2022-06-21 07:51] VITALS: BP 139/69
[2022-06-21] MEDS: IBUPROFEN 600 MG TABLET PO PRN (07:51)
[2022-06-21 09:15] VITALS: BP 133/68
[2022-06-21 14:15] VITALS: BP 128/69
[2022-06-21 16:37] VITALS: BP 135/84
[2022-06-21] MEDS: QUEtiapine FUMARATE 200 MG TABLET PO SCH (20:32)
[2022-06-21 20:35] VITALS: BP 114/64
[2022-06-22 03:12] VITALS: BP 131/78
[2022-06-22] MEDS: TraMADol HCL 50 MG TABLET PO PRN ×2 (03:15→15:31)
[2022-06-22 09:09] VITALS: BP 117/62
[2022-06-22 09:52] VITALS: BP 126/63
[2022-06-22] MEDS: IBUPROFEN 600 MG TABLET PO PRN (09:52)
[2022-06-22 15:31] VITALS: BP 126/62
[2022-06-22 16:58] VITALS: BP 135/72
[2022-06-22 20:35] VITALS: BP 122/63
[2022-06-22] MEDS: QUEtiapine FUMARATE 200 MG TABLET PO SCH (20:40)
[2022-06-23] VITALS (9 sets, daily range): BP systolic 128–145; BP diastolic 71–83
[2022-06-23] MEDS: LORazepam 2 MG TABLET PO PRN (03:39)
[2022-06-23] MEDS: TraMADol HCL 50 MG TABLET PO PRN ×2 (10:08→19:18)
[2022-06-23] MEDS: IBUPROFEN 600 MG TABLET PO PRN (14:17)
[2022-06-23] MEDS: QUEtiapine FUMARATE 200 MG TABLET PO SCH (20:22)
[2022-06-24 05:35] VITALS: BP 135/80
[2022-06-24] MEDS: IBUPROFEN 600 MG TABLET PO PRN ×2 (05:37→19:55)
[2022-06-24 16:21] VITALS: BP 135/79
[2022-06-24] MEDS: TraMADol HCL 50 MG TABLET PO PRN (16:21)
[2022-06-24 16:50] VITALS: BP 135/79
[2022-06-24] MEDS ORDERED: TraMADol HCL 50 MG TABLET PO PRN (18:00)
[2022-06-24 19:55] VITALS: BP 140/78
[2022-06-24] MEDS: QUEtiapine FUMARATE 200 MG TABLET PO SCH (20:06)
[2022-06-24 20:25] VITALS: BP 150/86
[2022-06-25 05:16] VITALS: BP 139/73
[2022-06-25 08:30] VITALS: BP 110/67
[2022-06-25 13:42] VITALS: BP 126/69
[2022-06-25] MEDS: OxyCODONE HCL 5 MG IR TABLET PO PRN ×2 (13:44→20:34)
[2022-06-25 16:00] VITALS: BP 114/51
[2022-06-25 17:00] VITALS: BP 114/51
[2022-06-25 20:32] VITALS: BP 110/60
[2022-06-25] MEDS: QUEtiapine FUMARATE 200 MG TABLET PO SCH (20:41)
[2022-06-26 05:05] VITALS: BP 120/75
[2022-06-26] MEDS: OxyCODONE HCL 5 MG IR TABLET PO PRN (05:07)
[2022-06-26 07:27] LABS: COVID AG,FIA SOURCE NASAL SWAB
[2022-06-26 08:53] VITALS: BP 126/70
[2022-06-26 16:25] VITALS: BP 156/86
[2022-06-26] MEDS: TraMADol HCL 50 MG TABLET PO PRN (16:25)
[2022-06-26] MEDS: QUEtiapine FUMARATE 200 MG TABLET PO SCH (20:41)
[2022-06-26 22:02] VITALS: BP 126/71
[2022-06-27] VITALS (7 sets, daily range): BP systolic 117–153; BP diastolic 66–74
[2022-06-27] MEDS: TraMADol HCL 50 MG TABLET PO PRN ×2 (05:20→13:09)
[2022-06-27] MEDS: IBUPROFEN 600 MG TABLET PO PRN (08:30)
[2022-06-27] MEDS: QUEtiapine FUMARATE 200 MG TABLET PO SCH (20:46)
[2022-06-28 06:50] VITALS: BP 116/65
[2022-06-28] MEDS: TraMADol HCL 50 MG TABLET PO PRN ×2 (06:56→15:09)
[2022-06-28 07:55] VITALS: BP 118/71
[2022-06-28 09:23] VITALS: BP 116/71
[2022-06-28 15:09] VITALS: BP 137/63
[2022-06-28 16:09] VITALS: BP 132/68
[2022-06-28 21:00] VITALS: BP 138/76
[2022-06-28] MEDS: QUEtiapine FUMARATE 200 MG TABLET PO SCH (21:08)
[2022-06-29] VITALS (7 sets, daily range): BP systolic 123–142; BP diastolic 63–78
[2022-06-29] MEDS: TraMADol HCL 50 MG TABLET PO PRN ×2 (05:05→14:15)
[2022-06-29] MEDS: IBUPROFEN 600 MG TABLET PO PRN (08:01)
[2022-06-29] MEDS: QUEtiapine FUMARATE 200 MG TABLET PO SCH (21:18)
[2022-06-30 04:59] VITALS: BP 151/74
[2022-06-30] MEDS: TraMADol HCL 50 MG TABLET PO PRN ×2 (05:03→16:07)
[2022-06-30 09:16] VITALS: BP 105/60
[2022-06-30] MEDS: IBUPROFEN 600 MG TABLET PO PRN (10:07)
[2022-06-30 16:10] VITALS: BP 137/74
[2022-06-30] MEDS: QUEtiapine FUMARATE 200 MG TABLET PO SCH (20:51)
[2022-06-30 21:59] VITALS: BP 143/67
[2022-07-01 04:39] VITALS: BP 140/75
[2022-07-01] MEDS: IBUPROFEN 600 MG TABLET PO PRN (04:41)
[2022-07-01 08:53] VITALS: BP 141/72
[2022-07-01] MEDS: TraMADol HCL 50 MG TABLET PO PRN ×2 (08:56→16:22)
[2022-07-01 16:19] VITALS: BP 109/65
[2022-07-01] MEDS: QUEtiapine FUMARATE 200 MG TABLET PO SCH (21:07)
[2022-07-01 21:21] VITALS: BP 135/75
[2022-07-02 03:45] VITALS: BP 150/82
[2022-07-02] MEDS: TraMADol HCL 50 MG TABLET PO PRN (03:51)
[2022-07-02 08:41] VITALS: BP 119/57
[2022-07-02 17:16] VITALS: BP 123/65
[2022-07-02] MEDS: QUEtiapine FUMARATE 200 MG TABLET PO SCH (20:39)
[2022-07-02 22:32] VITALS: BP 107/68
[2022-07-03] MEDS: TraMADol HCL 50 MG TABLET PO PRN (06:46)
[2022-07-03 06:49] VITALS: BP 134/69
[2022-07-03 07:50] LABS: COVID AG,FIA SOURCE NASAL SWAB
[2022-07-03 09:19] VITALS: BP 102/52
[2022-07-03 16:00] VITALS: BP 118/64
[2022-07-03] MEDS ORDERED: QUET200T30 PO (16:12)
[2022-07-03 16:20] VITALS: BP 118/64
== END 2022-07-03 17:00 | disposition home or self-care (01) | DRG 885 ==
LOC: EMS 18:52 → 3EI 22:57
PROVIDERS: ADMIT Psychiatry & Neurology Psychiatry; ATTEND Psychiatry & Neurology Psychiatry
DX: F25.1 Schizoaffective disorder, depressive type (principal); B19.20 Unspecified viral hepatitis C without hepatic coma; R45.851 Suicidal ideations; E03.9 Hypothyroidism, unspecified; E87.6 Hypokalemia; F41.9 Anxiety disorder, unspecified; G47.00 Insomnia, unspecified; G89.29 Other chronic pain; I10 Essential (primary) hypertension; J44.9 Chronic obstructive pulmonary disease, unspecified; K59.00 Constipation, unspecified; M17.10 Unilateral primary osteoarthritis, unspecified knee; M21.069 Valgus deformity, not elsewhere classified, unspecified knee; F11.90 Opioid use, unspecified, uncomplicated; Z20.822 Contact with and (suspected) exposure to COVID-19; M25.561 Pain in right knee; M54.50 Low back pain, unspecified; F17.210 Nicotine dependence, cigarettes, uncomplicated; F19.10 Other psychoactive substance abuse, uncomplicated; Z79.899 Other long term (current) drug therapy
CPT/HCPCS: 80053; 84132; 85025; 87081; 99285; G0480